=== PATIENT | female | born 1940 | race Caucasian/White ===

== ENCOUNTER 2016-04-23 14:45 | Inpatient (IN) | payer MEDICARE, BC ==
[2016-04-23 16:10] LABS: Hematocrit 28 % (35-47); Hemoglobin 9.2 g/dl (12.0-16.0); Mean Corpuscular HGB Conc 33 g/dl (31-36); Mean Corpuscular Hemoglobin 29 pg (27-31); Mean Corpuscular Volume 88 fL (80-97); Mean Platelet Volume 9 um3 (7.4-10.4); Red Blood Count 3.13 10^6/ul (4.0-5.4); Red Cell Distribution Width 15 % (10.5-15); White Blood Count 4.9 10^3/ul (3.5-10.8)
[2016-04-23 16:24] LABS: Troponin I 0.02 ng/mL (<0.04)
[2016-04-23 16:33] LABS: ALT 5 U/L (7-52); AST 10 U/L (13-39); Albumin 3.8 g/dL (3.2-5.2); Alcohol < 10 mg/dL (<10); Alkaline Phosphatase 41 U/L (34-104); Anion Gap 13 mmol/L (2-11); BUN/Creatinine Ratio 11.8 (8-20); Blood Urea Nitrogen 119 mg/dL (6-24); CO2 Carbon Dioxide 18 mmol/L (22-32); Chloride 96 mmol/L (101-111); EGFR African American 4.8 (>60); EGFR Non-African American 3.8 (>60); Globulin 3.2 g/dL (2-4); Glucose 109 mg/dL (70-100); Potassium 5.6 mmol/L (3.5-5.0); Sodium 127 mmol/L (133-145)
[2016-04-23] MEDS: NS 0.9% 1000 ML* 2,000 ML IV ONE ×2 (16:33→16:34)
[2016-04-23 16:51] LABS: TSH (Thyroid Stimulating Horm) 5.96 mcIU/mL (0.34-5.60)
[2016-04-23 19:25] LABS: Urine Bacteria Absent (Absent); Urine Bilirubin Negative (Negative); Urine Glucose Negative (Negative); Urine Nitrite Negative (Negative)
[2016-04-23] MEDS ORDERED: oxyCODONE/Acetamin 10/325(NF) TAB PO PRN (20:02)
[2016-04-23] MEDS ORDERED: Albuterol HFA INHALER* 8 gm MDI INH PRN (20:02)
[2016-04-23] MEDS ORDERED: Albuterol 2.5 MG/3 ML NEB.SOL* (0.083%) INH PRN (20:06)
[2016-04-23] MEDS ORDERED: NS 0.9% 1000 ML* 1,000 ML IV SCH (20:45)
--- NOTE | 2016-04-23 20:57 | RAD ---
HISTORY: Acute renal failure COMPARISONS: CT dated December 16, 2015 TECHNIQUE: Multiple transverse and longitudinal ultrasound images were obtained of the kidneys using grayscale and color Doppler imaging. FINDINGS: RIGHT KIDNEY: There is right renal cortical parenchymal thinning. The right kidney is somewhat echogenic. There is no hydronephrosis or nephrolithiasis. The right kidney measures 9.3 x 4.5 x 4.3 cm. LEFT KIDNEY: The left kidney is normal in shape, size, contour, and echogenicity. There is no hydronephrosis or nephrolithiasis. The left kidney measures 10.2 x 4 x 4.5 cm. BLADDER: No images are submitted of the bladder. AORTA AND IVC: No images are submitted of the vasculature. RETROPERITONEUM: Unremarkable. OTHER: None. IMPRESSION: NO HYDRONEPHROSIS OR NEPHROLITHIASIS. THE RIGHT KIDNEY IS ATROPHIC AND SOMEWHAT ECHOGENIC SUGGESTIVE OF MEDICAL RENAL DISEASE
[2016-04-23 21:04] LABS: Benzodiazepine Urine Screen None Detected (None Detect)
--- NOTE | 2016-04-23 21:19 | RAD ---
HISTORY: Cough COMPARISONS: December 16, 2015 VIEWS:1: Single frontal portable view of the chest at 9:03 PM FINDINGS: LINES AND TUBES: None. CARDIOMEDIASTINAL SILHOUETTE: The cardiomediastinal silhouette is normal for portable technique. PLEURA: The costophrenic angles are sharp. No pleural abnormalities are noted. LUNG PARENCHYMA: The lungs are clear. ABDOMEN: The upper abdomen is clear. There is no subphrenic gas. BONES AND SOFT TISSUES: No bone or soft tissue abnormalities are noted. IMPRESSION: NO ACTIVE CARDIOPULMONARY DISEASE.
--- NOTE | 2016-04-23 21:44 | ED ---
Josh Ballard Billy, scribed for Christopher Epperson MD on 04/23/16 at 1558 . Altered Mental Status - HPI Summary HPI Summary: Patient is a 76 year-old male coming to [facility] presenting with intermittent episodes of confusion and decreased levels of consciousness for 3 days. Patient was BIBA today because her family said she was not waking up at home. She arrives A&Ox3 wearing a fentanyl patch. She saw Dr. Brooks yesterday and states that he said she was overmedicated. She denies any changes in her medication. She uses oxycodone and fentanyl for joint pain. History obtained from family and patient. - History Of Current Complaint Chief Complaint: EDAltMentalStatus Stated Complaint: SEMI-RESPONSIVE Time Seen by Provider: 04/23/16 15:30 Hx Obtained From: Patient, Family/Care Transition Mgr Onset/Duration: Gradually Timing: Intermittent Severity Initially: Moderate Severity Currently: Moderate Character: Confusion, Responsiveness Aggravating Factor(s): Unknown Alleviating Factor(s): Unknown - Allergies/Home Medications Allergies/Adverse Reactions: Allergies Allergy/AdvReac Type Severity Reaction Status Date / Time Amoxicillin Allergy Anaphylatic Verified 03/17/16 13:41 Shock Iodine Allergy Hives Verified 03/17/16 13:41 Morphine Allergy GI Upset Verified 03/17/16 13:41 Gabapentin AdvReac Intermediate Swelling Verified 03/17/16 13:41 Pregabalin [From Lyrica] AdvReac Edema Verified 03/17/16 13:41 Sulfa Drugs AdvReac Nausea And Verified 03/17/16 13:41 Vomiting PMH/Surg Hx/FS Hx/Imm Hx Endocrine/Hematology History: Reports: Hx Thyroid Disease - hypothyroidism Denies: Hx Diabetes Cardiovascular History: Reports: Hx Hypercholesterolemia, Hx Hypotension, Hx Hypertension, Other Cardiovascular Problems/Disorders - cardiomyopathy Denies: Hx Pacemaker/ICD Respiratory History: Reports: Hx Asthma, Hx Pneumonia, Hx Sleep Apnea GI History: Reports: Hx Gastroesophageal Reflux Disease, Hx Obstructive Bowel History: Denies: Hx Renal Disease Musculoskeletal History: Reports: Hx Arthritis - hands,hips, shoulders, Hx Back Problems, Hx Fibromyalgia, Hx Orthopedic Injury - Fx Pelvis 1960; Rt. Tibia, Fibula,&Ankle Sensory History: Reports: Hx Contacts or Glasses - glasses Denies: Hx Hearing Aid Opthamlomology History: Reports: Hx Contacts or Glasses - glasses Neurological History: Reports: Hx Dementia, Hx Migraine, Other Neuro Impairments /Disorders - PAIN CLINIC PATIENT Psychiatric History: Reports: Hx Anxiety, Hx Depression Denies: Hx Panic Disorder - Surgical History Surgery Procedure, Year, and Place: hysterectomy,ankle replacement,lt knee replacement,gallblader,gastric surgery for gerd. Hx Anesthesia Reactions: No - Immunization History Date of Tetanus Vaccine: unknown Date of Influenza Vaccine: 2014 Infectious Disease History: No Infectious Disease History: Denies: Hx Clostridium Difficile, Hx Hepatitis, Hx Human Immunodeficiency Virus (HIV), Hx of Known/Suspected MRSA, Hx Shingles, Hx Tuberculosis, Hx Known/ Suspected VRE, Hx Known/Suspected VRSA, History Other Infectious Disease, Traveled Outside the [place] in Last 30 Days - Family History Known Family History: Positive: Cardiac Disease - Social History Alcohol Use: None Substance Use Type: Reports: None Substance Use Comment - Amount & Last Used: fentanyl patch and percocet Smoking Status (MU): Never Smoked Tobacco Have You Smoked in the Last Year: No Review of Systems Negative: Fever Neurological: Other - confusion, decreased level of consciousness All Other Systems Reviewed And Are Negative: Yes Physical Exam Triage Information Reviewed: Yes Vital Signs On Initial Exam: Initial Vitals Temp Pulse Resp BP Pulse Ox 98 F 64 18 79/41 95 04/23/16 15:00 04/23/16 15:00 04/23/16 15:00 04/23/16 15:00 04/23/16 15:00 Vital Signs Reviewed: Yes Appearance: Positive: Well-Appearing, No Pain Distress Skin: Positive: Warm, Skin Color Reflects Adequate Perfusion, Dry Head/Face: Positive: Normal Head/Face Inspection Eyes: Positive: VERONICA - 2mm ENT: Positive: Normal ENT inspection Neck: Positive: Supple, Nontender Respiratory/Lung Sounds: Positive: Clear to Auscultation, Breath Sounds Present , Other - periodically bradypnic Cardiovascular: Positive: RRR, Murmur - moderate ejection systolic murmur Musculoskeletal: Positive: Other - pattern of intermittent twitching Neurological: Positive: Other - mildly confused Psychiatric: Positive: Affect/Mood Appropriate - [place] Coma Scale Coma Scale Total: 15 Diagnostics - Vital Signs Vital Signs Temp Pulse Resp BP Pulse Ox 04/23/16 15:00 98 F 64 18 79/41 95 - Laboratory Lab Results: Lab Results 04/23/16 04/23/16 04/23/16 Range/Units 15:05 15:05 15:05 WBC 4.9 (3.5-10.8) 10^3/ul RBC 3.13 L (4.0-5.4) 10^6/ul Hgb 9.2 L (12.0-16.0) g/dl Hct 28 L (35-47) % MCV 88 (80-97) fL MCH 29 (27-31) pg MCHC 33 (31-36) g/dl RDW 15 (10.5-15) % Plt Count 168 (150-450) 10^3/ul MPV 9 (7.4-10.4) um3 Neut % (Auto) 48.2 (38-83) % Lymph % (Auto) 36.8 (25-47) % Glenn % (Auto) 10.0 H (1-9) % Eos % (Auto) 4.2 (0-6) % Baso % (Auto) 0.8 (0-2) % Absolute Neuts (auto) 2.4 (1.5-7.7) 10^3/ul Absolute Lymphs (auto) 1.8 (1.0-4.8) 10^3/ul Absolute Monos (auto) 0.5 (0-0.8) 10^3/ul Absolute Eos (auto) 0.2 (0-0.6) 10^3/ul Absolute Basos (auto) 0 (0-0.2) 10^3/ul Absolute Nucleated RBC 0 10^3/ul Nucleated RBC % 0.1 Sodium 127 L (133-145) mmol/L Potassium 5.6 H (3.5-5.0) mmol/L Chloride 96 L (101-111) mmol/L Carbon Dioxide 18 L (22-32) mmol/L Anion Gap 13 H (2-11) mmol/L BUN 119 H (6-24) mg/dL Creatinine 10.07 H (0.51-0.95) mg/dL Est GFR ( Amer) 4.8 (>60) Est GFR (Non-Af Amer) 3.8 (>60) BUN/Creatinine Ratio 11.8 (8-20) Glucose 109 H (70-100) mg/dL Lactic Acid 0.7 (0.5-2.0) mmol/L Calcium 9.0 (8.6-10.3) mg/dL Total Bilirubin 0.30 (0.2-1.0) mg/dL AST 10 L (13-39) U/L ALT 5 L (7-52) U/L Alkaline Phosphatase 41 (34-104) U/L Troponin I 0.02 (<0.04) ng/mL Total Protein 7.0 (6.4-8.9) g/dL Albumin 3.8 (3.2-5.2) g/dL Globulin 3.2 (2-4) g/dL Albumin/Globulin Ratio 1.2 (1-3) TSH 5.96 H (0.34-5.60) mcIU/mL Urine Color Urine Appearance Urine pH (5-9) Ur Specific [place] (1.010-1.030) Urine Protein (Negative) Urine Ketones (Negative) Urine Blood (Negative) Urine Nitrate (Negative) Urine Bilirubin (Negative) Urine Urobilinogen (Negative) Ur Leukocyte Esterase (Negative) Urine WBC (Auto) (Absent) Urine RBC (Auto) (Absent) Ur Squamous Epith Cells (Absent) Ur Transition Epith Cell (Absent) Urine Bacteria (Absent) Hyaline Casts (Absent) Urine Glucose (Negative) Serum Alcohol < 10 (<10) mg/dL 04/23/16 Range/Units 19:02 WBC (3.5-10.8) 10^3/ul RBC (4.0-5.4) 10^6/ul Hgb (12.0-16.0) g/dl Hct (35-47) % MCV (80-97) fL MCH (27-31) pg MCHC (31-36) g/dl RDW (10.5-15) % Plt Count (150-450) 10^3/ul MPV (7.4-10.4) um3 Neut % (Auto) (38-83) % Lymph % (Auto) (25-47) % Glenn % (Auto) (1-9) % Eos % (Auto) (0-6) % Baso % (Auto) (0-2) % Absolute Neuts (auto) (1.5-7.7) 10^3/ul Absolute Lymphs (auto) (1.0-4.8) 10^3/ul Absolute Monos (auto) (0-0.8) 10^3/ul Absolute Eos (auto) (0-0.6) 10^3/ul Absolute Basos (auto) (0-0.2) 10^3/ul Absolute Nucleated RBC 10^3/ul Nucleated RBC % Sodium (133-145) mmol/L Potassium (3.5-5.0) mmol/L Chloride (101-111) mmol/L Carbon Dioxide (22-32) mmol/L Anion Gap (2-11) mmol/L BUN (6-24) mg/dL Creatinine (0.51-0.95) mg/dL Est GFR ( Amer) (>60) Est GFR (Non-Af Amer) (>60) BUN/Creatinine Ratio (8-20) Glucose (70-100) mg/dL Lactic Acid (0.5-2.0) mmol/L Calcium (8.6-10.3) mg/dL Total Bilirubin (0.2-1.0) mg/dL AST (13-39) U/L ALT (7-52) U/L Alkaline Phosphatase (34-104) U/L Troponin I (<0.04) ng/mL Total Protein (6.4-8.9) g/dL Albumin (3.2-5.2) g/dL Globulin (2-4) g/dL Albumin/Globulin Ratio (1-3) TSH (0.34-5.60) mcIU/mL Urine Color Yellow Urine Appearance Cloudy Urine pH 5.0 (5-9) Ur Specific [place] 1.013 (1.010-1.030) Urine Protein Negative (Negative) Urine Ketones Negative (Negative) Urine Blood 3+ H (Negative) Urine Nitrate Negative (Negative) Urine Bilirubin Negative (Negative) Urine Urobilinogen Negative (Negative) Ur Leukocyte Esterase 3+ H (Negative) Urine WBC (Auto) 2+(11-20/hpf) H (Absent) Urine RBC (Auto) 1+(3-5/hpf) H (Absent) Ur Squamous Epith Cells Present H (Absent) Ur Transition Epith Cell Present H (Absent) Urine Bacteria Absent (Absent) Hyaline Casts Present H (Absent) Urine Glucose Negative (Negative) Serum Alcohol (<10) mg/dL Result Diagrams: 04/23/16 15:05 04/23/16 15:05 Lab Statement: Any lab studies that have been ordered have been reviewed, and results considered in the medical decision making process. Re-Evaluation - Re-Evaluation First Eval Re-Evaluation Time: 17:40 Comment: Bladderscan shows no residual urine. Altered Mental Statu Course/Dx - Course Course Of Treatment: Ms. morley presented with lethargy and confusion and an intermittent twitch. She was found to be in acute renal failure and admitted to the hospitalist. - Diagnoses Discharge Diagnoses: Acute renal failure Discharge - Discharge Plan Condition: Stable Disposition: ADMITTED TO [facility] documentation as recorded by the Josh wisdom Billy accurately reflects the service I personally performed and the decisions made by me, Christopher Epperson MD.
[2016-04-23] MEDS: Heparin VIAL(*) 5000 UNITS/ML VIAL (FIVE THOUSAND) SUBCUT SCH (21:58)
[2016-04-23] MEDS ORDERED: cefTRIAXone(*) 1 GM in NS 0.9% 50 ML* 50 ML IVPB ONE (22:00)
[2016-04-23 23:31] LABS: Hematocrit 27 % (35-47); Hemoglobin 8.7 g/dl (12.0-16.0); Mean Corpuscular HGB Conc 33 g/dl (31-36); Mean Corpuscular Hemoglobin 29 pg (27-31); Mean Corpuscular Volume 89 fL (80-97); Mean Platelet Volume 9 um3 (7.4-10.4); Red Blood Count 2.99 10^6/ul (4.0-5.4); Red Cell Distribution Width 15 % (10.5-15); White Blood Count 4.1 10^3/ul (3.5-10.8)
[2016-04-23 23:36] LABS: BUN/Creatinine Ratio 13.5 (8-20); Calcium 8.3 mg/dL (8.6-10.3); EGFR African American 6.2 (>60); EGFR Non-African American 4.8 (>60); Potassium 5.2 mmol/L (3.5-5.0)
[2016-04-24 00:36] LABS: PCO2 Arterial 37 mmHg (35-45)
[2016-04-24] MEDS ORDERED: NS 0.9% 1000 ML* 1,000 ML IV ONE (00:44)
[2016-04-24] MEDS ORDERED: Sodium Bicarbonate 8.4% IV* 50 ML VIAL IV ONE (00:44)
--- NOTE | 2016-04-24 01:43 | HP ---
HISTORY AND PHYSICAL: DATE OF ADMISSION: 04/23/16 PROVIDER: Jose Miguel Haq NP ATTENDING PHYSICIAN: Dr. Walter Denton* (report dictated by Jose Miguel Haq NP). PRIMARY CARE PROVIDER: Dr. Brooks/Chantal Cobb NP. CHIEF COMPLAINT: Altered mental status. HISTORY OF PRESENT ILLNESS: Ms. Mcfadden is a 76-year-old female with a past medical history of obesity; hypertension; hypothyroidism; chronic pain, on fentanyl patch; asthma; history of Takotsubo cardiomyopathy, who presents to the emergency department today by ambulance for 3 days of intermittent episodes of confusion and decreased level of consciousness. The information comes from the patient herself but mostly from her daughter, Jose, who accompanies her to the emergency department. The patient currently lives with her daughter, Jose. Jose reports that 3 days ago, the patient had an episode where she could not speak or open her eyes, but was responding to some verbal and physical stimuli. They called the ambulance and when the ambulance arrived, the patient was back to her baseline without any deficits and the patient was left at home and was not evaluated in the emergency department. Per daughter, the patient the last 2 days has been in her normal state of health and then today, the patient had another similar episode where she was found with her eyes closed, noted to be confused, would not open her eyes but when asked if she was in pain, she did respond no. The daughter reports that each of these episodes last around 30 minutes and the patient returned back to her baseline. She has also noticed that she has had some twitching in her upper and lower extremities which is new for her. Today, in the emergency department, she was found to have a creatinine of 10.07 and a BUN of 119 which is new for the patient. The last BUN and creatinine we have is from 02/11/16 which was 16 and 1.47. The patient reports that she has had decreased urination today but has been urinating normally prior to today. She denies any dysuria or hematuria. Denies flank pain. She denies any new medication and denies NSAID use. Denies any recent illnesses. Denies any recent falls. In the emergency department, the patient reports that she feels that she is at her baseline. Per daughter, she confirms this but does note that she has some twitching which has been abnormal over the last several days. The daughter reports that since the spring, the patient has had intermittent confusion where patient will be normal one minute and then confused the next, and return to be normal again. It was thought that the patient has had developing dementia. The patient reports that she does get steroid injections every month at the pain clinic in her L4-L5 back. Last steroid injection was 03/17/16. Currently, in the emergency department, the patient denies shortness of breath or chest pain. No nausea, vomiting, diarrhea, or abdominal pain. The patient reports she feels she is at her baseline. Please note, the patient is a poor historian. PAST MEDICAL HISTORY: 1. Takotsubo cardiomyopathy in August 2015. 2. Hypertension. 3. Hyperlipidemia. 4. Hypothyroidism. 5. Fibromyalgia. 6. Asthma. 7. GERD. 8. Obstructive sleep apnea. 9. Chronic pain, on fentanyl patch. 10. Hospitalization from 12/16/15 to 12/19/15 for altered mental status secondary to unclear cough, possible fentanyl overdose or withdrawal. HOME MEDICATIONS: 1. Percocet 10/325 mg 1 tab p.o. four times a day p.r.n. 2. Probiotic 1 tab p.o. daily. 3. Fentanyl patch 75 mcg/hour transderm q.48 hours. 4. Synthroid 100 mcg p.o. daily. 5. Flexeril 10 mg p.o. b.i.d. p.r.n. 6. Bumex 1 mg p.o. b.i.d. 7. Albuterol HFA inhaler 2 puffs INH q.4 hours p.r.n. 8. Xanax 0.25 mg/0.5 mg p.o. at bedtime p.r.n. 9. Metoprolol succinate XL 50 mg p.o. daily. 10. Lisinopril/hydrochlorothiazide 10/12.5 mg p.o. daily. 11. Flonase 50 mcg 2 sprays both nares daily. 12. Lexapro 20 mg p.o. daily. 13. Aldactone 25 mg p.o. daily. 14. Prilosec 40 mg p.o. daily. ALLERGIES: AMOXICILLIN, anaphylactic shock; IODINE, hives; MORPHINE, GI upset; GABAPENTIN, swelling; PREGABALIN, edema; SULFA DRUGS, nausea, vomiting. FAMILY HISTORY: Her sister has a history of diabetes and renal failure. The patient's mother and father had a history of coronary artery disease. SOCIAL HISTORY: The patient denies any history of tobacco use or alcohol use. She currently lives with her daughter, Jose. Her daughter, Jose, is her healthcare proxy. She has 3 grown children. REVIEW OF SYSTEMS: A 14-point review of systems was performed. All the pertinent positives and negatives are mentioned in the history of present illness. All the remaining systems are negative. PHYSICAL EXAMINATION GENERAL APPEARANCE: A 76-year-old female alert and oriented x3, in no acute distress, sitting in the emergency department stretcher. Appears chronically ill, obese. VITAL SIGNS: Temperature 98.0, heart rate 68, respirations 20, O2 sat 97% on room air, blood pressure 88/58. HEENT: Head is normocephalic, atraumatic. Pupils are equal and reactive to light. Oropharynx is clear. Moist mucous membranes. Good dentition. NECK: Supple. No cervical or supraclavicular lymphadenopathy. RESPIRATORY: Lungs are clear to auscultation bilaterally. Good aeration throughout. No accessory muscle use. CARDIAC: S1, S2. Grade 2/6 systolic murmur heard best at the left sternal border. No lower extremity noted. 1 to 2+ DP pulses bilaterally. ABDOMEN: Obese, soft, nontender, nondistended. Normal bowel sounds. MUSCULOSKELETAL: No clubbing or cyanosis noted. EXTREMITIES: Full range of motion in all extremities. Strength is 4/5 throughout. NEUROLOGIC: Cranial nerves II through XII were grossly intact. Sensation to lower extremities intact to light touch. No pronator drift. Tongue is midline. No facial droop. PSYCH: Alert and oriented x3, poor historian. SKIN: No rashes, lesions, or open wounds noted. Warm, pink, and dry. DIAGNOSTIC STUDIES/LAB DATA: Sodium 127, potassium 5.6, chloride 96, carbon dioxide 18, anion gap 13, BUN 119, creatinine 10.07, glucose 109, lactic acid 0.7, calcium 9.0. Total bilirubin 0.30, AST 10, ALT 5, alkaline phosphatase 41. Troponin 0.02. Total protein 7.0, albumin 3.8. TSH 5.96. WBC is 4.9, RBC 3.13, Hgb 9.2, Hct 28, MCV 88, MCH 29, MCHC 33, RDW 15, platelet count 168. Urinalysis: 3+ blood; 3+ leukocyte esterase; 2+ wbc's; 1+ rbc; squamous epithelial cells present, high; hyaline cast present, high. Toxicology: Serum alcohol less than 10. ASSESSMENT AND PLAN: Ms. Mcfadden is a 76-year-old female with a past medical history of Takotsubo cardiomyopathy with a last known ejection fraction of 35% to 40%; chronic pain, followed by the pain clinic, on a fentanyl patch; hypothyroidism; hypertension; obstructive sleep apnea; asthma, who presents to the emergency department today with reported intermittent altered mental status x3 days, found to be in acute renal failure. 1. Acute renal failure. Unclear etiology. The patient is currently back to her baseline mentally, suspect this is secondary to uremic encephalopathy. Her neuro exam was within normal limits. Unclear as to why the patient has an acute renal failure. Her creatinine on admission today is 10.07, her baseline appears to be around 1.20 to 1.47. It is possible this is prerenal as the patient is on three diuretics and initially in the emergency department did receive 2 L of normal saline upon arrival due to low blood pressure and per patient afterwards, she urinated for the first time since yesterday. No obvious medications or report of new medications. We will obtain renal ultrasound to assess for obstruction. Plan to place Chung catheter with strict I's and O's. It is possible she has a urinary tract infection. She does have an abnormal urinalysis. No signs of sepsis. Will treat for urinary tract infection, send blood and urine cultures. Will add on urine drug tox screen. No need for emergent dialysis at this time but she may need dialysis tomorrow. She does not appear to be fluid overloaded, her anion gap is mildly elevated and electrolytes are not critical. The patient actually appears dry on exam, plan to give the patient gentle normal saline overnight and recheck labs in the morning. The patient is hypotensive with blood pressures systolically in the 60 -'s- 80s. She responded to fluid in the emergency department in [facility] she was given 2L NS on arrival. In the emergency department, Dr. Epperson spoke to farmworkers, Dr. Dueñas, who will see the patient in consultation tomorrow. As well with the patient's history of cardiomyopathy, will obtain an echocardiogram tomorrow. Will send urine for FENa calculation. 2. Hyponatremia. Looking back at the patient's history, it appears that she has a history of hyponatremia. We will recheck labs in the morning. 3. Hypothyroidism. Continue Synthroid. 4. Cardiomyopathy. The patient does not appear to be in failure. Last echo was from August 2015 showing an ejection fraction of 35% to 40%. Will hold metoprolol and Bumex due to low blood pressures. 5. Hypertension. Again, we will hold home agents due to low blood pressures. 6. Chronic pain. I will continue fentanyl patch at this time. The patient does not appear to be overly sedated. Continue Percocet and fentanyl patch. The patient does not appear to be overly sedated at this time. 7. Asthma. Albuterol p.r.n. 8. DVT prophylaxis. Heparin subcu. 9. Code status. Full code. 10. Hospital status. Inpatient with acute renal failure. Admit to ICU. TIME SPENT: Approximately 75 minutes was spent on this admission. This case was discussed with attending physician, Dr. Denton, who agrees with the plan of care. JOSE MIGUEL HAQ, AIME [id number]/[facility] #: [id number] KEVIN
--- NOTE | 2016-04-24 04:44 | PN ---
Progress Note - Progress Note Note: Notified by nursing SBPS down to 60s overnight. ABG indicates metabolic acidosis c/w known renal failure. Received 100meq bicarb as IV push and 2 liters crystalloid bolus. Urine output increased dramatically. UOP 300 cc in last 2 hours after boluses. NS increased from 125cc to 250cc with goal net positive fluid balance. SBPs now in 80s Pt has remained asymptomatic, now sleeping comfortably, lungs clear.
[2016-04-24 05:08] LABS: Hematocrit 24 % (35-47); Mean Corpuscular HGB Conc 33 g/dl (31-36); Mean Corpuscular Hemoglobin 29 pg (27-31); Mean Corpuscular Volume 87 fL (80-97); Mean Platelet Volume 8 um3 (7.4-10.4); Red Blood Count 2.77 10^6/ul (4.0-5.4); Red Cell Distribution Width 15 % (10.5-15); White Blood Count 3.2 10^3/ul (3.5-10.8)
[2016-04-24 05:09] LABS: Comments Flag Yes
[2016-04-24 05:10] LABS: Add Diff/Slide Review? Slide Review Added
[2016-04-24 05:19] LABS: BUN/Creatinine Ratio 14.9 (8-20); Calcium 8.1 mg/dL (8.6-10.3); EGFR African American 7.9 (>60); EGFR Non-African American 6.1 (>60); Magnesium 1.2 mg/dL (1.9-2.7); Phosphorus 5.8 mg/dL (2.5-5.0); Potassium 4.6 mmol/L (3.5-5.0)
[2016-04-24] MEDS: Levothyroxine TAB* 100 MCG TAB PO SCH (05:50)
[2016-04-24] MEDS: Heparin VIAL(*) 5000 UNITS/ML VIAL (FIVE THOUSAND) SUBCUT SCH ×3 (05:50→23:49)
[2016-04-24] MEDS: NS 0.9% 1000 ML* 1,000 ML IV SCH ×4 (06:58→16:06)
[2016-04-24] MEDS ORDERED: fentaNYL Patch Check Q Shift 1 NOTE SCH (07:00)
[2016-04-24] MEDS: CMCS: Escitalopram (NF) 10 MG TAB PO SCH (08:45)
[2016-04-24] MEDS: Omeprazole CAP* 20 MG PO SCH (08:45)
[2016-04-24] MEDS ORDERED: Magnesium Sulfate 2 GM IV* 2 GM/50 ML BAG IVPB ONE ×2 (12:00→17:19)
--- NOTE | 2016-04-24 12:59 | ECHO ---
Patient: CINDY BEAL [facility] Rec#: [id number] : 1940 Date: 04/24/2016 Age: 76y Height: 167.6 cm / 66.0 in Weight: 85.3 kg / 188.0 lbs Sex: F BSA: 1.95 Room#: ICU 10 Admit Date#: 04/23/2016 Type: Inpatient Referring: Rebecca Frost Reading: Iain Adams MD Production Recorder: Tara Wright RN RDCS CC: Chantal Cobb, AIME Transthoracic Echocardiogram Indication: Hypotension, acute renal failure BP: 89/55 HR: 66 Rhythm: NSR Findings History: HTN, HLD, thyroid disease, asthma, Takotsubo cardiomyopathy 08/2015, chronic pain, obesity, currently with acute renal failure Technical Comments: The study quality is fair. The study is technically limited due to poor acoustic windows. Completed at 1125. Left Ventricle: The left ventricular chamber size is normal. Mild concentric left ventricular hypertrophy is observed. Global left ventricular wall motion and contractility are within normal limits. There is normal left ventricular systolic function. The estimated ejection fraction is 55-60%. There is septal flattening of the interventricular septum consistent with right ventricular volume or pressure overload. The assessment of diastolic function is non-diagnostic. The patient was unable to perform a Valsalva maneuver. Left Atrium: The left atrium is mildly dilated. Right Ventricle: The right ventricular cavity size is normal. The right ventricular global systolic function is normal. Right Atrium: The right atrium is mildly dilated. Aortic Valve: The aortic valve leaflets are mildly thickened. Systolic excursion of the aortic valve cusps is reduced. There is no evidence of aortic regurgitation. There is mild aortic stenosis. The mean gradient of the aortic valve is 14 mmHg. The peak instantaneous gradient of the aortic valve is 24 mmHg. The aortic valve area, by peak velocities, is calculated at 1.7 cm2. The aortic valve area, by VTI's, is calculated at 1.6 cm2. The highest aortic valve velocity was obtained with the standard probe from the A5C view. Mitral Valve: There is mitral annular calcification. The mitral valve leaflets are mildly thickened. There is trace to mild mitral regurgitation. There is mild mitral stenosis. The mean gradient across the mitral valve is 4.3 mmHg. The mitral valve area, by pressure half time, is calculated at 1.8 cm2. Tricuspid Valve: The tricuspid valve leaflets are normal. There is trace tricuspid regurgitation. Unable to estimate the right ventricular systolic pressure. Pulmonic Valve: The pulmonic valve structure is not well visualized. Pericardium: There is no significant pericardial effusion. A pericardial fat pad is visualized. Aorta: The ascending aorta is not well visualized. There is no dilatation of the aortic arch. The aortic root is normal in size. Pulmonary Artery: The main pulmonary artery is not well visualized. Venous: The inferior vena cava is dilated. There is less than 50% respiratory change in the inferior vena cava dimension. Summary: There are changes noted when compared to the previous study done on 09/22/2015 there is interval LV EF improvement from 35-40% then. Conclusions The left ventricular chamber size is normal. Mild concentric left ventricular hypertrophy is observed. The estimated ejection fraction is 55-60%. There is septal flattening of the interventricular septum consistent with right ventricular volume or pressure overload. The left atrium is mildly dilated. The right atrium is mildly dilated. There is mild aortic stenosis. There is trace to mild mitral regurgitation. There is mild mitral stenosis. There is trace tricuspid regurgitation. There are changes noted when compared to the previous study done on 09/22/2015 there is interval LV EF improvement from 35-40% then. Measurements Name Value Normal Range RVDdMajor (2D) 3.7 cm (2.2 - 4.4) RAd ISD 4CH 4.8 cm (3.4 - 4.9) RA (A4C)W 4.9 cm (2.9 - 4.6) IVSd (2D) 1.2 cm (0.6 - 1) LVPWd (2D) 1.2 cm (0.6 - 1) LVIDd (2D) 3.7 cm (3.6 - 5.4) LVIDs (2D) 2.9 cm - LV FS (2D) 21 % (25 - 45) Aortic Annulus 2 cm (1.4 - 2.6) Ao root diameter (2D) 3.2 cm (2.1 - 3.5) Aortic arch 2.5 cm (1.8 - 3.4) LA dimension (AP) 2D 3.4 cm (2.3 - 3.8) LAd ISD 4CH 5.5 cm (2.9 - 5.3) LA ISD 4CH W 4.4 cm (2.5 - 4.5) Name Value Normal Range LA ESV SP 4CH (A/L) 71 ml - LA ESV SP 2CH (A/L) 77 ml - LA ESV BP (A/L) 75 ml - LA ESV BP (A/L) index 38 ml/m2 - LA ESV SP 4CH (MOD) 67 ml - LA ESV SP 2CH (MOD) 71 ml - Name Value Normal Range MV E-wave Vmax 1.5 m/sec - MV deceleration time 419 msec - MV A-wave Vmax 1.4 m/sec - MV E:A ratio 1 ratio - LV septal e' Vmax 0.08 m/sec - LV lateral e' Vmax 0.1 m/sec - LV E:e' septal ratio 18.8 ratio - LV E:e' lateral ratio 15 ratio - Name Value Normal Range AV Vmax 2.5 m/sec - AV VTI 65.3 cm - AV peak gradient 24 mmHg - AV mean gradient 14 mmHg - LVOT diameter 1.9 cm - LVOT Vmax 1.5 m/sec - LVOT VTI 37.5 cm - FLY (continuity Vmax) 1.7 cm2 - FLY (continuity VTI) 1.6 cm2 - NATHANIEL Vmax 1.1 m/sec - Name Value Normal Range MV Vmax 1.7 m/sec - MV VTI 62.7 cm - MV peak gradient 11.6 mmHg - MV mean gradient 4.3 mmHg - MV PHT 126 msec - MVA (PHT) 1.8 cm2 - MVA (continuity VTI) 1.7 cm2 - Name Value Normal Range IVC diameter 3 cm - Name Value Normal Range PV Vmax 1.3 m/sec -
--- NOTE | 2016-04-24 15:17 | PN ---
Subjective Date of Service: 04/24/16 Interval History: Mrs Mcfadden is seen lying in bed in ICU 10. She is pleasant and denies complaints. Her daughter is present and confirms that she has not been taking PO well recently. Additionally, despite her having baseline chronic BLE edema she currently has none. Objective Active Medications: Albuterol (Ventolin Hfa Inhaler*) 2 puff INH Q4H PRN PRN Reason: SOB/WHEEZING Last Admin: 04/23/16 23:12 Dose: 2 puff Albuterol (Ventolin 2.5 Mg/3 Ml Neb.Sasha*) 2.5 mg INH Q4H PRN PRN Reason: SOB/WHEEZING Escitalopram Oxalate (Lexapro (Nf)) 20 mg PO DAILY [facility] Last Admin: 04/24/16 08:45 Dose: 20 mg Fentanyl (Duragesic Patch 75 Mcg/Hr*) 75 mcg TRANSDERM Q48HR [facility] Heparin Sodium (Porcine) (Heparin Vial(*)) 5,000 units SUBCUT Q8HR [facility] Last Admin: 04/24/16 14:11 Dose: 5,000 units Sodium Chloride (Ns 0.9% 1000 Ml*) 1,000 mls @ 150 mls/hr IV PER RATE [facility] Last Admin: 04/24/16 11:04 Dose: 150 mls/hr Sodium Chloride (Ns 0.9% 1000 Ml*) 1,000 mls @ 250 mls/hr IV PER RATE [facility] Stop: 04/25/16 08:44 Last Admin: 04/24/16 06:58 Dose: 250 mls/hr Levothyroxine Sodium (Synthroid Tab*) 100 mcg PO DAILY@0600 [facility] Last Admin: 04/24/16 05:50 Dose: 100 mcg Omeprazole (Prilosec Cap*) 40 mg PO DAILY@0730 [facility] Last Admin: 04/24/16 08:45 Dose: 40 mg Oxycodone HCl (Roxycodone Tab*) 5 mg PO QID PRN PRN Reason: PAIN Oxycodone/Acetaminophen (Percocet 5/325 Tab*) 1 tab PO QID PRN PRN Reason: PAIN Pharmacy Profile Note (Fentanyl Patch Check Q Shift) 1 note N/A 0700,1900 [facility] Last Admin: 04/24/16 06:04 Dose: Not Given Vital Signs Temp 37.0 C 04/24/16 13:00 Pulse 68 12/30/16 14:03 Resp 18 04/24/16 14:04 BP 78/64 04/24/16 14:03 Pulse Ox 98 04/24/16 14:03 Intake & Output 04/23/16 04/24/16 04/24/16 23:59 11:59 23:59 Intake Total 1999 3305 2603 Output Total 500 1350 2278 Balance 1500 1955 325 Weight 217 lb 2.485 oz 221 lb 1.978 oz Intake: IV Fluids 1999 2840 2002 LR 1000 NS 1840 2002 IVPB 55 ABX - CEFTRIAXONE 55 Oral 410 600 Output: Chung 350 1350 2278 Residual 150 Chung 16 Fr Temperature 150 Probe Oxygen Devices in Use Now: Nasal Cannula Eyes: No Scleral Icterus Ears/Nose/Mouth/Throat: - - mucosa dry Neck: Trachea Midline Respiratory: Symmetrical Chest Expansion and Respiratory Effort, Clear to Auscultation Cardiovascular: NL Sounds; No Murmurs; No JVD, RRR Abdominal: NL Sounds; No Tenderness; No Distention Lymphatic: No Cervical Adenopathy Extremities: No Edema Skin: No Rash or Ulcers Neurological: Alert and Oriented x 3 Result Diagrams: 04/24/16 04:50 04/24/16 04:50 Additional Lab and Data: Laboratory Results - last 24 hr 04/23/16 04/23/16 04/23/16 15:05 15:05 15:05 WBC 4.9 RBC 3.13 L Hgb 9.2 L Hct 28 L MCV 88 MCH 29 MCHC 33 RDW 15 Plt Count 168 MPV 9 Neut % (Auto) 48.2 Lymph % (Auto) 36.8 [place] % (Auto) 10.0 H Eos % (Auto) 4.2 Baso % (Auto) 0.8 Absolute Neuts (auto) 2.4 Absolute Lymphs (auto) 1.8 Absolute Monos (auto) 0.5 Absolute Eos (auto) 0.2 Absolute Basos (auto) 0 Absolute Nucleated RBC 0 Nucleated RBC % 0.1 Patient Temperature ABG pH ABG pCO2 ABG pO2 ABG HCO3 ABG O2 Saturation ABG Base Excess Respiration Rate O2 Delivery Device Ventilator Type Vent Mode FiO2 Inspiratory Time PEEP Pressure Support Pressure Control EPAP IPAP BiPAP Sodium 127 L Potassium 5.6 H Chloride 96 L Carbon Dioxide 18 L Anion Gap 13 H BUN 119 H Creatinine 10.07 H Est GFR ( Amer) 4.8 Est GFR (Non-Af Amer) 3.8 BUN/Creatinine Ratio 11.8 Glucose 109 H Lactic Acid 0.7 Calcium 9.0 Phosphorus Magnesium Total Bilirubin 0.30 AST 10 L ALT 5 L Alkaline Phosphatase 41 Troponin I 0.02 Total Protein 7.0 Albumin 3.8 Globulin 3.2 Albumin/Globulin Ratio 1.2 TSH 5.96 H Cortisol Urine Color Urine Appearance Urine pH Ur Specific [place] Urine Protein Urine Ketones Urine Blood Urine Nitrate Urine Bilirubin Urine Urobilinogen Ur Leukocyte Esterase Urine WBC (Auto) Urine RBC (Auto) Ur Squamous Epith Cells Ur Transition Epith Cell Urine Bacteria Hyaline Casts Ur Random Creatinine Ur Random Sodium Urine Glucose Urine Opiates Screen Ur Barbiturates Screen Ur Phencyclidine Scrn Ur Amphetamines Screen U Benzodiazepines Scrn Urine Cocaine Screen U Cannabinoids Screen Serum Alcohol < 10 Group A Strep Rapid 04/23/16 04/23/16 04/23/16 19:02 20:38 20:38 WBC RBC Hgb Hct MCV MCH MCHC RDW Plt Count MPV Neut % (Auto) Lymph % (Auto) [place] % (Auto) Eos % (Auto) Baso % (Auto) Absolute Neuts (auto) Absolute Lymphs (auto) Absolute Monos (auto) Absolute Eos (auto) Absolute Basos (auto) Absolute Nucleated RBC Nucleated RBC % Patient Temperature ABG pH ABG pCO2 ABG pO2 ABG HCO3 ABG O2 Saturation ABG Base Excess Respiration Rate O2 Delivery Device Ventilator Type Vent Mode FiO2 Inspiratory Time PEEP Pressure Support Pressure Control EPAP IPAP BiPAP Sodium Potassium Chloride Carbon Dioxide Anion Gap BUN Creatinine Est GFR ( Amer) Est GFR (Non-Af Amer) BUN/Creatinine Ratio Glucose Lactic Acid Calcium Phosphorus Magnesium Total Bilirubin AST ALT Alkaline Phosphatase Troponin I Total Protein Albumin Globulin Albumin/Globulin Ratio TSH Cortisol Urine Color Yellow Urine Appearance Cloudy Urine pH 5.0 Ur Specific [place] 1.013 Urine Protein Negative Urine Ketones Negative Urine Blood 3+ H Urine Nitrate Negative Urine Bilirubin Negative Urine Urobilinogen Negative Ur Leukocyte Esterase 3+ H Urine WBC (Auto) 2+(11-20/hpf) H Urine RBC (Auto) 1+(3-5/hpf) H Ur Squamous Epith Cells Present H Ur Transition Epith Cell Present H Urine Bacteria Absent Hyaline Casts Present H Ur Random Creatinine 217.29 Ur Random Sodium 35 Urine Glucose Negative Urine Opiates Screen Presumptive positive H Ur Barbiturates Screen None detected Ur Phencyclidine Scrn None detected Ur Amphetamines Screen None detected U Benzodiazepines Scrn None detected Urine Cocaine Screen None detected U Cannabinoids Screen None detected Serum Alcohol Group A Strep Rapid 04/23/16 04/23/16 04/24/16 23:12 23:12 00:24 WBC 4.1 RBC 2.99 L Hgb 8.7 L Hct 27 L MCV 89 MCH 29 MCHC 33 RDW 15 Plt Count 153 MPV 9 Neut % (Auto) 46.8 Lymph % (Auto) 37.9 [place] % (Auto) 9.9 H Eos % (Auto) 4.6 Baso % (Auto) 0.8 Absolute Neuts (auto) 1.9 Absolute Lymphs (auto) 1.5 Absolute Monos (auto) 0.4 Absolute Eos (auto) 0.2 Absolute Basos (auto) 0 Absolute Nucleated RBC 0 Nucleated RBC % 0 Patient Temperature Not Reportable ABG pH 7.25 L ABG pCO2 37 ABG pO2 81 ABG HCO3 17.0 L ABG O2 Saturation 98.9 H ABG Base Excess -10.2 L Respiration Rate Not Reportable O2 Delivery Device Ra Ventilator Type Not Reportable Vent Mode Not Reportable FiO2 Not Reportable Inspiratory Time Not Reportable PEEP Not Reportable Pressure Support Not Reportable Pressure Control Not Reportable EPAP Not Reportable IPAP Not Reportable BiPAP Not Reportable Sodium 130 L Potassium 5.2 H Chloride 102 Carbon Dioxide 14 L* Anion Gap 14 H BUN 109 H Creatinine 8.10 H Est GFR ( Amer) 6.2 Est GFR (Non-Af Amer) 4.8 BUN/Creatinine Ratio 13.5 Glucose 104 H Lactic Acid Calcium 8.3 L Phosphorus Magnesium Total Bilirubin AST ALT Alkaline Phosphatase Troponin I Total Protein Albumin Globulin Albumin/Globulin Ratio TSH Cortisol Urine Color Urine Appearance Urine pH Ur Specific [place] Urine Protein Urine Ketones Urine Blood Urine Nitrate Urine Bilirubin Urine Urobilinogen Ur Leukocyte Esterase Urine WBC (Auto) Urine RBC (Auto) Ur Squamous Epith Cells Ur Transition Epith Cell Urine Bacteria Hyaline Casts Ur Random Creatinine Ur Random Sodium Urine Glucose Urine Opiates Screen Ur Barbiturates Screen Ur Phencyclidine Scrn Ur Amphetamines Screen U Benzodiazepines Scrn Urine Cocaine Screen U Cannabinoids Screen Serum Alcohol Group A Strep Rapid 04/24/16 04/24/16 04/24/16 04:50 04:50 08:47 WBC 3.2 L RBC 2.77 L Hgb 8.0 L Hct 24 L MCV 87 MCH 29 MCHC 33 RDW 15 Plt Count 142 L MPV 8 Neut % (Auto) 41.9 Lymph % (Auto) 41.8 [place] % (Auto) 10.9 H Eos % (Auto) 4.6 Baso % (Auto) 0.8 Absolute Neuts (auto) 1.3 L Absolute Lymphs (auto) 1.3 Absolute Monos (auto) 0.3 Absolute Eos (auto) 0.1 Absolute Basos (auto) 0 Absolute Nucleated RBC 0 Nucleated RBC % 0 Patient Temperature ABG pH ABG pCO2 ABG pO2 ABG HCO3 ABG O2 Saturation ABG Base Excess Respiration Rate O2 Delivery Device Ventilator Type Vent Mode FiO2 Inspiratory Time PEEP Pressure Support Pressure Control EPAP IPAP BiPAP Sodium 133 Potassium 4.6 Chloride 104 Carbon Dioxide 20 L Anion Gap 9 BUN 99 H Creatinine 6.63 H Est GFR ( Amer) 7.9 Est GFR (Non-Af Amer) 6.1 BUN/Creatinine Ratio 14.9 Glucose 108 H Lactic Acid Calcium 8.1 L Phosphorus 5.8 H Magnesium 1.2 L Total Bilirubin AST ALT Alkaline Phosphatase Troponin I Total Protein Albumin Globulin Albumin/Globulin Ratio TSH Cortisol 2.07 Urine Color Urine Appearance Urine pH Ur Specific [place] Urine Protein Urine Ketones Urine Blood Urine Nitrate Urine Bilirubin Urine Urobilinogen Ur Leukocyte Esterase Urine WBC (Auto) Urine RBC (Auto) Ur Squamous Epith Cells Ur Transition Epith Cell Urine Bacteria Hyaline Casts Ur Random Creatinine Ur Random Sodium Urine Glucose Urine Opiates Screen Ur Barbiturates Screen Ur Phencyclidine Scrn Ur Amphetamines Screen U Benzodiazepines Scrn Urine Cocaine Screen U Cannabinoids Screen Serum Alcohol Group A Strep Rapid Negative Microbiology and Other Data: Microbiology 04/24/16 08:35 Group A Streptococcus Rapid Screen - Final Throat Specimen received for Rapid Strep A Molecular testing 04/23/16 21:35 Nasal Screen MRSA (PCR)(DENISSE) - Final Nasal Mrsa Negative Assess/Plan/Problems-Billing Assessment: 76F presenting with severe acute renal failure, presumably pre-renal - Patient Problems (1) Acute renal failure Current Visit: Yes Status: Acute Comment: : appreciate nephrology assistance , if renal function returns to baseline no follow up needed : gentle IVFs 2nd known EF 35-40%, monitor : ICU for persistent hypotension : supportive care (2) Dehydration Current Visit: Yes Status: Acute Code(s): E86.0 - DEHYDRATION SNOMED Code( s): 12197819 Comment: : see above (3) Cardiomyopathy Current Visit: Yes Status: Acute Code(s): I42.9 - CARDIOMYOPATHY, UNSPECIFIED SNOMED Code(s): 80595970 Comment: : EF 35-40%, gentle IVFs & close monitoring (4) HTN (hypertension) Current Visit: Yes Status: Acute Code(s): I10 - ESSENTIAL (PRIMARY) HYPERTENSION SNOMED Code(s): 43103871 Comment: : anti-hypertensives on hold in current situation, monitor closely (5) Chronic pain Current Visit: No Status: Acute Code(s): G89.29 - OTHER CHRONIC PAIN SNOMED Code(s): 73462077 Comment: : continue fentanyl patch 75mcg Q48H (6) Hypothyroid Current Visit: No Status: Acute Code(s): E03.9 - HYPOTHYROIDISM, UNSPECIFIED SNOMED Code(s): 84383998 Comment: : continue levothyroxine Status and Disposition: Inpatient ICU monitoring for persistent hypotension & limited ability to rapidly replace volume due to known EF 35-40%.
[2016-04-24] MEDS: oxyCODONE TAB* 5 MG TAB PO PRN (18:38)
[2016-04-24] MEDS: oxyCODONE/Acetamin 5/325 MG* TAB PO PRN ×2 (18:38→23:59)
[2016-04-25] MEDS: Heparin VIAL(*) 5000 UNITS/ML VIAL (FIVE THOUSAND) SUBCUT SCH ×3 (05:33→21:48)
[2016-04-25] MEDS: Levothyroxine TAB* 100 MCG TAB PO SCH (05:34)
[2016-04-25] MEDS: NS 0.9% 1000 ML* 1,000 ML IV SCH ×2 (05:43→13:58)
[2016-04-25 06:42] LABS: Hematocrit 25 % (35-47); Hemoglobin 8.4 g/dl (12.0-16.0); Mean Corpuscular HGB Conc 34 g/dl (31-36); Mean Corpuscular Hemoglobin 30 pg (27-31); Mean Corpuscular Volume 89 fL (80-97); Mean Platelet Volume 9 um3 (7.4-10.4); Red Blood Count 2.84 10^6/ul (4.0-5.4); Red Cell Distribution Width 15 % (10.5-15)
[2016-04-25 06:53] LABS: BUN/Creatinine Ratio 22.5 (8-20); Calcium 8.9 mg/dL (8.6-10.3); Comments Flag Yes; EGFR African American 24.3 (>60); EGFR Non-African American 18.9 (>60); Magnesium 1.9 mg/dL (1.9-2.7); Potassium 4.3 mmol/L (3.5-5.0)
[2016-04-25] MEDS: Omeprazole CAP* 20 MG PO SCH (08:20)
[2016-04-25] MEDS: CMCS: Escitalopram (NF) 10 MG TAB PO SCH (08:21)
[2016-04-25] MEDS ORDERED: NS 0.9% 1000 ML* 500 ML IV ONE (08:30)
[2016-04-25] MEDS ORDERED: fentaNYL PATCH 75 MCG/HR* 75 MCG TRANSDERM SCH ×2 (09:00)
--- NOTE | 2016-04-25 09:29 | PN ---
Subjective Date of Service: 04/25/16 Interval History: Mrs Mcfadden reports feeling better, but continues with dry mouth which is understandable in her situation. She denies SOB, cough, congestion, palpitations , N/V, F/C, or pain. Objective Active Medications: Albuterol (Ventolin Hfa Inhaler*) 2 puff INH Q4H PRN PRN Reason: SOB/WHEEZING Last Admin: 04/23/16 23:12 Dose: 2 puff Albuterol (Ventolin 2.5 Mg/3 Ml Neb.Sasha*) 2.5 mg INH Q4H PRN PRN Reason: SOB/WHEEZING Escitalopram Oxalate (Lexapro (Nf)) 20 mg PO DAILY [facility] Last Admin: 04/25/16 08:21 Dose: 20 mg Heparin Sodium (Porcine) (Heparin Vial(*)) 5,000 units SUBCUT Q8HR [facility] Last Admin: 04/25/16 05:33 Dose: 5,000 units Sodium Chloride (Ns 0.9% 1000 Ml*) 1,000 mls @ 150 mls/hr IV PER RATE [facility] Last Admin: 04/25/16 05:43 Dose: 150 mls/hr Sodium Chloride (Ns 0.9% 1000 Ml*) 1,000 mls @ 250 mls/hr IV PER RATE [facility] Stop: 04/25/16 08:44 Last Admin: 04/24/16 16:00 Dose: 250 mls/hr Levothyroxine Sodium (Synthroid Tab*) 100 mcg PO DAILY@0600 [facility] Last Admin: 04/25/16 05:34 Dose: 100 mcg Omeprazole (Prilosec Cap*) 40 mg PO DAILY@0730 [facility] Last Admin: 04/25/16 08:20 Dose: 40 mg Oxycodone HCl (Roxycodone Tab*) 5 mg PO QID PRN PRN Reason: PAIN Last Admin: 04/24/16 18:38 Dose: 5 mg Oxycodone/Acetaminophen (Percocet 5/325 Tab*) 1 tab PO QID PRN PRN Reason: PAIN Last Admin: 04/24/16 23:59 Dose: 1 tab Vital Signs Temp 36.7 C 04/25/16 07:00 Pulse 73 04/25/16 08:17 Resp 16 04/25/16 08:17 BP 97/45 04/25/16 07:00 Pulse Ox 95 04/25/16 08:17 Intake & Output 04/24/16 04/24/16 04/25/16 11:59 23:59 11:59 Intake Total 3305 2843 1343 Output Total 1350 3978 1525 Balance 1954 -182 Weight 221 lb 1.978 oz 222 lb 0.088 oz Intake: IV Fluids 2840 2002 1343 LR 1000 NS 1840 2002 1343 IVPB 55 ABX - CEFTRIAXONE 55 Oral 410 840 Output: Chung 1350 3978 1525 Oxygen Devices in Use Now: Nasal Cannula Eyes: No Scleral Icterus Ears/Nose/Mouth/Throat: - - mucosa dry Neck: NL Appearance and Movements; NL JVP, Trachea Midline Respiratory: Symmetrical Chest Expansion and Respiratory Effort, Clear to Auscultation Cardiovascular: NL Sounds; No Murmurs; No JVD, RRR Abdominal: NL Sounds; No Tenderness; No Distention Lymphatic: No Cervical Adenopathy Extremities: No Edema Skin: No Rash or Ulcers Neurological: Alert and Oriented x 3 Result Diagrams: 04/25/16 06:00 04/25/16 06:00 Additional Lab and Data: Laboratory Results - last 24 hr 04/24/16 04/24/16 04/25/16 08:47 16:14 06:00 WBC RBC Hgb Hct MCV MCH MCHC RDW Plt Count MPV Sodium 139 Potassium 4.3 Chloride 111 Carbon Dioxide 23 Anion Gap 5 BUN 56 H Creatinine 2.49 H Est GFR ( Amer) 24.3 Est GFR (Non-Af Amer) 18.9 BUN/Creatinine Ratio 22.5 H Glucose 84 Calcium 8.9 Magnesium 1.6 L 1.9 Group A Strep Rapid Negative 04/25/16 06:00 WBC 3.0 L RBC 2.84 L Hgb 8.4 L Hct 25 L MCV 89 MCH 30 MCHC 34 RDW 15 Plt Count 166 MPV 9 Sodium Potassium Chloride Carbon Dioxide Anion Gap BUN Creatinine Est GFR ( Amer) Est GFR (Non-Af Amer) BUN/Creatinine Ratio Glucose Calcium Magnesium Group A Strep Rapid Microbiology and Other Data: Microbiology 04/24/16 08:35 Group A Streptococcus Rapid Screen - Final Throat Specimen received for Rapid Strep A Molecular testing 04/23/16 21:35 Nasal Screen MRSA (PCR)(DENISSE) - Final Nasal Mrsa Negative Assess/Plan/Problems-Billing Assessment: 76F presenting with severe acute renal failure, presumably pre-renal - Patient Problems (1) Acute renal failure Current Visit: Yes Status: Acute Comment: : appreciate nephrology assistance , if renal function returns to baseline no follow up needed : impressive renal recovery thusfar : continue gentle IVFs 2nd known EF 35-40%, monitor : ICU for persistent hypotension : supportive care (2) Dehydration Current Visit: Yes Status: Acute Code(s): E86.0 - DEHYDRATION SNOMED Code( s): 61173150 Comment: : see above (3) Cardiomyopathy Current Visit: Yes Status: Acute Code(s): I42.9 - CARDIOMYOPATHY, UNSPECIFIED SNOMED Code(s): 08580053 Comment: : EF 35-40%, gentle IVFs & close monitoring (4) HTN (hypertension) Current Visit: Yes Status: Acute Code(s): I10 - ESSENTIAL (PRIMARY) HYPERTENSION SNOMED Code(s): 90530522 Comment: : anti-hypertensives on hold in current situation, monitor closely (5) Chronic pain Current Visit: No Status: Acute Code(s): G89.29 - OTHER CHRONIC PAIN SNOMED Code(s): 18538109 Comment: : CORRECTION: patient has been OFF fentanyl since admission (6) Hypothyroid Current Visit: No Status: Acute Code(s): E03.9 - HYPOTHYROIDISM, UNSPECIFIED SNOMED Code(s): 08239584 Comment: : continue levothyroxine Status and Disposition: Inpatient ICU monitoring for persistent hypotension & limited ability to rapidly replace volume due to known EF 35-40%.
[2016-04-25] MEDS: Ondansetron INJ* 2 MG/ML VIAL IV PRN (10:58)
[2016-04-25] MEDS: oxyCODONE TAB* 5 MG TAB PO PRN (21:45)
[2016-04-25] MEDS: oxyCODONE/Acetamin 5/325 MG* TAB PO PRN (21:46)
[2016-04-25] MEDS ORDERED: HYDROmorphone INJ* 1 MG/ML CARPUJECT SYRINGE IV SLOW PU ONE (23:42)
[2016-04-26] MEDS: Ondansetron INJ* 2 MG/ML VIAL IV PRN (00:02)
[2016-04-26] MEDS: NS 0.9% 1000 ML* 1,000 ML IV SCH ×2 (01:30→11:55)
[2016-04-26] MEDS: oxyCODONE/Acetamin 5/325 MG* TAB PO PRN ×4 (03:39→21:19)
[2016-04-26] MEDS: oxyCODONE TAB* 5 MG TAB PO PRN ×3 (03:39→17:27)
[2016-04-26] MEDS: Levothyroxine TAB* 100 MCG TAB PO SCH (06:42)
[2016-04-26] MEDS: Omeprazole CAP* 20 MG PO SCH (06:42)
[2016-04-26 06:43] LABS: Hematocrit 26 % (35-47); Hemoglobin 8.5 g/dl (12.0-16.0); Mean Corpuscular HGB Conc 33 g/dl (31-36); Mean Corpuscular Hemoglobin 29 pg (27-31); Mean Corpuscular Volume 89 fL (80-97); Mean Platelet Volume 8 um3 (7.4-10.4); Red Blood Count 2.91 10^6/ul (4.0-5.4); Red Cell Distribution Width 15 % (10.5-15); White Blood Count 4.5 10^3/ul (3.5-10.8)
[2016-04-26] MEDS: Heparin VIAL(*) 5000 UNITS/ML VIAL (FIVE THOUSAND) SUBCUT SCH ×3 (06:44→21:18)
[2016-04-26 06:56] LABS: BUN/Creatinine Ratio 20.5 (8-20); Calcium 9.1 mg/dL (8.6-10.3); EGFR African American 43.3 (>60); EGFR Non-African American 33.7 (>60); Potassium 4.2 mmol/L (3.5-5.0)
[2016-04-26] MEDS: CMCS: Escitalopram (NF) 10 MG TAB PO SCH (11:25)
[2016-04-26] MEDS ORDERED: Levothyroxine TAB* 125 MCG TAB PO SCH (14:23)
--- NOTE | 2016-04-26 14:37 | PN ---
Subjective Date of Service: 04/26/16 Interval History: No cough, SOB, or chest pain. No new c/o. Objective Active Medications: Albuterol (Ventolin Hfa Inhaler*) 2 puff INH Q4H PRN PRN Reason: SOB/WHEEZING Last Admin: 04/23/16 23:12 Dose: 2 puff Albuterol (Ventolin 2.5 Mg/3 Ml Neb.Sasha*) 2.5 mg INH Q4H PRN PRN Reason: SOB/WHEEZING Escitalopram Oxalate (Lexapro (Nf)) 20 mg PO DAILY [facility] Last Admin: 04/26/16 11:25 Dose: 20 mg Heparin Sodium (Porcine) (Heparin Vial(*)) 5,000 units SUBCUT Q8HR [facility] Last Admin: 04/26/16 06:44 Dose: 5,000 units Levothyroxine Sodium (Synthroid Tab*) 125 mcg PO DAILY@0600 [facility] Omeprazole (Prilosec Cap*) 40 mg PO DAILY@0730 [facility] Last Admin: 04/26/16 06:42 Dose: 40 mg Ondansetron HCl (Zofran Inj*) 4 mg IV Q6H PRN PRN Reason: NAUSEA Last Admin: 04/26/16 00:02 Dose: 4 mg Oxycodone HCl (Roxycodone Tab*) 5 mg PO QID PRN PRN Reason: PAIN Last Admin: 04/26/16 11:22 Dose: 5 mg Oxycodone/Acetaminophen (Percocet 5/325 Tab*) 1 tab PO QID PRN PRN Reason: PAIN Last Admin: 04/26/16 11:53 Dose: 1 tab Vital Signs 04/25/16 04/25/16 04/25/16 15:00 15:12 15:26 Temperature 99.0 F 98.2 F 98.2 F Pulse Rate 70 77 77 Respiratory 13 18 Rate Blood Pressure 93/45 111/56 111/56 (mmHg) O2 Sat by Pulse 92 94 94 Oximetry 04/25/16 04/25/16 04/25/16 19:53 20:00 20:17 Temperature 98.5 F Pulse Rate 81 74 Respiratory 17 20 14 Rate Blood Pressure 123/57 (mmHg) O2 Sat by Pulse 93 91 Oximetry 04/25/16 04/25/16 04/25/16 21:45 21:46 23:45 Temperature Pulse Rate Respiratory 22 22 20 Rate Blood Pressure (mmHg) O2 Sat by Pulse Oximetry 04/25/16 04/25/16 04/26/16 23:46 23:50 00:02 Temperature 98.3 F Pulse Rate 84 Respiratory 20 16 20 Rate Blood Pressure 115/59 (mmHg) O2 Sat by Pulse 93 Oximetry 04/26/16 04/26/16 04/26/16 01:02 03:39 03:53 Temperature 98.3 F Pulse Rate 88 Respiratory 16 20 16 Rate Blood Pressure 129/69 (mmHg) O2 Sat by Pulse 95 Oximetry 04/26/16 04/26/16 04/26/16 05:39 07:55 08:00 Temperature 98.4 F Pulse Rate 80 Respiratory 16 18 16 Rate Blood Pressure 120/61 (mmHg) O2 Sat by Pulse 94 Oximetry 04/26/16 04/26/16 04/26/16 10:13 11:01 11:22 Temperature 98.9 F Pulse Rate 90 91 Respiratory 18 20 16 Rate Blood Pressure 126/72 (mmHg) O2 Sat by Pulse 95 94 Oximetry 04/26/16 11:53 Temperature Pulse Rate Respiratory 16 Rate Blood Pressure (mmHg) O2 Sat by Pulse Oximetry Oxygen Devices in Use Now: None Appearance: Alert, partly up in bed. In good spirits. Looks comfortable. Eyes: No Scleral Icterus Ears/Nose/Mouth/Throat: Clear Oropharnyx, Mucous Membranes Moist Neck: NL Appearance and Movements; NL JVP, No Thyroid Enlargement, Masses Respiratory: Symmetrical Chest Expansion and Respiratory Effort, Clear to Auscultation, Clear to Percussion Cardiovascular: RRR, No Edema, - - 3/6 systolic murmur RSB Extremities: No Edema, No Clubbing, Cyanosis, - Skin: No Rash or Ulcers, No Nodules or Sclerosis, - Neurological: Alert and Oriented x 3, NL Sensation Lines/Tubes/Other Access: Clean, Dry and Intact Endotracheal Tube Result Diagrams: 04/26/16 05:56 04/26/16 05:56 Additional Lab and Data: Laboratory Results - last 24 hr 04/24/16 04/24/16 04/25/16 08:47 16:14 06:00 WBC RBC Hgb Hct MCV MCH MCHC RDW Plt Count MPV Sodium 139 Potassium 4.3 Chloride 111 Carbon Dioxide 23 Anion Gap 5 BUN 56 H Creatinine 2.49 H Est GFR ( Amer) 24.3 Est GFR (Non-Af Amer) 18.9 BUN/Creatinine Ratio 22.5 H Glucose 84 Calcium 8.9 Magnesium 1.6 L 1.9 Group A Strep Rapid Negative 04/25/16 06:00 WBC 3.0 L RBC 2.84 L Hgb 8.4 L Hct 25 L MCV 89 MCH 30 MCHC 34 RDW 15 Plt Count 166 MPV 9 Sodium Potassium Chloride Carbon Dioxide Anion Gap BUN Creatinine Est GFR ( Amer) Est GFR (Non-Af Amer) BUN/Creatinine Ratio Glucose Calcium Magnesium Group A Strep Rapid Microbiology and Other Data: Microbiology 04/24/16 08:35 Group A Streptococcus Rapid Screen - Final Throat Specimen received for Rapid Strep A Molecular testing 04/23/16 21:35 Nasal Screen MRSA (PCR)(DENISSE) - Final Nasal Mrsa Negative Assess/Plan/Problems-Billing Assessment: 76F presenting with severe acute renal failure, presumably pre-renal - Patient Problems (1) Acute renal failure Current Visit: Yes Status: Acute Comment: Much improved, close to her baseline. Stop IV fluids. Hold on diuretic for now. (2) Cardiomyopathy Current Visit: Yes Status: Acute Code(s): I42.9 - CARDIOMYOPATHY, UNSPECIFIED SNOMED Code(s): 61736584 Comment: Resolved. (3) Hypothyroid Current Visit: No Status: Acute Code(s): E03.9 - HYPOTHYROIDISM, UNSPECIFIED SNOMED Code(s): 82120282 Comment: Increase levothyroxine to 125 mcg daily. (4) HTN (hypertension) Current Visit: Yes Status: Acute Code(s): I10 - ESSENTIAL (PRIMARY) HYPERTENSION SNOMED Code(s): 26689147 Comment: Lisnopril, metoprolol, diuretics on hold. Status and Disposition: Inpatient ICU monitoring for persistent hypotension & limited ability to rapidly replace volume due to known EF 35-40%.
[2016-04-27] MEDS: oxyCODONE TAB* 5 MG TAB PO PRN ×2 (01:08→06:21)
[2016-04-27] MEDS: oxyCODONE/Acetamin 5/325 MG* TAB PO PRN (01:26)
[2016-04-27] MEDS ORDERED: oxyCODONE/Acetamin 5/325 MG* TAB PO PRN (04:30)
[2016-04-27] MEDS: Heparin VIAL(*) 5000 UNITS/ML VIAL (FIVE THOUSAND) SUBCUT SCH (05:01)
[2016-04-27 07:28] VITALS: BP 129/55
[2016-04-27] MEDS ORDERED: oxyCODONE TAB* 5 MG TAB ONE (08:30)
[2016-04-27] MEDS ORDERED: oxyCODONE/Acetamin 5/325 MG* TAB ONE (08:30)
[2016-04-27] MEDS: oxyCODONE TAB* 5 MG TAB PO SCH ×2 (08:33→12:22)
[2016-04-27] MEDS: oxyCODONE/Acetamin 5/325 MG* TAB PO SCH ×2 (08:36→12:21)
[2016-04-27] MEDS: Omeprazole CAP* 20 MG PO SCH (08:38)
[2016-04-27] MEDS: CMCS: Escitalopram (NF) 10 MG TAB PO SCH (08:38)
[2016-04-27] MEDS ORDERED: oxyCODONE TAB* 5 MG TAB PO PRN (12:52)
[2016-04-27] MEDS ORDERED: oxyCODONE TAB* 5 MG TAB PO ONE (12:53)
[2016-04-27] MEDS ORDERED: oxyCODONE SR TAB(*) 20 MG TAB.SR PO ONE (12:54)
[2016-04-27] MEDS ORDERED: fentaNYL PATCH 75 MCG/HR* 75 MCG TRANSDERM SCH (14:00)
[2016-04-27] MEDS ORDERED: oxyCODONE SR TAB(*) 20 MG TAB.SR PO SCH (21:00)
--- NOTE | 2016-04-28 00:23 | DS ---
DISCHARGE SUMMARY: DATE OF ADMISSION: 04/23/16 DATE OF DISCHARGE: 04/27/16 HISTORY OF PRESENT ILLNESS: This 76-year-old woman presented with altered mental status. She had been confused for 3 days with decreased level of consciousness. In the emergency room, BUN was 119 and creatinine was 10.07. These are markedly different from previous values in her lab. There was a history of her refusing to either drink liquids adequately for some time before this. The patient was given intravenous fluids. She improved rapidly. She had an echocardiogram as well that showed an ejection fraction of 55% to 60%. This is an improvement from before and note in the past she had Takotsubo cardiomyopathy. Her last creatinine measurement was 1.51 on 04/26/16. She had hyponatremia on admission but this resolved by the time of discharge. I think she has an issue with pain control. She goes to the pain clinic every month and gets her fentanyl and oxycodone prescriptions reissued every month. At times she would complain of terrible pain. When I visited her, she seemed very comfortable and denied pain. It was really rather unpredictable. I am really not changing her home pain regimen at all. She did not have a fentanyl patch applied in the beginning as she had altered mental status. We are applying one at the time of discharge to give her a little head start on that. Her lisinopril/hydrochlorothiazide is being stopped. Her other medications will be unchanged. DISCHARGE DIAGNOSES: 1. Acute renal failure due to dehydration. 2. Cardiomyopathy. 3. Hypothyroidism. 4. Hypertension. DISCHARGE MEDICATIONS: 1. Escitalopram 20 mg daily. 2. Fentanyl patch 75 mcg every 72 hours. 3. Fluticasone nasal spray 2 sprays both nares every day. 4. Albuterol inhaler 2 puffs every 4 hours p.r.n. 5. Spironolactone 25 mg daily. 6. Probiotic daily. 7. Omeprazole 40 mg daily. 8. Metoprolol succinate 50 mg daily. 9. Cyclobenzaprine 10 mg b.i.d. p.r.n. 10. Bumetanide has been discontinued. 11. Alprazolam 0.25 mg to 0.5 mg h.s. p.r.n. 12. Levothyroxine 100 mcg daily. 13. Oxycodone and acetaminophen 10/225 mg one 4 times a day p.r.n. The following medications have been discontinued. Lisinopril/ hydrochlorothiazide and bumetanide. The patient will have a BMP in 3 or 4 days. CC: Chantal Cobb NP, at [facility] * [id number]/[facility] #: [id number] [facility]
== END 2016-04-27 15:15 | disposition home or self-care (01) | DRG 683 ==
LOC: ED 14:45 → ICU 19:12 → MEDTELE 04-25 15:12
PROVIDERS: ADMIT Internal Medicine; ATTEND Internal Medicine
DX: N17.9 Acute kidney failure, unspecified (principal); I51.81 Takotsubo syndrome; I95.9 Hypotension, unspecified; E87.2 Acidosis; E87.1 Hypo-osmolality and hyponatremia; F03.90 Unspecified dementia, unspecified severity, without behavioral disturbance, psychotic disturbance, mood disturbance, and anxiety; E03.9 Hypothyroidism, unspecified; E78.00 Pure hypercholesterolemia, unspecified; I10 Essential (primary) hypertension; J45.909 Unspecified asthma, uncomplicated; K21.9 Gastro-esophageal reflux disease without esophagitis; M13.812 Other specified arthritis, left shoulder; M13.811 Other specified arthritis, right shoulder; M13.852 Other specified arthritis, left hip; M13.851 Other specified arthritis, right hip; M13.842 Other specified arthritis, left hand; M13.841 Other specified arthritis, right hand; M79.7 Fibromyalgia; G43.909 Migraine, unspecified, not intractable, without status migrainosus; F41.9 Anxiety disorder, unspecified; F32.9 Major depressive disorder, single episode, unspecified; E66.9 Obesity, unspecified; G89.29 Other chronic pain; E78.5 Hyperlipidemia, unspecified; G47.33 Obstructive sleep apnea (adult) (pediatric); E86.0 Dehydration; R60.0 Localized edema; Z96.669 Presence of unspecified artificial ankle joint; Z96.652 Presence of left artificial knee joint; Z79.891 Long term (current) use of opiate analgesic; Z88.5 Allergy status to narcotic agent; Z88.0 Allergy status to penicillin; Z88.2 Allergy status to sulfonamides; Z88.8 Allergy status to other drugs, medicaments and biological substances; Z87.01 Personal history of pneumonia (recurrent); Z90.710 Acquired absence of both cervix and uterus; Z82.49 Family history of ischemic heart disease and other diseases of the circulatory system; Z68.35 Body mass index [BMI] 35.0-35.9, adult; Z83.3 Family history of diabetes mellitus; Z84.2 Family history of other diseases of the genitourinary system
CPT/HCPCS: 36415; 36600; 71010; 76775; 80048; 80053; 80301; 80320; 81003; 81015; 82533; 82570; 82803; 83605; 83735; 84100; 84300; 84443; 84484; 85025; 85027; 86060; 87040; 87077; 87086; 87186; 87641; 87651; 93005; 93306; 94640; 94760; 99284; A9270-GY; G0479; G0480; J0696; J1170; J1644; J2405; J3475

== ENCOUNTER 2016-04-27 22:36 | Emergency (ER) | payer MEDICARE, BC ==
[2016-04-27 23:38] LABS: Hematocrit 28 % (35-47); Hemoglobin 9.1 g/dl (12.0-16.0); Mean Corpuscular HGB Conc 33 g/dl (31-36); Mean Corpuscular Hemoglobin 29 pg (27-31); Mean Corpuscular Volume 89 fL (80-97); Mean Platelet Volume 8 um3 (7.4-10.4); Red Blood Count 3.13 10^6/ul (4.0-5.4); Red Cell Distribution Width 15 % (10.5-15); White Blood Count 8.9 10^3/ul (3.5-10.8)
[2016-04-27 23:52] LABS: Albumin 3.5 g/dL (3.2-5.2); BUN/Creatinine Ratio 12.4 (8-20); Calcium 9.5 mg/dL (8.6-10.3); EGFR African American 48.5 (>60); EGFR Non-African American 37.7 (>60); Globulin 3.4 g/dL (2-4); Potassium 4.1 mmol/L (3.5-5.0); Total Bilirubin 0.6 mg/dL (0.2-1.0); Total Protein 6.9 g/dL (6.4-8.9)
[2016-04-28] MEDS ORDERED: Furosemide IV* 10 MG/ML 10 ML VIAL (100 MG) IV ONE (00:03)
[2016-04-28 03:10] VITALS: BP 136/70
--- NOTE | 2016-04-28 03:15 | ED ---
Pedro Ballard Erika, scribed for Eddie Shahid MD on 04/27/16 at 2330 . Shortness of Breath - HPI Summary HPI Summary: Patient is a 76-year-old female presenting to the ED with c/o constant SOB starting [employer]. Per daughter, pt was in the hospital for the past 3 days due to renal failure, and was discharged tonight. Pt was driven home, and got ready for bed when she developed sudden SOB and exacerbation of her generalized pain. Pt has been taking fentanyl for a few days due to back, hip, knee pain and arthritis. Pt is not on dialysis. - History of Current Complaint Chief Complaint: EDShortnessOfBreath Time Seen by Provider: 04/27/16 23:11 Hx Obtained From: Patient, Family/Environmental Professional - Daughter Onset/Duration: Sudden Onset, Lasting Hours, Still Present Timing: Constant Current Severity: Moderate Dyspnea At: Rest - Allergy/Home Medications Allergies/Adverse Reactions: Allergies Allergy/AdvReac Type Severity Reaction Status Date / Time Amoxicillin Allergy Anaphylatic Verified 03/17/16 13:41 Shock Iodine Allergy Hives Verified 03/17/16 13:41 Gabapentin AdvReac Intermediate Swelling Verified 03/17/16 13:41 Morphine AdvReac GI Upset Verified 04/27/16 08:35 Pregabalin [From Lyrica] AdvReac Edema Verified 03/17/16 13:41 Sulfa Drugs AdvReac Nausea And Verified 03/17/16 13:41 Vomiting PMH/Surg Hx/FS Hx/Imm Hx Endocrine/Hematology History: Reports: Hx Thyroid Disease - hypothyroidism Denies: Hx Diabetes Cardiovascular History: Reports: Hx Hypercholesterolemia, Hx Hypotension, Hx Hypertension, Other Cardiovascular Problems/Disorders - Takotsubo cardiomyopathy Denies: Hx Pacemaker/ICD Respiratory History: Reports: Hx Asthma, Hx Pneumonia, Hx Sleep Apnea GI History: Reports: Hx Gastroesophageal Reflux Disease, Hx Obstructive Bowel - August 2015 History: Denies: Hx Renal Disease Musculoskeletal History: Reports: Hx Arthritis - hands,hips, shoulders, Hx Back Problems, Hx Fibromyalgia, Hx Orthopedic Injury - Fx Pelvis 1960; Rt. Tibia, Fibula,&Ankle Sensory History: Reports: Hx Contacts or Glasses Denies: Hx Hearing Aid Opthamlomology History: Reports: Hx Contacts or Glasses Neurological History: Reports: Hx Dementia, Hx Migraine, Other Neuro Impairments /Disorders - Encephalopathy on recent EEGs Psychiatric History: Reports: Hx Anxiety, Hx Depression Denies: Hx Panic Disorder - Surgical History Surgery Procedure, Year, and Place: Radical hysterectomy, 1989. Repair of right leg and ankle fx. Deric fundoplication surgery. Tonsillectomy. Cholecystectomy. Total right ankle replacement, 2003. Total left knee replacement, 2006 Hx Anesthesia Reactions: No - Immunization History Date of Tetanus Vaccine: unknown Date of Influenza Vaccine: 2014 Infectious Disease History: No Infectious Disease History: Denies: Hx Clostridium Difficile, Hx Hepatitis, Hx Human Immunodeficiency Virus (HIV), Hx of Known/Suspected MRSA, Hx Shingles, Hx Tuberculosis, Hx Known/ Suspected VRE, Hx Known/Suspected VRSA, History Other Infectious Disease, Traveled Outside the [place] in Last 30 Days - Family History Known Family History: Positive: Cardiac Disease - Social History Alcohol Use: None Substance Use Type: Reports: None Substance Use Comment - Amount & Last Used: fentanyl patch and percocet Smoking Status (MU): Never Smoked Tobacco Have You Smoked in the Last Year: No Review of Systems Positive: Shortness Of Breath Positive: Myalgia - Generalized All Other Systems Reviewed And Are Negative: Yes Physical Exam Triage Information Reviewed: Yes Vital Signs On Initial Exam: Initial Vitals BP 141/78 04/27/16 22:45 Vital Signs Reviewed: Yes Appearance: Positive: Well-Nourished, Pain Distress - mild chronic pain Skin: Positive: Warm Eyes: Positive: VERONICA ENT: Positive: Hearing grossly normal Neck: Positive: Supple Respiratory/Lung Sounds: Positive: Rales - few basilar Cardiovascular: Positive: Normal Abdomen Description: Positive: Nontender, Soft Bowel Sounds: Positive: Present Musculoskeletal: Positive: Strength/ROM Intact. Negative: Edema Left, Edema Right Neurological: Positive: Sensory/Motor Intact Diagnostics - Vital Signs Vital Signs Temp Pulse Resp BP Pulse Ox 04/27/16 22:48 98.5 F 109 13 141/78 98 04/27/16 22:47 107 98 04/27/16 22:45 141/78 - Laboratory Lab Results: Lab Results 04/27/16 04/27/16 04/27/16 Range/Units 23:24 23:24 23:24 WBC 8.9 (3.5-10.8) 10^3/ul RBC 3.13 L (4.0-5.4) 10^6/ul Hgb 9.1 L (12.0-16.0) g/dl Hct 28 L (35-47) % MCV 89 (80-97) fL MCH 29 (27-31) pg MCHC 33 (31-36) g/dl RDW 15 (10.5-15) % Plt Count 232 (150-450) 10^3/ul MPV 8 (7.4-10.4) um3 Neut % (Auto) 69.4 (38-83) % Lymph % (Auto) 21.4 L (25-47) % [place] % (Auto) 7.2 (1-9) % Eos % (Auto) 0.9 (0-6) % Baso % (Auto) 1.1 (0-2) % Absolute Neuts (auto) 6.2 (1.5-7.7) 10^3/ul Absolute Lymphs (auto) 1.9 (1.0-4.8) 10^3/ul Absolute Monos (auto) 0.6 (0-0.8) 10^3/ul Absolute Eos (auto) 0.1 (0-0.6) 10^3/ul Absolute Basos (auto) 0.1 (0-0.2) 10^3/ul Absolute Nucleated RBC 0.01 10^3/ul Nucleated RBC % 0.1 Sodium 135 (133-145) mmol/L Potassium 4.1 (3.5-5.0) mmol/L Chloride 106 (101-111) mmol/L Carbon Dioxide 21 L (22-32) mmol/L Anion Gap 8 (2-11) mmol/L BUN 17 (6-24) mg/dL Creatinine 1.37 H (0.51-0.95) mg/dL Est GFR ( Amer) 48.5 (>60) Est GFR (Non-Af Amer) 37.7 (>60) BUN/Creatinine Ratio 12.4 (8-20) Glucose 127 H (70-100) mg/dL Calcium 9.5 (8.6-10.3) mg/dL Total Bilirubin 0.60 (0.2-1.0) mg/dL AST 9 L (13-39) U/L ALT 4 L (7-52) U/L Alkaline Phosphatase 39 (34-104) U/L B-Natriuretic Peptide 947 H ( - 100) pg/mL Total Protein 6.9 (6.4-8.9) g/dL Albumin 3.5 (3.2-5.2) g/dL Globulin 3.4 (2-4) g/dL Albumin/Globulin Ratio 1.0 (1-3) Result Diagrams: 04/27/16 23:24 04/27/16 23:24 Lab Statement: Any lab studies that have been ordered have been reviewed, and results considered in the medical decision making process. - Radiology CXR Radiology Interpretation Completed By: ED Physician - CHF - EKG 22:46 Cardiac Rate: Tachycardia - at 108 bpm EKG Rhythm: Sinus Tachycardia Re-Evaluation - Re-Evaluation First Eval Re-Evaluation Time: 03:00 Change: Improved Comment: Feels improved, less SOB Second Eval Re-Evaluation Time: 03:09 Change: Improved Comment: O2 Sat is good, pt feels improved. Pt diuresed Course/Dx - Course Assessment/Plan: A 76 y/o F presents to the ED with a CC of SOB. CXR shows CHF. Pt is given Lasix in the ED, and feels improved. Pt O2 sat is 95-96 on room air prior to discharge. She will be discharged with follow up from her PCP. - Diagnoses Provider Diagnoses: CHF (congestive heart failure) Discharge - Discharge Plan Condition: Improved Disposition: HOME Patient Education Materials: Heart Failure (ED) Referrals: Chantal Cobb NP [Primary Care Provider] - The documentation as recorded by the Pedro wisdom Erika accurately reflects the service I personally performed and the decisions made by me, Eddie Shahid MD.
--- NOTE | 2016-04-28 07:36 | RAD ---
INDICATION: Shortness of breath. COMPARISON: Comparison is made with a prior chest x-ray study from April 23, 2016. TECHNIQUE: A portable view of the chest was obtained. FINDINGS: The heart is within normal limits in size. There are diffuse bilateral interstitial infiltrates. No pleural effusion is seen. IMPRESSION: INTERSTITIAL INFILTRATES MOST CONSISTENT WITH CONGESTIVE HEART FAILURE OR PNEUMONIA.
== END 2016-04-28 03:54 | disposition home or self-care (01) ==
LOC: ED 22:36
DX: I50.9 Heart failure, unspecified (principal); R06.02 Shortness of breath
CPT/HCPCS: 36415; 71010; 80053; 83880; 85025; 93005; 96374; 99283; J1940

== ENCOUNTER 2016-05-12 14:18 | Inpatient (IN) | payer MEDICARE, BC ==
--- NOTE | 2016-05-12 15:45 | RAD ---
Indication: Confusion. Single frontal view of the chest performed at 1510 hours was reviewed. Comparison is made with previous exam dated 04/27/2016. No mediastinal shift is noted. Heart is of normal size and configuration. Lung lewis appear clear. Previously identified interstitial edema is improved. IMPRESSION: IMPROVED CHF WHEN COMPARED TO PREVIOUS EXAM OF APRIL 27, 2016.
[2016-05-12 15:46] LABS: Hematocrit 29 % (35-47); Hemoglobin 9.6 g/dl (12.0-16.0); Mean Corpuscular HGB Conc 33 g/dl (31-36); Mean Corpuscular Hemoglobin 30 pg (27-31); Mean Corpuscular Volume 90 fL (80-97); Mean Platelet Volume 10 um3 (7.4-10.4); Red Blood Count 3.25 10^6/ul (4.0-5.4); Red Cell Distribution Width 15 % (10.5-15); White Blood Count 6.5 10^3/ul (3.5-10.8)
[2016-05-12] MEDS ORDERED: Naloxone* 0.4 MG/ML 1 ML VIAL IV PUSH ONE ×2 (15:49→18:56)
[2016-05-12 15:59] LABS: Acetaminophen < 15 mcg/mL; Alcohol < 10 mg/dL (<10)
[2016-05-12 16:00] LABS: ALT 5 U/L (7-52); AST 12 U/L (13-39); Alkaline Phosphatase 44 U/L (34-104); Anion Gap 5 mmol/L (2-11); BUN/Creatinine Ratio 18.2 (8-20); Blood Urea Nitrogen 39 mg/dL (6-24); CO2 Carbon Dioxide 28 mmol/L (22-32); Calcium 9.7 mg/dL (8.6-10.3); Chloride 90 mmol/L (101-111); Creatine Kinase 67 U/L (10-223); EGFR Non-African American 22.5 (>60); Globulin 3.1 g/dL (2-4); Glucose 114 mg/dL (70-100); Magnesium 1.7 mg/dL (1.9-2.7); Potassium 5.7 mmol/L (3.5-5.0); Sodium 123 mmol/L (133-145); Total Protein 7.1 g/dL (6.4-8.9)
[2016-05-12 16:02] LABS: Troponin I 0.01 ng/mL (<0.04)
[2016-05-12] MEDS ORDERED: diPHENhydraMINE IV* 50 MG/ML 1 ml VIAL (BENADRYL) ONE (16:08)
[2016-05-12] MEDS ORDERED: LORazepam INJ* 2 MG/ML 1 ML VIAL IV PUSH ONE ×2 (16:08→17:13)
[2016-05-12 16:09] LABS: TSH (Thyroid Stimulating Horm) 9.05 mcIU/mL (0.34-5.60)
[2016-05-12] MEDS ORDERED: diPHENhydraMINE IV* 50 MG/ML 1 ml VIAL (BENADRYL) IV ONE (16:33)
[2016-05-12] MEDS ORDERED: Albuterol 2.5 MG/3 ML NEB.SOL* (0.083%) INH ONE (16:38)
[2016-05-12] MEDS ORDERED: Insulin REGULAR(*) 1 UNITS UNIT IV PUSH ONE (16:38)
[2016-05-12] MEDS ORDERED: Dextrose 50% Syringe 50 ML* 25 GM/50 ML SYRINGE IV PUSH ONE (16:39)
[2016-05-12] MEDS ORDERED: Calcium Gluconate INJ* 1 GM in NS 0.9% 100 ML* 100 ML IVPB ONE (16:40)
[2016-05-12] MEDS ORDERED: Dextrose 50% Syringe 50 ML* 25 GM/50 ML SYRINGE ONE (16:42)
[2016-05-12] MEDS ORDERED: fentaNYL* 50 MCG/ML 2 ML VIAL (100 MCG VIAL) IV SLOW PU ONE ×2 (16:49→17:14)
[2016-05-12] MEDS ORDERED: fentaNYL* 50 MCG/ML 2 ML VIAL (100 MCG VIAL) ONE (16:51)
[2016-05-12] MEDS ORDERED: LORazepam INJ* 2 MG/ML 1 ML VIAL ONE (17:15)
[2016-05-12] MEDS ORDERED: NS 0.9% 1000 ML* 1,000 ML IV ONE (18:27)
[2016-05-12] MEDS ORDERED: Naloxone* 0.4 MG/ML 1 ML VIAL ONE (18:42)
[2016-05-12] MEDS ORDERED: Albuterol/Ipratropium NEB.SOL* Albuterol 2.5 MG/Ipratropium 0.5 MG 3 ML INH PRN (19:00)
[2016-05-12] MEDS ORDERED: Ondansetron INJ* 2 MG/ML VIAL IV PRN (19:01)
[2016-05-12] MEDS ORDERED: Albuterol/Ipratropium NEB.SOL* Albuterol 2.5 MG/Ipratropium 0.5 MG 3 ML ONE (19:01)
[2016-05-12] MEDS ORDERED: ALPRAZolam TAB* 0.25 MG PO PRN (19:04)
[2016-05-12] MEDS ORDERED: Albuterol 2.5 MG/3 ML NEB.SOL* (0.083%) INH PRN (19:05)
[2016-05-12] MEDS ORDERED: NS 0.9% 1000 ML* 1,000 ML IV SCH (19:15)
[2016-05-12] MEDS ORDERED: Magnesium Sulfate 2 GM IV* 2 GM/50 ML BAG IVPB ONE (19:23)
--- NOTE | 2016-05-12 19:37 | ED ---
Josh Ballard Billy, scribed for Miles Naik MD on 05/12/16 at 1448 . Altered Mental Status - HPI Summary HPI Summary: Patient is a 76 year-old female coming to [facility] presenting with intermittent AMS confusion since today at 1100. The patient's daughter states that these intermittent episodes will fluctuate in severity, and in fact there was an incident where the patient was entirely unresponsive. Nothing makes it better or worse. They have no other complaints at this time. - History Of Current Complaint Chief Complaint: EDAltMentalStatus Stated Complaint: UNRESPONSIVE Time Seen by Provider: 05/12/16 14:40 Hx Obtained From: Patient, Family/Guest Service Host Onset/Duration: Still Present, Gradually Timing: Intermittent Severity Initially: Moderate Severity Currently: Moderate Character: Confusion Aggravating Factor(s): Nothing Alleviating Factor(s): Nothing Associated Signs And Symptoms: Positive: Negative - Allergies/Home Medications Allergies/Adverse Reactions: Allergies Allergy/AdvReac Type Severity Reaction Status Date / Time Amoxicillin Allergy Anaphylatic Verified 03/17/16 13:41 Shock Iodine Allergy Hives Verified 03/17/16 13:41 Gabapentin AdvReac Intermediate Swelling Verified 03/17/16 13:41 Morphine AdvReac GI Upset Verified 04/27/16 08:35 Pregabalin [From Lyrica] AdvReac Edema Verified 03/17/16 13:41 Sulfa Drugs AdvReac Nausea And Verified 03/17/16 13:41 Vomiting Home Medications: Home Medications Bumetanide TAB* [Bumex TAB*] 1 mg PO BID 05/12/16 [History Confirmed 05/12/16] Levothyroxine TAB* [Synthroid TAB*] 125 mcg PO DAILY 05/12/16 [History Confirmed 05/12/16] Lisinopril/HCTZ 10/12.5(NF) [Zestoretic 10/12.5(NF)] 1 tab PO DAILY 05/12/16 [ History Confirmed 05/12/16] fentaNYL PATCH 50 MCG/HR* [Duragesic PATCH 50 Mcg/Hr*] 50 mcg TRANSDERM Q72H [History Confirmed 05/12/16] PMH/Surg Hx/FS Hx/Imm Hx Endocrine/Hematology History: Reports: Hx Thyroid Disease - hypothyroidism Denies: Hx Diabetes Cardiovascular History: Reports: Hx Hypercholesterolemia, Hx Hypotension, Hx Hypertension, Other Cardiovascular Problems/Disorders - Takotsubo cardiomyopathy Denies: Hx Pacemaker/ICD Respiratory History: Reports: Hx Asthma, Hx Pneumonia, Hx Sleep Apnea GI History: Reports: Hx Gastroesophageal Reflux Disease, Hx Obstructive Bowel - August 2015 History: Denies: Hx Renal Disease Musculoskeletal History: Reports: Hx Arthritis - hands,hips, shoulders, Hx Back Problems, Hx Fibromyalgia, Hx Orthopedic Injury - Fx Pelvis 1960; Rt. Tibia, Fibula,&Ankle Sensory History: Reports: Hx Contacts or Glasses Denies: Hx Hearing Aid Opthamlomology History: Reports: Hx Contacts or Glasses Neurological History: Reports: Hx Dementia, Hx Migraine, Other Neuro Impairments /Disorders - Encephalopathy on recent EEGs Psychiatric History: Reports: Hx Anxiety, Hx Depression Denies: Hx Panic Disorder - Surgical History Surgery Procedure, Year, and Place: Radical hysterectomy, 1989. Repair of right leg and ankle fx. Deric fundoplication surgery. Tonsillectomy. Cholecystectomy. Total right ankle replacement, 2003. Total left knee replacement, 2006 Hx Anesthesia Reactions: No - Immunization History Date of Tetanus Vaccine: unknown Date of Influenza Vaccine: 2014 Infectious Disease History: No Infectious Disease History: Denies: Hx Clostridium Difficile, Hx Hepatitis, Hx Human Immunodeficiency Virus (HIV), Hx of Known/Suspected MRSA, Hx Shingles, Hx Tuberculosis, Hx Known/ Suspected VRE, Hx Known/Suspected VRSA, History Other Infectious Disease, Traveled Outside the in Last 30 Days - Family History Known Family History: Positive: Cardiac Disease - Social History Alcohol Use: None Substance Use Type: Reports: None Substance Use Comment - Amount & Last Used: fentanyl patch and percocet Smoking Status (MU): Never Smoked Tobacco Have You Smoked in the Last Year: No Review of Systems Negative: Fever Neurological: Other - confusion All Other Systems Reviewed And Are Negative: Yes Physical Exam - Summary Physical Exam Summary: VITAL SIGNS: Reviewed. GENERAL: Patient is an obese female who is lying comfortable in the stretcher. Patient is not in any acute respiratory distress. HEAD AND FACE: No signs of trauma. No ecchymosis, hematomas or skull depressions. No sinus tenderness. EYES: PERRLA, EOMI x 2, No injected conjunctiva, no nystagmus. No photophobia. EARS: Hearing grossly intact. Ear canals and tympanic membranes are within normal limits. MOUTH: Oropharynx within normal limits. NECK: Supple, trachea is midline, no adenopathy, no JVD, no carotid bruit, no c- spine tenderness, neck with full ROM. No meningeal signs, no Kernig's or brudzinskis signs. CHEST: Symmetric, no tenderness at palpation LUNGS: Clear to auscultation bilaterally. No wheezing or crackles. CVS: Regular rate and rhythm, S1 and S2 present, no murmurs or gallops appreciated. ABDOMEN: Soft, non-tender. No signs of distention. No rebound no guarding, and no masses palpated. Bowel sounds are normal. EXTREMITIES: FROM in all major joints, no edema, no cyanosis or clubbing. NEURO: Alert and oriented x 2. No acute neurological deficits. Speech is normal and follows commands. NIH score is 0 SKIN: Dry and warm Triage Information Reviewed: Yes Vital Signs On Initial Exam: Initial Vitals Temp Pulse Resp BP Pulse Ox 99.1 F 59 9 106/46 100 05/12/16 14:20 05/12/16 14:20 05/12/16 14:20 05/12/16 14:20 05/12/16 14:20 Vital Signs Reviewed: Yes Diagnostics - Vital Signs Vital Signs Temp Pulse Resp BP Pulse Ox 05/12/16 14:20 99.1 F 59 9 106/46 100 - Laboratory Result Diagrams: 05/12/16 15:25 05/12/16 15:25 Lab Statement: Any lab studies that have been ordered have been reviewed, and results considered in the medical decision making process. - Radiology CXR Radiology Interpretation Completed By: Radiologist - IMPROVED CHF WHEN COMPARED TO PREVIOUS EXAM OF APRIL 27, 2016. - EKG 1724 EKG Interpretation: NSR 78 bpm, no ST elevation, ST depression in V4-V6. National Institutes Of Health - NIH Scale Level of Consciousness: Alert/Keenly Responsive Ask Patient the Month and His/Her Age: Both Correct Ask Pt to Open/Close Eyes and Perioperative Educator/Release Non-Paretic Hand: Both Correctly Best Gaze (Only Horizontal Eye Movement): Normal Visual Field Testing: No Visual Loss Facial Paresis-Pt to Smile & Close Eyes or Grimace Symmetry: Normal/Symmetrical Motor Function - Right Arm: No Drift-Holds 10 Seconds Motor Function - Left Arm: No Drift-Holds 10 Seconds Motor Function - Right Leg: No Drift-Holds 10 Seconds Motor Function - Left Leg: No Drift-Holds 10 Seconds Limb Ataxia-Must be out of Proportion to Weakness Present: Absent Sensory (Use Pinprick to Test Arms/Legs/Trunk/Face): Normal Best Language (Describe Picture, Name Items): No Aphasia Dysarthria (Read Several Words): Normal Extinction and Inattention: No Abnormality Total Score: 0 Re-Evaluation - Re-Evaluation First Eval Re-Evaluation Time: 16:11 Comment: Patient was given Narcan and became agitated. She was then given Benadryl and Ativan. Second Eval Re-Evaluation Time: 18:15 Change: Worse Comment: BP dropped to 76/50. She was given more fluids. Altered Mental Statu Course/Dx - Course Assessment/Plan: Patient is a 76 year-old female coming to [facility] presenting with intermittent AMS confusion since today at 1100. The patient's daughter states that these intermittent episodes will fluctuate in severity, and in fact there was an incident where the patient was entirely unresponsive. Nothing makes it better or worse. They have no other complaints at this time. Bloodwork is WNL except for chronic anemia. Sodium is 123, potassium is 5.7, BUN/ creatinine is 39/2.14, and TSH is 9.05. CXR shows improved CHF. EKG shows NSR with ST depressions in V4-V6. I believe the patients symptoms of confusion are secondary to hyponatremia, possibly secondary to intake of hydrochlorothiazide and bumex. Initially when the patient came to the ED, we noticed that she had a fentanyl patch newly patched of 75 mcg, and since the patient was slightly sleepy and when she felt sleep she desaturated to 70%. Therefore she was given 0.4mg Narcan. After the Narcan, the patient became combative, agitated, therefore she was given Benadryl and Ativan. We noticed that the potassium was also elevated so she was given albuterol, insulin, dextrose, and calcium gluconate. She was also given 1x dose of Fentanyl. At this point, the patient is stable. I discussed my physical exam findings with Dr. Moffett who admitted the patient for further workup and management. Before patient was transfered to the floor she became hypotensive and posible secondary to Fentanyl and Ativan given. I gave a bolous of IF fluids. I discused the case with Dr. Ohara from the ICU and he recommends fluid and if she becomes overloaded then diuresis. Head CT still pending and results will be followed by Hospitalist. - Diagnoses Differential Diagnosis/HQI/PQRI: CVA, Intracranial Bleed, Medication Reaction, Metabolic Disorder, Seizure, TIA Discharge Diagnoses: Mental status change, Hyponatremia, Chronic anemia, Chronic renal failure, Hypothyroidism - Provider Notifications Discussed Care Of Patient With: Dr. Moffett (hospitalist) @ 1643: accepts admission. Dr. Ohara (ICU) @ 1823: recommends that we continue giving IV fluids. Discharge - Discharge Plan Condition: Improved Disposition: ADMITTED TO [facility] The documentation as recorded by the Josh wisdom Billy accurately reflects the service I personally performed and the decisions made by me, Miles Naik MD.
[2016-05-12] MEDS: Mometasone/Formoter 200/5 MDI INH SCH (20:08)
[2016-05-12 20:38] LABS: T4 10.12 g/dL (6.09-12.23)
--- NOTE | 2016-05-12 20:39 | RAD ---
INDICATION: Shortness of breath and wheezing COMPARISON: Most recent comparison chest x-rays dated May 12, 2016 acquired at 1518 hours TECHNIQUE: Single AP portable view of the chest was obtained at 1952 hours. FINDINGS: Image quality is compromised due to the relative inferiority of a portable chest x-ray. The heart and mediastinum exhibit normal size and contour. There is mild calcified atherosclerosis at the arch of the aorta. The lungs are grossly clear. There is no evidence of a large pleural effusion. Visualized bones are normal for the patient's age. IMPRESSION: No radiographic evidence for acute cardiopulmonary abnormality on this portable chest x-ray.
[2016-05-12 20:43] LABS: Free T4 1.03 ng/dL (0.61-1.12)
[2016-05-12 20:47] LABS: Total T3 0.84 ng/mL (0.87-1.78)
[2016-05-12 21:39] LABS: Calcium 9.2 mg/dL (8.6-10.3); EGFR African American 28.5 (>60); EGFR Non-African American 22.2 (>60); Potassium 5.8 mmol/L (3.5-5.0)
[2016-05-12] MEDS: Naloxone* 0.4 MG/ML 1 ML VIAL IV PUSH PRN (21:59)
[2016-05-12 22:07] LABS: Urine Bilirubin Negative (Negative); Urine Glucose Negative (Negative); Urine Nitrite Negative (Negative)
[2016-05-12 22:23] LABS: Benzodiazepine Urine Screen None Detected (None Detect)
--- NOTE | 2016-05-12 22:26 | RAD ---
INDICATION: Altered mental status COMPARISON: CT brain December 16, 2015 TECHNIQUE: Contiguous axial sections of the brain were obtained from the skull base to the vertex without contrast. Evaluation is limited due to patient motion artifact through much of the image acquisition time. FINDINGS: The ventricles, cisterns and sulci are within normal limits. The mccoy-white matter differentiation is adequately maintained and there is no sulcal effacement. No significant focal abnormality or mass effect is present. There is no evidence for intracranial hemorrhage. No significant focal osseous abnormality is present. The visualized portion of the paranasal sinuses and mastoid air cells appear clear. IMPRESSION: No acute intracranial abnormality identified on this limited CT of the brain due to patient motion artifact.
[2016-05-12] MEDS: Albuterol/Ipratropium NEB.SOL* Albuterol 2.5 MG/Ipratropium 0.5 MG 3 ML INH SCH (22:33)
[2016-05-12] MEDS: Heparin VIAL(*) 5000 UNITS/ML VIAL (FIVE THOUSAND) SUBCUT SCH (23:55)
--- NOTE | 2016-05-13 00:53 | HP ---
HISTORY AND PHYSICAL: DATE OF ADMISSION: 05/12/16 PRIMARY CARE PROVIDER: Dr. Brooks ATTENDING PHYSICIAN WHILE IN THE HOSPITAL: Dr. Carrera * (report dictated by Arnoldo Mills, AIME). CHIEF COMPLAINT: Altered mental status. HISTORY OF PRESENTING ILLNESS: Mrs. Mcfadden is a 76-year-old female patient. She has a history of Takotsubo's cardiomyopathy, last EF was 55%, history of hypertension, hyperlipidemia, hypothyroidism. She has a history of fibromyalgia. She is on chronic fentanyl and chronic Percocet at 10/325. She also has a history of asthma, GERD, MAGDA, chronic pain, and a history of an ME. She comes in today according to the daughter, that she was noted this morning to be a little bit more drowsy. She was falling asleep mid sentence, not making sense, confused. She also of note, did take 2 doses of Bumex over the weekend as she had increasing swelling and edema. She was a little bit more short of breath. There was concern for CHF. The increased Bumex did help her considerably. She was here on the 29 of April and was also given IV Lasix at that point. She of note, was here in the end of March until the first part of April for acute renal failure with a creatinine of 10, thought to be related to over-diuresis. The daughter states that there has not been any reported fever. There has not been any nausea or vomiting. There has not been any abdominal discomfort or any complaints of shortness of breath. The patient at this point only responds to pain and is really unable to give me any past medical history or is unable to give me any symptoms. The daughter was concerned because she was not making sense, so she brought her into the hospital to be evaluated. The only change in medication is she was given Bumex and she still on the hydrochlorothiazide and spironolactone and she continues to take to her Percocet and fentanyl. PAST MEDICAL HISTORY: Significant for: 1. Cardiomyopathy. 2. Hypertension. 3. Hyperlipidemia. 4. Hypothyroidism. 5. Fibromyalgia. 6. Asthma. 7. GERD. 8. MAGDA. 9. Chronic pain. 10. ME. PAST SURGICAL HISTORY: 1. She has had a hysterectomy. 2. Left total knee replacement x2. 3. Right ankle replacement. 4. Laparoscopic cholecystectomy. HOME MEDICATIONS: Include: 1. Oxycodone 10/325 one tablet every 6 hours as needed. 2. Fentanyl patch 75 mcg every 72 hours. 3. Spironolactone 25 mg p.o. daily. 4. Probiotic one tablet daily. 5. Prilosec 40 mg daily. 6. Toprol-XL 50 mg p.o. daily. 7. Lisinopril/hydrochlorothiazide 1 tablet p.o. daily. 8. Synthroid 125 mcg p.o. daily. 9. Flonase 2 sprays both nares daily. 10. Lexapro 20 mg p.o. daily. 11. Bumex 1 tablet p.o. daily. 12. Ventolin 2 puffs inhaled every 4 hours as needed. 13. Xanax 0.25 to 0.5 mg at bedtime as needed. ALLERGIES: She is allergic to AMOXICILLIN, IODINE, GABAPENTIN, MORPHINE, LYRICA and SULFA. FAMILY HISTORY: Both her parents had heart disease. SOCIAL HISTORY: Surrogate decision maker is her daughter, Leslie. She is a nonsmoker, she does not drink alcohol. REVIEW OF SYSTEMS: Unable to be obtained because of the patient's altered mental status. PHYSICAL EXAMINATION GENERAL: At this time, Mrs. Mcfadden is a 76-year-old female patient. She is slightly restless currently. She will awaken now after the Narcan to her name and make eye contact. She knows that she is in the hospital. She does not appear to be in any acute distress. VITAL SIGNS: Initially her blood pressure was 106/46. She did go up to 124/106 after Narcan. She was extremely agitated and was extremely restless. She was given back fentanyl and Ativan. Blood pressure dropped down to as low as 44/ 24. Her last blood pressure was 90/48 after giving her a tiny dose of Narcan of 0.08 versus 0.4. HEENT: Head atraumatic and normocephalic. Eyes: Pupils are equal and reactive to light. Throat: Oral mucosa appears to be dry. No oropharyngeal erythema. NECK: Supple. LUNGS: She did have expiratory wheeze in the upper lobes; in the lower lobes, she was clear. There were no crackles. Equal diaphragmatic expansion. HEART: S1, S2. Regular rate and rhythm. She did have a grade 2 to 3 systolic murmur. ABDOMEN: Soft, it was flat, nontender. Bowel sounds were present. EXTREMITIES: Pulses 2+ throughout. She is able to move all 4 extremities with 5/5 strength. NEUROLOGIC: The patient again is now awake. She will make eye contact after saying her name. She does repeat her name is Skylar. She knows that she is in the hospital, confused to time. Tongue is midline. Zone Super[employer] Firearms were equal. She had no gross focal deficits. SKIN: Grossly intact. DIAGNOSTIC STUDIES/LAB DATA: Labs today reveal a WBC of 6.5, RBC of 3.25, hemoglobin 9.6, hematocrit 29, and platelet count 204. Sodium was 123, potassium 5.7, chloride 90, bicarb 28, BUN 39, creatinine 2.14, her baseline creatinine appears to be about 1.2 to 1.0, it was as high as 10 at the end of March. She was back down to her baseline at 1.3 and now she is back up to 2.14. She has a glucose of 114, lactate of 0.7, calcium 9.7, mag 1.7 , total bili 0.4, AST 12, ALT 5, alk phos 44, ammonia 38, troponin 0.01, BNP 177 , TSH 9.05. Toxicology was negative. She did have a chest x-ray obtained today. Under my review, she does have some mild pulmonary vascular congestion but compared to her previous chest x-ray from the 29 of April, it is significantly improved. Radiology read this as improved CHF compared to previous exam. She had an EKG obtained today which showed normal sinus rhythm rate of 78, no ST elevations or T-wave inversions. Old medical records were reviewed. She had an echo less than a month ago, which showed an EF of 55% to 60%. Old medical records were again reviewed. ASSESSMENT AND PLAN: Mrs. Mcfadden is a 76-year-old female patient coming to the ER today with complaint of altered mental status and on evaluation was found to be in acute and chronic renal failure. Hospitalist service was asked to evaluate for admission. She will be admitted under inpatient status for: 1. Altered mental status. I suspect this is multifactorial. She does respond nicely to Narcan. Initially when she got 0.4, she was combative. She was restless, was trying to get out of bed. The ER down here gave her back another 75 of fentanyl and 2 of Ativan, and when I evaluated her, she was somnolent, barely responsive to pain. So I gave her another 0.08 of Narcan and now she is restless, but she will make eye contact. She will state her name and knows she is in the hospital and make her needs known and she is awakened to just verbal cues. I think the AMS is related to narcotics secondary to the fact that she went into acute renal failure secondary to diuretics. Because she got Bumex over the weekend, and in addition to this, has been taking her spironolactone and her hydrochlorothiazide. At this point, my plan would be to slowly reintroduce narcotics as I think she needs to be on some type of chronic narcotic. I am holding her fentanyl patch. I am just going to put her on 0.25 mg of oxycodone every 8 hours and we will check neuro checks every 4 hours, place her in the ICU for closed observation, and we will continue to follow. 2. Hypotension. It is now resolved. I think it was probably related to the narcotics given here in the ER. Her blood pressure again is slowly coming up and she did get a 500 cc bolus. We will hold with any more fluids and we will repeat her BMP later. 3. Hyponatremia. Again, I suspect this is probably related to diuretics. I did send off a urine osmol, serum osmol and urine sodium. She did not receive any more diuretics here in the ED and she got 500 cc of normal saline. We will see how she improves her sodium after that 500 cc bolus. 4. Hyperkalemia. She got calcium gluconate. She had no EKG changes. It was 5.7. We are repeating the BMP at 1900 and we will continue to follow. 5. [id number] renal failure. Again I suspect this is probably related to diuretic use. She got 500 cc of fluid. I did send off urine creatinine and sodium for a FENa. We will continue to follow these and I am holding her MANDO inhibitor. 6. Cardiomyopathy. She does not appear to be fluid overloaded at this point. We will diurese as needed. 7. Hypertension. I am going to continue her meds as prescribed. She is on a beta- antony, but I switched her to immediate release in the setting of acute renal failure. 8. Hyperlipidemia. Continue meds as prescribed. 9. Hypothyroidism. TSH is 9.0, we will check a free T3 and T4 and then a T3 and T4. 10. Asthma. She does have some wheeze in the upper lobes. I am going to put her on Dulera and nebs around the clock. 11. Obstructive sleep apnea. I have ordered CPAP for her, but the daughter states she refuses to wear it. 12. Gastroesophageal reflux disease. Continue PPI therapy. 13. Chronic pain. Again, I have reintroduced a small amount of Percocet. We may need to consider cutting back on her fentanyl patch. 14. DVT prophylaxis. She will be placed on heparin subcu. 15. Code status. Full code. 16. Fluid, electrolytes, and nutrition. She can have a heart healthy diet. TIME SPENT: Time spent on the admission was approximately 70 minutes, greater than half the time was spent [id number] with the patient, obtaining my history of physical; the other half time was spent going over the plan of care with the patient and implementing the plan of care. I did discuss the plan of care with my attending, Dr. Laurent; she is in agreement. ARNOLDO MILLS NP CC: Dr. Brooks * [id number]/[facility] [place] #: [id number] KEVIN
[2016-05-13] MEDS: Naloxone* 0.4 MG/ML 1 ML VIAL IV PUSH PRN ×2 (00:54→04:39)
[2016-05-13] MEDS: Albuterol/Ipratropium NEB.SOL* Albuterol 2.5 MG/Ipratropium 0.5 MG 3 ML INH SCH ×5 (03:00→20:16)
[2016-05-13] MEDS ORDERED: NS 0.9% 1000 ML* 1,000 ML IV SCH (04:15)
[2016-05-13] MEDS: Acetaminophen TAB* 325 MG PO PRN ×2 (05:27→22:17)
[2016-05-13] MEDS: Heparin VIAL(*) 5000 UNITS/ML VIAL (FIVE THOUSAND) SUBCUT SCH ×3 (05:28→21:44)
[2016-05-13] MEDS ORDERED: Levothyroxine TAB* 125 MCG TAB PO SCH (06:00)
[2016-05-13 06:30] LABS: Hematocrit 26 % (35-47); Hemoglobin 8.5 g/dl (12.0-16.0); Mean Corpuscular HGB Conc 33 g/dl (31-36); Mean Corpuscular Hemoglobin 29 pg (27-31); Mean Corpuscular Volume 88 fL (80-97); Mean Platelet Volume 9 um3 (7.4-10.4); Red Blood Count 2.91 10^6/ul (4.0-5.4); Red Cell Distribution Width 15 % (10.5-15); White Blood Count 5.3 10^3/ul (3.5-10.8)
[2016-05-13 06:41] LABS: BUN/Creatinine Ratio 20.8 (8-20); Calcium 9.4 mg/dL (8.6-10.3); EGFR African American 38.3 (>60); EGFR Non-African American 29.8 (>60); Potassium 5.2 mmol/L (3.5-5.0)
[2016-05-13] MEDS: Mometasone/Formoter 200/5 MDI INH SCH ×2 (07:53→20:16)
[2016-05-13] MEDS: Omeprazole CAP* 20 MG PO SCH (08:18)
[2016-05-13] MEDS: CMCS: Escitalopram (NF) 10 MG TAB PO SCH (08:18)
[2016-05-13] MEDS ORDERED: NS 0.9% 500 ML* 500 ML IV SCH (16:00)
[2016-05-13] MEDS ORDERED: NS 0.9% 1000 ML* 1,000 ML IV ONE (17:06)
--- NOTE | 2016-05-13 18:12 | PN ---
Subjective Date of Service: 05/13/16 Interval History: HOSPITALIST PROGRESS NOTE Patient seen and examined at bedside. She was more awake this AM, but not yet back to her baseline. As per daughter, patient had developed LE edema and had gained 6lbs, so over the weekend she received Bumex x 2 doses and yesterday was noted to be drowsy and confused. Family History: Unchanged from Admission Social History: Unchanged from Admission Past Medical History: Unchanged from Admission Objective Active Medications: Acetaminophen (Tylenol Tab*) 650 mg PO Q4H PRN PRN Reason: FEVER/PAIN Last Admin: 05/13/16 05:27 Dose: 650 mg Albuterol (Ventolin 2.5 Mg/3 Ml Neb.Sasha*) 2.5 mg INH Q2H PRN PRN Reason: SOB/WHEEZING Albuterol/Ipratropium (Duoneb Neb.Sasha*) 1 neb INH Q4H PRN PRN Reason: SOB/WHEEZING Last Admin: 05/12/16 19:02 Dose: 1 neb Albuterol/Ipratropium (Duoneb Neb.Sasha*) 1 neb INH [id number] AWAKE [facility] Last Admin: 05/13/16 14:38 Dose: 1 neb Alprazolam (Xanax Tab*) 0.5 mg PO BEDTIME PRN PRN Reason: ANXIETY Escitalopram Oxalate (Lexapro (Nf)) 20 mg PO DAILY [facility] Last Admin: 05/13/16 08:18 Dose: 20 mg Heparin Sodium (Porcine) (Heparin Vial(*)) 5,000 units SUBCUT Q8HR [facility] Last Admin: 05/13/16 14:03 Dose: 5,000 units Sodium Chloride (Ns 0.9% 500 Ml Bag*) 500 mls @ 1,000 mls/hr IV .BOLUS [facility] Sodium Chloride (Ns 0.9% 1000 Ml*) 1,000 mls @ 150 mls/hr IV PER RATE [facility] Levothyroxine Sodium (Synthroid Tab*) 125 mcg PO DAILY@0600 [facility] Last Admin: 05/13/16 05:37 Dose: 125 mcg Metoprolol Tartrate (Lopressor Tab*) 25 mg PO BID WITH MEALS [facility] Mometasone Furoate/Formoterol Fumar (Dulera 200/5 Mdi*) 2 puff INH BID [facility] Last Admin: 05/13/16 07:53 Dose: 2 puff Naloxone HCl (Narcan*) 0.04 mg IV PUSH Q1H PRN PRN Reason: SEDATION Last Admin: 05/13/16 04:39 Dose: 0.04 mg Omeprazole (Prilosec Cap*) 40 mg PO DAILY@0730 [facility] Last Admin: 05/13/16 08:18 Dose: 40 mg Ondansetron HCl (Zofran Inj*) 4 mg IV Q6H PRN PRN Reason: NAUSEA Oxycodone HCl (Roxycodone Tab*) 2.5 mg PO Q8H PRN PRN Reason: PAIN Vital Signs 05/13/16 05/13/16 05/13/16 15:00 15:05 15:17 Temperature 97.9 F Pulse Rate 62 63 Respiratory 11 10 Rate Blood Pressure 82/37 81/37 (mmHg) O2 Sat by Pulse 97 97 Oximetry Oxygen Devices in Use Now: Nasal Cannula Appearance: Elderly lady lying in bed in NAD. Eyes: No Scleral Icterus Ears/Nose/Mouth/Throat: Mucous Membranes Moist Neck: Trachea Midline Respiratory: Symmetrical Chest Expansion and Respiratory Effort, Clear to Auscultation Cardiovascular: RRR - Normal S1 and S2 Abdominal: NL Sounds; No Tenderness; No Distention Extremities: - - Mild edema Neurological: - - AAOx2 (self and place), IZQUIERDO Lines/Tubes/Other Access: Clean, Dry and Intact Peripheral IV Nutrition: Taking PO's Result Diagrams: 05/13/16 06:15 05/13/16 06:15 Assess/Plan/Problems-Billing Assessment: Mrs. Mcfadden is a 76yo F with PMH of Takotsubo cardiomyopathy, HTN, HLD, hypothyroidism, fibromyalgia with chronic opiate use, asthma, GERD, MAGDA, recent admission with MART. - Patient Problems (1) Encephalopathy Comment: - Multifactorial. - Likely a combination of opiate use, MART, hyponatremia. - No signs of infection at this time. - Improving, but not yet back to baseline. (2) MART (acute kidney injury) Comment: - Likely pre-renal in the setting of diuresis. - Improving with fluids. (3) Hypotension Comment: - Suspect part of it is secondary to dehydration associated with diuresis. - No signs of infection at this time. - Will continue gentle IVF. - AM cortisol was 2 on her prior admission. Will check random cortisol during episode of hypotension and start low dose hydrocortisone for possible adrenal insufficiency. (4) Hyponatremia Comment: - Likely secondary to diuresis, but could also be associated with adrenal insufficiency. - Trending up. (5) Hyperkalemia Comment: - Trending down. - Continue to monitor. (6) Hypothyroid Comment: - TSH is 9 - will increase Levothyroxine to 150mcg and should repeat TFT in 4 weeks. (7) DVT prophylaxis Comment: - SQ heparin. (8) Full code status
[2016-05-13 18:39] LABS: BUN/Creatinine Ratio 19.7 (8-20); Calcium 8.8 mg/dL (8.6-10.3); EGFR African American 50.6 (>60); EGFR Non-African American 39.3 (>60)
[2016-05-13] MEDS: NS 0.9% 1000 ML* 1,000 ML IV SCH (19:32)
[2016-05-13] MEDS: Hydrocortisone INJ* 100 MG VIAL IV SCH (20:08)
[2016-05-13] MEDS ORDERED: Metoprolol Tartrate TAB* 25 MG PO SCH (21:00)
[2016-05-14] MEDS: NS 0.9% 1000 ML* 1,000 ML IV SCH (02:15)
[2016-05-14] MEDS: Hydrocortisone INJ* 100 MG VIAL IV SCH (02:50)
[2016-05-14] MEDS: Albuterol/Ipratropium NEB.SOL* Albuterol 2.5 MG/Ipratropium 0.5 MG 3 ML INH SCH ×6 (04:49→23:54)
[2016-05-14] MEDS ORDERED: Cosyntropin* 0.001 MG in Sodium Chloride * 0.5 ML IV ONE (06:00)
[2016-05-14 06:03] LABS: Calcium 9.1 mg/dL (8.6-10.3); EGFR African American 61.2 (>60); EGFR Non-African American 47.6 (>60); Potassium 5.6 mmol/L (3.5-5.0)
[2016-05-14] MEDS: Levothyroxine TAB* 150 MCG TAB PO SCH (06:26)
[2016-05-14] MEDS: Heparin VIAL(*) 5000 UNITS/ML VIAL (FIVE THOUSAND) SUBCUT SCH ×3 (06:26→22:09)
[2016-05-14 06:49] LABS: Hematocrit 26 % (35-47); Hemoglobin 8.5 g/dl (12.0-16.0); Mean Corpuscular HGB Conc 33 g/dl (31-36); Mean Corpuscular Hemoglobin 29 pg (27-31); Mean Corpuscular Volume 89 fL (80-97); Mean Platelet Volume 9 um3 (7.4-10.4); Red Cell Distribution Width 15 % (10.5-15); White Blood Count 3.5 10^3/ul (3.5-10.8)
[2016-05-14] MEDS ORDERED: Insulin REGULAR(*) 1 UNITS UNIT IV PUSH ONE (07:24)
[2016-05-14] MEDS: CMCS: Escitalopram (NF) 10 MG TAB PO SCH (07:26)
[2016-05-14] MEDS: Omeprazole CAP* 20 MG PO SCH (07:27)
[2016-05-14] MEDS ORDERED: Dextrose 50% Syringe 50 ML* 25 GM/50 ML SYRINGE IV PUSH ONE (07:28)
[2016-05-14] MEDS ORDERED: Sodium Polystyrene ORAL.SOL* 15 GM/60 ML BTL PO ONE (07:28)
[2016-05-14] MEDS: Mometasone/Formoter 200/5 MDI INH SCH ×2 (07:45→19:35)
[2016-05-14 12:25] LABS: BUN/Creatinine Ratio 15.2 (8-20); Calcium 9.1 mg/dL (8.6-10.3); EGFR African American 61.2 (>60); EGFR Non-African American 47.6 (>60); Potassium 4.3 mmol/L (3.5-5.0)
--- NOTE | 2016-05-14 14:53 | PN ---
Subjective Date of Service: 05/14/16 Interval History: HOSPITALIST PROGRESS NOTE Patient seen and examined at bedside. She feels better this AM. Denies pain, dyspnea or other complaints. Family History: Unchanged from Admission Social History: Unchanged from Admission Past Medical History: Unchanged from Admission Objective Active Medications: Acetaminophen (Tylenol Tab*) 650 mg PO Q4H PRN PRN Reason: FEVER/PAIN Last Admin: 05/13/16 22:17 Dose: 650 mg Albuterol (Ventolin 2.5 Mg/3 Ml Neb.Sasha*) 2.5 mg INH Q2H PRN PRN Reason: SOB/WHEEZING Albuterol/Ipratropium (Duoneb Neb.Sasha*) 1 neb INH Q4H PRN PRN Reason: SOB/WHEEZING Last Admin: 05/12/16 19:02 Dose: 1 neb Albuterol/Ipratropium (Duoneb Neb.Sasha*) 1 neb INH [id number] AWAKE [facility] Last Admin: 05/14/16 11:11 Dose: 1 neb Alprazolam (Xanax Tab*) 0.5 mg PO BEDTIME PRN PRN Reason: ANXIETY Escitalopram Oxalate (Lexapro (Nf)) 20 mg PO DAILY [facility] Last Admin: 05/14/16 07:26 Dose: 20 mg Heparin Sodium (Porcine) (Heparin Vial(*)) 5,000 units SUBCUT Q8HR [facility] Last Admin: 05/14/16 14:09 Dose: 5,000 units Levothyroxine Sodium (Synthroid Tab*) 150 mcg PO DAILY@0600 [facility] Last Admin: 05/14/16 06:26 Dose: 150 mcg Mometasone Furoate/Formoterol Fumar (Dulera 200/5 Mdi*) 2 puff INH BID [facility] Last Admin: 05/14/16 07:45 Dose: 2 puff Naloxone HCl (Narcan*) 0.04 mg IV PUSH Q1H PRN PRN Reason: SEDATION Last Admin: 05/13/16 04:39 Dose: 0.04 mg Omeprazole (Prilosec Cap*) 40 mg PO DAILY@0730 [facility] Last Admin: 05/14/16 07:27 Dose: 40 mg Ondansetron HCl (Zofran Inj*) 4 mg IV Q6H PRN PRN Reason: NAUSEA Oxycodone HCl (Roxycodone Tab*) 2.5 mg PO Q8H PRN PRN Reason: PAIN Vital Signs 05/14/16 05/14/16 05/14/16 11:11 11:52 12:00 Temperature 98.3 F Pulse Rate 92 94 Respiratory 18 19 Rate Blood Pressure 143/61 (mmHg) O2 Sat by Pulse 98 93 Oximetry 05/14/16 05/14/16 13:00 14:00 Temperature Pulse Rate 99 107 Respiratory 17 17 Rate Blood Pressure 119/48 125/47 (mmHg) O2 Sat by Pulse 98 98 Oximetry Oxygen Devices in Use Now: Nasal Cannula Appearance: Pleasant elderly lady lying in bed in NAD. Eyes: No Scleral Icterus, PERRLA Ears/Nose/Mouth/Throat: Mucous Membranes Moist Neck: Trachea Midline Respiratory: Symmetrical Chest Expansion and Respiratory Effort, Clear to Auscultation Cardiovascular: RRR - Normal S1 and S2, +SM Abdominal: NL Sounds; No Tenderness; No Distention Extremities: - - Mild bilateral LE edema Neurological: Alert and Oriented x 3 - but read date on the board, NL Muscle Strength and Tone Lines/Tubes/Other Access: Clean, Dry and Intact Peripheral IV Nutrition: Taking PO's Result Diagrams: 05/14/16 06:30 05/14/16 12:00 Assess/Plan/Problems-Billing Assessment: Mrs. Mcfadden is a 76yo F with PMH of Takotsubo cardiomyopathy, HTN, HLD, hypothyroidism, fibromyalgia with chronic opiate use, asthma, GERD, MAGDA, recent admission with [facility]. - Patient Problems (1) Encephalopathy Comment: - Multifactorial. - Likely a combination of opiate use, MART, hyponatremia. - No signs of infection at this time. - Improving, closer to baseline. (2) MART (acute kidney injury) Comment: - Likely pre-renal in the setting of diuresis. - Improving with fluids. (3) Hypotension Comment: - Suspect part of it is secondary to dehydration associated with diuresis. - No signs of infection at this time. - Random cortisol was low during episode of hypotension but Cosyntropin stimulation test showed good adrenal response. D/c hydrocortisone. - Transfer to medical floor. (4) Hyponatremia Comment: - Likely secondary to diuresis. - Trending up. (5) Hyperkalemia Comment: - Trending down. - Continue to monitor. (6) Hypothyroid Comment: - TSH is 9 - will increase Levothyroxine to 150mcg and should repeat TFT in 4 weeks. (7) DVT prophylaxis Comment: - SQ heparin. (8) Full code status Status and Disposition: Inpatient.
[2016-05-14] MEDS: oxyCODONE TAB* 5 MG TAB PO PRN (15:24)
[2016-05-14] MEDS: Acetaminophen TAB* 325 MG PO PRN (20:26)
[2016-05-15] MEDS: oxyCODONE TAB* 5 MG TAB PO PRN (01:45)
[2016-05-15] MEDS: Albuterol/Ipratropium NEB.SOL* Albuterol 2.5 MG/Ipratropium 0.5 MG 3 ML INH SCH ×3 (05:17→11:15)
[2016-05-15 06:09] LABS: BUN/Creatinine Ratio 12.9 (8-20); Calcium 9.4 mg/dL (8.6-10.3); EGFR African American 75.8 (>60); EGFR Non-African American 58.9 (>60); Potassium 4.1 mmol/L (3.5-5.0)
[2016-05-15] MEDS: Levothyroxine TAB* 150 MCG TAB PO SCH (07:09)
[2016-05-15] MEDS: Heparin VIAL(*) 5000 UNITS/ML VIAL (FIVE THOUSAND) SUBCUT SCH ×2 (07:09→13:41)
[2016-05-15] MEDS: Mometasone/Formoter 200/5 MDI INH SCH (08:10)
[2016-05-15] MEDS: CMCS: Escitalopram (NF) 10 MG TAB PO SCH (09:27)
[2016-05-15] MEDS: Omeprazole CAP* 20 MG PO SCH (09:27)
--- NOTE | 2016-05-15 15:41 | DCNOTE ---
Subjective Date of Service: 05/15/16 Interval History: No pain all day today. She has been in bed almost all day today. No new c/o. Family History: Unchanged from Admission Social History: Unchanged from Admission Past Medical History: Unchanged from Admission Objective Active Medications: Acetaminophen (Tylenol Tab*) 650 mg PO Q4H PRN PRN Reason: FEVER/PAIN Last Admin: 05/14/16 20:26 Dose: 650 mg Albuterol (Ventolin 2.5 Mg/3 Ml Neb.Sasha*) 2.5 mg INH Q2H PRN PRN Reason: SOB/WHEEZING Albuterol/Ipratropium (Duoneb Neb.Sasha*) 1 neb INH Q4H PRN PRN Reason: SOB/WHEEZING Last Admin: 05/12/16 19:02 Dose: 1 neb Alprazolam (Xanax Tab*) 0.5 mg PO BEDTIME PRN PRN Reason: ANXIETY Last Admin: 05/14/16 22:04 Dose: 0.5 mg Escitalopram Oxalate (Lexapro (Nf)) 20 mg PO DAILY [facility] Last Admin: 05/15/16 09:27 Dose: 20 mg Heparin Sodium (Porcine) (Heparin Vial(*)) 5,000 units SUBCUT Q8HR [facility] Last Admin: 05/15/16 13:41 Dose: 5,000 units Levothyroxine Sodium (Synthroid Tab*) 150 mcg PO DAILY@0600 [facility] Last Admin: 05/15/16 07:09 Dose: 150 mcg Mometasone Furoate/Formoterol Fumar (Dulera 200/5 Mdi*) 2 puff INH BID [facility] Last Admin: 05/15/16 08:10 Dose: 2 puff Naloxone HCl (Narcan*) 0.04 mg IV PUSH Q1H PRN PRN Reason: SEDATION Last Admin: 05/13/16 04:39 Dose: 0.04 mg Omeprazole (Prilosec Cap*) 40 mg PO DAILY@0730 [facility] Last Admin: 05/15/16 09:27 Dose: 40 mg Ondansetron HCl (Zofran Inj*) 4 mg IV Q6H PRN PRN Reason: NAUSEA Oxycodone HCl (Roxycodone Tab*) 2.5 mg PO Q8H PRN PRN Reason: PAIN Last Admin: 05/15/16 01:45 Dose: 2.5 mg Vital Signs 01/19/17 01/19/17 01/19/17 15:46 16:00 16:49 Temperature 100.2 F 98.5 F Pulse Rate 114 109 Respiratory 22 18 Rate Blood Pressure 126/47 (mmHg) O2 Sat by Pulse 98 96 Oximetry 05/14/16 05/14/16 05/14/16 17:08 19:27 19:32 Temperature 98.5 F Pulse Rate 109 109 Respiratory 18 Rate Blood Pressure 126/47 (mmHg) O2 Sat by Pulse 95 94 94 Oximetry 05/14/16 05/14/16 05/14/16 19:42 20:00 22:04 Temperature 98.1 F Pulse Rate 108 Respiratory 17 18 18 Rate Blood Pressure 156/45 (mmHg) O2 Sat by Pulse 94 Oximetry 05/15/16 05/15/16 05/15/16 00:04 01:45 01:48 Temperature 97.8 F Pulse Rate 85 Respiratory 18 18 18 Rate Blood Pressure 141/51 (mmHg) O2 Sat by Pulse 95 Oximetry 05/15/16 05/15/16 05/15/16 03:45 07:47 08:00 Temperature Pulse Rate 77 Respiratory 16 16 16 Rate Blood Pressure (mmHg) O2 Sat by Pulse 98 Oximetry 05/15/16 05/15/16 08:02 11:17 Temperature 97.6 F Pulse Rate 74 90 Respiratory 16 15 Rate Blood Pressure 132/63 (mmHg) O2 Sat by Pulse 98 99 Oximetry Oxygen Devices in Use Now: None Appearance: Alert, supine in bed. In good spirits. Looks comfortable. Eyes: No Scleral Icterus Extremities: No Edema, No Clubbing, Cyanosis, - Skin: No Rash or Ulcers, No Nodules or Sclerosis, - Neurological: Alert and Oriented x 3, NL Sensation, NL Gait - Walks well with walker. Result Diagrams: 05/14/16 06:30 05/15/16 05:31 Microbiology and Other Data: Microbiology 05/12/16 21:40 Urine Culture - Final Urine No Growth (<1,000 CFU/mL) Assess/Plan/Problems-Billing Assessment: Mrs. Mcfadden is a 76yo F with PMH of Takotsubo cardiomyopathy, HTN, HLD, hypothyroidism, fibromyalgia with chronic opiate use, asthma, GERD, MAGDA, recent admission with MART. - Patient Problems (1) Hyponatremia Current Visit: Yes Status: Acute Code(s): E87.1 - HYPO-OSMOLALITY AND HYPONATREMIA SNOMED Code(s): 14930286 Comment: - Likely secondary to thiazide. - Resolved with omission of thiazide. Now listed as Allergy/AdvReac. (2) Chronic pain Current Visit: No Status: Acute Code(s): G89.29 - OTHER CHRONIC PAIN SNOMED Code(s): 52901418 Comment: Patient instructed to use pill cutter to cut her /325 in half and take one half q 4 hr PRN. (3) Hypothyroid Current Visit: Yes Status: Acute Code(s): E03.9 - HYPOTHYROIDISM, UNSPECIFIED SNOMED Code(s): 46547667 Comment: - TSH is 9. Patient had her ldvothyroxine dose increased to 125 about 2 weeks ago. Pt instructed to stay on 125 mcg and have TSH re-checked in 2-3 weeks. (4) MART (acute kidney injury) Current Visit: Yes Status: Acute Code(s): N17.9 - ACUTE KIDNEY FAILURE, UNSPECIFIED SNOMED Code(s): 47875496 Comment: - Likely pre-renal due to dehydration. Resolved. Creatinine 0.93 05/15/16. Status and Disposition: Discharge now. Fup Dr. Brooks.
--- NOTE | 2016-05-15 15:56 | PN ---
Progress Note - Progress Note Note: tTime spent on discharge 50 minutes. I spoke at length with and daughter about her hospital course, dx including adverse reaction to thiazide, pain management, hypothyroidism management, BP management.
[2016-05-15 16:27] VITALS: BP 167/85
--- NOTE | 2016-05-16 01:24 | DS ---
CC: Dr. Brooks DISCHARGE SUMMARY: DATE OF ADMISSION: 05/12/16 DATE OF DISCHARGE: 05/15/16 HOSPITAL COURSE: This is a 76-year-old woman who presented with altered mental status, the history is detailed in the admission note. She responded to Narcan in the emergency room. She is a little combative. She then got some fentanyl and some lorazepam and then became somnolent. She was given another dose of Narcan. Her hyponatremia was treated by not giving her lisinopril/hydrochlorothiazid e combination. She got neither component of the medication. She received some normal saline. She responded quite well to this, her fentanyl patch was discontinued as well. Her sodium on the day di [facility] was 133. Her renal function was impaired on admission with a creatinine of 2.14, it came do wn to 0.93 on the day of discharge. She was completely alert, she was pain free. She had not recei kenji any pain medications all day when I saw her at 3 p.m. I did not prescribe any new narcotics, sh e will not use the fentanyl patch at home. I told the family to get a pill cutter to cut her oxycod one 10/325 tablets in half and to use one half tablet every 6 hours p.r.n. pain. There was still some confusion about her levothyroxine dose in that on admission, it was not recorde d that her 125 mcg dose was the new dose that she had only been taking for 2 weeks. Her TSH in the hospital was over 9 and her dose is increased to 150 mcg daily. I think it might be prudent to keep on the 125 and wait another 2 or 3 weeks to see if her TSH comes down to normal before considering another dose adjustment. FINAL DIAGNOSES: 1. Altered mental status due to a combination of hyponatremia and opioid use. 2. Chronic pain syndrome. 3. Hypothyroidism. 4. Acute kidney injury. DISCHARGE MEDICATIONS: 1. Acetaminophen 650 mg every 4 hours p.r.n. 2. Levothyroxine 125 mcg daily. 3. Escitalopram 20 mg daily. 4. Fluticasone nasal spray 2 sprays each nares daily. 5. Albuterol inhaler 2 puffs every 4 hours p.r.n. 6. Probiotic 1 tablet daily 7. Omeprazole 40 mg daily. 8. Alprazolam 0.25 to 0.5 mg at bedtime daily. 9. Oxycodone/acetaminophen 10/325 one half tablet every 4 hours p.r.n. The following medications have been discontinued: 1. Spironolactone. 2. Metoprolol succinate. 3. Lisinopril/hydrochlorothiazide. 4. Bumetanide. 5. Fentanyl patch. She will see Dr. Brooks in 1 week with particular attention to blood pressure regulation as several of her blood pressure medications have been stopped during this admission. [id number]/[facility] #: [id number]
--- NOTE | 2016-05-19 15:36 | DCNOTE ---
Pain Discharge Note - Discharge Instructions You have had a consult for:: back pain Temp Pulse Resp BP Pulse Ox 98.5 F 101 17 167/85 97 05/15/16 15:43 05/15/16 15:43 05/15/16 15:43 05/15/16 15:43 05/15/16 15:43 Temp Pulse Resp BP Pulse Ox 98.5 F 101 17 167/85 97 05/15/16 15:43 05/15/16 15:43 05/15/16 15:43 05/15/16 15:43 05/15/16 15:43 Allergies Allergy/AdvReac Type Severity Reaction Status Date / Time Amoxicillin Allergy Anaphylatic Verified 05/19/16 14:59 Shock Hydrochlorothiazide Allergy See Comment Verified 05/19/16 14:59 Iodine Allergy Hives Verified 05/19/16 14:59 Gabapentin AdvReac Intermediate Swelling Verified 05/19/16 14:59 Morphine AdvReac GI Upset Verified 05/19/16 14:59 Pregabalin [From Lyrica] AdvReac Edema Verified 05/19/16 14:59 Sulfa Drugs AdvReac Nausea And Verified 05/19/16 14:59 Vomiting Escitalopram (NF) [Lexapro (NF)] 20 mg PO DAILY 05/19/13 Fluticasone NASAL SPRAY 50MCG* [Flonase NASAL SPRAY 50MCG*] 2 spray BOTH NARES DAILY 05/14/15 Albuterol HFA INHALER* [Ventolin HFA Inhaler*] 2 puff INH Q4H PRN 09/21/15 ALPRAZolam TAB* [Xanax TAB*] 0.25 - 0.5 mg PO BEDTIME PRN MDD 0.5 mg 12/16/15 Omeprazole CAP* [Prilosec CAP* 20 MG] 40 mg PO DAILY 12/16/15 Probiotic Product [Probiotic] 1 tab PO DAILY 12/16/15 Acetaminophen TAB* [Tylenol TAB*] 650 mg PO Q4H PRN #0 tab 05/15/16 Levothyroxine TAB* [Synthroid 125 MCG TAB*] 125 mcg PO 0800 #30 tab 05/15/16 oxyCODONE/Acetamin 10/325(NF) [Percocet 10/325 (NF)] 0.5 tab PO Q4H PRN #0 new stop fentanyl increase hydrocodone/apap 10/325 max 6 day Medication Instructions: Resume Your Normal Medications Potential Side Effects: Drowsiness, Dizziness, Constipation, Nausea Special Instructions- Medications: Avoid constipation by increasing fluids and fiber., You may use [id number] stool softener/laxative. Medication Agreement: Medication Agreement Reviewed and reinforced - Discharge Teaching/Discharge Instructions Given To: Patient Teaching Methods: Discussion Verbalizes/Demonstrates Understanding of Discharge Instructi: Yes Mode of Discharge: Ambulated Patient Departed Via: Driving Self - Further Information/Follow Up Further Information/Follow Up: ALL MEDICATION REFILLS REQUIRE 7 DAYS ADVANCE NOTICE. If you have any further questions or problems, please call the Pain [facility] at [phone]. In case of an emergency or after clinic hours, please go to your nearest Emergency Department. Follow Up Appointment Appointment Date: FOR INJECTION Appointment Time: Patient Signature: Date: 05/19/2016_
== END 2016-05-15 16:30 | disposition home health service (06) | DRG 896 ==
LOC: ED 14:18 → ICU 18:56 → MED 05-14 16:47
PROVIDERS: ADMIT Internal Medicine; ATTEND Internal Medicine
PROC: 5A09357 Assistance with Respiratory Ventilation, Less than 24 Consecutive Hours, Continuous Positive Airway Pressure (ICD-10-PCS; principal; 2016-05-12)
DX: F11.90 Opioid use, unspecified, uncomplicated (principal); G93.40 Encephalopathy, unspecified; N17.9 Acute kidney failure, unspecified; I95.9 Hypotension, unspecified; E27.40 Unspecified adrenocortical insufficiency; E87.1 Hypo-osmolality and hyponatremia; E87.5 Hyperkalemia; F03.90 Unspecified dementia, unspecified severity, without behavioral disturbance, psychotic disturbance, mood disturbance, and anxiety; Z68.41 Body mass index [BMI] 40.0-44.9, adult; I51.81 Takotsubo syndrome; E03.9 Hypothyroidism, unspecified; G89.4 Chronic pain syndrome; E78.5 Hyperlipidemia, unspecified; M79.7 Fibromyalgia; J45.909 Unspecified asthma, uncomplicated; K21.9 Gastro-esophageal reflux disease without esophagitis; G47.33 Obstructive sleep apnea (adult) (pediatric); I25.2 Old myocardial infarction; Z96.652 Presence of left artificial knee joint; Z96.661 Presence of right artificial ankle joint; Z88.5 Allergy status to narcotic agent; Z88.2 Allergy status to sulfonamides; Z88.8 Allergy status to other drugs, medicaments and biological substances; Z88.1 Allergy status to other antibiotic agents; N18.9 Chronic kidney disease, unspecified; I12.9 Hypertensive chronic kidney disease with stage 1 through stage 4 chronic kidney disease, or unspecified chronic kidney disease; M13.89 Other specified arthritis, multiple sites; G43.909 Migraine, unspecified, not intractable, without status migrainosus; F41.9 Anxiety disorder, unspecified; F32.9 Major depressive disorder, single episode, unspecified; Z82.49 Family history of ischemic heart disease and other diseases of the circulatory system; E66.9 Obesity, unspecified
CPT/HCPCS: 36415; 70450; 71010; 80048; 80053; 80307; 80320; 80329; 81003; 82140; 82533; 82550; 82570; 83605; 83735; 83880; 83930; 83935; 84300; 84436; 84439; 84443; 84479; 84481; 84484; 85025; 85610; 87040; 87086; 93005; 94640; 94660; 94760; A9270-GY; G0480; J0610; J0834; J1200; J1644; J1720; J2060; J2310; J3010; J3475

== ENCOUNTER 2016-06-06 11:52 | Inpatient (IN) | payer MEDICARE, BC ==
[2016-06-06] MEDS ORDERED: Aspirin Low Dose CHEW TAB* 81 MG PO ONE (12:11)
[2016-06-06 12:54] LABS: Hematocrit 31 % (35-47); Mean Corpuscular HGB Conc 33 g/dl (31-36); Mean Corpuscular Hemoglobin 29 pg (27-31); Mean Corpuscular Volume 88 fL (80-97); Mean Platelet Volume 9 um3 (7.4-10.4); Red Blood Count 3.51 10^6/ul (4.0-5.4); Red Cell Distribution Width 15 % (10.5-15); White Blood Count 6.7 10^3/ul (3.5-10.8)
[2016-06-06 13:13] LABS: Albumin 4.1 g/dL (3.2-5.2); Calcium 9.7 mg/dL (8.6-10.3); EGFR African American 88.9 (>60); EGFR Non-African American 69.1 (>60); Globulin 2.9 g/dL (2-4); Magnesium 1.7 mg/dL (1.9-2.7); Potassium 3.7 mmol/L (3.5-5.0); Total Bilirubin 0.4 mg/dL (0.2-1.0)
--- NOTE | 2016-06-06 13:15 | RAD ---
INDICATION: Chest pain COMPARISON: Chest x-ray dated May 12, 2016 TECHNIQUE: Single AP portable view of the chest was obtained. FINDINGS: Image quality is compromised due to the relative inferiority of a portable chest x-ray. There is mild cardiomegaly and coarse calcification overlying the arch of the aorta. The pulmonary vascular is mildly large and indistinct, similar in appearance to the previous chest x-ray. The lungs are grossly clear. There is no evidence of a large pleural effusion. Visualized bones are normal for the patient's age. IMPRESSION: Chest x-ray findings are most compatible with cardiogenic pulmonary edema similar in appearance to the May 12, 2016 chest x-ray.
[2016-06-06 13:18] LABS: Troponin I 0.07 ng/mL (<0.04)
[2016-06-06 13:47] LABS: T4 7.51 g/dL (6.09-12.23)
[2016-06-06 13:48] LABS: TSH (Thyroid Stimulating Horm) 2.73 mcIU/mL (0.34-5.60)
[2016-06-06 14:25] LABS: Urine Bacteria 1+ (Absent); Urine Bilirubin Negative (Negative); Urine Glucose Negative (Negative); Urine Nitrite Negative (Negative)
--- NOTE | 2016-06-06 14:49 | RAD ---
INDICATION: Aphasia COMPARISON: Most recent comparison CT of the brain dated May 12, 2016 TECHNIQUE: Contiguous axial sections of the brain were obtained from the skull base to the vertex without contrast. FINDINGS: The ventricles, cisterns and sulci are within normal limits. There is mild periventricular and subcortical white matter hypoattenuation similar in appearance to the previous CT the brain. Otherwise the mccoy-white matter differentiation is adequately maintained and there is no sulcal effacement. No significant focal abnormality or mass effect is present. There is no evidence for intracranial hemorrhage. No significant focal osseous abnormality is present. The visualized portion of the paranasal sinuses and mastoid air cells appear clear. IMPRESSION: Chronic findings include evidence of microvascular disease and mild involutional changes with no significant change from the most recent CT of the brain.
--- NOTE | 2016-06-06 15:12 | ED ---
Ever Ballard Karl, scribed for Miles Naik MD on 06/06/16 at 1222 . HPI Chest Pain - HPI Summary HPI Summary: 76 y/o F REKHA presents with c/o SOB and upper abd pain since this morning. Pt stated that she is having "trouble breathing" and mild upper abd pain that has since gotten better. Pt daughter, at bedside, stated that she last night the pt stated she was itchy on her legs, but other than that she was "fine." This morning at approx 10:30, pt's daughter reported the pt was exhibiting mild confusion, stating "she couldn't speak and didn't know where she was." - History of Current Complaint Time Seen by Provider: 06/06/16 12:11 Hx Obtained From: Patient Onset/Duration: Started Hours Ago, Atraumatic, Resolved Time of Onset: 10:30 Timing: Constant, Lasting Hours Initial Severity: Mild Pain Intensity: 0 - upper abd pain Pain Scale Used: 0-10 Numeric Aggravating Factor(s): Nothing Alleviating Factor(s): Other: - EMS 325mg ASA Associated Signs and Symptoms: Positive: Shortness of Breath, Abdominal Pain, Other: - confusion - Additional Pertinent History Primary Care Physician: [id number] - Allergy/Home Medications Allergies/Adverse Reactions: Allergies Allergy/AdvReac Type Severity Reaction Status Date / Time Amoxicillin Allergy Anaphylatic Verified 05/19/16 14:59 Shock Hydrochlorothiazide Allergy See Comment Verified 05/19/16 14:59 Iodine Allergy Hives Verified 05/19/16 14:59 Gabapentin AdvReac Intermediate Swelling Verified 05/19/16 14:59 Morphine AdvReac GI Upset Verified 05/19/16 14:59 Pregabalin [From Lyrica] AdvReac Edema Verified 05/19/16 14:59 Sulfa Drugs AdvReac Nausea And Verified 05/19/16 14:59 Vomiting PMH/Surg Hx/FS Hx/Imm Hx Previously Healthy: No Endocrine/Hematology History: Reports: Hx Thyroid Disease - hypothyroidism Denies: Hx Diabetes Cardiovascular History: Reports: Hx Hypercholesterolemia, Hx Hypotension, Hx Hypertension, Other Cardiovascular Problems/Disorders - Takotsubo cardiomyopathy , MS Denies: Hx Pacemaker/ICD Respiratory History: Reports: Hx Asthma, Hx Pneumonia, Hx Sleep Apnea Denies: Hx Chronic Obstructive Pulmonary Disease (COPD) GI History: Reports: Hx Gastroesophageal Reflux Disease, Hx Obstructive Bowel - 2015 History: Denies: Hx Dialysis, Hx Renal Disease Musculoskeletal History: Reports: Hx Arthritis - hands,hips, shoulders, Hx Back Problems, Hx Fibromyalgia, Hx Orthopedic Injury - Fx Pelvis 1960; Rt. Tibia, Fibula,&Ankle Sensory History: Reports: Hx Contacts or Glasses Denies: Hx Hearing Aid Opthamlomology History: Reports: Hx Contacts or Glasses Neurological History: Reports: Hx Dementia, Hx Migraine, Other Neuro Impairments /Disorders - Encephalopathy on recent EEGs Denies: Hx Seizures Psychiatric History: Reports: Hx Anxiety, Hx Depression Denies: Hx Panic Disorder - Surgical History Surgery Procedure, Year, and Place: Radical hysterectomy, 1989. Repair of right leg and ankle fx. Deric fundoplication surgery. Tonsillectomy. Cholecystectomy. Total right ankle replacement, 2003. Total left knee replacement, 2006 Hx Anesthesia Reactions: No - Immunization History Date of Tetanus Vaccine: unknown Date of Influenza Vaccine: 2014 Infectious Disease History: Denies: Hx Clostridium Difficile, Hx Hepatitis, Hx Human Immunodeficiency Virus (HIV), Hx of Known/Suspected MRSA, Hx Shingles, Hx Tuberculosis, Hx Known/ Suspected VRE, Hx Known/Suspected VRSA, History Other Infectious Disease - Family History Known Family History: Positive: Cardiac Disease - Social History Alcohol Use: None Substance Use Type: Reports: None Substance Use Comment - Amount & Last Used: fentanyl patch and percocet Smoking Status (MU): Never Smoked Tobacco Have You Smoked in the Last Year: No Review of Systems Constitutional: Negative Eyes: Negative ENT: Negative Cardiovascular: Negative Positive: Shortness Of Breath Positive: Abdominal Pain Genitourinary: Negative Musculoskeletal: Negative Skin: Negative Neurological: Other - confusion Psychological: Normal All Other Systems Reviewed And Are Negative: Yes Physical Exam - Summary Physical Exam Summary: VITAL SIGNS: Reviewed. GENERAL: Patient is a well developed and nourished female who is lying comfortable in the stretcher. Patient is not in any acute respiratory distress. HEAD AND FACE: No signs of trauma. No ecchymosis, hematomas or skull depressions. EYES: PERRLA, EOMI x 2, No injected conjunctiva, no nystagmus. EARS: Hearing grossly intact. Ear canals and tympanic membranes are within normal limits. MOUTH: Oropharynx within normal limits. NECK: Supple, trachea is midline, no adenopathy, no JVD, no carotid bruit. CHEST: Symmetric, no tenderness at palpation LUNGS: Clear to auscultation bilaterally. No wheezing or crackles. CVS: Regular rate and rhythm, S1 and S2 present, no murmurs or gallops appreciated. ABDOMEN: Soft, non-tender. No signs of distention. No rebound no guarding, and no masses palpated. Bowel sounds are normal. EXTREMITIES: FROM in all major joints, no edema, no cyanosis or clubbing. NEURO: Alert oriented x 1. No acute neurological deficits. Speech is normal and follows commands. NIH score is 0 SKIN: Dry and warm Triage Information Reviewed: Yes Vital Signs On Initial Exam: Initial Vitals BP 70/51 06/06/16 12:18 Vital Signs Reviewed: Yes Diagnostics - Vital Signs Vital Signs Temp Pulse Resp BP Pulse Ox 06/06/16 12:30 74 16 122/75 96 06/06/16 12:21 98.5 F 76 12 70/51 98 06/06/16 12:20 81 13 97 06/06/16 12:18 70/51 - Laboratory Result Diagrams: 06/06/16 12:45 06/06/16 12:45 Lab Statement: Any lab studies that have been ordered have been reviewed, and results considered in the medical decision making process. - Radiology CXR Xray Interpretation: Positive (See Comments) Radiology Interpretation Completed By: Radiologist - IMPRESSION: Chest x-ray findings are most compatible with cardiogenic pulmonary edema similar in appearance to the May 12, 2016 chest x-ray. - CT CT Brain CT Interpretation: Positive (See Comments) CT Interpretation Completed By: Radiologist - IMPRESSION: Chronic findings include evidence of microvascular disease and mild involutional changes with no significant change from the most recent CT of the brain. - EKG 14:44 EKG Interpretation: NSR 69 bpm, Chest Pain Course/Dx - Course Assessment/Plan: 76 y/o F BIBRancho presents with c/o SOB and upper abd pain since this morning. Pt stated that she is having "trouble breathing" and mild upper abd pain that has since gotten better. Pt daughter, at bedside, stated that she last night the pt stated she was itchy on her legs, but other than that she was "fine." This morning at approx 10:30, pt's daughter reported the pt was exhibiting mild confusion, stating "she couldn't speak and didn't know where she was." Pt blood work shows slight anemia with hemoglobin of 10, hematocrit of 31, glucose 107, Mg 1.7, trop 0.07, bmp 373. CXR revealed pulmonary edema similar to CXR on 05/12. EMS gave ASA on the way to the ED. EKG showed NSR at 69 bpm, no ST elevations. CT Brain showed Chronic findings include evidence of microvascular disease and mild. involutional changes with no significant change from the most recent CT of the brain. Patient already with increase troponin r/o ACS. Also patient may have had a TIA vs takin too many pain medications. UA is contaminated. Discussed physical exam findings with Dr. García who accepted the pt for admission for further workup and management. Pt is hemodynamically stable. She is alert but not oriented. - Chest Pain Differential Diagnosis/HQI/PQRI: Acute MS, ACS, Angina, Chest Wall, GI Disease, Lower Respiratory Infection, Other: - CVA, TIA, - Diagnoses Provider Diagnoses: Chest pain r.o ACS, TIA vs medication overdose - Provider Notifications Discussed Care Of Patient With: Dr. García (Hospitalist) at 14:19 who agreed to admit the pt. Discharge - Discharge Plan Condition: Stable Disposition: ADMITTED TO [facility] documentation as recorded by the Ever wisdom Karl accurately reflects the service I personally performed and the decisions made by me, Miles Naik MD.
[2016-06-06] MEDS ORDERED: Furosemide IV* 10 MG/ML 10 ML VIAL (100 MG) IV ONE (15:27)
[2016-06-06] MEDS: Enoxaparin(*) 40 MG/0.4 ML SYR SUBCUT SCH (17:41)
[2016-06-06] MEDS: oxyCODONE TAB* 5 MG TAB PO PRN ×2 (17:41→21:55)
[2016-06-06] MEDS: Cephalexin CAP* 500 MG PO SCH ×2 (18:05→20:27)
--- NOTE | 2016-06-06 18:22 | PN ---
Hospitalist Progress Note HOSPITALIST ADDENDUM Case reviewed and d/w Dereck SINGH. Mrs. Mcfadden is a 76yo F known to me from prior admissions, who was brought in to ED by her family due to confusion. While in the ED, patient also c/o chest pain and shortness of breath. Labs, EKG, CT brain and CxR reviewed. Agree with current management.
--- NOTE | 2016-06-06 20:14 | HP ---
ADMISSION HISTORY AND PHYSICAL: DATE OF ADMISSION: 06/06/16 PRIMARY CARE PROVIDER: Dr. Brooks. ADMITTING PROVIDER: FRANCISCO Ruggiero. SUPERVISING PHYSICIAN: Estela García MD.* (DICTATED BY FRANCISCO RUGGIERO) CHIEF COMPLAINT: Confusion, chest pain, and shortness of breath. HISTORY OF PRESENT ILLNESS: This is a 76-year-old female with a history of chronic pain syndrome, hypothyroidism, Takotsubo cardiomyopathy with most recent echocardiogram being within normal limits, hypertension, hyperlipidemia, mild intermittent asthma, obstructive sleep apnea, and known coronary artery disease with history of prior PA and a rather recent history of severe acute kidney injury that resolved completely. The patient presented to the emergency department earlier today after her family became concerned due to some increased confusion and she began to complain of some chest pain and shortness of breath. Her symptoms started suddenly this morning. According to her daughter, she was walking and was asked a question and seemed to just have a glazed look on her face and did not respond appropriately to the question. She then went to sit down and then began complaining of chest pain and shortness of breath. She denies any recent illnesses. She denies cough, abdominal pain, or palpitations. At the time of evaluation, she states that her chest pain and shortness of breath have resolved. The patient was last discharged about 20 days ago on 05/15/16. At that point, she was admitted for altered mental status, which seemed to be due to her narcotic regimen. It was recommended at that time that her fentanyl patch be discontinued and the dose of her Percocet decreased. Her TSH was also noted to be elevated at that time and her dose of levothyroxine had just been increased the week prior to her hospital admission. The patient states that she has been compliant with the recommendation to discontinue the fentanyl patch. She is under the care of pain management and she uses between 4 and 6 Percocet tablets daily, which contain 10 mg of oxycodone each. Prior to her last admission the end of April, she was in the hospital the end of March and beginning of April with severe acute renal failure. Her creatinine was 10 at the time of admission and has resolved completely. She was taken off her MANDO inhibitor and diuretics at that time. The patient's daughter who helps to manage most of her medications states that her dietary intake of salt has increased recently. She began having some potato chips with lunch. Her primary care provider noted that her blood pressure started to increase and recommended restarting a new antihypertensive, Cozaar, which the patient started taking about 3 days ago. There have been no other changes to her home medications according to her daughter. The patient denies any urinary complaints including abdominal pain, nausea, or vomiting. PAST MEDICAL HISTORY: 1. Chronic pain syndrome. 2. Hypothyroidism. 3. History of severe acute kidney injury seems resolved. 4. History of Takotsubo cardiomyopathy, last echocardiogram from 05/24/15 was within normal limits. 5. Hypertension. 6. Hyperlipidemia. 7. Mild intermittent asthma. 8. Obstructive sleep apnea. 9. Coronary artery disease with history of acute PA. PAST SURGICAL HISTORY: 1. Hysterectomy. 2. Total knee replacement x2. 3. Cholecystectomy. HOME MEDICATIONS: 1. Xanax 0.25 mg p.o. at bedtime as needed. 2. Lexapro 20 mg p.o. at bedtime. 3. Levothyroxine 125 mcg p.o. daily. 4. Losartan 50 mg p.o. daily. 5. Omeprazole 40 mg p.o. daily. 6. Percocet 10/325 one tablet p.o. q.4 hours as needed for pain. SOCIAL HISTORY: The patient lives at home with her and daughter. No history of smoking. No regular alcohol consumption. REVIEW OF SYSTEMS: As noted above in the HPI. PHYSICAL EXAMINATION GENERAL: This is a pleasant elderly female in no acute distress accompanied by her and daughter. INITIAL VITAL SIGNS: Temperature 98.5 degrees Fahrenheit, pulse 67 beats per minute, respiratory rate 12 per minute, oxygen saturation 98% on room air, blood pressure 70/51 mmHg. Repeat blood pressure though 10 minutes later came up to 122/75 mmHg and has been normal since that time. HEENT: Head is normocephalic, atraumatic. Mucous membranes are pink and moist. NECK: No obvious JVD. Neck is supple and free of lymphadenopathy. RESPIRATORY: There are faint crackles in dependent lung lewis. No rhonchi or wheezing noted. CARDIOVASCULAR: Heart has a regular rate and rhythm without murmurs, rubs, or gallops. ABDOMEN: Soft and nontender to palpation. EXTREMITIES: Trace lower extremity edema. SKIN: Limited exam shows no concerning rashes or lesions. PSYCH: The patient is alert and appropriately oriented and per her family, this is her baseline. LABORATORY EVALUATION: CBC shows white blood cell count of 6700, hemoglobin of 10 with a normal MCV. Platelet count of 253,000. Comprehensive metabolic panel shows a normal sodium of 138 mmol/L, potassium 3.7 mmol/L, BUN of 13 with a creatinine of 0.81. Magnesium 1.7. Transaminases and total bilirubin within normal limits. Troponin mildly elevated at 0.07. BNP mildly elevated at 373. TSH is normal at 2.73 with a normal total T4. Urinalysis significant for 3+ leukocyte esterase, 3+ white blood cells, then 1+ bacteria, and otherwise negative. IMAGING: Chest x-ray showed some pulmonary venous congestion, no acute infiltrate. EKG shows a normal sinus rhythm. CT of the brain shows chronic findings consistent with chronic microvascular disease and mild atrophy, but no acute changes. ASSESSMENT AND PLAN: This is a 76-year-old female with history of chronic pain , hypothyroidism, hypertension, hyperlipidemia, mild intermittent asthma, obstructive sleep apnea, coronary artery disease, and history of Takotsubo cardiomyopathy who presented with confusion, chest pain, and shortness of breath. The patient is being admitted to observation status. 1. Chest pain and shortness of breath - initial troponin is mildly elevated. The patient does have appearance of some mild pulmonary venous congestion on chest x- ray. We will diurese her with a one-time dose of Lasix to see if this improves her symptoms, but she is largely asymptomatic at this time. No evidence of pneumonia or other respiratory infection. We plan to maintain continuous cardiac monitoring and cycle troponins. Again, her chest pain has resolved at this time. Given the constellation of findings on her chest x-ray and mildly elevated troponin and history of ischemic heart disease, we will plan to repeat an echocardiogram tomorrow as well. 2. Confusion - the patient is back to her baseline. CT imaging is within normal limits. No focal neurologic deficits noted. The patient does have evidence of a possible urinary tract infection on her urinalysis. This may be at least a contributing factor to her acute symptoms. Otherwise, no specific intervention as she does seem to be back to her baseline. 3. Suspect urinary tract infection - we will empirically start oral Keflex in the setting of confusion and other vague symptoms. This may be the potential contributor. We will await culture results. 4. Chronic pain syndrome - we will continue her home dose of Percocet as previously prescribed. 5. Hypertension - continue Cozaar. She appears to be normotensive. No evidence of acute kidney injury. 6. Hyperlipidemia. 7. Obstructive sleep apnea. 8. History of severe acute renal insufficiency - the patient's renal function has returned to normal and Cozaar was initiated a few days ago. No evidence of hyperkalemia or acute kidney injury. 9. Code status: The patient is full code. 10. DVT prophylaxis: We will initiate Lovenox 40 mg subcu daily. 11. Healthcare proxy is the patient's daughter, Jose Velazquez. 12. Disposition: The patient is being admitted to observation status for confusion, chest pain, and shortness of breath. Symptoms have mostly resolved at this time and anticipate likely discharge tomorrow. FRANCISCO RUGGIERO CC: Dr. Brooks* [id number]/CPS #: [id number] [facility] CENTERNanci
[2016-06-06] MEDS: Acetaminophen TAB* 325 MG PO PRN (20:28)
[2016-06-06] MEDS ORDERED: traMADol TAB* 50 MG PO PRN (22:56)
[2016-06-07] MEDS: ALPRAZolam TAB* 0.25 MG PO PRN (00:45)
[2016-06-07] MEDS: oxyCODONE TAB* 5 MG TAB PO PRN ×4 (03:08→19:48)
[2016-06-07] MEDS: Levothyroxine TAB* 125 MCG TAB PO SCH (05:15)
[2016-06-07 07:05] LABS: BUN/Creatinine Ratio 21.1 (8-20); Calcium 9.8 mg/dL (8.6-10.3); EGFR African American 95.7 (>60); EGFR Non-African American 74.4 (>60); Potassium 3.4 mmol/L (3.5-5.0)
[2016-06-07 07:11] LABS: Troponin I 0.07 ng/mL (<0.04)
[2016-06-07] MEDS: CMC Escitalopram (NF) 10 MG TAB PO SCH (08:04)
[2016-06-07] MEDS: Omeprazole CAP* 20 MG PO SCH (08:04)
[2016-06-07] MEDS: oxyCODONE/Acetamin 5/325 MG* TAB PO PRN ×3 (08:04→19:49)
[2016-06-07] MEDS: Cephalexin CAP* 500 MG PO SCH ×3 (08:04→16:02)
[2016-06-07] MEDS: Losartan TAB* 25 MG PO SCH (08:04)
[2016-06-07] MEDS: Enoxaparin(*) 40 MG/0.4 ML SYR SUBCUT SCH (16:02)
--- NOTE | 2016-06-07 16:05 | PN ---
Subjective Date of Service: 06/07/16 Interval History: Patient seen this morning and again the afternoon, SO present. Had chest pain this morning that seemed pleuritic. EKG unchanged. SO states patient was confused and "staring off". No bladder or bowel incontinence. SO concerned about patient at home and that she has had so many hospitalizations recently. Also reports she has had some orthostatic hypotension in PCP office so they were told to eat a handful of potato chips each day. Family History: Unchanged from Admission Social History: Unchanged from Admission Past Medical History: Unchanged from Admission Objective Active Medications: Acetaminophen (Tylenol Tab*) 650 mg PO Q4H PRN Alprazolam (Xanax Tab*) 0.25 mg PO BEDTIME PRN Cephalexin HCl (Keflex Cap*) 500 mg PO QID [facility] Enoxaparin Sodium (Lovenox(*)) 40 mg SUBCUT Q24H [facility] Escitalopram Oxalate (Lexapro (Nf)) 20 mg PO DAILY [facility] Levothyroxine Sodium (Synthroid Tab*) 125 mcg PO 0600 [facility] Losartan Potassium (Cozaar Tab*) 50 mg PO DAILY [facility] Omeprazole (Prilosec Cap*) 40 mg PO 0730 [facility] Oxycodone HCl (Roxycodone Tab*) 5 mg PO Q4H PRN Oxycodone/Acetaminophen (Percocet 5/325 Tab*) 1 tab PO Q4H PRN Vital Signs 06/07/16 06/07/16 14:24 14:35 Respiratory 18 18 Rate Oxygen Devices in Use Now: None Appearance: Elderly, F, laying in bed in NAD Eyes: No Scleral Icterus Ears/Nose/Mouth/Throat: Mucous Membranes Moist Neck: NL Appearance and Movements; NL JVP Respiratory: Symmetrical Chest Expansion and Respiratory Effort, Clear to Auscultation Cardiovascular: NL Sounds; No Murmurs; No JVD, RRR Abdominal: NL Sounds; No Tenderness; No Distention Lymphatic: No Cervical Adenopathy Extremities: No Edema Skin: No Rash or Ulcers Neurological: - - Alert, oriented, no focal deficits Result Diagrams: 06/06/16 12:45 06/07/16 06:05 Assess/Plan/Problems-Billing Assessment: Chest pain, SOB possibly due to mild CHF exacerbation, confusion, positive UA in a 76 yo F with hx of HTN, HLD, Takotsubo's, hypothyroidism, CAD s/p ID and dementia - Patient Problems (1) SOB (shortness of breath) Current Visit: Yes Comment: Due to mild acute on chronic dCHF exacerbation. BNP was elevated, resolved with IV Lasix x1. No further symptoms. (2) Chest pain Current Visit: Yes Comment: Chest pain this morning was pleuritic. No EKG changes. Troponin peaked at 0.09. Awaiting echocardiogram. (3) Confusion Current Visit: No Comment: SO reports staring episode. Cannot rule out seizure. CT head negative. Will check EEG. Also will continue to treat +UA (4) Pyuria Current Visit: Yes Comment: Continue Keflex. Follow culture. (5) HTN (hypertension) Current Visit: No Comment: Continue Losartan. (6) Chronic pain Current Visit: No Comment: Continue home regimen. (7) DVT prophylaxis Current Visit: No Comment: Lovenox Status and Disposition: Likely discharge 06/08
[2016-06-07] MEDS: Cephalexin CAP* 250 MG PO SCH ×2 (16:47→21:27)
[2016-06-08] MEDS: Acetaminophen TAB* 325 MG PO PRN (03:42)
[2016-06-08] MEDS: Levothyroxine TAB* 125 MCG TAB PO SCH (06:58)
[2016-06-08] MEDS: Losartan TAB* 25 MG PO SCH (08:31)
[2016-06-08] MEDS: Cephalexin CAP* 250 MG PO SCH ×2 (08:31→13:53)
[2016-06-08] MEDS: Omeprazole CAP* 20 MG PO SCH (08:31)
[2016-06-08] MEDS: CMC Escitalopram (NF) 10 MG TAB PO SCH (08:31)
[2016-06-08] MEDS: oxyCODONE TAB* 5 MG TAB PO PRN ×3 (08:44→21:31)
[2016-06-08] MEDS: oxyCODONE/Acetamin 5/325 MG* TAB PO PRN ×3 (08:45→21:31)
--- NOTE | 2016-06-08 15:18 | PN ---
Subjective Date of Service: 06/08/16 Interval History: C/O epigastric pain. She states she ate a good breakfast and lunch. Family History: Unchanged from Admission Social History: Unchanged from Admission Past Medical History: Unchanged from Admission Objective Active Medications: Acetaminophen (Tylenol Tab*) 650 mg PO Q4H PRN PRN Reason: FEVER/PAIN Last Admin: 06/08/16 03:42 Dose: 650 mg Alprazolam (Xanax Tab*) 0.25 mg PO BEDTIME PRN PRN Reason: ANXIETY Last Admin: 06/07/16 00:45 Dose: 0.25 mg Enoxaparin Sodium (Lovenox(*)) 40 mg SUBCUT Q24H [facility] Last Admin: 06/07/16 16:02 Dose: 40 mg Escitalopram Oxalate (Lexapro (Nf)) 20 mg PO DAILY [facility] Last Admin: 06/08/16 08:31 Dose: 20 mg Levothyroxine Sodium (Synthroid Tab*) 125 mcg PO 0600 [facility] Last Admin: 06/08/16 06:58 Dose: 125 mcg Losartan Potassium (Cozaar Tab*) 50 mg PO DAILY [facility] Last Admin: 06/08/16 08:31 Dose: 50 mg Omeprazole (Prilosec Cap*) 40 mg PO 0730 [facility] Last Admin: 06/08/16 08:31 Dose: 40 mg Oxycodone HCl (Roxycodone Tab*) 5 mg PO Q4H PRN PRN Reason: PAIN Last Admin: 06/08/16 14:43 Dose: 5 mg Oxycodone/Acetaminophen (Percocet 5/325 Tab*) 1 tab PO Q4H PRN PRN Reason: PAIN Last Admin: 06/08/16 14:42 Dose: 1 tab Vital Signs 06/07/16 06/07/16 06/07/16 16:01 19:36 19:48 Temperature 98.5 F 98.2 F Pulse Rate 72 80 Respiratory 16 16 16 Rate Blood Pressure 148/75 160/70 (mmHg) O2 Sat by Pulse 96 95 Oximetry 06/07/16 06/07/16 06/07/16 19:49 20:00 21:48 Temperature Pulse Rate Respiratory 16 16 18 Rate Blood Pressure (mmHg) O2 Sat by Pulse Oximetry 06/07/16 06/07/16 06/08/16 21:49 23:49 03:32 Temperature 97.9 F 98.4 F Pulse Rate 78 81 Respiratory 18 20 20 Rate Blood Pressure 167/78 177/92 (mmHg) O2 Sat by Pulse 96 97 Oximetry 06/08/16 06/08/16 06/08/16 07:25 08:00 08:44 Temperature 98.5 F Pulse Rate 70 Respiratory 16 16 14 Rate Blood Pressure 166/50 (mmHg) O2 Sat by Pulse 94 Oximetry 06/08/16 06/08/16 06/08/16 08:45 10:45 14:42 Temperature Pulse Rate Respiratory 14 16 16 Rate Blood Pressure (mmHg) O2 Sat by Pulse Oximetry 06/08/16 14:43 Temperature Pulse Rate Respiratory 16 Rate Blood Pressure (mmHg) O2 Sat by Pulse Oximetry Oxygen Devices in Use Now: None Appearance: Alert, supine in bed. In fair spiits. Looks comfortable. Eyes: No Scleral Icterus Neck: NL Appearance and Movements; NL JVP, No Thyroid Enlargement, Masses Respiratory: Symmetrical Chest Expansion and Respiratory Effort, Clear to Auscultation, Clear to Percussion Cardiovascular: NL Sounds; No Murmurs; No JVD, RRR, No Edema, - Extremities: No Edema, No Clubbing, Cyanosis, - Skin: No Rash or Ulcers, No Nodules or Sclerosis, - Neurological: Alert and Oriented x 3, NL Sensation Result Diagrams: 06/06/16 12:45 06/07/16 06:05 Assess/Plan/Problems-Billing Assessment: Chest pain, SOB possibly due to mild CHF exacerbation, confusion, positive UA in a 76 yo F with hx of HTN, HLD, Takotsubo's, hypothyroidism, CAD s/p [place] and dementia - Patient Problems (1) Chest pain Current Visit: Yes Status: Acute Code(s): R07.9 - CHEST PAIN, UNSPECIFIED SNOMED Code(s): 56441307 Comment: Chest pain this morning seems to be replaced by epigastric pain . Troponin peaked at 0.09. Awaiting echocardiogram. (2) Hypothyroid Current Visit: No Status: Acute Code(s): E03.9 - HYPOTHYROIDISM, UNSPECIFIED SNOMED Code(s): 83660836 Comment: Continue levothyroxine to 125 mcg daily. (3) Chronic pain Current Visit: No Status: Acute Code(s): G89.29 - OTHER CHRONIC PAIN SNOMED Code(s): 73336881 Comment: Continue home regimen. Status and Disposition: Likely discharge 06/08
[2016-06-08] MEDS: Enoxaparin(*) 40 MG/0.4 ML SYR SUBCUT SCH (17:28)
[2016-06-08] MEDS ORDERED: Ondansetron INJ* 2 MG/ML VIAL IV PRN (20:51)
--- NOTE | 2016-06-08 21:55 | ECHO ---
Patient: CINDY BEAL [facility] Rec#: [id number] : 1940 Date: 06/08/2016 Age: 76y Height: 162 cm / 63.8 in Weight: 92 kg / 202.8 lbs Sex: F BSA: 1.96 Room#: [facility] Admit Date#: 06/07/2016 Type: Inpatient Referring: CAROLE SMILEY MD Reading: Thomas Bennett MD Packaging Operator: Sunny Small RDCS CC: Chantal Cobb, CUSTOMER SERVICE DISPATCHER Transthoracic Echocardiogram Indication: CHEST PAIN BP: 177/92 HR: 82 Rhythm: NSR Findings History: HTN,HLD,thyroid disease asthma,Takotsubo cardiomyopathy Technical Comments: The study quality is fair. Completed 1615 Left Ventricle: Global left ventricular wall motion and contractility are within normal limits. There is normal left ventricular systolic function. The estimated ejection fraction is 55-60%. The assessment of diastolic function is non-diagnostic. Left Atrium: The left atrium is mildly dilated. Right Ventricle: The right ventricular cavity size is normal. The right ventricular global systolic function is normal. Right Atrium: The right atrial cavity size is normal. Aortic Valve: The aortic valve leaflets are mildly thickened. Systolic excursion of the aortic valve cusps is reduced. There is mild aortic stenosis. The mean gradient of the aortic valve is 9 mmHg. The peak instantaneous gradient of the aortic valve is 13 mmHg. The aortic valve area, by VTI's, is calculated at 1.1 cm2. The highest aortic valve velocity was obtained with the standard probe from the A5C view. Mitral Valve: There is mitral annular calcification. The mitral valve leaflets are mildly thickened. There is a trace of mitral regurgitation. The mean gradient across the mitral valve is 3 mmHg. The peak gradient across the mitral valve is 6 mmHg. Tricuspid Valve: There is no evidence of tricuspid valve regurgitation. Pulmonic Valve: The pulmonic valve appears normal. There is no evidence of pulmonic regurgitation. There is no pulmonic stenosis. Pericardium: There is no pericardial effusion. Aorta: There is no dilatation of the ascending aorta. The aortic arch is not well visualized. There is no dilation of the aortic root. Pulmonary Artery: The main pulmonary artery is not well visualized. Venous: The inferior vena cava appears normal in size. There is a greater than 50% respiratory change in the inferior vena cava dimension. Conclusions Global left ventricular wall motion and contractility are within normal limits. The estimated ejection fraction is 55-60%. The assessment of diastolic function is non-diagnostic. The right ventricular global systolic function is normal. The aortic valve leaflets are mildly thickened. There is mild aortic stenosis. There is a trace of mitral regurgitation. There is no pericardial effusion. Measurements Name Value Normal Range RVIDd (AP) 2D 2.3 cm (0.9 - 2.6) RVDdMajor (2D) 2.2 cm (2.2 - 4.4) RAd ISD 4CH 4.7 cm (3.4 - 4.9) RA (A4C)W 3.1 cm (2.9 - 4.6) IVSd (2D) 1.1 cm (0.6 - 1) LVPWd (2D) 0.9 cm (0.6 - 1) LVIDd (2D) 5.1 cm (3.6 - 5.4) LVIDs (2D) 3.5 cm - LV FS (2D) 31 % (25 - 45) Aortic Annulus 1.6 cm (1.4 - 2.6) Ao root diameter (2D) 3.2 cm (2.1 - 3.5) Ascending Ao 3.2 cm (2.1 - 3.4) LA dimension (AP) 2D 3.4 cm (2.3 - 3.8) LAd ISD 4CH 5 cm (2.9 - 5.3) LA ISD 4CH W 3.8 cm (2.5 - 4.5) Name Value Normal Range LA ESV SP 4CH (A/L) 67 ml - LA ESV SP 2CH (A/L) 72 ml - LA ESV BP (A/L) 73 ml - LA ESV BP (A/L) index 36.9 ml/m2 - LA ESV SP 4CH (MOD) 60 ml - LA ESV SP 2CH (MOD) 68 ml - Name Value Normal Range MV E-wave Vmax 1.09 m/sec - MV deceleration time 149 msec - MV A-wave Vmax 1.06 m/sec - MV E:A ratio 1.02 ratio - LV septal e' Vmax 0.07 m/sec - LV lateral e' Vmax 0.07 m/sec - LV E:e' septal ratio 15.57 ratio - LV E:e' lateral ratio 15.57 ratio - Name Value Normal Range AV peak gradient 13 mmHg - AV mean gradient 9 mmHg - LVOT diameter 1.8 cm - LVOT Vmax 0.9 m/sec - LVOT mean gradient 1.54 mmHg - FLY (continuity VTI) 1.1 cm2 - Name Value Normal Range MV Vmax 1.19 m/sec - MV VTI 34.76 cm - MV peak gradient 6 mmHg - MV mean gradient 3 mmHg - MV PHT 31.1 msec - MVA (PHT) 7.07 cm2 - MVA (continuity VTI) 1.16 cm2 - Name Value Normal Range IVC diameter 1.88 cm - Name Value Normal Range PV Vmax 1.3 m/sec -
[2016-06-09] MEDS: ALPRAZolam TAB* 0.25 MG PO PRN (00:42)
[2016-06-09] MEDS: Acetaminophen TAB* 325 MG PO PRN (00:45)
--- NOTE | 2016-06-09 02:22 | EEG ---
ELECTROENCEPHALOGRAPHY: DATE OF RECORDIN06/08/16 - ROOM #448 LOCATION: The patient is an inpatient. REQUESTING PROVIDER: Pritesh Hood MD. HISTORY: This is a 76-year-old woman who is admitted with an episode of being confused and "staring off." EEG is requested to evaluate for epileptiform abnormalities. MEDICATIONS: 1. Percocet. 2. Roxicodone. 3. Prilosec. 4. Cozaar. 5. Synthroid. 6. Lexapro. 7. Keflex. 8. Xanax. 9. Tylenol. DESCRIPTION: The waking background shows appropriate organization with defined anterior to posterior voltage and frequency gradients. There was a defined posterior dominant rhythm of 8 Hz maximally in the right hemisphere, which was not as well sustained in the left hemisphere and often approximately 1 Hz slower. In addition, there was intermittent, polymorphic mixed frequency slowing, which was generalized but frequently affected the left hemisphere and in particular the left temporal region to a greater degree. Photic stimulation and hyperventilation were not performed. Attenuation of the occipital rhythm accompanied drowsiness. There were no well - developed sleep spindles or vertex waves to indicate the transition to stage 2 sleep. Throughout the recording, there were no epileptiform discharges. IMPRESSION: This is an abnormal waking and drowsy EEG. There is a slow posterior dominant rhythm and intermittent polymorphic diffuse slowing within the background. In addition, superimposed on this, there is intermittent slowing present preferentially in the left hemisphere and especially affecting the left temporal region. Overall, these findings are suggestive of a mild-to- moderate, nonspecific, diffuse encephalopathy with superimposed cerebral dysfunction in the left hemisphere and in particular in the temporal region. There are no epileptiform abnormalities. [id number]/[facility] #: [id number] [facility]
[2016-06-09] MEDS: Levothyroxine TAB* 125 MCG TAB PO SCH (05:54)
[2016-06-09] MEDS: oxyCODONE/Acetamin 5/325 MG* TAB PO PRN (06:28)
[2016-06-09] MEDS: oxyCODONE TAB* 5 MG TAB PO PRN (06:29)
--- NOTE | 2016-06-09 07:42 | DCNOTE ---
Subjective Date of Service: 06/09/16 Interval History: Patient told nurse she was in terrible pain this AM and was in tears. She was given her usual analgesic dose about 1/2 hr before I saw her. She told me that she had back pain about her usual amount. No chest pain. No new c/o. Family History: Unchanged from Admission Social History: Unchanged from Admission Past Medical History: Unchanged from Admission Objective Active Medications: Acetaminophen (Tylenol Tab*) 650 mg PO Q4H PRN PRN Reason: FEVER/PAIN Last Admin: 06/09/16 00:45 Dose: 650 mg Alprazolam (Xanax Tab*) 0.25 mg PO BEDTIME PRN PRN Reason: ANXIETY Last Admin: 06/09/16 00:42 Dose: 0.25 mg Enoxaparin Sodium (Lovenox(*)) 40 mg SUBCUT Q24H [facility] Last Admin: 06/08/16 17:28 Dose: 40 mg Escitalopram Oxalate (Lexapro (Nf)) 20 mg PO DAILY [facility] Last Admin: 06/08/16 08:31 Dose: 20 mg Levothyroxine Sodium (Synthroid Tab*) 125 mcg PO 0600 [facility] Last Admin: 06/09/16 05:54 Dose: 125 mcg Losartan Potassium (Cozaar Tab*) 50 mg PO DAILY [facility] Last Admin: 06/08/16 08:31 Dose: 50 mg Omeprazole (Prilosec Cap*) 40 mg PO 0730 [facility] Last Admin: 06/08/16 08:31 Dose: 40 mg Ondansetron HCl (Zofran Inj*) 4 mg IV Q6H PRN PRN Reason: NAUSEA Last Admin: 06/08/16 21:38 Dose: 4 mg Oxycodone HCl (Roxycodone Tab*) 5 mg PO Q4H PRN PRN Reason: PAIN Last Admin: 06/09/16 06:29 Dose: 5 mg Oxycodone/Acetaminophen (Percocet 5/325 Tab*) 1 tab PO Q4H PRN PRN Reason: PAIN Last Admin: 06/09/16 06:28 Dose: 1 tab Vital Signs 06/08/16 06/08/16 06/08/16 08:00 08:44 08:45 Temperature Pulse Rate Respiratory 16 14 14 Rate Blood Pressure (mmHg) O2 Sat by Pulse Oximetry 0206/08/16 06/08/16 10:45 11:05 14:40 Temperature 98.1 F Pulse Rate 77 92 Respiratory 16 16 Rate Blood Pressure 149/69 187/86 (mmHg) O2 Sat by Pulse 96 97 Oximetry 06/08/16 06/08/16 06/08/16 14:42 14:43 16:42 Temperature Pulse Rate Respiratory 16 16 14 Rate Blood Pressure (mmHg) O2 Sat by Pulse Oximetry 06/08/16 06/08/16 06/08/16 19:29 20:00 21:31 Temperature 98.1 F Pulse Rate 80 Respiratory 16 16 26 Rate Blood Pressure 129/49 (mmHg) O2 Sat by Pulse 95 Oximetry 06/08/16 06/08/16 06/08/16 23:21 23:28 23:29 Temperature 98.1 F Pulse Rate 83 Respiratory 16 16 16 Rate Blood Pressure 136/63 (mmHg) O2 Sat by Pulse 92 Oximetry 06/09/16 06/09/16 06/09/16 00:42 02:27 05:09 Temperature 97.6 F Pulse Rate 79 Respiratory 20 16 16 Rate Blood Pressure 142/66 (mmHg) O2 Sat by Pulse 93 Oximetry 06/09/16 06/09/16 06/09/16 06:28 06:29 07:28 Temperature Pulse Rate Respiratory 16 16 16 Rate Blood Pressure (mmHg) O2 Sat by Pulse Oximetry Oxygen Devices in Use Now: None Appearance: Alert, supine in bed. In good spirits. Looks comfortable. Eyes: No Scleral Icterus Neck: NL Appearance and Movements; NL JVP, No Thyroid Enlargement, Masses Respiratory: Symmetrical Chest Expansion and Respiratory Effort, Clear to Auscultation, Clear to Percussion Cardiovascular: NL Sounds; No Murmurs; No JVD, RRR, No Edema, - Extremities: No Edema, No Clubbing, Cyanosis, - Skin: No Rash or Ulcers, No Nodules or Sclerosis, - Neurological: Alert and Oriented x 3, NL Sensation Result Diagrams: 06/06/16 12:45 06/07/16 06:05 Assess/Plan/Problems-Billing Assessment: Chest pain, SOB possibly due to mild CHF exacerbation, confusion, positive UA in a 76 yo F with hx of HTN, HLD, Takotsubo's, hypothyroidism, CAD s/p NM and dementia - Patient Problems (1) Chest pain Current Visit: Yes Status: Acute Code(s): R07.9 - CHEST PAIN, UNSPECIFIED SNOMED Code(s): 48988702 Comment: Chest pain and epigastric pain gone, has only her usual back pain 2/ . I think much of her problem is her memory loss and anxiety. Troponin peaked at 0.09. Echocardiogram unremarkable, mild . (2) Hypothyroid Current Visit: No Status: Acute Code(s): E03.9 - HYPOTHYROIDISM, UNSPECIFIED SNOMED Code(s): 01898357 Comment: Continue levothyroxine to 125 mcg daily. (3) Chronic pain Current Visit: No Status: Acute Code(s): G89.29 - OTHER CHRONIC PAIN SNOMED Code(s): 78225706 Comment: Continue home regimen. Status and Disposition: Likely discharge now. Fup Dr. Cobb.
--- NOTE | 2016-06-09 07:59 | PN ---
Progress Note - Progress Note Note: Time spent on discharge 40 minutes.
[2016-06-09 08:37] VITALS: BP 138/66
[2016-06-09] MEDS: Losartan TAB* 25 MG PO SCH (08:42)
--- NOTE | 2016-06-09 08:42 | DS ---
DISCHARGE SUMMARY: DATE OF ADMISSION: 06/07/16 DATE OF DISCHARGE: 06/09/16 HISTORY OF PRESENT ILLNESS: This 76-year-old woman presented with confusion, chest pain, shortness of breath. History is detailed in the admission note. The patient, when I saw her, was complaining of epigastric pain. On the day of discharge, she was complaining of back pain. She has chronic back pain. I think part of her problem is her memory loss and anxiety. She cannot recall all of her symptoms or whether she has complained about them. She gets nervous at times and may be somaticizing. We really could not find a good organic basis for her complaints. I do note her troponin was borderline elevated, but quite flat. She had five troponin measurements, all of which were in the range of 0.07 to 0.09. In the past when she had Takotsubo syndrome, her troponin ran up to 1.42. No real intervention was done. She was maintained on all the medications she was on at home. On the morning of discharge, early in the morning, she told the nurse she was in terrible pain and was in tears. She was given her usual analgesic dose; and, when I saw her half an hour later, was quite at her baseline and didn't really recall these events. She stated her back pain was normal for her, and did not have any new complaints. FINAL DIAGNOSES: 1. Chronic back pain. 2. Memory loss. 3. Minimal troponin elevation of uncertain significance with essentially negative echocardiogram. 4. Hyperthyroidism. 5. Chronic back pain. 6. Hypertension. DISCHARGE MEDICATIONS: 1. Escitalopram 20 mg daily. 2. Omeprazole 40 mg daily. 3. Alprazolam 0.25 mg h.s. p.r.n. 4. Levothyroxine 125 mcg daily. 5. Oxycodone/acetaminophen 10/325 one every 4 hours p.r.n. 6. Losartan 50 mg daily. CC: Chantal Cobb NP* [id number]/[facility] #: [id number] MTDD
[2016-06-09] MEDS: CMC Escitalopram (NF) 10 MG TAB PO SCH (08:43)
[2016-06-09] MEDS: Omeprazole CAP* 20 MG PO SCH (08:43)
== END 2016-06-09 09:48 | disposition home or self-care (01) | DRG 293 ==
LOC: ED 11:52 → MEDTELE 14:17 → OBSVTOIN 06-07 14:20
PROVIDERS: ADMIT Internal Medicine; ATTEND Internal Medicine
DX: I11.0 Hypertensive heart disease with heart failure (principal); E05.90 Thyrotoxicosis, unspecified without thyrotoxic crisis or storm; I50.33 Acute on chronic diastolic (congestive) heart failure; M54.9 Dorsalgia, unspecified; R41.3 Other amnesia; R74.8 Abnormal levels of other serum enzymes; G47.33 Obstructive sleep apnea (adult) (pediatric); I25.10 Atherosclerotic heart disease of native coronary artery without angina pectoris; J45.998 Other asthma; G89.4 Chronic pain syndrome; I25.2 Old myocardial infarction; Z96.653 Presence of artificial knee joint, bilateral; Z79.1 Long term (current) use of non-steroidal anti-inflammatories (NSAID); Z79.899 Other long term (current) drug therapy
CPT/HCPCS: 36415; 70450; 71010; 80048; 80053; 81003; 81015; 82550; 82553; 83605; 83735; 83880; 84436; 84443; 84484; 85025; 87086; 93005; 93306; 95816; 96374; A9270-GY; G0378; J1650; J1940; J2405

== ENCOUNTER 2016-09-22 12:10 | Inpatient (IN) | payer MEDICARE, BC ==
[2016-09-22] MEDS ORDERED: NS 0.9% 1000 ML* 1,000 ML IV ONE ×2 (12:19→13:08)
[2016-09-22] MEDS ORDERED: Midazolam* 1 MG/ML 5 ML VIAL (5 MG) ONE (12:22)
[2016-09-22] MEDS: Midazolam* 1 MG/ML 5 ML VIAL (5 MG) SLOW PUSH ONE ×2 (12:23→12:35)
[2016-09-22 12:33] LABS: Hematocrit 40 % (35-47); Hemoglobin 12.3 g/dl (12.0-16.0); Mean Corpuscular HGB Conc 31 g/dl (31-36); Mean Corpuscular Hemoglobin 26 pg (27-31); Mean Corpuscular Volume 82 fL (80-97); Mean Platelet Volume 8 um3 (7.4-10.4); Red Blood Count 4.83 10^6/ul (4.0-5.4); Red Cell Distribution Width 17 % (10.5-15); White Blood Count 13.7 10^3/ul (3.5-10.8)
[2016-09-22 12:48] LABS: Albumin 4.7 g/dL (3.2-5.2); BUN/Creatinine Ratio 20.5 (8-20); EGFR African American 80.8 (>60); EGFR Non-African American 62.8 (>60); Globulin 3.8 g/dL (2-4); Potassium 3.1 mmol/L (3.5-5.0); Total Bilirubin 0.7 mg/dL (0.2-1.0); Total Protein 8.5 g/dL (6.4-8.9)
--- NOTE | 2016-09-22 12:48 | RAD ---
Indication: Respiratory failure. Single frontal view of the chest performed at 1245 hours was reviewed. Comparison is made with previous exam dated June 06, 2016. Endotracheal tube is just above the juanjose. Nasogastric tube is in place. Lung lewis are clear. No alveolar consolidation is noted. IMPRESSION: ET TUBE IS JUST ABOVE THE JUANJOSE. NASOGASTRIC TUBE IS IN PLACE. LUNGS ARE CLEAR.
--- NOTE | 2016-09-22 12:49 | RAD ---
INDICATION: Unresponsiveness COMPARISON: Most recent CT of the brain is dated June 06, 2016 TECHNIQUE: Contiguous axial sections of the brain were obtained from the skull base to the vertex without contrast. FINDINGS: The endotracheal tube and gastric tube are partially visualized. The ventricles, cisterns and sulci are within normal limits. The mccoy-white matter differentiation is adequately maintained and there is no sulcal effacement. No significant focal abnormality or mass effect is present. There is no evidence for intracranial hemorrhage. No significant focal osseous abnormality is present. The visualized portion of the paranasal sinuses and mastoid air cells appear clear. IMPRESSION: No acute intracranial abnormality.
[2016-09-22] MEDS ORDERED: Labetalol IV* 5 MG/ML 20 ML VIAL IV PUSH ONE (12:57)
[2016-09-22 12:59] LABS: Troponin I 0.05 ng/mL (<0.04)
[2016-09-22] MEDS ORDERED: Propofol* 100 ML ONE ×2 (13:10→20:16)
[2016-09-22] MEDS ORDERED: Magnesium Sulfate 2 GM IV* 2 GM/50 ML BAG IVPB ONE (13:19)
[2016-09-22 13:20] LABS: Urine Bacteria Absent (Absent); Urine Bilirubin Negative (Negative); Urine Glucose 3+(>=500 mg/dL) (Negative); Urine Nitrite Negative (Negative)
[2016-09-22 13:24] LABS: Benzodiazepine Urine Screen Presumptive Positive (None Detect)
[2016-09-22 13:36] LABS: Magnesium 1.7 mg/dL (1.9-2.7); Phosphorus 3.1 mg/dL (2.5-5.0)
[2016-09-22] MEDS ORDERED: Chlorhexidine MOUTHWASH 0.12%* 15 ML UDC TOPICAL SCH (14:00)
--- NOTE | 2016-09-22 14:09 | HP ---
H&P (Free Text) History and Physical: CRITICAL CARE MEDICINE DATE: 09/22/16 TIME: 1300 PRIMARY CARE PROVIDER: [facility] in [place]. REFERRING PROVIDER: Gumaro REASON/CHIEF COMPLAINT: PETTIT and then unresponsive in ED HISTORY OF PRESENT ILLNESS: 76 F with h/o CAD, MAGDA, chronic pain, htn, h/o takotsubo with recovery, dementia recently starting aricept about 7 days ago presenting now with PETTIT this am. Family states PETTIT started about 5am and wasn't getting better. They express concerns that they were instructed by her doctor to watch for Pettit with initiation of aricept rx given 08/27. She started rx about 7 days ago and per family was doing ok. Today they summonded EMS as it was unretlenting. Per ED, EMS reported seizures en route x 2. In ED she was unresponsive to verbal and tactile requiring emergent intubation receiving with 10mg versed, 10 etomidate and 125mg succ. CT head read as neg and ICU to evca for admission. ON my eval, she is moving spont all ext but non-purposeful. She has roving eye motions, crossing midline, non focusing, but reactive to light. Ett in place. Overbreathing. +cough. Hr 120s. BP still elevated to SBP 180s, diastolics into 100s and SBP as high as 200s on presentation. REVIEW OF SYSTEMS: As per HPI, otherwise limited sec to acuity PAST MEDICAL HISTORY: As per HPI; reviewed per records. MEDICATIONS: Reviewed with family list. ALLERGIES: Reviewed. Multiple. SOCIAL HISTORY: Reviewed. Daughter is proxy FAMILY HISTORY: Noncontributory at present. PHYSICAL EXAM: Vital Signs: Reviewed. Neurologic: as above. HEENT: anciteric, eq and reactive, roving Cardiovascular: tachy S1, S2, 2/6 troy Respiratory: coarse bl but no rales nor wheeze Abdomen: obese, soft, nt Extremities: chronic changes of venous stasis Access: 2 piv LABS: Reviewed. IMAGING: Reviewed. CT compared to prior with my eye with concern for mild global cerebral edema MEDICATIONS: Reviewed. ASSESSMENT: 76 F Concern for status epilepticus on admission and coma on admission Probable PRES ?acute mild cereral edema Malignant htn Has a h/o microhemorrhages on prior MRI. Can have a concern for SAH at this point of the DDx as well. Acute hypoxic resp failure h/o chronic pain Dementia PLAN: Neurologic: starting to move about and concern this may escalate given her degree of encephalopthy; she did not revieved AED other then versed for now and going to use propofol gtt at present and see if we can obtain eeg. consider agents from there but doubt seizures at this point. She had abnormal EEG in past however and may need neuro eval. After EEG sorted would obtain MRI. This should help determine PRES potential vs even nonCT SAH perhaps. Doubt we need LP but keep as potential. Cardiovascular: Perfusing but intravascular deplete at moment. 2NS total and then re-eval needs. H/o takotsubo and can spill trop. ECG with likely rate related ailments too. Will slowly bb today to control HR and BP. If dynamics are not recovering can re-eval with echo but timing may be of importance if needed. F/u for no large troponins. Respiratory: Vent for airway protection. protection and precautions. Gastrointestinal: ogt. hold on feeds currently. sup Renal/Metabolic: elecctrolyte imbalance may be more post seizure related and again hopefully equilibrate with fluids. Infectious Disease: non infections burden at present Hematology: stable. hsq Endocrine: f/u glu. no steroid needs. Musculoskeletal: bedrest currently. f/u chronic pain needs. Psych/Social: family, proxy updated Supportive and preventative care as ordered. SUP: H2 VTE prophylaxis: heparin Chung catheter given critical illness, monitoring needs for accurate assessment of MART and KDIGO criteria for critically ill patients and to avoid potential harms of urinary retention, skin breakdown/ulcers. Disposition: ICU Code Status: Full Critical Care Time: 45min FMariano Pace DO
[2016-09-22] MEDS ORDERED: Labetalol IV* 5 MG/ML 20 ML VIAL IV PUSH PRN (14:16)
[2016-09-22] MEDS: KCL 10 MEQ/50 ML IVPREMIX* 10 MEQ/50 ML BAG IV SCH ×2 (14:35→16:06)
[2016-09-22] MEDS ORDERED: LORazepam INJ* 2 MG/ML 1 ML VIAL IV PUSH PRN (14:37)
--- NOTE | 2016-09-22 14:46 | PN ---
Progress Note - Progress Note Note: CRITICAL CARE MEDICINE DATE: 09/22/16 TIME: 1430 Pt more alert now on vent. able to protrude tongue. Bp improving. on EEG without seizures; MRI pending. Family updated and expressed understanding. Code Status: Full Critical Care Time: 8min Siddharth Pace DO
[2016-09-22] MEDS: fentaNYL* 50 MCG/ML 2 ML VIAL (100 MCG VIAL) IV SLOW PU PRN ×2 (15:12→19:32)
[2016-09-22] MEDS: Metoprolol Tartrate IV* 1 MG/ML 5 ML VIAL IV SCH ×2 (15:51→21:33)
[2016-09-22] MEDS ORDERED: Famotidine SUSP* 40 MG/5 ML ORAL.SUSP G TUBE ONE (16:00)
[2016-09-22 17:00] LABS: Troponin I 0.08 ng/mL (<0.04)
[2016-09-22 17:01] LABS: BUN/Creatinine Ratio 22.4 (8-20); Calcium 9.2 mg/dL (8.6-10.3); EGFR African American 95.7 (>60); EGFR Non-African American 74.4 (>60)
[2016-09-22 17:05] LABS: Potassium 3.7 mmol/L (3.5-5.0)
[2016-09-22] MEDS: Propofol* 100 ML IV SCH ×3 (17:09→23:51)
[2016-09-22] MEDS: NS 0.9% w/ 20 Meq KCL 1000 ML* 1,000 ML IV SCH (18:25)
--- NOTE | 2016-09-22 18:35 | ED ---
Josh Ballard Billy, scribed for Miles Naik MD on 09/22/16 at 1235 . Altered Mental Status - HPI Summary HPI Summary: Patient is a 76 year-old female BIBA to [facility] for evaluation of decreased level of responsiveness since this morning. Family and EMS are able to provide history in the ED since the patient is unable to do so. Per EMS, patient was unresponsive but breathing independently at time of arrival. They observed her to have seizure-like activity. Patient was given 2x Narcan with no improvement as well as 5mg Versed. Per family, patient complained of headache and refused to take meds this morning at 0500. She repeated to her family, "I'm so sick." Soon thereafter, the patient was no longer responding to the family or maintaining eye contact, so they called 911. Patient started on Aricept recently for her dementia. Patient does not use bloodthinners. She is on chronic Percocet. - History Of Current Complaint Chief Complaint: EDAltMentalStatus Stated Complaint: AMS Time Seen by Provider: 09/22/16 12:11 Hx Obtained From: Family/Banquet Server, EMS Hx From Patient Unobtainable Due To: Altered Mental Status Onset/Duration: Still Present Timing: Constant Severity Initially: Severe Severity Currently: Severe Character: Responsiveness Aggravating Factor(s): Medication Change Alleviating Factor(s): Nothing - Allergies/Home Medications Allergies/Adverse Reactions: Allergies Allergy/AdvReac Type Severity Reaction Status Date / Time Amoxicillin Allergy Anaphylatic Verified 08/31/16 13:06 Shock Iodine Allergy Hives Verified 08/31/16 13:06 Gabapentin AdvReac Intermediate Swelling Verified 08/31/16 13:06 Hydrochlorothiazide AdvReac See Comment Verified 08/31/16 13:06 Morphine AdvReac GI Upset Verified 08/31/16 13:06 Pregabalin [From Lyrica] AdvReac Edema Verified 08/31/16 13:06 Sulfa Drugs AdvReac Nausea And Verified 08/31/16 13:06 Vomiting Home Medications: Home Medications Bumetanide TAB* [Bumex 1 MG TAB*] 1 mg PO DAILY 09/22/16 [History Confirmed ] Losartan TAB* [Cozaar TAB*] 50 mg PO BID 09/22/16 [History Confirmed 05/30/17] PMH/Surg Hx/FS Hx/Imm Hx Endocrine/Hematology History: Reports: Hx Thyroid Disease - hypothyroidism Denies: Hx Diabetes Cardiovascular History: Reports: Hx Congestive Heart Failure, Hx Hypercholesterolemia, Hx Hypotension, Hx Hypertension, Other Cardiovascular Problems/Disorders - Takotsubo cardiomyopathy, [place] Denies: Hx Pacemaker/ICD Respiratory History: Reports: Hx Asthma, Hx Pneumonia, Hx Sleep Apnea Denies: Hx Chronic Obstructive Pulmonary Disease (COPD) GI History: Reports: Hx Gastroesophageal Reflux Disease, Hx Obstructive Bowel - 2015 History: Denies: Hx Dialysis, Hx Renal Disease Musculoskeletal History: Reports: Hx Arthritis - hands,hips, shoulders, Hx Back Problems, Hx Fibromyalgia, Hx Orthopedic Injury - Fx Pelvis 1960; Rt. Tibia, Fibula,&Ankle Sensory History: Reports: Hx Contacts or Glasses Denies: Hx Hearing Aid Opthamlomology History: Reports: Hx Contacts or Glasses Neurological History: Reports: Hx Dementia, Hx Migraine, Other Neuro Impairments /Disorders - Encephalopathy on recent EEG's; started on Aricept for memory loss Denies: Hx Seizures Psychiatric History: Reports: Hx Anxiety, Hx Depression Denies: Hx Panic Disorder - Surgical History Surgery Procedure, Year, and Place: Radical hysterectomy, 1989. Repair of right leg and ankle fx. Deric fundoplication surgery. Tonsillectomy. Cholecystectomy. Total right ankle replacement, 2003. Total left knee replacement, 2006 Hx Anesthesia Reactions: No - Immunization History Date of Tetanus Vaccine: unknown Date of Influenza Vaccine: 2014 Infectious Disease History: Denies: Hx Clostridium Difficile, Hx Hepatitis, Hx Human Immunodeficiency Virus (HIV), Hx of Known/Suspected MRSA, Hx Shingles, Hx Tuberculosis, Hx Known/ Suspected VRE, Hx Known/Suspected VRSA, History Other Infectious Disease, Traveled Outside the [place] in Last 30 Days - Family History Known Family History: Positive: Cardiac Disease - Social History Alcohol Use: None Substance Use Type: Reports: None Substance Use Comment - Amount & Last Used: fentanyl patch and percocet Smoking Status (MU): Never Smoked Tobacco Have You Smoked in the Last Year: No Review of Systems Neurological: Other - AMS All Other Systems Reviewed And Are Negative: No - Comments Additional Review of Systems Comments: Full ROS not obtained secondary to AMS Physical Exam - Summary Physical Exam Summary: VITAL SIGNS: Reviewed. GENERAL: Patient is a an unresponsive, obese female who is lying in the stretcher. HEAD AND FACE: No signs of trauma. No ecchymosis, hematomas or skull depressions. No sinus tenderness. EYES: Pupils are dilated with decreased reaction to light. EARS: Hearing grossly intact. Ear canals and tympanic membranes are within normal limits. MOUTH: Dry oral mucosa. NECK: Supple, trachea is midline, no adenopathy, no JVD, no carotid bruit, no c- spine tenderness, neck with full ROM. CHEST: Sinus tachycardia. LUNGS: There are crackles in both lungs. CVS: Regular rate and rhythm, S1 and S2 present, no murmurs or gallops appreciated. ABDOMEN: Soft, non-tender. No signs of distention. No rebound no guarding, and no masses palpated. Bowel sounds are normal. EXTREMITIES: No edema. NEURO: The patient is unresponsive. At time of arrival, GCS = 3. SKIN: Dry and warm Triage Information Reviewed: Yes Vital Signs On Initial Exam: Initial Vitals Temp Pulse Resp BP Pulse Ox 99.6 F 126 30 180/76 94 09/22/16 12:16 09/22/16 12:16 09/22/16 12:16 09/22/16 12:16 09/22/16 12:16 Vital Signs Reviewed: Yes - [place] Coma Scale Best Eye Response: 1 - None Best Motor Response: 1 - None Best Verbal Response: 1 - Intubated Diagnostics - Vital Signs Vital Signs Temp Pulse Resp BP Pulse Ox 09/22/16 12:18 124 0 237/145 100 09/22/16 12:16 99.6 F 126 30 180/76 94 - Laboratory Lab Results: Lab Results 09/22/16 09/22/16 09/22/16 Range/Units 12:10 12:10 12:10 WBC 13.7 H (3.5-10.8) 10^3/ul RBC 4.83 (4.0-5.4) 10^6/ul Hgb 12.3 (12.0-16.0) g/dl Hct 40 (35-47) % MCV 82 (80-97) fL MCH 26 L (27-31) pg MCHC 31 (31-36) g/dl RDW 17 H (10.5-15) % Plt Count 267 (150-450) 10^3/ul MPV 8 (7.4-10.4) um3 Neut % (Auto) 64.9 (38-83) % Lymph % (Auto) 26.8 (25-47) % [place] % (Auto) 6.4 (1-9) % Eos % (Auto) 0.5 (0-6) % Baso % (Auto) 1.4 (0-2) % Absolute Neuts (auto) 8.9 H (1.5-7.7) 10^3/ul Absolute Lymphs (auto) 3.7 (1.0-4.8) 10^3/ul Absolute Monos (auto) 0.9 H (0-0.8) 10^3/ul Absolute Eos (auto) 0.1 (0-0.6) 10^3/ul Absolute Basos (auto) 0.2 (0-0.2) 10^3/ul Absolute Nucleated RBC 0 10^3/ul Nucleated RBC % 0 INR (Anticoag Therapy) 0.90 (0.89-1.11) APTT 28.2 (26.0-36.3) seconds Sodium 130 L (133-145) mmol/L Potassium 3.1 L (3.5-5.0) mmol/L Chloride 94 L (101-111) mmol/L Carbon Dioxide 17 L (22-32) mmol/L Anion Gap 19 H (2-11) mmol/L BUN 18 (6-24) mg/dL Creatinine 0.88 (0.51-0.95) mg/dL Est GFR ( Amer) 80.8 (>60) Est GFR (Non-Af Amer) 62.8 (>60) BUN/Creatinine Ratio 20.5 H (8-20) Glucose 193 H (70-100) mg/dL Lactic Acid (0.5-2.0) mmol/L Calcium 10.0 (8.6-10.3) mg/dL Phosphorus 3.1 (2.5-5.0) mg/dL Magnesium 1.7 L (1.9-2.7) mg/dL Total Bilirubin 0.70 (0.2-1.0) mg/dL AST 13 (13-39) U/L ALT 9 (7-52) U/L Alkaline Phosphatase 65 (34-104) U/L Troponin I 0.05 H* (<0.04) ng/mL Total Protein 8.5 (6.4-8.9) g/dL Albumin 4.7 (3.2-5.2) g/dL Globulin 3.8 (2-4) g/dL Albumin/Globulin Ratio 1.2 (1-3) Urine Color Urine Appearance Urine pH (5-9) Ur Specific [place] (1.010-1.030) Urine Protein (Negative) Urine Ketones (Negative) Urine Blood (Negative) Urine Nitrate (Negative) Urine Bilirubin (Negative) Urine Urobilinogen (Negative) Ur Leukocyte Esterase (Negative) Urine WBC (Auto) (Absent) Urine RBC (Auto) (Absent) Urine Bacteria (Absent) Urine Glucose (Negative) Urine Opiates Screen (None Detect) Ur Barbiturates Screen (None Detect) Ur Phencyclidine Scrn (None Detect) Ur Amphetamines Screen (None Detect) U Benzodiazepines Scrn (None Detect) Urine Cocaine Screen (None Detect) U Cannabinoids Screen (None Detect) 09/22/16 09/22/16 09/22/16 Range/Units 12:10 12:50 12:50 WBC (3.5-10.8) 10^3/ul RBC (4.0-5.4) 10^6/ul Hgb (12.0-16.0) g/dl Hct (35-47) % MCV (80-97) fL MCH (27-31) pg MCHC (31-36) g/dl RDW (10.5-15) % Plt Count (150-450) 10^3/ul MPV (7.4-10.4) um3 Neut % (Auto) (38-83) % Lymph % (Auto) (25-47) % [place] % (Auto) (1-9) % Eos % (Auto) (0-6) % Baso % (Auto) (0-2) % Absolute Neuts (auto) (1.5-7.7) 10^3/ul Absolute Lymphs (auto) (1.0-4.8) 10^3/ul Absolute Monos (auto) (0-0.8) 10^3/ul Absolute Eos (auto) (0-0.6) 10^3/ul Absolute Basos (auto) (0-0.2) 10^3/ul Absolute Nucleated RBC 10^3/ul Nucleated RBC % INR (Anticoag Therapy) (0.89-1.11) APTT (26.0-36.3) seconds Sodium (133-145) mmol/L Potassium (3.5-5.0) mmol/L Chloride (101-111) mmol/L Carbon Dioxide (22-32) mmol/L Anion Gap (2-11) mmol/L BUN (6-24) mg/dL Creatinine (0.51-0.95) mg/dL Est GFR ( Amer) (>60) Est GFR (Non-Af Amer) (>60) BUN/Creatinine Ratio (8-20) Glucose (70-100) mg/dL Lactic Acid 8.9 H* (0.5-2.0) mmol/L Calcium (8.6-10.3) mg/dL Phosphorus (2.5-5.0) mg/dL Magnesium (1.9-2.7) mg/dL Total Bilirubin (0.2-1.0) mg/dL AST (13-39) U/L ALT (7-52) U/L Alkaline Phosphatase (34-104) U/L Troponin I (<0.04) ng/mL Total Protein (6.4-8.9) g/dL Albumin (3.2-5.2) g/dL Globulin (2-4) g/dL Albumin/Globulin Ratio (1-3) Urine Color Straw Urine Appearance Clear Urine pH 7.0 (5-9) Ur Specific [place] 1.010 (1.010-1.030) Urine Protein 3+(>=500 mg/dl) H (Negative) Urine Ketones Negative (Negative) Urine Blood Negative (Negative) Urine Nitrate Negative (Negative) Urine Bilirubin Negative (Negative) Urine Urobilinogen Negative (Negative) Ur Leukocyte Esterase Negative (Negative) Urine WBC (Auto) Absent (Absent) Urine RBC (Auto) Absent (Absent) Urine Bacteria Absent (Absent) Urine Glucose 3+(>=500 mg/dl) H (Negative) Urine Opiates Screen None detected (None Detect) Ur Barbiturates Screen None detected (None Detect) Ur Phencyclidine Scrn None detected (None Detect) Ur Amphetamines Screen None detected (None Detect) U Benzodiazepines Scrn Presumptive positive H (None Detect) Urine Cocaine Screen None detected (None Detect) U Cannabinoids Screen None detected (None Detect) Result Diagrams: 09/22/16 12:10 09/22/16 16:30 Lab Statement: Any lab studies that have been ordered have been reviewed, and results considered in the medical decision making process. - Radiology CXR Radiology Interpretation Completed By: Radiologist - ET tube is just above the juanjose. Nasogastric tube is in place. Lungs are clear - CT Brain CT Interpretation: No Acute Changes CT Interpretation Completed By: Radiologist - EKG 1215 EKG Interpretation: sinus tachycardia 127 bpm, ST depressions in V3-V6 Altered Mental Statu Course/Dx - Course Course Of Treatment: Procedure - Endotracheal Intubation. Permit was implied secondary to emergent situation. An LMA and bougie were placed within arm's reach. A Glidescope blade was inserted into the oropharynx at which time the vocal cords were visualized. A 7.5 Japanese endotracheal tube was inserted and visualized going through the vocal cords. The stylette was removed. Colorimetric change was visualized on the CO2 meter. Breath sounds were heard in both lung lewis equally. The endotracheal tube was placed at 23 cm, measured at the teeth. Portable chest x-ray ordered for confirmation of tube level. Post intubation sedation ordered. Intubation was made at the first attempt. No complications were encountered. Assessment/Plan: Patient is a 76 year-old female BIBA to [facility] for evaluation of decreased level of responsiveness since this morning. Family and EMS are able to provide history in the ED since the patient is unable to do so. Per EMS , patient was unresponsive but breathing independently at time of arrival. They observed her to have seizure-like activity. Patient was given 2x Narcan with no improvement as well as 5mg Versed. Per family, patient complained of headache and refused to take meds this morning at 0500. She repeated to her family, "I'm so sick." Soon thereafter, the patient was no longer responding to the family or maintaining eye contact, so they called 911. Patient started on Aricept recently for her dementia. Patient does not use bloodthinners. She is on chronic Percocet. The patient arrived to the ED unresponsive. GCS = 3 on arrival. Therefore I decided to immediately establish IV access and intubate the patient for airway control. Bloodwork was done and CT brain was ordered since the patients family reported that the patient had a headache this morning. Test results shows WBC of 13.7, sodium of 130, potassium of 3.1, glucose of 193, lactic acid of 8.9, magnesium of 1.7, and troponin of 0.05. UA is negative. Urine toxicology presumptive for benzodiazepines. CT brain shows no acute abnormalities. CXR shows ET tube is just above the juanjose. Nasogastric tube is in place. Lungs are clear. The patient was given labetalol for the hypertension. At this point, I discussed the case with Dr. Pace who came and assessed the patient. He agreed with the treatment up until this point. We believe that the patient may be developing hypertensive encephalopathy vs. PRES. The patient was admitted to the ICU. - Diagnoses Differential Diagnosis/HQI/PQRI: CVA, Hypoxia, Intracranial Bleed, Overdose, Sepsis, Seizure, TIA Discharge Diagnoses: Hypertensive encephalopathy, Unresponsiveness, PRES (posterior reversible encephalopathy syndrome) - Provider Notifications Discussed Care Of Patient With: Dr. Pace (well surveying engineer) at 1250: evaluated patient in the ED, accepts admission. - Critical Care Time Critical Care Time: 30-74 min Discharge - Discharge Plan Condition: Fair Disposition: ADMITTED TO Health system documentation as recorded by the Josh wisdom Billy accurately reflects the service I personally performed and the decisions made by me, Miles Naik MD.
[2016-09-22] MEDS: Acetaminophen ADULT LIQ* 650 MG/20.3 ML UDC PO PRN (18:37)
--- NOTE | 2016-09-22 21:25 | RAD ---
INDICATION: Severe headaches. Intubated. Unresponsive. COMPARISON: CT brain September 22, 2016 TECHNIQUE: sagittal T1 FLAIR, axial diffusion, axial T1 FLAIR, axial T2, axial T2 FLAIR, and SWI images were acquired. FINDINGS: Craniocervical junction: The craniocervical junction appears normal. Ventricles/sulci: The ventricles and cisterns are normal in size and configuration for age. Brain parenchyma: There are no focal parenchymal abnormalities. There is no evidence of intracranial mass or mass effect. The diffusion weighted images show no evidence of acute ischemia. Intracranial hemorrhage: There is no acute intracranial hemorrhage. There are tiny foci of hemosiderin deposition as also described previously likely the sequela of microhemorrhage. The appearance is unchanged. Extra-axial spaces: There are no extra-axial fluid collections or masses. Orbits: There are no MR abnormalities of the orbital structures. Paranasal sinuses/mastoid: The paranasal sinuses are clear. The mastoid air cells are well aerated.. Vascular: No abnormalities are seen. Other: None IMPRESSION: NO ACUTE INTRACRANIAL FINDINGS. NO RESTRICTED DIFFUSION TO SUGGEST ACUTE INFARCT. NO ACUTE INTRACRANIAL HEMORRHAGE (SEE ABOVE).
[2016-09-22] MEDS: Heparin VIAL(*) 5000 UNITS/ML VIAL (FIVE THOUSAND) SUBCUT SCH (21:33)
[2016-09-22] MEDS: Chlorhexidine MOUTHWASH 0.12%* 15 ML UDC TOPICAL SCH ×2 (21:33→23:50)
[2016-09-23] MEDS: Acetaminophen ADULT LIQ* 650 MG/20.3 ML UDC PO PRN (01:19)
[2016-09-23] MEDS: Propofol* 100 ML IV SCH ×3 (01:56→07:45)
[2016-09-23] MEDS: Metoprolol Tartrate IV* 1 MG/ML 5 ML VIAL IV SCH ×2 (02:53→08:43)
[2016-09-23] MEDS: Chlorhexidine MOUTHWASH 0.12%* 15 ML UDC TOPICAL SCH ×2 (04:04→08:43)
[2016-09-23 05:28] LABS: Hematocrit 33 % (35-47); Hemoglobin 10.8 g/dl (12.0-16.0); Mean Corpuscular HGB Conc 33 g/dl (31-36); Mean Corpuscular Hemoglobin 26 pg (27-31); Mean Corpuscular Volume 79 fL (80-97); Mean Platelet Volume 9 um3 (7.4-10.4); Red Blood Count 4.23 10^6/ul (4.0-5.4); Red Cell Distribution Width 16 % (10.5-15)
[2016-09-23] MEDS: Heparin VIAL(*) 5000 UNITS/ML VIAL (FIVE THOUSAND) SUBCUT SCH ×3 (05:45→22:05)
[2016-09-23 05:51] LABS: BUN/Creatinine Ratio 23.3 (8-20); Calcium 8.9 mg/dL (8.6-10.3); EGFR African American 100.2 (>60); EGFR Non-African American 77.9 (>60); Phosphorus 3.1 mg/dL (2.5-5.0); Potassium 3.6 mmol/L (3.5-5.0)
[2016-09-23 05:55] LABS: Troponin I 0.07 ng/mL (<0.04)
[2016-09-23] MEDS: NS 0.9% w/ 20 Meq KCL 1000 ML* 1,000 ML IV SCH (05:56)
--- NOTE | 2016-09-23 11:56 | PN ---
Progress Note - Progress Note Note: CRITICAL CARE MEDICINE DATE: 09/23/16 TIME: 1100 SUBJECTIVE: Patient seen and examined. PHYSICAL EXAM: Vital Signs: Reviewed. Neurologic: awakens, eyes open, slow to respond but able to follow simple commands. HEENT: anciteric, eq and reactive Cardiovascular: S1, S2, 2/6 troy Respiratory: clear bl, no wheeze. cpap Abdomen: obese, soft, nt Extremities: chronic changes of venous stasis Access: 2 piv LABS: Reviewed. IMAGING: Reviewed. MEDICATIONS: Reviewed. ASSESSMENT: 76 F Concern for status epilepticus on admission and coma on admission Question drug interaction (new medication aricept) ?PRES althjough MRI non-reveling Malignant htn on admission Acute hypoxic resp failure Chronic pain Dementia PLAN: Neurologic: better but still slow coming off propofol. imaging ok. see how she does off vent and consider neuro eval once off for f/u of seizures. Cardiovascular: Perfusing and vol stable. mild demand troponins with LA but no mi. Respiratory: liberate from vent today. Gastrointestinal: access for po. sup Renal/Metabolic: elecctrolytes better. Infectious Disease: non infections burden at present Hematology: stable. hsq Endocrine: f/u glu. Musculoskeletal: oob later and f/u chronic pain needs. Psych/Social: family, proxy updated Supportive and preventative care as ordered. SUP: H2 VTE prophylaxis: heparin Chung catheter given critical illness, monitoring needs for accurate assessment of MART and KDIGO criteria for critically ill patients and to avoid potential harms of urinary retention, skin breakdown/ulcers. Disposition: ICU Code Status: Full Critical Care Time: 35min Siddharth Pace DO
[2016-09-23] MEDS: hydrALAZINE IV* 20 MG/ML VIAL IV SLOW PU PRN (13:32)
[2016-09-23] MEDS ORDERED: Furosemide IV* 10 MG/ML 2 ML VIAL (20 MG) IV SLOW PU ONE (13:58)
[2016-09-23] MEDS ORDERED: fentaNYL* 50 MCG/ML 2 ML VIAL (100 MCG VIAL) IV SLOW PU PRN (13:59)
[2016-09-23] MEDS ORDERED: LORazepam INJ* 2 MG/ML 1 ML VIAL IV PUSH PRN (13:59)
[2016-09-23] MEDS ORDERED: Enalaprilat IV* 1.25 MG/ML 1 ML VIAL (1.25 MG) IV PRN (16:40)
[2016-09-23] MEDS: Enalaprilat IV* 1.25 MG/ML 1 ML VIAL (1.25 MG) IV SCH ×2 (17:02→22:05)
[2016-09-23] MEDS ORDERED: Losartan TAB* 25 MG PO SCH (21:00)
--- NOTE | 2016-09-24 00:41 | EEG ---
ELECTROENCEPHALOGRAPHY: DATE OF STUDY: DATE OF DICTATION: 09/23/16 - ROOM #ICU-04 PATIENT OF: Dr. Pace. HISTORY: This is a 76-year-old woman who has dementia and has had 2 seizures and was intubated and is on propofol. MEDICATIONS: Include propofol, , potassium and there was a 5 mg Versed given 1.5 hours before this test. REPORT: With the patient intubated, background cerebral activity reaches 5 to 6 Hz rhythm, but there is at times prominent delta activity. No focal abnormalities or major asymmetries of background are noted. No epileptiform potentials are present. CLINICAL IMPRESSION: This EEG done under propofol sedation shows generalized slowing of background consistent with an encephalopathy and possibly secondary to medications the patient is receiving. No clear epileptiform potentials were noted during this tracing. [id number]/[facility] #: [id number] MTDD
[2016-09-24] MEDS: hydrALAZINE IV* 20 MG/ML VIAL IV SLOW PU PRN ×2 (01:26→08:23)
[2016-09-24] MEDS: Levothyroxine TAB* 125 MCG TAB PO SCH (05:08)
[2016-09-24] MEDS: Enalaprilat IV* 1.25 MG/ML 1 ML VIAL (1.25 MG) IV SCH ×4 (06:02→23:39)
[2016-09-24] MEDS: Heparin VIAL(*) 5000 UNITS/ML VIAL (FIVE THOUSAND) SUBCUT SCH ×3 (06:02→21:48)
[2016-09-24 06:18] LABS: Albumin 3.8 g/dL (3.2-5.2); EGFR African American 125.7 (>60); EGFR Non-African American 97.7 (>60); Globulin 3.6 g/dL (2-4); Magnesium 1.9 mg/dL (1.9-2.7); Phosphorus 2.3 mg/dL (2.5-5.0); Total Protein 7.4 g/dL (6.4-8.9)
[2016-09-24] MEDS ORDERED: Potassium Chlor TAB* 20 MEQ TAB.ER PO SCH (11:00)
--- NOTE | 2016-09-24 11:31 | PN ---
Progress Note - Progress Note Note: CRITICAL CARE MEDICINE DATE: 09/24/16 TIME: 1000 SUBJECTIVE: Patient seen and examined. PHYSICAL EXAM: Vital Signs: Reviewed. Neurologic: awakens, eyes open and response to threat and communicates with simple answers and protects self, but at other times fails to follow commands. Spontaneous reactions present. Good strength. HEENT: anciteric, eq and reactive Cardiovascular: S1, S2, 2/6 troy Respiratory: mild upper rhonchi; no wheeze. Abdomen: obese, soft, nt Extremities: chronic changes of venous stasis Access: piv LABS: Reviewed. IMAGING: Reviewed. MEDICATIONS: Reviewed. ASSESSMENT: 76 F Concern for status epilepticus on admission and coma on admission - resolved Question drug interaction (new medication aricept) vs ?PRES althjough MRI non-reveling Malignant htn on admission Acute hypoxic resp failure Chronic pain Dementia PLAN: Neurologic: better but still off at times. ? dementia role vs even psychiatric, less likely direct neuro, however with her presentation and concerns will ask Neuro opinion and potential psych needs. Not on AEDs Cardiovascular: Perfusing and vol status ok, but not desiring po intake and can utilize ivf today with K repletion. Respiratory: NC. Flutter as able. Gastrointestinal: swallow eval. sup Renal/Metabolic: electrolyte replacement. Infectious Disease: no infections burden at present Hematology: stable. hsq Endocrine: check T4. Musculoskeletal: oob and f/u chronic pain needs. Psych/Social: family at bedside updated Supportive and preventative care as ordered. SUP: H2 VTE prophylaxis: heparin Chung catheter out Disposition: floor Code Status: Full Critical Care Time: 25min FMariano Pace DO
[2016-09-24] MEDS: NS 0.9% w/ 40 Meq KCL 1000 ML* 1,000 ML IV SCH (11:42)
[2016-09-24] MEDS: KCL 10 MEQ/50 ML IVPREMIX* 10 MEQ/50 ML BAG IV SCH ×2 (12:10→14:44)
[2016-09-24] MEDS ORDERED: cloNIDine 0.1 MG PATCH* 0.1 MG/24 HR 7 DAY PATCH TRANSDERM SCH (15:00)
[2016-09-24] MEDS: Acetaminophen ADULT LIQ* 650 MG/20.3 ML UDC PO PRN (19:51)
[2016-09-24] MEDS: oxyCODONE/Acetamin 5/325 MG* TAB PO PRN (20:06)
[2016-09-24] MEDS: oxyCODONE TAB* 5 MG TAB PO PRN (20:07)
--- NOTE | 2016-09-24 23:24 | CONS ---
NEUROLOGY CONSULTATION: DATE OF CONSULTATION: 09/24/16 REFERRING PHYSICIAN: Dr. Pace. LOCATION: She is in ICU, bed 4. CHIEF COMPLAINT: Seizure. HISTORY OF PRESENT ILLNESS: Skylar Mcfadden is a 76-year-old right-handed woman who was admitted yesterday with unresponsiveness followed by a seizure. Records are reviewed as well as minimum amount from the patient who just recovered from having been intubated and extubated. Her son, Orlando, is present as well. She apparently have been complaining of a headache for upwards of about a week. It was getting pretty bad and apparently the family then called the last waxer because of the worsening headache. En route to the emergency room, she had 2 observed seizures in the ambulance. She was intubated in the emergency room and given Versed and put on propofol. She was very hypertensive when she came into the ER. This one systolic recorded upwards of 240. She was able to be successfully extubated today. She initially is lethargic, but then wakes up and answers a few questions and says that her partner, Grady, gives her medications every day and speaking with Orlando, there is no clear system to how she gets her medicines and he is dubious that she gets from reliably. Any case, her blood pressures come down with treatment and she was able to extubated and has not had any further seizures. She saw Dr. Martha Barrett in the hospital last fall with episodes of diminished responsiveness. An EEG showed some slowing. There are no epileptiform discharges. She had neuroimaging, which was fairly unremarkable. With this hospitalization, she had a CT scan of the brain read as negative, but I reviewed it. I believe that there is posterior edema, particularly in the right parieto-occipital area. MRI of the brain is likewise reviewed and revealed some multiple new white matter areas and cerebral edema particularly posteriorly in the right temporoparietal area. There is also some microhemorrhages, which were present previously. The edema and white matter changes are new. PAST MEDICAL HISTORY: Notable for hypertension, recent diagnosis of dementia, episode of Takotsubo cardiomyopathy after small bowel obstruction, hyperlipidemia, hypothyroidism, fibromyalgia, chronic back pain, and gastroesophageal reflux. MEDICATIONS: At home consists of: 1. Aricept 5 mg p.o. every day. 2. Alprazolam 0.5 mg p.o. at bedtime. 3. Citalopram 20 mg p.o. every day. 4. Levothyroxine 125 mcg p.o. every day. 5. Prilosec 40 mg p.o. every day. 6. Percocet 10/325 mg 1 p.o. q.4 hours p.r.n. 7. Bumex 1 mg p.o. every day. 8. Cozaar 50 mg p.o. b.i.d. ALLERGIES: She is listed as being allergic to AMOXICILLIN, GABAPENTIN, and HYDROCHLOROTHIAZIDE. REVIEW OF SYSTEMS: From the son and the patient. Currently, she denies any headaches or visual problems. She denies double vision. No recent fevers or infections. No recent change in weight. She lives at home with her partner. She is a nonsmoker and nondrinker. PHYSICAL EXAMINATION: She is overweight, elderly woman, lying in her ICU bed. Most recent blood pressure is running in the 170s/60 to as high as 84. She was running in excess of 180 and even over 200 at one point systolic when she came in. She had a T-max of 100.4 earlier this morning. Her heart rates running in the 90s. Heart is an irregular rhythm and I cannot heard any murmurs. Neck is supple. Oral mucosa is moist. I do not see any evidence of tongue trauma. No head trauma. Carotid pulses are poorly felt. I do not auscultate any bruits. Neurologically, pupils react equally from about 3 down to about 2 mm. Funduscopic exam reveals a couple of flame hemorrhages in the left eye and some dot hemorrhages. There is no papilledema. Eye movements are choppy, but full. There is some impersistence of gaze to the right. There is extension to double simultaneous stimulation to vision in the right side. Visual lewis are otherwise full. Facial musculature is symmetric. Speech is mildly dysarthric. Motor exam reveals diffuse mild weakness without asymmetry. There is no pronator drifts. There is no asterixis or myoclonus. She is oriented to person and she knows she is in the hospital. Language is generally fluent. Plantars are flexor bilaterally. DIAGNOSTIC STUDIES/LAB DATA: Images are reviewed personally and described above. Other laboratory data notable for a white blood cell count of 13.7, which came down to 11.0 as of yesterday morning; hemoglobin 10.8; and platelet count of 213,000. Chemistry is notable for a sodium of 132 this morning, lactic acid was 3.0 when she came in, and BUN and creatinine are stable compared to prior values. Troponin was 0.07 yesterday when checked. Calcium and magnesium are within normal limits. IMPRESSION: Probable hypertensive encephalopathy with posterior reversible encephalopathy syndrome. Her MRI is quite different from her last MRI in January. Her blood pressure is currently under much improved control. I do not recommend any anticonvulsants at this point. I should note she had an EEG yesterday, which revealed diffuse slowing when she was still on propofol. She will need good discharge plan to make sure that she is getting her medications at a very reliable basis. Again, I do not think anticonvulsants are needed at this point, but we will continue to follow. CC: Dr. Barrett* [id number]/CPS #: [id number] MTDD
[2016-09-25] MEDS: NS 0.9% w/ 40 Meq KCL 1000 ML* 1,000 ML IV SCH (01:16)
[2016-09-25] MEDS: Enalaprilat IV* 1.25 MG/ML 1 ML VIAL (1.25 MG) IV SCH (05:10)
[2016-09-25] MEDS: Heparin VIAL(*) 5000 UNITS/ML VIAL (FIVE THOUSAND) SUBCUT SCH ×3 (06:17→22:17)
[2016-09-25] MEDS: oxyCODONE TAB* 5 MG TAB PO PRN ×2 (06:39→16:28)
[2016-09-25] MEDS: oxyCODONE/Acetamin 5/325 MG* TAB PO PRN ×2 (06:39→16:30)
[2016-09-25] MEDS: Levothyroxine TAB* 125 MCG TAB PO SCH (06:39)
[2016-09-25 07:26] LABS: Comments Flag Yes; Hematocrit 39 % (35-47); Hemoglobin 12.3 g/dl (12.0-16.0); Mean Corpuscular HGB Conc 32 g/dl (31-36); Mean Corpuscular Hemoglobin 26 pg (27-31); Mean Corpuscular Volume 81 fL (80-97); Red Blood Count 4.81 10^6/ul (4.0-5.4); Red Cell Distribution Width 17 % (10.5-15)
[2016-09-25 07:27] LABS: Add Diff/Slide Review? Manual Diff Added
[2016-09-25 07:33] LABS: Blood Urea Nitrogen 22 mg/dL (6-24); CO2 Carbon Dioxide 18 mmol/L (22-32); Calcium 9.5 mg/dL (8.6-10.3); Chloride 107 mmol/L (101-111); EGFR African American 103.5 (>60); EGFR Non-African American 80.5 (>60); Glucose 121 mg/dL (70-100); Sodium 135 mmol/L (133-145)
[2016-09-25 09:01] LABS: Neutrophil % 68 % (38-83)
[2016-09-25 09:02] LABS: Microcytosis 1+
[2016-09-25 09:18] LABS: White Blood Count 13.5 10^3/ul (3.5-10.8)
--- NOTE | 2016-09-25 09:19 | PN ---
Subjective Date of Service: 09/25/16 Interval History: Feels much better. She has no c/o, does not seem to recall her recent problems. Objective Active Medications: Acetaminophen (Tylenol Adult Liq*) 650 mg PO Q6H PRN PRN Reason: FEVER Last Admin: 09/24/16 19:51 Dose: 650 mg Heparin Sodium (Porcine) (Heparin Vial(*)) 5,000 units SUBCUT Q8HR ISABEL Last Admin: 09/25/16 06:17 Dose: 5,000 units Hydralazine HCl (Apresoline Iv*) 10 mg IV SLOW PU Q6H PRN PRN Reason: BLOOD PRESSURE Last Admin: 09/24/16 08:23 Dose: 10 mg Levothyroxine Sodium (Synthroid Tab*) 125 mcg PO 0600 ISABEL Last Admin: 09/25/16 06:39 Dose: 125 mcg Lorazepam (Ativan Inj*) 0.5 mg IV PUSH Q6H PRN PRN Reason: ANXIETY Oxycodone HCl (Roxycodone Tab*) 5 mg PO Q4H PRN PRN Reason: PAIN Last Admin: 09/25/16 06:39 Dose: 5 mg Oxycodone/Acetaminophen (Percocet 5/325 Tab*) 1 tab PO Q4H PRN PRN Reason: PAIN Last Admin: 09/25/16 06:39 Dose: 1 tab Vital Signs 09/24/16 09/24/16 09/24/16 09:30 10:00 10:30 Temperature 99.6 F 99.7 F Pulse Rate 87 99 96 Respiratory 31 29 26 Rate Blood Pressure 171/75 163/82 155/70 (mmHg) O2 Sat by Pulse 96 96 96 Oximetry 09/24/16 09/24/16 09/24/16 11:00 11:30 12:00 Temperature Pulse Rate 86 101 Respiratory 30 24 Rate Blood Pressure 156/68 165/81 176/77 (mmHg) O2 Sat by Pulse 96 97 Oximetry 09/24/16 09/24/16 09/24/16 12:30 13:00 14:00 Temperature Pulse Rate 90 97 101 Respiratory 26 25 26 Rate Blood Pressure 175/60 171/84 (mmHg) O2 Sat by Pulse 97 97 98 Oximetry 09/24/16 09/24/16 09/24/16 14:30 15:00 15:52 Temperature Pulse Rate 84 102 Respiratory 29 26 24 Rate Blood Pressure 157/88 156/66 (mmHg) O2 Sat by Pulse 97 96 Oximetry 09/24/16 09/24/16 09/24/16 15:55 19:26 20:06 Temperature 99.2 F 100.3 F Pulse Rate 102 102 Respiratory 24 16 18 Rate Blood Pressure 156/66 167/84 (mmHg) O2 Sat by Pulse 96 97 Oximetry 09/24/16 09/24/16 09/24/16 20:07 22:06 22:07 Temperature Pulse Rate Respiratory 18 17 17 Rate Blood Pressure (mmHg) O2 Sat by Pulse Oximetry 09/24/16 09/24/16 09/24/16 22:46 22:52 23:46 Temperature 98.6 F 99.7 F Pulse Rate 81 Respiratory 17 16 Rate Blood Pressure 152/66 (mmHg) O2 Sat by Pulse 99 Oximetry 09/25/16 09/25/16 09/25/16 02:17 03:40 06:39 Temperature 98.8 F Pulse Rate 67 Respiratory 16 18 Rate Blood Pressure 138/57 (mmHg) O2 Sat by Pulse 97 100 Oximetry 09/25/16 07:25 Temperature 98.1 F Pulse Rate 72 Respiratory 16 Rate Blood Pressure 142/60 (mmHg) O2 Sat by Pulse 100 Oximetry Oxygen Devices in Use Now: None Appearance: Alert, supine in bed. In good spirits. Looks comfortable. Ears/Nose/Mouth/Throat: Clear Oropharnyx, Mucous Membranes Moist Neck: NL Appearance and Movements; NL JVP, No Thyroid Enlargement, Masses Respiratory: Symmetrical Chest Expansion and Respiratory Effort, Clear to Auscultation, Clear to Percussion Cardiovascular: NL Sounds; No Murmurs; No JVD, RRR, No Edema, - Extremities: No Edema, No Clubbing, Cyanosis, - Skin: No Rash or Ulcers, No Nodules or Sclerosis, - Neurological: Alert and Oriented x 3 - She remmbered my name. No tremor. Good verbal skills. No tremor. Moves all limbs. , NL Sensation Result Diagrams: 09/25/16 06:24 09/25/16 06:24 Additional Lab and Data: Lab Results 09/22/16 09/22/16 09/22/16 Range/Units 12:10 12:10 12:10 WBC 13.7 H (3.5-10.8) 10^3/ul RBC 4.83 (4.0-5.4) 10^6/ul Hgb 12.3 (12.0-16.0) g/dl Hct 40 (35-47) % MCV 82 (80-97) fL MCH 26 L (27-31) pg MCHC 31 (31-36) g/dl RDW 17 H (10.5-15) % Plt Count 267 (150-450) 10^3/ul MPV 8 (7.4-10.4) um3 Neut % (Auto) 64.9 (38-83) % Lymph % (Auto) 26.8 (25-47) % [place] % (Auto) 6.4 (1-9) % Eos % (Auto) 0.5 (0-6) % Baso % (Auto) 1.4 (0-2) % Absolute Neuts (auto) 8.9 H (1.5-7.7) 10^3/ul Absolute Lymphs (auto) 3.7 (1.0-4.8) 10^3/ul Absolute Monos (auto) 0.9 H (0-0.8) 10^3/ul Absolute Eos (auto) 0.1 (0-0.6) 10^3/ul Absolute Basos (auto) 0.2 (0-0.2) 10^3/ul Absolute Nucleated RBC 0 10^3/ul Nucleated RBC % 0 INR (Anticoag Therapy) 0.90 (0.89-1.11) APTT 28.2 (26.0-36.3) seconds Sodium 130 L (133-145) mmol/L Potassium 3.1 L (3.5-5.0) mmol/L Chloride 94 L (101-111) mmol/L Carbon Dioxide 17 L (22-32) mmol/L Anion Gap 19 H (2-11) mmol/L BUN 18 (6-24) mg/dL Creatinine 0.88 (0.51-0.95) mg/dL Est GFR ( Amer) 80.8 (>60) Est GFR (Non-Af Amer) 62.8 (>60) BUN/Creatinine Ratio 20.5 H (8-20) Glucose 193 H (70-100) mg/dL Lactic Acid (0.5-2.0) mmol/L Calcium 10.0 (8.6-10.3) mg/dL Phosphorus 3.1 (2.5-5.0) mg/dL Magnesium 1.7 L (1.9-2.7) mg/dL Total Bilirubin 0.70 (0.2-1.0) mg/dL AST 13 (13-39) U/L ALT 9 (7-52) U/L Alkaline Phosphatase 65 (34-104) U/L Troponin I 0.05 H* (<0.04) ng/mL Total Protein 8.5 (6.4-8.9) g/dL Albumin 4.7 (3.2-5.2) g/dL Globulin 3.8 (2-4) g/dL Albumin/Globulin Ratio 1.2 (1-3) Urine Color Urine Appearance Urine pH (5-9) Ur Specific [place] (1.010-1.030) Urine Protein (Negative) Urine Ketones (Negative) Urine Blood (Negative) Urine Nitrate (Negative) Urine Bilirubin (Negative) Urine Urobilinogen (Negative) Ur Leukocyte Esterase (Negative) Urine WBC (Auto) (Absent) Urine RBC (Auto) (Absent) Urine Bacteria (Absent) Urine Glucose (Negative) Urine Opiates Screen (None Detect) Ur Barbiturates Screen (None Detect) Ur Phencyclidine Scrn (None Detect) Ur Amphetamines Screen (None Detect) U Benzodiazepines Scrn (None Detect) Urine Cocaine Screen (None Detect) U Cannabinoids Screen (None Detect) 09/22/16 09/22/16 09/22/16 Range/Units 12:10 12:50 12:50 WBC (3.5-10.8) 10^3/ul RBC (4.0-5.4) 10^6/ul Hgb (12.0-16.0) g/dl Hct (35-47) % MCV (80-97) fL MCH (27-31) pg MCHC (31-36) g/dl RDW (10.5-15) % Plt Count (150-450) 10^3/ul MPV (7.4-10.4) um3 Neut % (Auto) (38-83) % Lymph % (Auto) (25-47) % [place] % (Auto) (1-9) % Eos % (Auto) (0-6) % Baso % (Auto) (0-2) % Absolute Neuts (auto) (1.5-7.7) 10^3/ul Absolute Lymphs (auto) (1.0-4.8) 10^3/ul Absolute Monos (auto) (0-0.8) 10^3/ul Absolute Eos (auto) (0-0.6) 10^3/ul Absolute Basos (auto) (0-0.2) 10^3/ul Absolute Nucleated RBC 10^3/ul Nucleated RBC % INR (Anticoag Therapy) (0.89-1.11) APTT (26.0-36.3) seconds Sodium (133-145) mmol/L Potassium (3.5-5.0) mmol/L Chloride (101-111) mmol/L Carbon Dioxide (22-32) mmol/L Anion Gap (2-11) mmol/L BUN (6-24) mg/dL Creatinine (0.51-0.95) mg/dL Est GFR ( Amer) (>60) Est GFR (Non-Af Amer) (>60) BUN/Creatinine Ratio (8-20) Glucose (70-100) mg/dL Lactic Acid 8.9 H* (0.5-2.0) mmol/L Calcium (8.6-10.3) mg/dL Phosphorus (2.5-5.0) mg/dL Magnesium (1.9-2.7) mg/dL Total Bilirubin (0.2-1.0) mg/dL AST (13-39) U/L ALT (7-52) U/L Alkaline Phosphatase (34-104) U/L Troponin I (<0.04) ng/mL Total Protein (6.4-8.9) g/dL Albumin (3.2-5.2) g/dL Globulin (2-4) g/dL Albumin/Globulin Ratio (1-3) Urine Color Straw Urine Appearance Clear Urine pH 7.0 (5-9) Ur Specific [place] 1.010 (1.010-1.030) Urine Protein 3+(>=500 mg/dl) H (Negative) Urine Ketones Negative (Negative) Urine Blood Negative (Negative) Urine Nitrate Negative (Negative) Urine Bilirubin Negative (Negative) Urine Urobilinogen Negative (Negative) Ur Leukocyte Esterase Negative (Negative) Urine WBC (Auto) Absent (Absent) Urine RBC (Auto) Absent (Absent) Urine Bacteria Absent (Absent) Urine Glucose 3+(>=500 mg/dl) H (Negative) Urine Opiates Screen None detected (None Detect) Ur Barbiturates Screen None detected (None Detect) Ur Phencyclidine Scrn None detected (None Detect) Ur Amphetamines Screen None detected (None Detect) U Benzodiazepines Scrn Presumptive positive H (None Detect) Urine Cocaine Screen None detected (None Detect) U Cannabinoids Screen None detected (None Detect) Microbiology and Other Data: Microbiology 09/22/16 13:40 Nasal Screen MRSA (PCR)(DENISSE) - Final Nasal Mrsa Negative Assess/Plan/Problems-Billing Assessment: - Patient Problems (1) PRES (posterior reversible encephalopathy syndrome) Current Visit: Yes Status: Acute Code(s): I67.83 - POSTERIOR REVERSIBLE ENCEPHALOPATHY SYNDROME SNOMED Code(s): 370573289 Comment: Much improved. Stop clonidine, re-start losartan at higher dose than at home. (2) Hypothyroid Current Visit: No Status: Acute Code(s): E03.9 - HYPOTHYROIDISM, UNSPECIFIED SNOMED Code(s): 10002150 Comment: TSH wnl 05/2016. Continue home dose levothyroxine. (3) Dementia Current Visit: Yes Status: Acute Code(s): F03.90 - UNSPECIFIED DEMENTIA WITHOUT BEHAVIORAL DISTURBANCE SNOMED Code(s): 06006343 Comment: List donepezil as adverse reaction.
[2016-09-25] MEDS ORDERED: Ondansetron INJ* 2 MG/ML VIAL IV PRN (15:44)
[2016-09-25] MEDS: Acetaminophen ADULT LIQ* 650 MG/20.3 ML UDC PO PRN (20:02)
[2016-09-25] MEDS: Losartan TAB* 25 MG PO SCH (20:02)
[2016-09-26] MEDS: oxyCODONE/Acetamin 5/325 MG* TAB PO PRN ×3 (00:05→10:09)
[2016-09-26] MEDS: oxyCODONE TAB* 5 MG TAB PO PRN ×2 (00:06→05:56)
[2016-09-26] MEDS: Heparin VIAL(*) 5000 UNITS/ML VIAL (FIVE THOUSAND) SUBCUT SCH (05:49)
[2016-09-26] MEDS: Levothyroxine TAB* 125 MCG TAB PO SCH (05:49)
[2016-09-26 07:44] VITALS: BP 134/62
[2016-09-26] MEDS: Losartan TAB* 25 MG PO SCH (08:31)
[2016-09-26] MEDS ORDERED: Hemorrhoidal OINT PR PRN (09:58)
[2016-09-26] MEDS ORDERED: Lactobacillus Acidophilu (GG)* 1 CAP CAP PO SCH (10:00)
[2016-09-26] MEDS ORDERED: Omeprazole CAP* 20 MG PO SCH (10:00)
[2016-09-26] MEDS ORDERED: CMC Escitalopram (NF) 10 MG TAB PO SCH (10:00)
--- NOTE | 2016-09-27 05:22 | DS ---
ADDENDUM NOW INCLUDED ON THIS REPORT DISCHARGE SUMMARY: DATE OF ADMISSION: 09/22/16 DATE OF DISCHARGE: 09/26/16 PRIMARY CARE PROVIDER: Chantal Cobb NP DISCHARGE DIAGNOSES: 1. Status epilepticus, most likely due to posterior reversible encephalopathy syndrome. 2. Malignant hypertension. 3. Status epilepticus, status post intubation and extubation. It is suspected that the patient had seizures due to PRES. 4. Mild elevation of troponin, most likely due to demand ischemia in the face of malignant hypertension. SECONDARY DIAGNOSIS: 1. History of mild dementia, on Aricept that was started just a week prior to the patient's presentation. 2. Hypertension. 3. History of Takotsubo cardiomyopathy after small bowel obstruction. 4. Hyperlipidemia. 5. Hypothyroidism. 6. Fibromyalgia. 7. Chronic back pain. 8. Gastroesophageal reflux disease. MEDICATIONS AT DISCHARGE: Include Norvasc 5 mg daily which is a new medication. The remaining medications include: 1. Xanax 0.5 mg at bedtime. 2. Bumex 1 mg daily p.r.n. leg swelling. 3. Lexapro 20 mg daily. 4. Synthroid 125 mcg daily. 5. Cozaar 50 mg b.i.d. 6. Nystatin cream applied to right chest area twice a day for a week. 7. Omeprazole 40 mg daily. 8. Norvasc 5 mg daily. 9. Oxycodone/acetaminophen 10/325 mg on a p.r.n. basis every 4 hours for pain. LABORATORY DATA AND STUDIES: Performed during the hospital stay include: On 09/25/16, white blood cell count of 13.5, hemoglobin of 12.3, hematocrit of 39, and platelets of 240. Sodium of 135, potassium of 3.9, chloride 107, carbon dioxide 18, BUN 22, creatinine 0.71. The patient's troponin, maximum was 0.08. Brain MRI obtained on 09/22/16. Impression: "No acute intracranial findings. No restricted diffusion to suggest acute infarct. No acute intracranial hemorrhage." EEG obtained on 09/23/16. Impression: "This EEG done on the propofol sedation shows generalized slowing of background consistent with an encephalopathy and possibly secondary to medications the patient is receiving. No clear epileptiform potentials were noted during the tracing." Chest x-ray obtained on admission. Impression: "ET tube is just above the juanjose. NG tube is in place. Lungs are clear." Brain CT obtained on 09/22/16. Impression: "No acute intracranial abnormality. " CONSULTATIONS DURING THE HOSPITAL STAY: 1. Dr. Pace, the sterilisation technician. 2. Dr. Almanza, Neurology. HOSPITALIZATION COURSE: Skylar Mcfadden is a 76-year-old female with history of recently diagnosed dementia who was started on Aricept by Dr. Barrett. After a couple of days of having headaches while on Aricept, she stopped it for approximately 7 days and then restarted it again. She continued to have headaches while on Aricept and she was taking it for approximately 8 days when she presented to the hospital with repeated seizure activity and hypertension. Although the CT and MRI reports were noted as unremarkable by the radiologist, when Dr. Almanza saw the images, he thought that especially on the MRI there were multiple white matter areas of cerebral edema, particularly posteriorly in the right temporoparietal area with some microhemorrhages which were present previously. He thought it was most likely due to posterior reversible encephalopathy or PRES syndrome. The patient was intubated and treated under the care of the sterilisation technician in the ICU. She was extubated within 24 hours. Her mental status changes quickly resolved and she was back to normal by the time of discharge. Blood pressure also normalized. Although initially she was prescribed Cozaar 50 mg b.i.d. and then it was increased to 75 mg b.i.d., it appears that it was above the recommended daily dose of losartan. At this point, the patient is going to be discharged home on 5 mg dose of Norvasc added on to her usual Cozaar at 50 mg b.i.d. The patient is also recommended to check her blood pressures frequently. She is also recommended to follow up with her primary care provider in approximately 2 to 5 days. The patient is also recommended to follow up with Dr. Barrett within the next couple of weeks. Prior to the patient's discharge, she showed me a lesion on the medial aspect of the right breast. The lesion is not pruritic, it appears eczema-like or possibly eufemia-like infection. It is a small area of erythema of approximately 1 x 2 cm with dry peeling skin. She is going to be prescribed nystatin cream for a week, and she is recommended to follow up with the print project manager if the lesion continues to persist. PHYSICAL EXAMINATION AT THE TIME OF DISCHARGE: Blood pressure 141/61, heart rate of 77 and regular, respiratory rate 16, oxygen saturation 95% on room air, temperature 98.1. General: The patient is a very pleasant 76-year-old female who is in no acute distress. The patient is alert and oriented x3 with poor short-term memory. HEENT: Head is atraumatic, normocephalic. Eyes: Pupils equal and reactive to light and accommodation. Oropharynx clear. Mucosa moist. Neck: Supple. No JVD. No bruits bilaterally. Cardiovascular: Regular rate and rhythm. No murmurs. Respiratory: Clear to auscultation bilaterally. Abdomen: Soft, nontender. Bowel sounds present in all 4 quadrants. Extremities: There is no edema. Pulses +2 bilaterally. No clubbing or cyanosis. On evaluation of the skin, as mentioned above, small nonblanchable area of erythema on the medial aspect of right breast with surrounding dry skin. Neuro Evaluation: Speech clear. Cranial nerves II through XII grossly intact. Motor strength is 5/5 bilaterally. The patient ambulates with a wide and steady gait , and she is recommended to use a walker at discharge. Please note this is a short summary of the patient's hospital stay. Please refer to further medical records for details. TIME SPENT: Approximately 45 minutes was spent on the patient's discharge. ADDENDUM: Please note that the patient also was started on clonidine patch at 0.1 mg every 7 days to be applied to skin and that was started in the intensive care unit and will be continued at discharge and it is a new medication at discharge. CC: Dr. Barrett; Dr. Almanza; Dr. Hui; Chantal Cobb NP* [id number]/CPS #: [id number]/CPS #: [id number] KEVIN
--- NOTE | 2016-09-27 05:30 | DS ---
DISCHARGE SUMMARY:* ADDENDUM: Please note that the patient also was started on clonidine patch at 0.1 mg every 7 days to be applied to skin and that was started in the intensive care unit and will be continued at discharge and it is a new medication at discharge. [id number]/CPS #: [id number] MTDD
[2016-09-27] MEDS ORDERED: amLODIPine TAB* 5 MG PO SCH (09:00)
== END 2016-09-26 14:45 | disposition home or self-care (01) | DRG 70 ==
LOC: ED 12:10 → ICU 13:01 → MED 09-24 15:53
PROVIDERS: ADMIT Internal Medicine Critical Care Medicine; ATTEND Internal Medicine
PROC: 0BH17EZ Insertion of Endotracheal Airway into Trachea, Via Natural or Artificial Opening (ICD-10-PCS; principal; 2016-09-22)
PROC: 5A1935Z Respiratory Ventilation, Less than 24 Consecutive Hours (ICD-10-PCS; 2016-09-22)
DX: I67.83 Posterior reversible encephalopathy syndrome (principal); J96.01 Acute respiratory failure with hypoxia; F03.90 Unspecified dementia, unspecified severity, without behavioral disturbance, psychotic disturbance, mood disturbance, and anxiety; G40.901 Epilepsy, unspecified, not intractable, with status epilepticus; R74.8 Abnormal levels of other serum enzymes; I10 Essential (primary) hypertension; E78.5 Hyperlipidemia, unspecified; E03.9 Hypothyroidism, unspecified; M79.7 Fibromyalgia; K21.9 Gastro-esophageal reflux disease without esophagitis; M54.9 Dorsalgia, unspecified; L98.9 Disorder of the skin and subcutaneous tissue, unspecified; Z79.1 Long term (current) use of non-steroidal anti-inflammatories (NSAID); Z79.891 Long term (current) use of opiate analgesic; Z79.899 Other long term (current) drug therapy
CPT/HCPCS: 36415; 70450; 70551; 71010; 80048; 80053; 80307; 81003; 81015; 82140; 83605; 83735; 84100; 84484; 85025; 85610; 85730; 87641; 93005; 94002; 94003; 94760; 95819; A9270-GY; J0360; J1644; J1940; J2060; J2250; J2405; J2704; J3010; J3480

== ENCOUNTER 2016-10-12 15:27 | Emergency (ER) | payer MEDICARE, BC ==
--- NOTE | 2016-10-12 19:15 | RAD ---
INDICATION: Right foot pain COMPARISON: Right ankle February 26, 2015 TECHNIQUE: AP, lateral, and oblique views were obtained. FINDINGS: There is osteopenia. There are hammertoe deformities. 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 There is a right ankle prosthesis with a small cortical plating and screw fixation about the lateral distal fibula. IMPRESSION: POSTOPERATIVE AND DEGENERATIVE CHANGES. NO ACUTE FINDINGS.
[2016-10-12 19:47] LABS: Hematocrit 35 % (35-47); Hemoglobin 10.9 g/dl (12.0-16.0); Mean Corpuscular HGB Conc 32 g/dl (31-36); Mean Corpuscular Hemoglobin 26 pg (27-31); Mean Corpuscular Volume 82 fL (80-97); Mean Platelet Volume 8 um3 (7.4-10.4); Red Blood Count 4.23 10^6/ul (4.0-5.4); Red Cell Distribution Width 18 % (10.5-15); White Blood Count 5.9 10^3/ul (3.5-10.8)
[2016-10-12] MEDS ORDERED: oxyCODONE/Acetamin 5/325 MG* TAB PO ONE (19:48)
[2016-10-12 20:12] LABS: Albumin 3.7 g/dL (3.2-5.2); BUN/Creatinine Ratio 13.6 (8-20); C Reactive Protein 2.01 mg/L (< 5.00); Calcium 9.7 mg/dL (8.6-10.3); EGFR African American 88.9 (>60); EGFR Non-African American 69.1 (>60); Globulin 3.1 g/dL (2-4); Potassium 3.9 mmol/L (3.5-5.0); Total Bilirubin 0.5 mg/dL (0.2-1.0); Total Protein 6.8 g/dL (6.4-8.9)
[2016-10-12 20:53] VITALS: BP 121/52
--- NOTE | 2016-10-12 22:07 | ED ---
Jo Ballard Salem, scribed for Christopher Epperson MD on 10/12/16 at 1842 . Lower Extremity - HPI Summary HPI Summary: Patient is a 76 y/o F who presents to the ED with right foot edema since yesterday morning. She reports pain with ambulation due to edema, but denies any recent trauma or injury. 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 Pt was also recently hospitalized for seizures and has had a home nurse that has been doing ankle exercises with her. Pt takes Oxycodone for fiber myalgia. - History of Current Complaint Chief Complaint: EDExtremityLower Stated Complaint: NAUSEA-SENT FROM [facility] Time Seen by Provider: 10/12/16 16:30 Hx Obtained From: Patient, Family/Collision Worker Mechanism Of Injury: Unknown Onset of Pain: Prior to Arrival Onset/Duration: Days Severity Initially: Moderate Severity Currently: Moderate Pain Intensity: 6 Pain Scale Used: 0-10 Numeric Timing: Constant Location: Is Discrete @ - Right ankle. Associated Signs And Symptoms: Positive: Swelling Aggravating Factor(s): Nothing Alleviating Factor(s): Nothing Able to Bear Weight: No - Allergies/Home Medications Allergies/Adverse Reactions: Allergies Allergy/AdvReac Type Severity Reaction Status Date / Time Amoxicillin Allergy Anaphylatic Verified 08/31/16 13:06 Shock Iodine Allergy Hives Verified 08/31/16 13:06 Donepezil AdvReac Severe Altered Verified 09/25/16 09:23 Mental Status Gabapentin AdvReac Intermediate Swelling Verified 08/31/16 13:06 Hydrochlorothiazide AdvReac See Comment Verified 08/31/16 13:06 Morphine AdvReac GI Upset Verified 08/31/16 13:06 Pregabalin [From Lyrica] AdvReac Edema Verified 08/31/16 13:06 Sulfa Drugs AdvReac Nausea And Verified 08/31/16 13:06 Vomiting Home Medications: Home Medications Albuterol Sulfate [Proair Respiclick] 1 puff INH Q6HR PRN 10/12/16 [History Confirmed 10/12/16] cloNIDine 0.1 MG PATCH* [Lmuuuryl-Qkg-7 0.1 mg Patch*] 1 patch TRANSDERM WEEKLY 10/12/16 [History Confirmed 10/12/16] PMH/Surg Hx/FS Hx/Imm Hx Endocrine/Hematology History: Reports: Hx Thyroid Disease - hypothyroidism Denies: Hx Diabetes Cardiovascular History: Reports: Hx Cardiomegaly, Hx Congestive Heart Failure, Hx Hypercholesterolemia, Hx Hypotension, Hx Hypertension, Other Cardiovascular Problems/Disorders - Takotsubo cardiomyopathy, [place] Denies: Hx Pacemaker/ICD Respiratory History: Reports: Hx Asthma, Hx Pneumonia, Hx Sleep Apnea Denies: Hx Chronic Obstructive Pulmonary Disease (COPD) GI History: Reports: Hx Gastroesophageal Reflux Disease, Hx Obstructive Bowel - 2015 History: Denies: Hx Dialysis, Hx Renal Disease Musculoskeletal History: Reports: Hx Arthritis - hands,hips, shoulders, Hx Back Problems, Hx Fibromyalgia, Hx Orthopedic Injury - Fx Pelvis 1960; Rt. Tibia, Fibula,&Ankle Sensory History: Reports: Hx Contacts or Glasses Denies: Hx Hearing Aid Opthamlomology History: Reports: Hx Contacts or Glasses Neurological History: Reports: Hx Dementia, Hx Migraine, Other Neuro Impairments /Disorders - Encephalopathy on recent EEG's; started on Aricept for memory loss Denies: Hx Seizures Psychiatric History: Reports: Hx Anxiety, Hx Depression Denies: Hx Panic Disorder - Surgical History Surgery Procedure, Year, and Place: Radical hysterectomy, 1989. Repair of right leg and ankle fx. Deric fundoplication surgery. Tonsillectomy. Cholecystectomy. Total right ankle replacement, 2003. Total left knee replacement, 2006 Hx Anesthesia Reactions: No - Immunization History Date of Tetanus Vaccine: unknown Date of Influenza Vaccine: 2014 Infectious Disease History: No Infectious Disease History: Denies: Hx Clostridium Difficile, Hx Hepatitis, Hx Human Immunodeficiency Virus (HIV), Hx of Known/Suspected MRSA, Hx Shingles, Hx Tuberculosis, Hx Known/ Suspected VRE, Hx Known/Suspected VRSA, History Other Infectious Disease, Traveled Outside the [place] in Last 30 Days - Family History Known Family History: Positive: Cardiac Disease - Social History Alcohol Use: None Substance Use Type: Reports: None Substance Use Comment - Amount & Last Used: fentanyl patch and percocet Smoking Status (MU): Never Smoked Tobacco Have You Smoked in the Last Year: No Review of Systems Negative: Fever Positive: Other - Right foot edema. All Other Systems Reviewed And Are Negative: Yes Physical Exam Triage Information Reviewed: Yes Vital Signs On Initial Exam: Initial Vitals Temp Pulse Resp BP Pulse Ox 97.8 F 67 18 136/75 96 06/19/17 15:55 10/12/16 15:55 10/12/16 15:55 10/12/16 15:55 10/12/16 15:55 Vital Signs Reviewed: Yes Appearance: Positive: Well-Appearing, No Pain Distress, Obese Skin: Positive: Warm, Skin Color Reflects Adequate Perfusion, Dry Head/Face: Positive: Normal Head/Face Inspection Eyes: Positive: Normal Neck: Positive: Supple, Nontender Respiratory/Lung Sounds: Positive: Clear to Auscultation, Breath Sounds Present Cardiovascular: Positive: RRR Abdomen Description: Positive: Nontender, Soft Bowel Sounds: Positive: Present Musculoskeletal: Positive: Other - Tenderness of dorsum, right proximal foot. Right ankle mildly erythematous compared to left. Mild edema of right foot. Neurological: Positive: Normal Psychiatric: Positive: Normal, Affect/Mood Appropriate - [place] Coma Scale Coma Scale Total: 15 Diagnostics - Vital Signs Vital Signs Temp Pulse Resp BP Pulse Ox 10/12/16 18:22 61 89 10/12/16 18:15 97.6 F 60 18 125/60 92 10/12/16 15:55 97.8 F 67 18 136/75 96 - Laboratory Lab Results: Lab Results 10/12/16 10/12/16 Range/Units 19:38 19:38 WBC 5.9 (3.5-10.8) 10^3/ul RBC 4.23 (4.0-5.4) 10^6/ul Hgb 10.9 L (12.0-16.0) g/dl Hct 35 (35-47) % MCV 82 (80-97) fL MCH 26 L (27-31) pg MCHC 32 (31-36) g/dl RDW 18 H (10.5-15) % Plt Count 218 (150-450) 10^3/ul MPV 8 (7.4-10.4) um3 Neut % (Auto) 44.0 (38-83) % Lymph % (Auto) 44.2 (25-47) % [place] % (Auto) 8.0 (1-9) % Eos % (Auto) 2.6 (0-6) % Baso % (Auto) 1.2 (0-2) % Absolute Neuts (auto) 2.6 (1.5-7.7) 10^3/ul Absolute Lymphs (auto) 2.6 (1.0-4.8) 10^3/ul Absolute Monos (auto) 0.5 (0-0.8) 10^3/ul Absolute Eos (auto) 0.2 (0-0.6) 10^3/ul Absolute Basos (auto) 0.1 (0-0.2) 10^3/ul Absolute Nucleated RBC 0 10^3/ul Nucleated RBC % 0 Sodium 138 (133-145) mmol/L Potassium 3.9 (3.5-5.0) mmol/L Chloride 104 (101-111) mmol/L Carbon Dioxide 28 (22-32) mmol/L Anion Gap 6 (2-11) mmol/L BUN 11 (6-24) mg/dL Creatinine 0.81 (0.51-0.95) mg/dL Est GFR ( Amer) 88.9 (>60) Est GFR (Non-Af Amer) 69.1 (>60) BUN/Creatinine Ratio 13.6 (8-20) Glucose 103 H (70-100) mg/dL Calcium 9.7 (8.6-10.3) mg/dL Total Bilirubin 0.50 (0.2-1.0) mg/dL AST 11 L (13-39) U/L ALT 7 (7-52) U/L Alkaline Phosphatase 50 (34-104) U/L C-Reactive Protein 2.01 (< 5.00) mg/L Total Protein 6.8 (6.4-8.9) g/dL Albumin 3.7 (3.2-5.2) g/dL Globulin 3.1 (2-4) g/dL Albumin/Globulin Ratio 1.2 (1-3) Result Diagrams: 10/12/16 19:38 10/12/16 19:38 Lab Statement: Any lab studies that have been ordered have been reviewed, and results considered in the medical decision making process. Re-Evaluation - Re-Evaluation First Eval Re-Evaluation Time: 20:43 Comment: Discussed plan. Pt is agreeable. Lower Extremity Course/Dx - Course Course Of Treatment: Ms. Mcfadden has been getting some physical therapy for deconditioning including exercises involving standing on her toes. She has had prosthetic surgery in her right ankle years ago and comes in C/O pain in her right foot/ankle.. Her W/U was negative for any signs of infection although this is the most significant concern. I think this is just an overuse inflammation but I recommended close F/U. - Diagnoses Provider Diagnoses: Ankle inflammation Discharge - Discharge Plan Condition: Stable Disposition: HOME Patient Education Materials: Swollen Ankle Joint (ED) Referrals: Chantal Cobb NP [Primary Care Provider] - Additional Instructions: Please follow up with your primary care provider. The documentation as recorded by the Jo wisdom Salem accurately reflects the service I personally performed and the decisions made by me, Christopher Epperson MD.
== END 2016-10-12 21:00 | disposition home or self-care (01) ==
LOC: ED 15:27
DX: M19.071 Primary osteoarthritis, right ankle and foot (principal); E03.9 Hypothyroidism, unspecified; I51.7 Cardiomegaly; I50.9 Heart failure, unspecified; E78.00 Pure hypercholesterolemia, unspecified; I25.2 Old myocardial infarction; I10 Essential (primary) hypertension; J45.909 Unspecified asthma, uncomplicated; K21.9 Gastro-esophageal reflux disease without esophagitis; F41.9 Anxiety disorder, unspecified; F32.9 Major depressive disorder, single episode, unspecified; Z96.661 Presence of right artificial ankle joint; Z96.652 Presence of left artificial knee joint; Z88.1 Allergy status to other antibiotic agents; Z88.5 Allergy status to narcotic agent; Z88.2 Allergy status to sulfonamides
CPT/HCPCS: 36415; 80053; 85025; 86140; 99282; A9270-GY

== ENCOUNTER 2016-11-08 14:06 | Observation (INO) | payer MEDICARE, BC ==
[2016-11-08] MEDS ORDERED: HYDROmorphone* 1 MG/ML 1 ML SYR IV ONE (15:11)
[2016-11-08] MEDS ORDERED: Ondansetron INJ* 2 MG/ML VIAL IV ONE (15:11)
--- NOTE | 2016-11-08 16:04 | RAD ---
Indication: Syncope. Comparison is made with previous exam dated September 12, 2016. CT of the brain was performed without IV contrast. Ventricular structures are midline. No midline shift is noted. The extra-axial spaces are unremarkable. Periventricular lucency consistent with chronic ischemic White matter change is noted. No intracranial mass or hemorrhage is noted. Mastoid air cells and paranasal sinuses are otherwise unremarkable. Overall no changes noted since previous exam of September 22, 2016. IMPRESSION: No intracranial mass or hemorrhage is noted.
[2016-11-08 16:47] LABS: Urine Bilirubin Negative (Negative); Urine Glucose Negative (Negative); Urine Nitrite Negative (Negative)
[2016-11-08] MEDS ORDERED: oxyCODONE/Acetamin 10/325(NF) TAB PO PRN (18:37)
[2016-11-08] MEDS ORDERED: Fluticasone NASAL SPRAY 50MCG* 16 gm SPRAY BTL NASAL PRN (18:37)
[2016-11-08] MEDS ORDERED: ALPRAZolam TAB* 0.25 MG PO PRN (18:37)
[2016-11-08] MEDS ORDERED: cloNIDine 0.1 MG PATCH* 0.1 MG/24 HR 7 DAY PATCH TRANSDERM SCH (19:11)
[2016-11-08 21:01] LABS: Hematocrit 35 % (35-47); Hemoglobin 11.2 g/dl (12.0-16.0); Mean Corpuscular HGB Conc 32 g/dl (31-36); Mean Corpuscular Hemoglobin 27 pg (27-31); Mean Corpuscular Volume 84 fL (80-97); Mean Platelet Volume 8 um3 (7.4-10.4); Red Blood Count 4.12 10^6/ul (4.0-5.4); Red Cell Distribution Width 18 % (10.5-15)
[2016-11-08 21:16] LABS: Albumin 3.9 g/dL (3.2-5.2); BUN/Creatinine Ratio 16.9 (8-20); Calcium 9.6 mg/dL (8.6-10.3); EGFR African American 79.7 (>60); Globulin 3.2 g/dL (2-4); Magnesium 1.7 mg/dL (1.9-2.7); Potassium 3.9 mmol/L (3.5-5.0); Total Bilirubin 0.4 mg/dL (0.2-1.0); Total Protein 7.1 g/dL (6.4-8.9)
[2016-11-08 21:18] LABS: Troponin I 0.02 ng/mL (<0.04)
[2016-11-08] MEDS: oxyCODONE TAB* 5 MG TAB PO PRN (21:33)
[2016-11-08] MEDS: Losartan TAB* 25 MG PO SCH (21:33)
[2016-11-08 21:43] LABS: TSH (Thyroid Stimulating Horm) 3.24 mcIU/mL (0.34-5.60)
--- NOTE | 2016-11-08 22:34 | ED ---
Christopher Ballard Alok, scribed for Christopher Epperson MD on 11/08/16 at 1451 . Syncope/Near Syncope - HPI Summary HPI Summary: 76F presents to the ED following a syncope-like episode earlier today. Pt was reportedly talking to her daughter when she suddenly slumped over and began unresponsive. The patient's daughter could not wake her up and called for an ambulance and states that the patient remained unresponsive until EMS's arrival while showing difficulty communicating after EMS arrived. The patient has not memory in between talking to her daughter and being in the ambulance. Pt c/o an occipital PETTIT and states she has felt nauseous since noon today. PMHx includes h/ o sz one month ago. Pt takes oxycodone for chronic pain. - History Of Current Complaint Chief Complaint: EDSyncope Time Seen by Provider: 11/08/16 14:37 Hx Obtained From: Patient Onset/Duration: Sudden Onset, Lasting Minutes, Still Present Timing: Constant Context: Witnessed Activity At Onset: At Rest Associated Head Trauma: No Aggravating Factor(s): Nothing Alleviating Factor(s): Nothing Associated Signs And Symptoms: Headache, Other - nausea - Allergies/Home Medications Allergies/Adverse Reactions: Allergies Allergy/AdvReac Type Severity Reaction Status Date / Time Amoxicillin Allergy Anaphylatic Verified 11/08/16 14:20 Shock Iodine Allergy Hives Verified 11/08/16 14:20 Donepezil AdvReac Severe Altered Verified 11/08/16 14:20 Mental Status Gabapentin AdvReac Intermediate Swelling Verified 11/08/16 14:20 Hydrochlorothiazide AdvReac See Comment Verified 11/08/16 14:20 Morphine AdvReac GI Upset Verified 11/08/16 14:20 Pregabalin [From Lyrica] AdvReac Edema Verified 11/08/16 14:20 Sulfa Drugs AdvReac Nausea And Verified 11/08/16 14:20 Vomiting Home Medications: Home Medications ALPRAZolam TAB* [Xanax TAB*] 0.25 mg PO TID PRN 11/08/16 [History Confirmed ] Fluticasone NASAL * [Flonase *] 2 spray NASAL DAILY PRN 11/08/16 [History Confirmed 11/08/16] PMH/Surg Hx/FS Hx/Imm Hx Endocrine/Hematology History: Reports: Hx Thyroid Disease - hypothyroidism Denies: Hx Diabetes Cardiovascular History: Reports: Hx Cardiomegaly, Hx Congestive Heart Failure, Hx Hypercholesterolemia, Hx Hypotension, Hx Hypertension, Other Cardiovascular Problems/Disorders - Takotsubo cardiomyopathy, [place] Denies: Hx Pacemaker/ICD Respiratory History: Reports: Hx Asthma, Hx Pneumonia, Hx Sleep Apnea Denies: Hx Chronic Obstructive Pulmonary Disease (COPD) GI History: Reports: Hx Gastroesophageal Reflux Disease, Hx Obstructive Bowel - 2015 History: Denies: Hx Dialysis, Hx Renal Disease Musculoskeletal History: Reports: Hx Arthritis - hands,hips, shoulders, Hx Back Problems, Hx Fibromyalgia, Hx Orthopedic Injury - Fx Pelvis 1960; Rt. Tibia, Fibula,&Ankle Sensory History: Reports: Hx Contacts or Glasses Denies: Hx Hearing Aid Opthamlomology History: Reports: Hx Contacts or Glasses Neurological History: Reports: Hx Dementia, Hx Migraine, Other Neuro Impairments /Disorders - Encephalopathy on recent EEG's; started on Aricept for memory loss Denies: Hx Seizures Psychiatric History: Reports: Hx Anxiety, Hx Depression Denies: Hx Panic Disorder - Surgical History Surgery Procedure, Year, and Place: Radical hysterectomy, 1989. Repair of right leg and ankle fx. Deric fundoplication surgery. Tonsillectomy. Cholecystectomy. Total right ankle replacement, 2003. Total left knee replacement, 2006 Hx Anesthesia Reactions: No - Immunization History Date of Tetanus Vaccine: unknown Date of Influenza Vaccine: 2014 Infectious Disease History: No Infectious Disease History: Denies: Hx Clostridium Difficile, Hx Hepatitis, Hx Human Immunodeficiency Virus (HIV), Hx of Known/Suspected MRSA, Hx Shingles, Hx Tuberculosis, Hx Known/ Suspected VRE, Hx Known/Suspected VRSA, History Other Infectious Disease, Traveled Outside the [place] in Last 30 Days - Family History Known Family History: Positive: Cardiac Disease - Social History Occupation: Retired Lives: With Family Alcohol Use: None Substance Use Type: Reports: None Substance Use Comment - Amount & Last Used: fentanyl patch and percocet Smoking Status (MU): Never Smoked Tobacco Have You Smoked in the Last Year: No Review of Systems Negative: Fever Positive: Nausea Positive: Headache, Syncope All Other Systems Reviewed And Are Negative: Yes Physical Exam Triage Information Reviewed: Yes Vital Signs On Initial Exam: Initial Vitals Temp Pulse Resp BP Pulse Ox 97.9 F 78 18 141/68 95 11/08/16 14:15 11/08/16 14:15 11/08/16 14:15 11/08/16 14:15 11/08/16 14:15 Vital Signs Reviewed: Yes Appearance: Positive: Well-Appearing, No Pain Distress Skin: Positive: Warm, Skin Color Reflects Adequate Perfusion, Dry Head/Face: Positive: Normal Head/Face Inspection Eyes: Positive: Normal ENT: Positive: Normal ENT inspection Neck: Positive: Supple, Nontender Respiratory/Lung Sounds: Positive: Clear to Auscultation, Breath Sounds Present Cardiovascular: Positive: RRR Abdomen Description: Positive: Nontender, Soft Bowel Sounds: Positive: Present Musculoskeletal: Positive: Normal Neurological: Positive: Normal Psychiatric: Positive: Normal, Affect/Mood Appropriate - [place] Coma Scale Coma Scale Total: 15 Diagnostics - Vital Signs Vital Signs Temp Pulse Resp BP Pulse Ox 11/08/16 14:19 77 13 95 11/08/16 14:18 97.9 F 78 16 141/68 95 11/08/16 14:16 141/68 11/08/16 14:15 97.9 F 78 18 141/68 95 - Laboratory Lab Results: Lab Results 11/08/16 Range/Units 16:25 Urine Color Straw Urine Appearance Clear Urine pH 7.0 (5-9) Ur Specific [place] 1.006 L (1.010-1.030) Urine Protein Negative (Negative) Urine Ketones Negative (Negative) Urine Blood Negative (Negative) Urine Nitrate Negative (Negative) Urine Bilirubin Negative (Negative) Urine Urobilinogen Negative (Negative) Ur Leukocyte Esterase Negative (Negative) Urine Glucose Negative (Negative) Result Diagrams: 11/08/16 20:52 11/08/16 20:52 Lab Statement: Any lab studies that have been ordered have been reviewed, and results considered in the medical decision making process. - CT Brain CT CT Interpretation: Positive (See Comments) - IMPRESSION: No intracranial mass or hemorrhage is noted. CT Interpretation Completed By: Radiologist - EKG 1432 Cardiac Rate: NL - 76 bpm EKG Rhythm: Sinus Rhythm Course/Dx Course Of Treatment: Ms. Mcfadden had a worrisome story of sudden syncope. Her W /U here was negative as was her monitoring and she will be admitted overnight for more monitoring. - Diagnoses Provider Diagnoses: Syncope - Physician Notifications Discussed Care of Patient With: Pritesh Hood - Will admit pt to [facility] [place] Time Discussed With Above Provider: 18:00 Discharge - Discharge Plan Condition: Stable Disposition: ADMITTED TO [facility] The documentation as recorded by the Christopher wisdom Alok accurately reflects the service I personally performed and the decisions made by , Christopher Epperson MD.
--- NOTE | 2016-11-08 22:39 | CONSULT ---
Consult Consult: Procedure Note: I attempted to place a right IJ line using U/S guidance. I was able to access the vein and draw blood easily but could not pass the seldinger wire. I tried several times and then conceded defeat. The vein and artery were both visualized easily and the vein was entered.
--- NOTE | 2016-11-09 00:54 | HP ---
CC: Chantal Cobb NP * HISTORY AND PHYSICAL: DATE OF ADMISSION: 11/08/16 PRIMARY CARE PHYSICIAN: Dr. Chantal Cobb. CHIEF COMPLAINT: Syncope. HISTORY OF PRESENT ILLNESS: Ms. 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 History is mostly obtained from the patient's daughter who is present at the time as the patient did not recall much of the events surrounding her syncopal episodes. As per the daughter and the patient, she was in her usual state of health, had actually been feeling very well over the past few days. Apparently, they were sitting in the living room, having a conversation, the daughter was speaking to the patient, and at some point, she was not responding. She looked over, and the patient had her head slumped over, had her eyes shut, and was not responding to questioning. The patient started talking louder, yelling at the patient, shaking her and slapping her face a bit ; however, she would not wake up. She thought that this was similar to a previous time when the patient had kidney failure, so she called 911. Apparently, when EMS came, the patient was still not responding. This was probably about 15 to 20 minutes later. As per the daughter, EMS opened her eyelids and said her eyes were "rolling". She slowly came to, and as per the daughter, the patient did not seem confused. She knew where she was, recognized her daughter, and was wondering why EMS was at their house. The patient cannot recall anything specific prior to herself passing out. She states she remembers having a conversation with her daughter, but does not recall anything clearly until waking up in hospital. She states she may have some vague memories of EMS being at her house, but nothing specific. Cannot recall any preceding chest pain, palpitations, shortness of breath, headache. As above, the patient has been in her usual state of health lately. No recent fevers, chills, chest pain, shortness of breath, nausea, vomiting, dysuria, hematuria, bright red blood per rectum, significant diarrhea or constipation. The patient has had some episodes of altered mental status and unresponsiveness in the past; however, this seems different than previous ones. Most recently, a little over a month ago, she was hospitalized with seizures and was thought to have PRES syndrome as she was significantly hypertensive on admission and this was chalked up to a hypertensive encephalopathy. She had been seen previously by Dr. Barrett in late 2016 for confusion, but this was going on for about a week and was thought to potentially be due to maybe some opiate withdrawal or overdose. The patient was also admitted for altered mental status in late March, early April of this year with acute renal failure, this presented as altered mental status. In the ED, the patient is awake and alert. No current complaints presently. Apparently, nursing has been having a lot of difficulty getting IV access and blood draws from the patient. PAST MEDICAL HISTORY: 1. MAGDA. 2. Chronic pain. 3. Hypertension. 4. Takotsubo cardiomyopathy. 5. Alzheimer's dementia. 6. PRES. 7. Possible seizures. 8. SBO. 9. GERD. 10. Fibromyalgia. 11. Renal failure. PAST SURGICAL HISTORY: 1. Hysterectomy. 2. Total knee arthroscopy x2. 3. Cholecystectomy. 4. Deric fundoplication. SOCIAL HISTORY: No tobacco abuse, no alcohol use, no illicit drug use. FAMILY HISTORY: The patient's mother and father both had heart disease. HOME MEDICATIONS: 1. Clonidine 0.1 mg patch 1 patch transdermal daily. 2. Amlodipine 5 mg by mouth daily. 3. Omeprazole 40 mg by mouth daily. 4. Flonase 2 sprays nasal daily as needed for congestion. 5. Albuterol 1 puff inhaled every 6 hours as needed for shortness of breath or wheezing. 6. Alprazolam 0.25 mg by mouth 3 times daily as needed for anxiety. 7. Lexapro 20 mg by mouth daily. 8. Bumex 1 mg by mouth daily as needed for lower extremity edema. 9. Losartan 50 mg by mouth 2 times daily. 10. Synthroid 125 mcg by mouth daily. 11. Percocet 10/325 one tablet by mouth every 4 hours as needed for pain. PHYSICAL EXAMINATION GENERAL: Patient is a pleasant elderly female, lying in bed, in no apparent distress. VITAL SIGNS: On admission, temperature 97.9, heart rate of 78, respiratory rate of 18, O2 saturation 95% on room air, blood pressure 141/68. HEENT: Head normocephalic, atraumatic. Eyes: Pupils equal, round, and reactive to light and accommodation. Anicteric sclerae. ENT: Moist mucous membranes. NECK: No cervical adenopathy. LUNGS: Clear to auscultation bilaterally. No wheezes, rales, or rhonchi. CARDIOVASCULAR: Regular rate and rhythm. S1 and S2 present. No murmurs, gallops, or rubs. ABDOMEN: Soft, obese, nontender, nondistended. Bowel sounds are positive. EXTREMITIES: No cyanosis, clubbing, or edema. NEUROLOGIC: Patient is alert, oriented. Cranial nerves II through XII are intact. Strength is 5/5 throughout bilateral upper and lower extremities. Sensation is intact and symmetric bilaterally. DIAGNOSTIC STUDIES/LAB DATA: CT of the brain shows no acute disease. EKG on personal review shows normal sinus rhythm, no ischemic changes. Urinalysis shows no signs of infection. The remainder of patient's blood work is pending at this time. ASSESSMENT AND PLAN: Syncope in a 76-year-old female with a past medical history of hypertension, takotsubo cardiomyopathy with recovery, PRES with possible seizures, gastroesophageal reflux disease, fibromyalgia, renal failure , obstructive sleep apnea, not currently on CPAP. 1. Syncope, etiology is unclear at this time. It does not seem that this was provoked by anything as the patient had just been sitting on the couch talking with her daughter. She was not standing or moving about, was not straining. EKG is unremarkable. We will monitor the patient on telemetry. The patient's recent echo from May of this year showed a normal EF and mild aortic stenosis. I do not appreciate a murmur on exam, I do not think that another echo is needed at this time. Awaiting patient's first troponin, we will trend these overnight. TSH is also pending at this time. We will check orthostatics. The patient has had some odd presentations over the past year or so; however, this seems more of a simple syncopal presentation than her previous episodes of altered mental status, confusion, or seizures. 2. Hypertension. Continue on clonidine, amlodipine, and losartan. 3. Hypothyroidism. Continue home Synthroid. TSH as above. 4. Gastroesophageal reflux disease. Continue home PPI. 5. Chronic pain. Continue home Percocet. 6. History of takotsubo cardiomyopathy as noted above. Echo from May 2016 shows recovery from her previous cardiomyopathy. 7. DVT prophylaxis. SCDs. 8. Code status. The patient is a full code. TIME SPENT: Total time spent on this admission 60 minutes, with over half the time spent [id number] with the patient in counseling and coordinating care. [id number]/CPS #: [id number] KEVIN
[2016-11-09] MEDS: oxyCODONE TAB* 5 MG TAB PO PRN ×3 (02:37→12:18)
[2016-11-09] MEDS ORDERED: Levothyroxine TAB* 125 MCG TAB PO SCH (06:00)
[2016-11-09] MEDS: Losartan TAB* 25 MG PO SCH (08:16)
[2016-11-09] MEDS ORDERED: Omeprazole CAP* 20 MG PO SCH (09:00)
[2016-11-09] MEDS ORDERED: amLODIPine TAB* 5 MG PO SCH (09:00)
[2016-11-09] MEDS ORDERED: CMC:Escitalopram (NF) 10 MG TAB PO SCH (09:00)
[2016-11-09] MEDS ORDERED: cloNIDine 0.1 MG PATCH* 0.1 MG/24 HR 7 DAY PATCH TRANSDERM SCH (09:00)
[2016-11-09 11:28] VITALS: BP 139/82
[2016-11-09] MEDS ORDERED: Magnesium Oxide TAB* 400 MG PO ONE (11:41)
[2016-11-09] MEDS ORDERED: Potassium Chlor TAB* 20 MEQ TAB.ER PO ONE (11:42)
--- NOTE | 2016-11-09 12:02 | DCNOTE ---
Patient seen this morning. No events overnight. No chest pain, palpitations, SOB. No recurrent syncopal episodes. On exam, RRR, s1 and s2 present, no m/g/r, abd soft, NTND, BS+, no LE edema Patient had 4-5 beat NSVT overnight, no other events on tele, trops negative, orthostatics negative. Will supplement K and Mg. Discharge home today. F/U with PCP and Dr. Arauz, can consider outpatient cardiac monitoring if there is enough concern or recurrence.
--- NOTE | 2016-11-10 01:58 | DS ---
CC: Dr. Chantal Cobb; Dr. Brooks; Dr. Arauz* DISCHARGE SUMMARY: DATE OF ADMISSION: 11/08/16 DATE OF DISCHARGE: 11/09/16 PRIMARY CARE PHYSICIAN: Dr. Chantal Cobb. PRINCIPAL DISCHARGE DIAGNOSIS: Syncope. SECONDARY DIAGNOSES: 1. History of hypertension. 2. Takotsubo cardiomyopathy. 3. Alzheimer's dementia. 4. Posterior reversible encephalopathy syndrome. 5. Possible seizure. 6. Gastroesophageal reflux disease. 7. Fibromyalgia. 8. Small bowel obstruction. 9. History of renal failure. 10. Obstructive sleep apnea, not currently on CPAP. DISCHARGE MEDICATION REGIMEN: 1. Clonidine 0.1 mg patch 1 patch transdermal weekly. 2. Amlodipine 5 mg by mouth daily. 3. Omeprazole 40 mg by mouth daily. 4. Flonase 2 sprays nasal daily as needed for congestion. 5. Albuterol sulfate 1 puff inhaled every 6 hours as needed for shortness of breath or wheezing. 6. Xanax 0.25 mg by mouth 3 times daily as needed for anxiety. 7. Lexapro 20 mg by mouth daily. 8. Bumex 1 mg by mouth daily as needed for lower extremity edema. 9. Losartan 50 mg by mouth 2 times daily. 10. Synthroid 125 mcg by mouth daily. 11. Percocet 10/325 one tablet by mouth every 4 hours as needed for pain. STUDIES DURING THE HOSPITALIZATION: CT of the brain without contrast, impression: No intracranial mass or hemorrhage is noted. HISTORY OF PRESENT ILLNESS AND HOSPITAL SUMMARY: Please see my full history and physical for full details. Briefly, Ms. Mcfadden is a 76-year-old female with a past medical history as above, who presented to the hospital after having a syncopal episode while sitting on the couch conversing with her daughter. The patient has had a number of hospitalizations over the past year or two with episodes of altered mental status or unresponsiveness; however, these all seemed different than her previous presentations with sudden like more of a straightforward syncope. In the emergency department, the patient was found to have a normal EKG, there was initially some difficulty getting IV access, but troponins were monitored and remained negative. She was monitored on telemetry, had one 4 to 5-beat rhythm NSVT, and her potassium and magnesium were repleted while in the hospital. She had no orthostatic hypotension when this was measured. The etiology of the patient's syncope is unclear. It is a bit concerning in the context of her previous presentations as I noted above. Previous presentations such as her PRES were preceded by headache and significant hypertension and other presentations seem more like progressive confusion rather than pure syncope. I encouraged the patient to follow up with her outpatient PCP and copier repair technician. If there is enough concern, could consider the patient for outpatient cardiac monitoring. No changes were made to her medications at this time and the patient was asymptomatic throughout her entire hospitalization. TIME SPENT: Total time spent on this discharge, 35 minutes. This is a summary of the hospitalization, please see the full medical record for further details. [id number]/[facility] #: [id number] MTDD
== END 2016-11-09 13:07 | disposition home or self-care (01) ==
LOC: ED 14:06 → MEDTELE 18:36
PROVIDERS: ADMIT Hospitalist; ATTEND Hospitalist
DX: R55 Syncope and collapse (principal); I10 Essential (primary) hypertension; I51.81 Takotsubo syndrome; G30.9 Alzheimer's disease, unspecified; F02.80 Dementia in other diseases classified elsewhere, unspecified severity, without behavioral disturbance, psychotic disturbance, mood disturbance, and anxiety; G93.40 Encephalopathy, unspecified; K21.9 Gastro-esophageal reflux disease without esophagitis; G89.29 Other chronic pain; E03.9 Hypothyroidism, unspecified; Z79.899 Other long term (current) drug therapy; Z88.0 Allergy status to penicillin; Z88.8 Allergy status to other drugs, medicaments and biological substances; Z88.2 Allergy status to sulfonamides
CPT/HCPCS: 36415; 70450; 80053; 81003; 83605; 83735; 84443; 84484; 85025; 85610; 93005; 96374; 99284; A9270-GY; G0378; J1170; J2405

== ENCOUNTER 2016-11-20 10:18 | Observation (INO) | payer MEDICARE, BC ==
[2016-11-20] MEDS ORDERED: Ondansetron INJ* 2 MG/ML VIAL IV ONE (10:34)
[2016-11-20] MEDS ORDERED: Acetaminophen TAB* 325 MG PO ONE (10:34)
--- NOTE | 2016-11-20 11:03 | RAD ---
Indication: Chest pain. Single frontal view of the chest performed at 1033 hours was reviewed. Comparison is made with previous exam dated September 22, 2016. Cardiomegaly is noted. Interstitial edema consistent with vascular congestion is noted. No alveolar consolidation is identified. IMPRESSION: CARDIOMEGALY WITH VASCULAR CONGESTION.
[2016-11-20 11:07] LABS: Hematocrit 34 % (35-47); Hemoglobin 10.8 g/dl (12.0-16.0); Mean Corpuscular HGB Conc 32 g/dl (31-36); Mean Corpuscular Hemoglobin 27 pg (27-31); Mean Corpuscular Volume 85 fL (80-97); Mean Platelet Volume 9 um3 (7.4-10.4); Red Cell Distribution Width 18 % (10.5-15); White Blood Count 5.8 10^3/ul (3.5-10.8)
[2016-11-20 11:21] LABS: Troponin I 0.01 ng/mL (<0.04)
[2016-11-20 11:25] LABS: ALT 8 U/L (7-52); Albumin 3.8 g/dL (3.2-5.2); Alkaline Phosphatase 46 U/L (34-104); Blood Urea Nitrogen 16 mg/dL (6-24); CO2 Carbon Dioxide 31 mmol/L (22-32); Calcium 9.5 mg/dL (8.6-10.3); Chloride 104 mmol/L (101-111); EGFR African American 85.2 (>60); EGFR Non-African American 66.3 (>60); Globulin 3.2 g/dL (2-4); Glucose 114 mg/dL (70-100); Sodium 138 mmol/L (133-145)
[2016-11-20 11:27] LABS: Anion Gap 3 mmol/L (2-11)
[2016-11-20] MEDS ORDERED: (Albuterol Sulfate [Proair Respiclick] 1 PUFF) INH PRN (12:57)
[2016-11-20] MEDS ORDERED: ALPRAZolam TAB* 0.25 MG PO PRN (12:57)
[2016-11-20] MEDS ORDERED: oxyCODONE/Acetamin 5/325 MG* TAB PO PRN (12:59)
[2016-11-20] MEDS ORDERED: cloNIDine 0.1 MG PATCH* 0.1 MG/24 HR 7 DAY PATCH TRANSDERM SCH (14:00)
--- NOTE | 2016-11-20 14:19 | ED ---
Yasmine Ballard Edward, scribed for Malick Lugo MD on 11/20/16 at 1027 . HPI Chest Pain - HPI Summary HPI Summary: 76 y/o female BIBA c/o CP characterized as tightness and needle pricks starting at around 10:00 this morning. The pain was constant initially but has improved with NTG and ASA given by EMS. No SOB, ABD pain or cough. Associated sx: chronic neck pain, occasional wheezing. No PMHx DM. [place] in 2016. FHx cardiac disease. - History of Current Complaint Chief Complaint: EDChestPainROMI Time Seen by Provider: 11/20/16 10:24 Hx Obtained From: Patient Onset/Duration: Started Hours Ago - 10:00 this morning Timing: Constant Character: Tightness, Other: - Needle pricks Alleviating Factor(s): NTG 123, Other: - ASA Associated Signs and Symptoms: Positive: Chest Pain, Other: - Neck pain (chronic ). Negative: Shortness of Breath - Additional Pertinent History Primary Care Physician: [id number] - Allergy/Home Medications Allergies/Adverse Reactions: Allergies Allergy/AdvReac Type Severity Reaction Status Date / Time Amoxicillin Allergy Anaphylatic Verified 11/08/16 14:20 Shock Iodine Allergy Hives Verified 11/08/16 14:20 Donepezil AdvReac Severe Altered Verified 11/08/16 14:20 Mental Status Gabapentin AdvReac Intermediate Swelling Verified 11/08/16 14:20 Hydrochlorothiazide AdvReac See Comment Verified 11/08/16 14:20 Morphine AdvReac GI Upset Verified 11/08/16 14:20 Pregabalin [From Lyrica] AdvReac Edema Verified 11/08/16 14:20 Sulfa Drugs AdvReac Nausea And Verified 11/08/16 14:20 Vomiting PMH/Surg Hx/FS Hx/Imm Hx Previously Healthy: No Endocrine/Hematology History: Reports: Hx Thyroid Disease - hypothyroidism Denies: Hx Diabetes Cardiovascular History: Reports: Hx Cardiomegaly, Hx Congestive Heart Failure, Hx Hypercholesterolemia, Hx Hypotension, Hx Hypertension, Other Cardiovascular Problems/Disorders - Takotsubo cardiomyopathy, [place] Denies: Hx Pacemaker/ICD Respiratory History: Reports: Hx Asthma, Hx Pneumonia, Hx Sleep Apnea Denies: Hx Chronic Obstructive Pulmonary Disease (COPD) GI History: Reports: Hx Gastroesophageal Reflux Disease, Hx Obstructive Bowel - 2016 History: Denies: Hx Dialysis, Hx Renal Disease Musculoskeletal History: Reports: Hx Arthritis - hands,hips, shoulders, Hx Back Problems, Hx Fibromyalgia, Hx Orthopedic Injury - Fx Pelvis 1960; Rt. Tibia, Fibula,&Ankle Sensory History: Reports: Hx Contacts or Glasses - reading Denies: Hx Hearing Aid Opthamlomology History: Reports: Hx Contacts or Glasses - reading Neurological History: Reports: Hx Dementia, Hx Migraine, Other Neuro Impairments /Disorders - Encephalopathy on recent EEG's; started on Aricept for memory loss Denies: Hx Seizures Psychiatric History: Reports: Hx Anxiety, Hx Depression Denies: Hx Panic Disorder - Surgical History Surgery Procedure, Year, and Place: Radical hysterectomy, 1989. Repair of right leg and ankle fx. Edric fundoplication surgery. Tonsillectomy. Cholecystectomy. Total right ankle replacement, 2003. Total left knee replacement, 2006 Hx Anesthesia Reactions: No - Immunization History Date of Tetanus Vaccine: unknown Date of Influenza Vaccine: 2014 Infectious Disease History: Denies: Hx Clostridium Difficile, Hx Hepatitis, Hx Human Immunodeficiency Virus (HIV), Hx of Known/Suspected MRSA, Hx Shingles, Hx Tuberculosis, Hx Known/ Suspected VRE, Hx Known/Suspected VRSA, History Other Infectious Disease - Family History Known Family History: Positive: Cardiac Disease - Social History Occupation: Retired Lives: With Family Alcohol Use: None Substance Use Type: Reports: None Substance Use Comment - Amount & Last Used: fentanyl patch and percocet Smoking Status (MU): Never Smoked Tobacco Have You Smoked in the Last Year: No Review of Systems Constitutional: Negative Eyes: Negative ENT: Negative Positive: Chest Pain Positive: Other - Occasional wheezing. Negative: Shortness Of Breath, Cough Gastrointestinal: Negative Genitourinary: Negative Positive: Arthralgia - Chronic neck pain Skin: Negative Neurological: Negative Psychological: Normal All Other Systems Reviewed And Are Negative: Yes Physical Exam - Summary Physical Exam Summary: The patient is well-nourished in no acute distress and in no acute pain. The skin is warm and dry and skin color reflects adequate perfusion. HEENT: The head is normocephalic and atraumatic. The pupils are equal and reactive. The conjunctivae are clear and without drainage. Nares are patent and without drainage. Mouth reveals moist mucous membranes and the throat is without erythema and exudate. The external ears are intact. The ear canals are patent and without drainage. The tympanic membranes are intact. Neck is supple with full range of motion and non-tender. There are no carotid bruits. There is no neck vein distension. Respiratory: Chest is non-tender. Lungs are clear to auscultation and breath sounds are symmetrical and equal. Cardiovascular: Hear is regular rate and rhythm. There is no murmur or rub auscultated. There is no peripheral edema and pulses are symmetrical and equal. Abdomen: The abdomen is soft and non-tender. There are normal bowel sounds heard in all four quadrants and there is no organomegaly palpated. Musculoskeletal: There is no back pain noted. Extremities are non-tender with full range of motion. There is good capillary refill. There is no peripheral edema or calf tenderness elicited. Skin: No skin turgor. Neurological: Patient is alert and oriented to person, place and time. The patient has symmetrical motor strength in all four extremities. Cranial nerves are grossly intact. Deep tendon reflexes are symmetrical and equal in all four extremities. Psychiatric: The patient has an appropriate affect and does not exhibit any anxiety or depression. Triage Information Reviewed: Yes Vital Signs On Initial Exam: Initial Vitals Temp Pulse Resp BP Pulse Ox 98.2 F 74 12 129/69 91 11/20/16 10:22 11/20/16 10:22 11/20/16 10:22 11/20/16 10:22 11/20/16 10:22 Vital Signs Reviewed: Yes Diagnostics - Vital Signs Vital Signs Temp Pulse Resp BP Pulse Ox 11/20/16 12:30 65 123/69 97 11/20/16 12:00 64 114/59 96 11/20/16 11:30 66 123/62 96 11/20/16 11:14 94 11/20/16 11:00 67 124/66 94 11/20/16 10:30 74 91 11/20/16 10:29 129/69 11/20/16 10:22 98.2 F 74 12 129/69 91 - Laboratory Lab Results: Lab Results 11/20/16 11/20/16 11/20/16 Range/Units 10:54 10:54 10:54 WBC 5.8 (3.5-10.8) 10^3/ul RBC 4.00 (4.0-5.4) 10^6/ul Hgb 10.8 L (12.0-16.0) g/dl Hct 34 L (35-47) % MCV 85 (80-97) fL MCH 27 (27-31) pg MCHC 32 (31-36) g/dl RDW 18 H (10.5-15) % Plt Count 240 (150-450) 10^3/ul MPV 9 (7.4-10.4) um3 Neut % (Auto) 43.2 (38-83) % Lymph % (Auto) 43.4 (25-47) % Haralson % (Auto) 8.8 (1-9) % Eos % (Auto) 3.3 (0-6) % Baso % (Auto) 1.3 (0-2) % Absolute Neuts (auto) 2.5 (1.5-7.7) 10^3/ul Absolute Lymphs (auto) 2.5 (1.0-4.8) 10^3/ul Absolute Monos (auto) 0.5 (0-0.8) 10^3/ul Absolute Eos (auto) 0.2 (0-0.6) 10^3/ul Absolute Basos (auto) 0.1 (0-0.2) 10^3/ul Absolute Nucleated RBC 0.01 10^3/ul Nucleated RBC % 0.1 INR (Anticoag Therapy) 0.84 L (0.89-1.11) Sodium 138 (133-145) mmol/L Potassium TNP Chloride 104 (101-111) mmol/L Carbon Dioxide 31 (22-32) mmol/L Anion Gap 3 (2-11) mmol/L BUN 16 (6-24) mg/dL Creatinine 0.84 (0.51-0.95) mg/dL Est GFR ( Amer) 85.2 (>60) Est GFR (Non-Af Amer) 66.3 (>60) BUN/Creatinine Ratio 19.0 (8-20) Glucose 114 H (70-100) mg/dL Lactic Acid (0.5-2.0) mmol/L Calcium 9.5 (8.6-10.3) mg/dL Magnesium 2.0 (1.9-2.7) mg/dL Total Bilirubin 0.40 (0.2-1.0) mg/dL AST TNP ALT 8 (7-52) U/L Alkaline Phosphatase 46 (34-104) U/L Troponin I 0.01 (<0.04) ng/mL B-Natriuretic Peptide ( - 100) pg/mL Total Protein 7.0 (6.4-8.9) g/dL Albumin 3.8 (3.2-5.2) g/dL Globulin 3.2 (2-4) g/dL Albumin/Globulin Ratio 1.2 (1-3) 11/20/16 11/20/16 11/20/16 Range/Units 10:54 10:54 11:47 WBC (3.5-10.8) 10^3/ul RBC (4.0-5.4) 10^6/ul Hgb (12.0-16.0) g/dl Hct (35-47) % MCV (80-97) fL MCH (27-31) pg MCHC (31-36) g/dl RDW (10.5-15) % Plt Count (150-450) 10^3/ul MPV (7.4-10.4) um3 Neut % (Auto) (38-83) % Lymph % (Auto) (25-47) % Haralson % (Auto) (1-9) % Eos % (Auto) (0-6) % Baso % (Auto) (0-2) % Absolute Neuts (auto) (1.5-7.7) 10^3/ul Absolute Lymphs (auto) (1.0-4.8) 10^3/ul Absolute Monos (auto) (0-0.8) 10^3/ul Absolute Eos (auto) (0-0.6) 10^3/ul Absolute Basos (auto) (0-0.2) 10^3/ul Absolute Nucleated RBC 10^3/ul Nucleated RBC % INR (Anticoag Therapy) (0.89-1.11) Sodium (133-145) mmol/L Potassium 3.9 Chloride (101-111) mmol/L Carbon Dioxide (22-32) mmol/L Anion Gap (2-11) mmol/L BUN (6-24) mg/dL Creatinine (0.51-0.95) mg/dL Est GFR ( Amer) (>60) Est GFR (Non-Af Amer) (>60) BUN/Creatinine Ratio (8-20) Glucose (70-100) mg/dL Lactic Acid 1.4 (0.5-2.0) mmol/L Calcium (8.6-10.3) mg/dL Magnesium (1.9-2.7) mg/dL Total Bilirubin (0.2-1.0) mg/dL AST 11 L ALT (7-52) U/L Alkaline Phosphatase (34-104) U/L Troponin I (<0.04) ng/mL B-Natriuretic Peptide 115 H ( - 100) pg/mL Total Protein (6.4-8.9) g/dL Albumin (3.2-5.2) g/dL Globulin (2-4) g/dL Albumin/Globulin Ratio (1-3) Result Diagrams: 11/20/16 10:54 11/20/16 11:47 Lab Statement: Any lab studies that have been ordered have been reviewed, and results considered in the medical decision making process. - Radiology CXR Xray Interpretation: Positive (See Comments) - CARDIOMEGALY WITH VASCULAR CONGESTION. Radiology Interpretation Completed By: Radiologist - EKG 1 EKG Interpretation: 10:35 - Sinus rhythm @ 69 bpm with poor R wave progression. Chest Pain Course/Dx - Course Assessment/Plan: 76 y/o female BIBA c/o CP characterized as tightness and needle pricks starting at around 10:00 this morning. The pain was constant initially but has improved with NTG and ASA given by EMS. No SOB, ABD pain or cough. Associated sx: chronic neck pain, occasional wheezing. No PMHx DM. [place] in 2016. FHx cardiac disease. EKG shows 10:35 - Sinus rhythm @ 69 bpm with poor R wave progression. CXR SHOWS CARDIOMEGALY WITH VASCULAR CONGESTION. Spoke with Dr. Hager who came to see the pt in the ED course and believes the pt should be admitted. Pt will be admitted to [facility] [place]. - Chest Pain Differential Diagnosis/HQI/PQRI: Acute [place], ACS, CHF - Diagnoses Provider Diagnoses: Chest pain - Provider Notifications Discussed Care Of Patient With: Kera Hager Time Discussed With Above Provider: 12:05 Instructed by Provider To: MD Will See In ED Discharge - Discharge Plan Condition: Stable Disposition: ADMITTED TO [facility] documentation as recorded by the Yasmine wisdom Edward accurately reflects the service I personally performed and the decisions made by me, Malick Lugo MD.
[2016-11-20] MEDS: oxyCODONE/Acetamin 5/325 MG* TAB PO PRN ×2 (14:46→21:18)
[2016-11-20] MEDS: Heparin VIAL(*) 5000 UNITS/ML VIAL (FIVE THOUSAND) SUBCUT SCH ×2 (14:47→21:14)
[2016-11-20] MEDS: Omeprazole CAP* 20 MG PO SCH (15:10)
[2016-11-20] MEDS: Losartan TAB* 25 MG PO SCH (21:12)
--- NOTE | 2016-11-20 21:55 | HP ---
CC: Chantal Cobb NP* HISTORY AND PHYSICAL: DATE OF ADMISSION: 11/20/16 PRIMARY CARE PROVIDER: Dr. Chantal Cobb. HAND DEICER ELEMENT WINDER: Dr. Denver Arauz. ATTENDING PHYSICIAN: Dr. Kera Hager * (dictated by Valerie Capps NP). CHIEF COMPLAINT: Per the patient "I passed out," per daughter the patient was very short of breath and anxious complaining of chest heaviness. HISTORY OF PRESENT ILLNESS: Ms. Mcfadden is a 76-year-old female with past medical history significant for hypertension, takotsubo cardiomyopathy, NSTEMI, Alzheimer's disease, posterior reversible encephalopathy syndrome, fibromyalgia , GERD, history of renal failure, obstructive sleep apnea, asthma, and hyperlipidemia, who reportedly had shortness of breath and then became very anxious for approximately 2 hours earlier today and the patient's shortness of breath proceeded to turn into chest heaviness that was sternally located and with pain in both arms. They decided to call EMS. Per EMS report, the patient was complaining of chest pain with bilateral arm pain. She was administered nitro and aspirin and her discomfort resolved. The patient was brought to the emergency room for further evaluation of her symptoms. In the emergency room, the patient was medicated with Zofran and Tylenol. She had an EKG showing sinus rhythm, no signs of acute ischemia. She also had a chest x- ray showing cardiomegaly with vascular congestion. She had labs. The troponin is 0.01. The patient denied any recent fever, chills, nausea, vomiting , cough, diaphoresis. The patient reported shortness of breath that she described as a tightness. Initially, the patient denied having any chest pain today and thought that she presented to the emergency room for passing out. It is to note that the patient was just recently hospitalized from 11/08/16 through 11/09/16 for syncopal episode. At that time of admission, it was unclear as to the cause of the patient's syncopal episode. Hospitalists were asked to evaluate the patient for admission. PAST MEDICAL HISTORY: 1. Hypertension. 2. Takotsubo cardiomyopathy, resolved. 3. Non-ST elevated myocardial infarction in August of 2015. 4. Posterior reversible encephalopathy syndrome. 5. GERD. 6. Fibromyalgia. 7. History of small-bowel obstruction. 8. History of renal failure. 9. Obstructive sleep apnea. 10. Asthma. 11. Hyperlipidemia. 12. Hypothyroidism. PAST SURGICAL HISTORY: 1. Status post hysterectomy in 1989. 2. Status post left total knee arthroplasty in 2006. 3. Status post right total ankle arthroplasty in 2003. 4. Status post cholecystectomy. 5. Status post Deric fundoplication. 6. Status post right knee arthroscopy in 2001. 7. Status post left knee arthroscopy and partial meniscectomy in 2005. 8. Status post ORIF of the right ankle. HOME MEDICATIONS: Include: 1. Losartan 50 mg oral twice daily. 2. Levothyroxine 125 mcg oral daily. 3. Lexapro 20 mg oral daily. 4. Bumex 1 mg oral daily as needed for edema. 5. Clonidine 0.1 mg patch apply weekly. 6. Norvasc 5 mg oral daily. 7. Omeprazole 40 mg oral daily. 8. Flonase 2 sprays nasally daily as needed for allergy symptoms. 9. Xanax 0.25 mg 3 times daily as needed for anxiety. 10. Percocet 10/325 one tablet oral every 4 hours as needed for pain. ALLERGIES: AMOXICILLIN, IODINE, DONEPEZIL, GABAPENTIN, HYDROCHLOROTHIAZIDE, MORPHINE, LYRICA, SULFA. FAMILY HISTORY: The patient's mother, father, 2 sisters, and 3 brothers have history of coronary artery disease. The patient has 2 sisters with a history of diabetes mellitus. The patient's son had a history of tumor as a child. SOCIAL HISTORY: The patient denies tobacco, alcohol, or recreational drug use. She lives with her significant other and daughter. The patient's daughter, Leslie Velazquez, will be her surrogate decision maker in the event she is unable to make decisions for herself. REVIEW OF SYSTEMS: I performed a 14-point review of systems. All the pertinent positives and negatives are mentioned in the history of present illness. The remaining review of systems are negative. PHYSICAL EXAMINATION GENERAL APPEARANCE: The patient is alert, pleasant, appears to be in no acute distress. VITAL SIGNS: Temperature 98.2, heart rate 64, respiratory rate 12, O2 sat 96% on 2 L via nasal cannula, blood pressure 114/59. HEENT: Normocephalic, atraumatic. Pupils are equal, round, and reactive to light. Extraocular movements are intact. RESPIRATORY: There is no accessory muscle use and the lungs are clear to auscultation bilateral. CARDIOVASCULAR: Regular rate and rhythm. S1 and S2 are present. There are no murmurs, rubs, or gallops heard. The patient has no lower extremity edema. Chest pain is reproducible on palpation to the sternum and bilateral upper chest near the shoulders. ABDOMEN: Soft, nontender, large, and nondistended. There are bowel sounds present x4. EXTREMITIES: DP and PT pulses are 2+ and symmetric. MUSCULOSKELETAL: There is no clubbing or cyanosis noted. The patient exhibits good strength in all extremities. NEUROLOGIC: The patient is alert and oriented to person, place, and time, but forgetful. Cranial nerves II through XII are grossly intact. PSYCHOLOGICAL: The patient is calm and cooperative. SKIN: There are no rashes or abnormalities seen. DIAGNOSTIC STUDIES/LAB DATA: Sodium 138, potassium 3.9, chloride 104, CO2 of 31, BUN 16, creatinine 0.84, and glucose 114. Troponin 0.01. White blood cell count 5.8, hemoglobin 10.8, hematocrit 34, and platelet count 240. EKG: Shows sinus rhythm with rate of 69. There are no acute signs of ischemia noted. This EKG is similar to previous EKG from 11/08/16. Chest x-ray from today. Radiologist's impression: Cardiomegaly with vascular congestion. IMPRESSION: Ms. Mcfadden is a 76-year-old female with past medical history significant for hypertension, hyperlipidemia, obstructive sleep apnea, non-ST elevated myocardial infection, history of takotsubo cardiomyopathy, and Alzheimer's disease, who presents to the emergency room per her family with complaints of shortness of breath and chest tightness. She will be admitted as an observation for chest pain rule out. ASSESSMENT AND PLAN: 1. Chest pain. At this time, the patient is currently not complaining of any chest pain. She reports that her shortness of breath has improved. Her initial troponin is 0.01. She has no signs of ischemia on her chest x-ray. We will trend the patient's troponin for 2 more times. We will also work on getting records from the patient's unit control worker's office, Dr. Arauz. The patient's YODIT score is 2. She is unable to have exercise, stress echo today due to her inability to walk on treadmill. The patient's chest discomfort is reproducible with palpation at the sternum and bilateral shoulders. I suspect her chest pain could be musculoskeletal in nature as the patient reports she has recently been cleaning around the house and may have strained her arms. 2. Hypertension. The patient is currently normotensive. She will be continued on her clonidine patch, amlodipine, and losartan. 3. Hypothyroidism. The patient's last TSH on 11/08/16 was 3.24. She will be continued on her current levothyroxine dose. 4. Gastroesophageal reflux disease. The patient will be continued on her home omeprazole. 5. Chronic pain/fibromyalgia. The patient will be continued on the Percocet. 6. History of takotsubo cardiomyopathy. The patient's last echocardiogram was from May 2016, at which time her last ejection fraction was 55% to 60%. We will get records from Dr. Arauz's office. We will get daily weights and strict I's and O's. 7. History of anxiety and depression. The patient to be continued on her home Lexapro and Xanax as needed. 8. Fluids, electrolytes, and nutrition. The patient will be on a heart- healthy diet. 9. Code status: Full code. 10. DVT prophylaxis. The patient is a high risk and will be on subcu heparin. 11. Disposition: Observation. TIME SPENT: The time for this admission was 60 minutes and greater than half of that was spent with the patient and family discussing medications, past medical history, and the events leading up to her arrival today and performing physical examination. The case has been reviewed with the attending, Dr. Hager , who agrees with the plan of care. VALERIE CAPPS, AIME [id number]/[facility] #: [id number] KEVIN
[2016-11-21] MEDS: oxyCODONE/Acetamin 5/325 MG* TAB PO PRN ×2 (04:20→11:18)
[2016-11-21 05:14] LABS: HDL Cholesterol 38.2 mg/dL
[2016-11-21] MEDS: Heparin VIAL(*) 5000 UNITS/ML VIAL (FIVE THOUSAND) SUBCUT SCH (05:57)
[2016-11-21] MEDS ORDERED: Levothyroxine TAB* 125 MCG TAB PO SCH (06:00)
[2016-11-21 07:32] VITALS: BP 134/60
[2016-11-21] MEDS: Omeprazole CAP* 20 MG PO SCH (07:46)
[2016-11-21] MEDS: Losartan TAB* 25 MG PO SCH (07:46)
[2016-11-21] MEDS ORDERED: CMC Escitalopram (NF) 10 MG TAB PO SCH (09:00)
[2016-11-21] MEDS ORDERED: amLODIPine TAB* 5 MG PO SCH (09:00)
--- NOTE | 2016-11-21 10:14 | PN ---
Subjective Date of Service: 11/21/16 Interval History: Patient seen and examined at bedside. Family member also at bedside. She does not recall having any chest pain or shortness of breath overnight. States "I've been feeling well." The patient does not recall any activities that may have contributed to chest pain. Patient was recently seen by financial wellness coach - copies of faxed records are getting cut off so sent records incomplete. Discussed EKG and troponins with patient and family; they feel okay with patient being discharged with outpatient follow-up. No other acute complaint or concern expressed by family or patient. Family History: Unchanged from Admission Social History: Unchanged from Admission Past Medical History: Unchanged from Admission Objective Active Medications: Alprazolam (Xanax Tab*) 0.25 mg PO TID PRN PRN Reason: ANXIETY Amlodipine Besylate (Norvasc Tab*) 5 mg PO DAILY [facility] Last Admin: 11/21/16 07:46 Dose: 5 mg Clonidine HCl (Jrwjrhod-Tto-9 0.1 Mg Patch*) 0.1 mg TRANSDERM WEEKLY [facility] Escitalopram Oxalate (Lexapro (Nf)) 20 mg PO DAILY [facility] Last Admin: 11/21/16 07:46 Dose: 20 mg Heparin Sodium (Porcine) (Heparin Vial(*)) 5,000 units SUBCUT Q8HR [facility] Last Admin: 11/21/16 05:57 Dose: 5,000 units Levothyroxine Sodium (Synthroid Tab*) 125 mcg PO 0600 [facility] Last Admin: 11/21/16 05:57 Dose: 125 mcg Losartan Potassium (Cozaar Tab*) 50 mg PO BID [facility] Last Admin: 11/21/16 07:46 Dose: 50 mg (Albuterol Sulfate [ Proair Respiclick] 1 Puff) 1 puff INH Q6HR PRN PRN Reason: SHORTNESS OF BREATH Omeprazole (Prilosec Cap*) 40 mg PO DAILY@0730 [facility] Last Admin: 11/21/16 07:46 Dose: 40 mg Oxycodone/Acetaminophen (Percocet 5/325 Tab*) 1 tab PO Q4H PRN PRN Reason: PAIN - MILD TO MODERATE Last Admin: 11/21/16 07:47 Dose: 1 tab Oxycodone/Acetaminophen (Percocet 5/325 Tab*) 2 tab PO Q4H PRN PRN Reason: PAIN - MODERATE TO SEVERE Last Admin: 11/21/16 04:20 Dose: 2 tab Vital Signs 11/20/16 11/20/16 11/20/16 13:00 13:30 14:00 Temperature Pulse Rate 75 80 71 Respiratory Rate Blood Pressure 134/74 125/61 110/62 (mmHg) O2 Sat by Pulse 97 92 90 Oximetry 11/20/16 11/20/16 11/20/16 14:17 14:24 14:46 Temperature 97.7 F Pulse Rate 74 Respiratory 15 18 18 Rate Blood Pressure 120/63 (mmHg) O2 Sat by Pulse 92 Oximetry 11/20/16 11/20/16 11/20/16 15:00 15:24 16:00 Temperature 97.7 F Pulse Rate 57 Respiratory 7 18 12 Rate Blood Pressure 117/45 (mmHg) O2 Sat by Pulse 91 Oximetry 11/20/16 11/20/16 11/20/16 16:46 17:00 18:00 Temperature Pulse Rate Respiratory 18 11 14 Rate Blood Pressure (mmHg) O2 Sat by Pulse Oximetry 11/20/16 11/20/16 11/20/16 19:00 19:52 20:00 Temperature 97.9 F Pulse Rate 66 Respiratory 4 18 13 Rate Blood Pressure 111/56 (mmHg) O2 Sat by Pulse 93 Oximetry 11/20/16 11/20/16 11/20/16 21:00 21:18 22:00 Temperature Pulse Rate Respiratory 15 13 13 Rate Blood Pressure (mmHg) O2 Sat by Pulse Oximetry 11/20/16 11/20/16 11/20/16 23:00 23:18 23:36 Temperature 98.6 F Pulse Rate 67 Respiratory 6 19 16 Rate Blood Pressure 126/58 (mmHg) O2 Sat by Pulse 90 Oximetry 11/21/16 11/21/16 11/21/16 00:00 00:06 01:00 Temperature Pulse Rate Respiratory 13 14 14 Rate Blood Pressure (mmHg) O2 Sat by Pulse Oximetry 11/21/16 11/21/16 11/21/16 02:00 03:00 04:00 Temperature Pulse Rate Respiratory 15 11 4 Rate Blood Pressure (mmHg) O2 Sat by Pulse Oximetry 11/21/16 11/21/16 11/21/16 04:05 04:20 05:00 Temperature 98.5 F Pulse Rate 66 Respiratory 16 16 15 Rate Blood Pressure 110/64 (mmHg) O2 Sat by Pulse 92 Oximetry 11/21/16 11/21/16 11/21/16 06:00 06:20 07:00 Temperature Pulse Rate Respiratory 12 16 15 Rate Blood Pressure (mmHg) O2 Sat by Pulse Oximetry 11/21/16 11/21/16 07:30 07:47 Temperature 97.6 F Pulse Rate 62 Respiratory 18 18 Rate Blood Pressure 134/60 (mmHg) O2 Sat by Pulse 91 Oximetry Oxygen Devices in Use Now: None Appearance: Older female, lying in bed, well appearing and pleasant, NAD Eyes: No Scleral Icterus Ears/Nose/Mouth/Throat: Clear Oropharnyx Respiratory: Symmetrical Chest Expansion and Respiratory Effort, Clear to Auscultation Cardiovascular: NL Sounds; No Murmurs; No JVD, RRR, No Edema Abdominal: NL Sounds; No Tenderness; No Distention Extremities: No Clubbing, Cyanosis Neurological: Alert and Oriented x 3 - patient is forgetful and cannot recall some of yesterday's events, NL Muscle Strength and Tone Lines/Tubes/Other Access: Clean, Dry and Intact Peripheral IV Nutrition: Taking PO's Result Diagrams: 11/20/16 10:54 11/20/16 11:47 Additional Lab and Data: Lab Results 11/20/16 11/20/16 11/20/16 Range/Units 10:54 10:54 10:54 WBC 5.8 (3.5-10.8) 10^3/ul RBC 4.00 (4.0-5.4) 10^6/ul Hgb 10.8 L (12.0-16.0) g/dl Hct 34 L (35-47) % MCV 85 (80-97) fL MCH 27 (27-31) pg MCHC 32 (31-36) g/dl RDW 18 H (10.5-15) % Plt Count 240 (150-450) 10^3/ul MPV 9 (7.4-10.4) um3 Neut % (Auto) 43.2 (38-83) % Lymph % (Auto) 43.4 (25-47) % Mes[place] % (Auto) 8.8 (1-9) % Eos % (Auto) 3.3 (0-6) % Baso % (Auto) 1.3 (0-2) % Absolute Neuts (auto) 2.5 (1.5-7.7) 10^3/ul Absolute Lymphs (auto) 2.5 (1.0-4.8) 10^3/ul Absolute Monos (auto) 0.5 (0-0.8) 10^3/ul Absolute Eos (auto) 0.2 (0-0.6) 10^3/ul Absolute Basos (auto) 0.1 (0-0.2) 10^3/ul Absolute Nucleated RBC 0.01 10^3/ul Nucleated RBC % 0.1 INR (Anticoag Therapy) 0.84 L (0.89-1.11) Sodium 138 (133-145) mmol/L Potassium TNP Chloride 104 (101-111) mmol/L Carbon Dioxide 31 (22-32) mmol/L Anion Gap 3 (2-11) mmol/L BUN 16 (6-24) mg/dL Creatinine 0.84 (0.51-0.95) mg/dL Est GFR ( Amer) 85.2 (>60) Est GFR (Non-Af Amer) 66.3 (>60) BUN/Creatinine Ratio 19.0 (8-20) Glucose 114 H (70-100) mg/dL Lactic Acid (0.5-2.0) mmol/L Calcium 9.5 (8.6-10.3) mg/dL Magnesium 2.0 (1.9-2.7) mg/dL Total Bilirubin 0.40 (0.2-1.0) mg/dL AST TNP ALT 8 (7-52) U/L Alkaline Phosphatase 46 (34-104) U/L Troponin I 0.01 (<0.04) ng/mL B-Natriuretic Peptide ( - 100) pg/mL Total Protein 7.0 (6.4-8.9) g/dL Albumin 3.8 (3.2-5.2) g/dL Globulin 3.2 (2-4) g/dL Albumin/Globulin Ratio 1.2 (1-3) 11/20/16 11/20/16 11/20/16 Range/Units 10:54 10:54 11:47 WBC (3.5-10.8) 10^3/ul RBC (4.0-5.4) 10^6/ul Hgb (12.0-16.0) g/dl Hct (35-47) % MCV (80-97) fL MCH (27-31) pg MCHC (31-36) g/dl RDW (10.5-15) % Plt Count (150-450) 10^3/ul MPV (7.4-10.4) um3 Neut % (Auto) (38-83) % Lymph % (Auto) (25-47) % Mes[place] % (Auto) (1-9) % Eos % (Auto) (0-6) % Baso % (Auto) (0-2) % Absolute Neuts (auto) (1.5-7.7) 10^3/ul Absolute Lymphs (auto) (1.0-4.8) 10^3/ul Absolute Monos (auto) (0-0.8) 10^3/ul Absolute Eos (auto) (0-0.6) 10^3/ul Absolute Basos (auto) (0-0.2) 10^3/ul Absolute Nucleated RBC 10^3/ul Nucleated RBC % INR (Anticoag Therapy) (0.89-1.11) Sodium (133-145) mmol/L Potassium 3.9 Chloride (101-111) mmol/L Carbon Dioxide (22-32) mmol/L Anion Gap (2-11) mmol/L BUN (6-24) mg/dL Creatinine (0.51-0.95) mg/dL Est GFR ( Amer) (>60) Est GFR (Non-Af Amer) (>60) BUN/Creatinine Ratio (8-20) Glucose (70-100) mg/dL Lactic Acid 1.4 (0.5-2.0) mmol/L Calcium (8.6-10.3) mg/dL Magnesium (1.9-2.7) mg/dL Total Bilirubin (0.2-1.0) mg/dL AST 11 L ALT (7-52) U/L Alkaline Phosphatase (34-104) U/L Troponin I (<0.04) ng/mL B-Natriuretic Peptide 115 H ( - 100) pg/mL Total Protein (6.4-8.9) g/dL Albumin (3.2-5.2) g/dL Globulin (2-4) g/dL Albumin/Globulin Ratio (1-3) Assess/Plan/Problems-Billing Assessment: - Patient Problems (1) Chest pain Code(s): R07.9 - CHEST PAIN, UNSPECIFIED Comment: Denies any further CP, SOB or other symptoms overnight and today. Troponins 0.01, 0.03, 0.02, EKG shows no ischemic changes, ST depressions. EKG similar in appearance to EKG from earlier this month, noted T wave flattening in lead III Recommend outpatient stress test, discussed with family Patient also with elevated cholesterol - recommended discussing initiation of new low dose statin with PCP Recent echocardiogram on 11/16/16 shows normal LV function with no regional wall motion abnormalities, LVEF 55-60%, normal RV function, mild (2) HTN (hypertension) Code(s): I10 - ESSENTIAL (PRIMARY) HYPERTENSION Comment: Normotensive Continue losartan, amlodipine. (3) Hypothyroid Code(s): E03.9 - HYPOTHYROIDISM, UNSPECIFIED Comment: Continue levothyroxine. (4) Chronic pain Code(s): G89.29 - OTHER CHRONIC PAIN Comment: Continue home Percocet. (5) Dementia Code(s): F03.90 - UNSPECIFIED DEMENTIA WITHOUT BEHAVIORAL DISTURBANCE Comment : Continue supportive care. (6) GERD (gastroesophageal reflux disease) Code(s): K21.9 - GASTRO-ESOPHAGEAL REFLUX DISEASE WITHOUT ESOPHAGITIS Comment : Continue omeprazole. (7) Anxiety with depression Comment: Continue home escitalopram and prn alprazolam. (8) Takotsubo cardiomyopathy Code(s): I51.81 - TAKOTSUBO SYNDROME Comment: Hx of Takotsubo cardiomyopathy Most recent echocardiogram from 11/16/16: normal LV function with no regional wall motion abnormalities, LVEF 55-60%, normal RV function, mild (9) DVT prophylaxis Comment: SQ heparin Status and Disposition: OBV admit. D/c to home with outpatient follow-up.
--- NOTE | 2016-11-22 09:05 | DS ---
AMENDED REPORT NOW INCLUDES COSIGNER DESIGNATION - ESIGNED BEFORE ADJUSTMENT MEDICINE DISCHARGE SUMMARY: DATE OF ADMISSION: 11/20/16 DATE OF DISCHARGE: 11/21/16 PRIMARY CARE PHYSICIAN: Chantal Cobb NP. PRIMARY CROP AND SOIL TECHNICIAN: Dr. Denver Arauz. PROVIDER: Hanane Baumann NP. ATTENDING PHYSICIAN: Dr. Yaritza Laurent * (as dictated by Hanane Baumann NP). PRIMARY DISCHARGE DIAGNOSIS: Chest pain. SECONDARY DISCHARGE DIAGNOSES: 1. Hypertension. 2. History of takotsubo cardiomyopathy, now resolved. 3. History of [id number] elevation myocardial infarction in August 2015. 4. Posterior reversible encephalopathy syndrome. 5. Gastroesophageal reflux disease. 6. Fibromyalgia. 7. History of small bowel obstruction. 8. History of renal failure. 9. Obstructive sleep apnea, not on CPAP. 10. Asthma. 11. Hyperlipidemia. 12. Hypothyroidism. HOME MEDICATIONS: 1. Losartan 50 mg b.i.d. 2. Levothyroxine 125 mcg daily. 3. Lexapro 20 mg daily. 4. Bumex 1 mg daily as needed for edema. 5. Clonidine 0.1 mg patch weekly. 6. Norvasc 5 mg daily. 7. Omeprazole 40 mg daily. 8. Flonase 2 sprays nasally daily p.r.n. 9. Xanax 0.25 mg 3 times a day as needed. 10. Percocet 10/325 mg one tab q. 4 hours as needed for pain. HOSPITAL COURSE OF STAY: For full details, please refer to the H and P provided by nurse practitioner Poonam Harvey. In summary, Ms. Mcfadden is a 76-year- old female who presented to the ER on 11/20/16 with concern for chest pain. The patient does have a history of Alzheimer's dementia and did not recall her chest pain and shortness of breath. However, per EMS and per her family, the patient reported a period of shortness of breath and anxiety that lasted for approximately 2 hours, which proceeded to turn into chest heaviness located in the sternum with pain in both arms. The patient was treated with nitro and aspirin with relief of symptoms. Her initial troponin was 0.01. She was admitted under observation for further monitoring and evaluation. Troponins were 0.01, 0.03 and 0.02 respectively with no significant EKG changes. The patient had no ST depressions or T-wave changes to indicate acute ischemia. The patient has continued to deny chest pain since admission and has had no further symptoms of note. On admission, the pain that the patient complained of in the midsternum was reproducible, although it is not currently this morning. I did obtain a copy of the echocardiogram report from [place], the two copies that were sent were both altered to the point that they could not be completely read; however, I was able to determine from the records that were visible that the patient had normal LVEF between 55% to 60% on 11/16/16 with no wall motion abnormalities. Here in the hospital, the patient's blood pressure and heart rate have been well controlled. Of note, her liver profile did reveal triglycerides of 186, cholesterol of 218, LDL 143, and HDL 38. The patient has a reported statin intolerance, but we did discuss with her family that it may be beneficial to start her on a low dose statin and perhaps alter the dosing to every other day so that she can tolerate it and receive the benefit for medical management of her hyperlipidemia. The patient was recommended to follow up with her PCP and to schedule an outpatient stress test. She appears stable at this time, having denied chest pain, shortness of breath, and having ruled out for acute coronary syndrome with normal EKG and no significant rise in troponin. However, further ischemic evaluation may be warranted. CONCERNS AT DISCHARGE: Ms. Mcfadden will be discharged to home under the care of her family on 11/21/16. She has been advised to return to the ER for worsening chest pain, return of persistent dyspnea, back pain, nausea, vomiting or other symptoms of concern. OUTPATIENT FOLLOWUP: The patient is to follow up with her PCP and needs an outpatient stress test. We did call [facility] who stated that they will call the patient on Wednesday to arrange for followup for next week. DIET: Heart healthy diet. ACTIVITY: As tolerated. CONDITION: Stable. DISPOSITION: To home. TIME SPENT: Time spent on this discharge was approximately 35 minutes. Again, this is only a brief summary of the patient's hospital course of stay. For full details, please refer to the full medical record. If you have any further questions or need further assistance, please feel free to contact me at . HANANE BAUMANN, BUSINESS WRITER [phone]/[facility] #: [id number] [facility]
== END 2016-11-21 12:05 | disposition home or self-care (01) ==
LOC: ED 10:18 → MEDTELE 12:52
PROVIDERS: ADMIT Hospitalist; ATTEND Hospitalist
DX: R07.9 Chest pain, unspecified (principal); I10 Essential (primary) hypertension; I51.81 Takotsubo syndrome; I25.2 Old myocardial infarction; K21.9 Gastro-esophageal reflux disease without esophagitis; M79.7 Fibromyalgia; G47.33 Obstructive sleep apnea (adult) (pediatric); E78.5 Hyperlipidemia, unspecified; E03.9 Hypothyroidism, unspecified; Z79.899 Other long term (current) drug therapy; Z88.0 Allergy status to penicillin; Z88.2 Allergy status to sulfonamides; Z88.8 Allergy status to other drugs, medicaments and biological substances; G30.9 Alzheimer's disease, unspecified; F02.80 Dementia in other diseases classified elsewhere, unspecified severity, without behavioral disturbance, psychotic disturbance, mood disturbance, and anxiety; R06.02 Shortness of breath
CPT/HCPCS: 36415; 71010; 80053; 80061; 83605; 83735; 83880; 84484; 85025; 85610; 93005; 96372; 96374; 99284; A9270-GY; G0378; J1644; J2405

== ENCOUNTER 2016-12-17 14:59 | Emergency (ER) | payer MEDICARE, BC ==
[2016-12-17 16:15] LABS: Hematocrit 34 % (35-47); Hemoglobin 11.1 g/dl (12.0-16.0); Mean Corpuscular HGB Conc 33 g/dl (31-36); Mean Corpuscular Hemoglobin 27 pg (27-31); Mean Corpuscular Volume 82 fL (80-97); Mean Platelet Volume 9 um3 (7.4-10.4); Red Blood Count 4.08 10^6/ul (4.0-5.4); Red Cell Distribution Width 17 % (10.5-15)
[2016-12-17 16:25] LABS: Albumin 4.1 g/dL (3.2-5.2); Calcium 9.9 mg/dL (8.6-10.3); EGFR African American 69.7 (>60); EGFR Non-African American 54.2 (>60); Globulin 3.1 g/dL (2-4); Magnesium 1.7 mg/dL (1.9-2.7); Potassium 3.9 mmol/L (3.5-5.0); Total Bilirubin 0.3 mg/dL (0.2-1.0); Total Protein 7.2 g/dL (6.4-8.9); Troponin I 0.02 ng/mL (<0.04)
--- NOTE | 2016-12-17 16:36 | RAD ---
HISTORY: Syncope COMPARISONS: November 20, 2016 VIEWS:1: Single frontal portable view of the chest at 4:14 PM FINDINGS: LINES AND TUBES: None. CARDIOMEDIASTINAL SILHOUETTE: The cardiomediastinal silhouette is normal for portable technique. PLEURA: The costophrenic angles are sharp. No pleural abnormalities are noted. LUNG PARENCHYMA: The lungs are clear. ABDOMEN: The upper abdomen is clear. There is no subphrenic gas. BONES AND SOFT TISSUES: No bone or soft tissue abnormalities are noted. IMPRESSION: NO ACTIVE CARDIOPULMONARY DISEASE.
[2016-12-17 16:54] LABS: TSH (Thyroid Stimulating Horm) 2.23 mcIU/mL (0.34-5.60)
[2016-12-17] MEDS ORDERED: NS 0.9% 1000 ML* 1,000 ML IV ONE (17:09)
[2016-12-17 18:36] LABS: Urine Bilirubin Negative (Negative); Urine Glucose Negative (Negative); Urine Nitrite Negative (Negative)
[2016-12-17 18:58] VITALS: BP 122/67
--- NOTE | 2016-12-18 07:43 | ED ---
Jr Ballard Angela, scribed for Christopher Epperson MD on 12/17/16 at 1519 . Syncope/Near Syncope - HPI Summary HPI Summary: This pt is a 76 y/o female BIBA presenting to [facility] c/o syncopal episode and light-headedness since today. Pt reports she was at the pain clinic to have another injection and had a syncopal episode while sitting. Per daughter, pt felt light-headed prior to her syncopal episode. She notes her daughter tried to wake her up and as she didn't wake up the EMS was called. Pt states she woke up in the ambulance on the way to the ED with some confusion. She endorses headache in the back of the head and neck pain. Pt describes her headache as a migraine but reports she didn't have a headache prior to her syncope. Her headache is aggravated with movement. Pt denies any other complaints, fall, head strike, chest pain, SOB. She notes a PMHx of seizure, though none today. - History Of Current Complaint Chief Complaint: EDSyncope Time Seen by Provider: 12/17/16 15:06 Hx Obtained From: Patient Onset/Duration: Sudden Onset, Resolved Context: Witnessed - By daughter Associated Head Trauma: No Associated Signs And Symptoms: Pain - headache and neck pain - Allergies/Home Medications Allergies/Adverse Reactions: Allergies Allergy/AdvReac Type Severity Reaction Status Date / Time Adhesive Tape Allergy Rash Verified 12/17/16 15:36 Amoxicillin Allergy Anaphylatic Verified 12/17/16 15:36 Shock Atorvastatin [From Lipitor] Allergy Muscle Ache Verified 12/17/16 15:36 CI Pigment Blue 63 Allergy Unknown Verified 12/17/16 15:36 [From Cymbalta] Reaction Details Doxycycline Allergy Rash Verified 12/17/16 15:36 Duloxetine [From Cymbalta] Allergy Unknown Verified 12/17/16 15:36 Reaction Details Fluvastatin [From Lescol] Allergy Muscle Ache Verified 12/17/16 15:36 Iodine Allergy Hives Verified 12/17/16 15:36 Levofloxacin [From Levaquin] Allergy Unknown Verified 12/17/16 15:36 Reaction Details Penicillins [PCN] Allergy Anaphylatic Verified 12/17/16 15:36 Shock Simvastatin [From Zocor] Allergy Muscle Ache Verified 12/17/16 15:36 Sulfites Allergy Difficulty Verified 12/17/16 15:36 Breathing Warfarin Allergy See Comment Verified 12/17/16 15:36 Donepezil AdvReac Severe Anaphylatic Verified 12/17/16 15:36 Shock Gabapentin AdvReac Intermediate Swelling Verified 12/17/16 15:36 Hydrochlorothiazide AdvReac See Comment Verified 12/17/16 15:36 Morphine AdvReac GI Upset Verified 12/17/16 15:36 Pregabalin [From Lyrica] AdvReac Edema Verified 12/17/16 15:36 Sulfa Drugs AdvReac Nausea And Verified 12/17/16 15:36 Vomiting PMH/Surg Hx/FS Hx/Imm Hx Endocrine/Hematology History: Reports: Hx Thyroid Disease - hypothyroidism Denies: Hx Diabetes Cardiovascular History: Reports: Hx Cardiomegaly, Hx Congestive Heart Failure, Hx Hypercholesterolemia, Hx Hypotension, Hx Hypertension, Other Cardiovascular Problems/Disorders - Takotsubo cardiomyopathy, [place] Denies: Hx Pacemaker/ICD Respiratory History: Reports: Hx Asthma, Hx Pneumonia, Hx Sleep Apnea Denies: Hx Chronic Obstructive Pulmonary Disease (COPD) GI History: Reports: Hx Gastroesophageal Reflux Disease, Hx Obstructive Bowel - 2015 History: Denies: Hx Dialysis, Hx Renal Disease Musculoskeletal History: Reports: Hx Arthritis - hands,hips, shoulders, Hx Back Problems, Hx Fibromyalgia, Hx Orthopedic Injury - Fx Pelvis 1960; Rt. Tibia, Fibula,&Ankle Sensory History: Reports: Hx Contacts or Glasses - reading Denies: Hx Hearing Aid Opthamlomology History: Reports: Hx Contacts or Glasses - reading Neurological History: Reports: Hx Dementia, Hx Migraine, Other Neuro Impairments /Disorders - Encephalopathy on recent EEG's; started on Aricept for memory loss Denies: Hx Seizures Psychiatric History: Reports: Hx Anxiety, Hx Depression Denies: Hx Panic Disorder - Surgical History Surgery Procedure, Year, and Place: Radical hysterectomy, 1989. Repair of right leg and ankle fx. Deric fundoplication surgery. Tonsillectomy. Cholecystectomy. Total right ankle replacement, 2003. Total left knee replacement, 2006 Hx Anesthesia Reactions: No - Immunization History Date of Tetanus Vaccine: unknown Date of Influenza Vaccine: 2014 Infectious Disease History: No Infectious Disease History: Denies: Hx Clostridium Difficile, Hx Hepatitis, Hx Human Immunodeficiency Virus (HIV), Hx of Known/Suspected MRSA, Hx Shingles, Hx Tuberculosis, Hx Known/ Suspected VRE, Hx Known/Suspected VRSA, History Other Infectious Disease, Traveled Outside the [place] in Last 30 Days - Family History Known Family History: Positive: Cardiac Disease - Social History Alcohol Use: None Substance Use Type: Reports: None, Prescribed Substance Use Comment - Amount & Last Used: percocet Smoking Status (MU): Never Smoked Tobacco Have You Smoked in the Last Year: No Review of Systems Negative: Fever, Chills Negative: Chest Pain Negative: Shortness Of Breath Positive: Other - neck pain Positive: Headache. Negative: Numbness All Other Systems Reviewed And Are Negative: Yes Physical Exam Triage Information Reviewed: Yes Vital Signs On Initial Exam: Initial Vitals Temp Pulse Resp BP Pulse Ox 98.8 F 84 13 116/49 89 12/17/16 15:03 12/17/16 15:03 12/17/16 15:03 12/17/16 15:03 12/17/16 15:03 Vital Signs Reviewed: Yes Appearance: Positive: Well-Appearing Skin: Positive: Warm, Skin Color Reflects Adequate Perfusion, Dry, Other - a scar on right ankle, well healed Head/Face: Positive: Normal Head/Face Inspection Eyes: Positive: Normal ENT: Positive: Normal ENT inspection Neck: Positive: Supple, Nontender Respiratory/Lung Sounds: Positive: Clear to Auscultation, Breath Sounds Present Cardiovascular: Positive: RRR, Murmur - systolic ejection murmur Abdomen Description: Positive: Nontender, Soft Bowel Sounds: Positive: Present Musculoskeletal: Positive: Normal Neurological: Positive: Normal, Sensory/Motor Intact, Alert, Oriented to Person Place, Time, CN Intact II-III Psychiatric: Positive: Normal, Affect/Mood Appropriate - José Miguel Coma Scale Coma Scale Total: 15 Diagnostics - Vital Signs Vital Signs Temp Pulse Resp BP Pulse Ox 12/17/16 15:03 98.8 F 84 13 116/49 89 - Laboratory Lab Results: Lab Results 12/17/16 12/17/16 12/17/16 Range/Units 15:55 15:55 15:55 WBC 6.0 (3.5-10.8) 10^3/ul RBC 4.08 (4.0-5.4) 10^6/ul Hgb 11.1 L (12.0-16.0) g/dl Hct 34 L (35-47) % MCV 82 (80-97) fL MCH 27 (27-31) pg MCHC 33 (31-36) g/dl RDW 17 H (10.5-15) % Plt Count 243 (150-450) 10^3/ul MPV 9 (7.4-10.4) um3 Neut % (Auto) 47.3 (38-83) % Lymph % (Auto) 39.3 (25-47) % [place] % (Auto) 8.2 (1-9) % Eos % (Auto) 4.8 (0-6) % Baso % (Auto) 0.4 (0-2) % Absolute Neuts (auto) 2.8 (1.5-7.7) 10^3/ul Absolute Lymphs (auto) 2.4 (1.0-4.8) 10^3/ul Absolute Monos (auto) 0.5 (0-0.8) 10^3/ul Absolute Eos (auto) 0.3 (0-0.6) 10^3/ul Absolute Basos (auto) 0 (0-0.2) 10^3/ul Absolute Nucleated RBC 0 10^3/ul Nucleated RBC % 0.1 INR (Anticoag Therapy) (0.89-1.11) D-Dimer, Quantitative (Less Than 230) ng/mL Sodium 137 (133-145) mmol/L Potassium 3.9 (3.5-5.0) mmol/L Chloride 104 (101-111) mmol/L Carbon Dioxide 26 (22-32) mmol/L Anion Gap 7 (2-11) mmol/L BUN 16 (6-24) mg/dL Creatinine 1.00 H (0.51-0.95) mg/dL Est GFR ( Amer) 69.7 (>60) Est GFR (Non-Af Amer) 54.2 (>60) BUN/Creatinine Ratio 16.0 (8-20) Glucose 145 H (70-100) mg/dL Lactic Acid 1.4 (0.5-2.0) mmol/L Calcium 9.9 (8.6-10.3) mg/dL Magnesium 1.7 L (1.9-2.7) mg/dL Total Bilirubin 0.30 (0.2-1.0) mg/dL AST 15 (13-39) U/L ALT 9 (7-52) U/L Alkaline Phosphatase 49 (34-104) U/L Troponin I 0.02 (<0.04) ng/mL Total Protein 7.2 (6.4-8.9) g/dL Albumin 4.1 (3.2-5.2) g/dL Globulin 3.1 (2-4) g/dL Albumin/Globulin Ratio 1.3 (1-3) TSH 2.23 (0.34-5.60) mcIU/mL Urine Color Urine Appearance Urine pH (5-9) Ur Specific [place] (1.010-1.030) Urine Protein (Negative) Urine Ketones (Negative) Urine Blood (Negative) Urine Nitrate (Negative) Urine Bilirubin (Negative) Urine Urobilinogen (Negative) Ur Leukocyte Esterase (Negative) Urine Glucose (Negative) Urine Ascorbic Acid (Negative) 12/17/16 12/17/16 Range/Units 15:55 18:15 WBC (3.5-10.8) 10^3/ul RBC (4.0-5.4) 10^6/ul Hgb (12.0-16.0) g/dl Hct (35-47) % MCV (80-97) fL MCH (27-31) pg MCHC (31-36) g/dl RDW (10.5-15) % Plt Count (150-450) 10^3/ul MPV (7.4-10.4) um3 Neut % (Auto) (38-83) % Lymph % (Auto) (25-47) % [place] % (Auto) (1-9) % Eos % (Auto) (0-6) % Baso % (Auto) (0-2) % Absolute Neuts (auto) (1.5-7.7) 10^3/ul Absolute Lymphs (auto) (1.0-4.8) 10^3/ul Absolute Monos (auto) (0-0.8) 10^3/ul Absolute Eos (auto) (0-0.6) 10^3/ul Absolute Basos (auto) (0-0.2) 10^3/ul Absolute Nucleated RBC 10^3/ul Nucleated RBC % INR (Anticoag Therapy) 0.89 (0.89-1.11) D-Dimer, Quantitative 270 H (Less Than 230) ng/mL Sodium (133-145) mmol/L Potassium (3.5-5.0) mmol/L Chloride (101-111) mmol/L Carbon Dioxide (22-32) mmol/L Anion Gap (2-11) mmol/L BUN (6-24) mg/dL Creatinine (0.51-0.95) mg/dL Est GFR ( Amer) (>60) Est GFR (Non-Af Amer) (>60) BUN/Creatinine Ratio (8-20) Glucose (70-100) mg/dL Lactic Acid (0.5-2.0) mmol/L Calcium (8.6-10.3) mg/dL Magnesium (1.9-2.7) mg/dL Total Bilirubin (0.2-1.0) mg/dL AST (13-39) U/L ALT (7-52) U/L Alkaline Phosphatase (34-104) U/L Troponin I (<0.04) ng/mL Total Protein (6.4-8.9) g/dL Albumin (3.2-5.2) g/dL Globulin (2-4) g/dL Albumin/Globulin Ratio (1-3) TSH (0.34-5.60) mcIU/mL Urine Color Yellow Urine Appearance Clear Urine pH 5.0 (5-9) Ur Specific [place] 1.020 (1.010-1.030) Urine Protein Negative (Negative) Urine Ketones Negative (Negative) Urine Blood Negative (Negative) Urine Nitrate Negative (Negative) Urine Bilirubin Negative (Negative) Urine Urobilinogen Negative (Negative) Ur Leukocyte Esterase Negative (Negative) Urine Glucose Negative (Negative) Urine Ascorbic Acid * H (Negative) Result Diagrams: 12/17/16 15:55 12/17/16 15:55 Lab Statement: Any lab studies that have been ordered have been reviewed, and results considered in the medical decision making process. - Radiology Chest XR Xray Interpretation: No Acute Changes - IMPRESSION: No active cardiopulmonary disease. ED physician has reviewed this radiology report and agrees. Radiology Interpretation Completed By: Radiologist - EKG 15:15 Cardiac Rate: NL - 81 bpm EKG Rhythm: Sinus Rhythm 16:31 Cardiac Rate: NL - 74 bpm EKG Rhythm: Sinus Rhythm Course/Dx Course Of Treatment: Ms. Mcfadden came in with another episode of syncope. She has recently been admitted and monitored for this and then subsequently came in for CP and had a stress test. She was fine here with labs and monitoring and will likely need and event monitor. She is scheduled for F/U with cardiology. She is up, moving about and requesting D/C. - Diagnoses Provider Diagnoses: Syncope Discharge - Discharge Plan Condition: Stable Disposition: HOME Patient Education Materials: Syncope (ED) Referrals: Chantal Cobb NP [Primary Care Provider] - Additional Instructions: Please follow up with your primary care physician to assure your symptoms are improving. The documentation as recorded by the Jr wisdom Angela accurately reflects the service I personally performed and the decisions made by me, Christopher Epperson MD.
== END 2016-12-17 18:57 | disposition home or self-care (01) ==
LOC: ED 14:59
DX: R55 Syncope and collapse (principal); R51 Headache; M54.2 Cervicalgia; E03.9 Hypothyroidism, unspecified; I50.9 Heart failure, unspecified; I51.7 Cardiomegaly; I10 Essential (primary) hypertension; I21.3 ST elevation (STEMI) myocardial infarction of unspecified site; E78.00 Pure hypercholesterolemia, unspecified; J45.909 Unspecified asthma, uncomplicated; K21.9 Gastro-esophageal reflux disease without esophagitis; F41.9 Anxiety disorder, unspecified; F32.9 Major depressive disorder, single episode, unspecified; Z96.651 Presence of right artificial knee joint; Z96.661 Presence of right artificial ankle joint; Z90.49 Acquired absence of other specified parts of digestive tract; Z90.710 Acquired absence of both cervix and uterus; Z88.1 Allergy status to other antibiotic agents; Z88.0 Allergy status to penicillin; Z88.2 Allergy status to sulfonamides; Z88.8 Allergy status to other drugs, medicaments and biological substances; Z91.048 Other nonmedicinal substance allergy status
CPT/HCPCS: 36415; 71010; 80053; 81003; 83605; 83735; 84443; 84484; 85025; 85379; 85610; 93005; 99283

== ENCOUNTER 2017-06-23 13:28 | Inpatient (IN) | payer MEDICARE, BC ==
[2017-06-23] MEDS ORDERED: NS 0.9% 1000 ML*IV.FLUID IV ONE (13:44)
[2017-06-23] MEDS ORDERED: cefTRIAXone(*) 1 GM in NS 0.9% 50 ML* 50 ML IVPB ONE (14:01)
[2017-06-23] MEDS ORDERED: Albuterol/Ipratropium NEB.SOL* Albuterol 2.5 MG/Ipratropium 0.5 MG 3 ML INH ONE ×3 (14:01→16:04)
[2017-06-23] MEDS ORDERED: methylPREDNISolone 125 MG* 2 ML VIAL IV ONE (14:01)
--- NOTE | 2017-06-23 14:23 | RAD ---
INDICATION: Short of breath COMPARISON: December 17, 2016 TECHNIQUE: An AP portable view obtained at 1355 hours is submitted. FINDINGS: Bones/Soft Tissues: There are no acute bony findings. Cardiomediastinal: The cardiomediastinal silhouette is normal. Lungs: There are no infiltrates. Pleura: There are no pleural effusions. Other: None IMPRESSION: NO ACTIVE DISEASE.
[2017-06-23 15:26] LABS: ABS Basophils 0.1 10^3/ul (0-0.2); ABS Eosinophils 0.1 10^3/ul (0-0.6); ABS Lymphocytes 2.7 10^3/ul (1.0-4.8); ABS Monocytes 1.1 10^3/ul (0-0.8); ABS Neutrophils 7.9 10^3/ul (1.5-7.7); ABS Nucleated RBC 0 10^3/ul; Eosinophil % 0.5 % (0-6); Hematocrit 34 % (35-47); Hemoglobin 10.9 g/dl (12.0-16.0); Lymphocyte % 22.6 % (25-47); Mean Corpuscular HGB Conc 32 g/dl (31-36); Mean Corpuscular Hemoglobin 27 pg (27-31); Mean Corpuscular Volume 84 fL (80-97); Mean Platelet Volume 8 um3 (7.4-10.4); Nucleated Red Blood Cells % 0.1; Platelet Count 242 10^3/ul (150-450); Red Blood Count 4.07 10^6/ul (4.0-5.4); Red Cell Distribution Width 16 % (10.5-15); White Blood Count 11.8 10^3/ul (3.5-10.8)
[2017-06-23 15:39] LABS: INR 0.87 (0.77-1.02)
[2017-06-23 15:42] LABS: EGFR Non-African American 52.8 (>60)
[2017-06-23] MEDS ORDERED: Ondansetron INJ* 2 MG/ML VIAL IV PRN (16:43)
[2017-06-23] MEDS ORDERED: Potassium Chloride LIQUID* 20 MEQ PACKET PO ONE (16:48)
[2017-06-23] MEDS ORDERED: Albuterol 2.5 MG/3 ML NEB.SOL* (0.083%) INH PRN (16:51)
[2017-06-23] MEDS ORDERED: Albuterol/Ipratropium NEB.SOL* Albuterol 2.5 MG/Ipratropium 0.5 MG 3 ML INH SCH (17:00)
[2017-06-23] MEDS ORDERED: methylPREDNISolone SOD 40 MG* 1 ML VIAL IV SCH (17:00)
[2017-06-23] MEDS ORDERED: NS 0.9% 500 ML* 500 ML IV ONE (18:22)
[2017-06-23] MEDS: oxyCODONE TAB* 5 MG TAB PO PRN (20:04)
[2017-06-23] MEDS: Azithromycin IV(*) 500 MG in NS 0.9% 250 ML* 250 ML IVPB SCH (20:09)
[2017-06-23] MEDS: NS 0.9% 1000 ML* 1,000 ML IV SCH (20:09)
[2017-06-23] MEDS: Albuterol/Ipratropium NEB.SOL* Albuterol 2.5 MG/Ipratropium 0.5 MG 3 ML INH SCH (20:21)
[2017-06-23] MEDS ORDERED: Losartan TAB* 25 MG PO SCH (21:00)
--- NOTE | 2017-06-23 21:20 | ED ---
Alexander Ballard Thomas, scribed for Lawrence Aguilar MD on 06/23/17 at 1349 . Shortness of Breath - HPI Summary HPI Summary: The patient is a 77 year old male brought in by ambulance with difficulty breathing. She has a history of asthma and dementia. She is on non-rebreather mask on arrival and she was given Duo-Neb prior to arrival. She was not given steroids. She also complains of a dry cough. She denies chest pain. - History of Current Complaint Chief Complaint: EDShortnessOfBreath Hx Obtained From: Patient Onset/Duration: Still Present Timing: Constant Dyspnea At: Rest Aggrevating Factors: Nothing Alleviating Factors: EMS Tx, OTC Meds Associated Signs & Symptoms: Negative - CP, Cough (Nonproductive) Related History: Obesity - Allergy/Home Medications Allergies/Adverse Reactions: Allergies Allergy/AdvReac Type Severity Reaction Status Date / Time Adhesive Tape Allergy Rash Verified 05/24/17 15:04 MS Amoxicillin [Amoxicillin] Allergy Anaphylatic Verified 05/24/17 15:04 Shock MS Atorvastatin Allergy Muscle Ache Verified 05/24/17 15:04 [From Lipitor] MS CI Pigment Blue 63 Allergy Unknown Verified 05/24/17 15:04 [From Cymbalta] Reaction Details MS Doxycycline [Doxycycline] Allergy Rash Verified 05/24/17 15:04 MS Duloxetine [From Cymbalta] Allergy Unknown Verified 05/24/17 15:04 Reaction Details MS Fluvastatin [From Lescol] Allergy Muscle Ache Verified 05/24/17 15:04 MS Iodine [Iodine] Allergy Hives Verified 05/24/17 15:04 MS Levofloxacin Allergy Unknown Verified 05/24/17 15:04 [From Levaquin] Reaction Details MS Penicillins [PCN] Allergy Anaphylatic Verified 05/24/17 15:04 Shock MS Simvastatin [From Zocor] Allergy Muscle Ache Verified 05/24/17 15:04 MS Sulfites [Sulfites] Allergy Difficulty Verified 05/24/17 15:04 Breathing MS Warfarin [Warfarin] Allergy See Comment Verified 05/24/17 15:04 MS Donepezil [Donepezil] AdvReac Severe Anaphylatic Verified 05/24/17 15:04 Shock MS Gabapentin [Gabapentin] AdvReac Intermediate Swelling Verified 05/24/17 15:04 morphine AdvReac GI Upset Verified 06/23/17 18:27 MS Hydrochlorothiazide AdvReac See Comment Verified 05/24/17 15:04 [Hydrochlorothiazide] pregabalin AdvReac Edema Verified 06/23/17 18:27 Sulfa (Sulfonamide AdvReac Nausea And Verified 06/23/17 18:27 Antibiotics) Vomiting PMH/Surg Hx/FS Hx/Imm Hx Endocrine/Hematology History: Reports: Hx Thyroid Disease - hypothyroidism Denies: Hx Diabetes Cardiovascular History: Reports: Hx Cardiomegaly, Hx Congestive Heart Failure, Hx Hypercholesterolemia, Hx Hypotension, Hx Hypertension, Other Cardiovascular Problems/Disorders - Takotsubo cardiomyopathy, [place] Denies: Hx Pacemaker/ICD Respiratory History: Reports: Hx Asthma, Hx Pneumonia, Hx Sleep Apnea Denies: Hx Chronic Obstructive Pulmonary Disease (COPD) GI History: Reports: Hx Gastroesophageal Reflux Disease, Hx Obstructive Bowel - 2015 History: Denies: Hx Dialysis, Hx Renal Disease Musculoskeletal History: Reports: Hx Arthritis - hands,hips, shoulders, Hx Back Problems, Hx Fibromyalgia, Hx Orthopedic Injury - Fx Pelvis 1960; Rt. Tibia, Fibula,&Ankle Sensory History: Reports: Hx Contacts or Glasses - reading Denies: Hx Hearing Aid Opthamlomology History: Reports: Hx Contacts or Glasses - reading Neurological History: Reports: Hx Dementia, Hx Migraine, Other Neuro Impairments /Disorders - Encephalopathy on recent EEG's; started on Aricept for memory loss , PAIN PT Denies: Hx Seizures Psychiatric History: Reports: Hx Anxiety, Hx Depression Denies: Hx Panic Disorder - Surgical History Surgery Procedure, Year, and Place: Radical hysterectomy, 1989. Repair of right leg and ankle fx. Deric fundoplication surgery. Tonsillectomy. Cholecystectomy. Total right ankle replacement, 2003. Total left knee replacement, 2006 Hx Anesthesia Reactions: No - Immunization History Date of Tetanus Vaccine: unknown Date of Influenza Vaccine: 2014 Infectious Disease History: No Infectious Disease History: Denies: Hx Clostridium Difficile, Hx Hepatitis, Hx Human Immunodeficiency Virus (HIV), Hx of Known/Suspected MRSA, Hx Shingles, Hx Tuberculosis, Hx Known/ Suspected VRE, Hx Known/Suspected VRSA, History Other Infectious Disease, Traveled Outside the [place] in Last 30 Days - Family History Known Family History: Positive: Cardiac Disease - Social History Alcohol Use: None Substance Use Type: Reports: None Substance Use Comment - Amount & Last Used: percocet Smoking Status (MU): Never Smoked Tobacco Have You Smoked in the Last Year: No Review of Systems Negative: Fever Negative: Chest Pain Positive: Shortness Of Breath, Cough - dry All Other Systems Reviewed And Are Negative: Yes Physical Exam - Summary Physical Exam Summary: General: well-appearing, no pain distress Skin: warm, color reflects adequate perfusion, dry Head: normal Eyes: EOMI, VERONICA ENT: normal Neck: supple, nontender Respiratory: rhonchi with expiratory wheezing Cardiovascular: RRR Abdomen: soft, nontender Bowel: present Musculoskeletal: strength/ROM intact. No edema. Neurological: normal, sensory/motor intact, A&O x3 Psychological: affect/mood appropriate Triage Information Reviewed: Yes Vital Signs On Initial Exam: Initial Vitals Temp Pulse Resp BP Pulse Ox 99.1 F 108 14 152/76 98 06/23/17 13:39 06/23/17 13:39 06/23/17 13:39 06/23/17 13:39 06/23/17 13:39 Vital Signs Reviewed: Yes Diagnostics - Vital Signs Vital Signs Temp Pulse Resp BP Pulse Ox 06/23/17 13:39 99.1 F 108 14 152/76 98 - Laboratory Lab Results: Lab Results 06/23/17 06/23/17 06/23/17 Range/Units 15:06 15:06 15:06 WBC (3.5-10.8) 10^3/ul RBC (4.0-5.4) 10^6/ul Hgb (12.0-16.0) g/dl Hct (35-47) % MCV (80-97) fL MCH (27-31) pg MCHC (31-36) g/dl RDW (10.5-15) % Plt Count (150-450) 10^3/ul MPV (7.4-10.4) um3 Neut % (Auto) (38-83) % Lymph % (Auto) (25-47) % [place] % (Auto) (0-7) % Eos % (Auto) (0-6) % Baso % (Auto) (0-2) % Absolute Neuts (auto) (1.5-7.7) 10^3/ul Absolute Lymphs (auto) (1.0-4.8) 10^3/ul Absolute Monos (auto) (0-0.8) 10^3/ul Absolute Eos (auto) (0-0.6) 10^3/ul Absolute Basos (auto) (0-0.2) 10^3/ul Absolute Nucleated RBC 10^3/ul Nucleated RBC % INR (Anticoag Therapy) 0.87 (0.77-1.02) APTT 18.2 L (26.0-36.3) seconds Sodium 137 (133-145) mmol/L Potassium 3.1 L (3.5-5.0) mmol/L Chloride 105 (101-111) mmol/L Carbon Dioxide 22 (22-32) mmol/L Anion Gap 10 (2-11) mmol/L BUN 20 (6-24) mg/dL Creatinine 1.02 H (0.51-0.95) mg/dL Est GFR ( Amer) 67.9 (>60) Est GFR (Non-Af Amer) 52.8 (>60) BUN/Creatinine Ratio 19.6 (8-20) Glucose 232 H (70-100) mg/dL Lactic Acid (0.5-2.0) mmol/L Calcium 9.0 (8.6-10.3) mg/dL Magnesium 1.6 L (1.9-2.7) mg/dL Total Bilirubin 0.30 (0.2-1.0) mg/dL AST 11 L (13-39) U/L ALT 8 (7-52) U/L Alkaline Phosphatase 46 (34-104) U/L Troponin I 0.01 (<0.04) ng/mL C-Reactive Protein 2.33 (< 5.00) mg/L B-Natriuretic Peptide 81 ( - 100) pg/mL Total Protein 6.7 (6.4-8.9) g/dL Albumin 3.6 (3.2-5.2) g/dL Globulin 3.1 (2-4) g/dL Albumin/Globulin Ratio 1.2 (1-3) Procalcitonin (<0.6) ng/mL Influenza A (Rapid) (Negative) Influenza B (Rapid) (Negative) 06/23/17 06/23/17 06/23/17 Range/Units 15:06 15:06 15:06 WBC 11.8 H (3.5-10.8) 10^3/ul RBC 4.07 (4.0-5.4) 10^6/ul Hgb 10.9 L (12.0-16.0) g/dl Hct 34 L (35-47) % MCV 84 (80-97) fL MCH 27 (27-31) pg MCHC 32 (31-36) g/dl RDW 16 H (10.5-15) % Plt Count 242 (150-450) 10^3/ul MPV 8 (7.4-10.4) um3 Neut % (Auto) 67.1 (38-83) % Lymph % (Auto) 22.6 L (25-47) % [place] % (Auto) 9.2 H (0-7) % Eos % (Auto) 0.5 (0-6) % Baso % (Auto) 0.6 (0-2) % Absolute Neuts (auto) 7.9 H (1.5-7.7) 10^3/ul Absolute Lymphs (auto) 2.7 (1.0-4.8) 10^3/ul Absolute Monos (auto) 1.1 H (0-0.8) 10^3/ul Absolute Eos (auto) 0.1 (0-0.6) 10^3/ul Absolute Basos (auto) 0.1 (0-0.2) 10^3/ul Absolute Nucleated RBC 0 10^3/ul Nucleated RBC % 0.1 INR (Anticoag Therapy) (0.77-1.02) APTT (26.0-36.3) seconds Sodium (133-145) mmol/L Potassium (3.5-5.0) mmol/L Chloride (101-111) mmol/L Carbon Dioxide (22-32) mmol/L Anion Gap (2-11) mmol/L BUN (6-24) mg/dL Creatinine (0.51-0.95) mg/dL Est GFR ( Amer) (>60) Est GFR (Non-Af Amer) (>60) BUN/Creatinine Ratio (8-20) Glucose (70-100) mg/dL Lactic Acid 2.7 H* (0.5-2.0) mmol/L Calcium (8.6-10.3) mg/dL Magnesium (1.9-2.7) mg/dL Total Bilirubin (0.2-1.0) mg/dL AST (13-39) U/L ALT (7-52) U/L Alkaline Phosphatase (34-104) U/L Troponin I (<0.04) ng/mL C-Reactive Protein (< 5.00) mg/L B-Natriuretic Peptide ( - 100) pg/mL Total Protein (6.4-8.9) g/dL Albumin (3.2-5.2) g/dL Globulin (2-4) g/dL Albumin/Globulin Ratio (1-3) Procalcitonin < 0.1 (<0.6) ng/mL Influenza A (Rapid) (Negative) Influenza B (Rapid) (Negative) 06/23/17 Range/Units 16:35 WBC (3.5-10.8) 10^3/ul RBC (4.0-5.4) 10^6/ul Hgb (12.0-16.0) g/dl Hct (35-47) % MCV (80-97) fL MCH (27-31) pg MCHC (31-36) g/dl RDW (10.5-15) % Plt Count (150-450) 10^3/ul MPV (7.4-10.4) um3 Neut % (Auto) (38-83) % Lymph % (Auto) (25-47) % [place] % (Auto) (0-7) % Eos % (Auto) (0-6) % Baso % (Auto) (0-2) % Absolute Neuts (auto) (1.5-7.7) 10^3/ul Absolute Lymphs (auto) (1.0-4.8) 10^3/ul Absolute Monos (auto) (0-0.8) 10^3/ul Absolute Eos (auto) (0-0.6) 10^3/ul Absolute Basos (auto) (0-0.2) 10^3/ul Absolute Nucleated RBC 10^3/ul Nucleated RBC % INR (Anticoag Therapy) (0.77-1.02) APTT (26.0-36.3) seconds Sodium (133-145) mmol/L Potassium (3.5-5.0) mmol/L Chloride (101-111) mmol/L Carbon Dioxide (22-32) mmol/L Anion Gap (2-11) mmol/L BUN (6-24) mg/dL Creatinine (0.51-0.95) mg/dL Est GFR ( Amer) (>60) Est GFR (Non-Af Amer) (>60) BUN/Creatinine Ratio (8-20) Glucose (70-100) mg/dL Lactic Acid (0.5-2.0) mmol/L Calcium (8.6-10.3) mg/dL Magnesium (1.9-2.7) mg/dL Total Bilirubin (0.2-1.0) mg/dL AST (13-39) U/L ALT (7-52) U/L Alkaline Phosphatase (34-104) U/L Troponin I (<0.04) ng/mL C-Reactive Protein (< 5.00) mg/L B-Natriuretic Peptide ( - 100) pg/mL Total Protein (6.4-8.9) g/dL Albumin (3.2-5.2) g/dL Globulin (2-4) g/dL Albumin/Globulin Ratio (1-3) Procalcitonin (<0.6) ng/mL Influenza A (Rapid) Negative (Negative) Influenza B (Rapid) Negative (Negative) Result Diagrams: 06/23/17 15:06 06/23/17 15:06 Lab Statement: Any lab studies that have been ordered have been reviewed, and results considered in the medical decision making process. - Radiology CXR Xray Interpretation: No Acute Changes - NO ACTIVE DISEASE. Dr. Aguilar has reviewed this report. Radiology Interpretation Completed By: Radiologist - EKG 13:42 Cardiac Rate: Tachycardia - at 103 BPM EKG Rhythm: Sinus Tachycardia EKG Interpretation: Minimal ST depressions in anterolateral leads. Course/Dx - Course Course Of Treatment: Medications reviewed. Allergies noted. BP noted and patient urged to follow up with primary care. ADMIT HOSPITALIST - Diagnoses Provider Diagnoses: Uncontrolled hypertension, Bronchitis, Asthma - Physician Notifications Discussed Care of Patient With: Yaritza Laurent Time Discussed With Above Provider: 16:08 Instructed by Provider To: Admit As Inpatient - Critical Care Time Critical Care Time: 30-74 min Discharge - Discharge Plan Condition: Guarded Disposition: ADMITTED TO [facility] documentation as recorded by the Alexander wisdom Thomas accurately reflects the service I personally performed and the decisions made by me, Lawrence Aguilar MD.
[2017-06-23] MEDS ORDERED: Magnesium Sulfate 2 GM IV* 2 GM/50 ML BAG IVPB ONE (21:35)
[2017-06-23] MEDS: methylPREDNISolone SOD 40 MG* 1 ML VIAL IV SCH (22:06)
[2017-06-23] MEDS: Losartan TAB* 25 MG PO SCH (22:07)
[2017-06-23] MEDS: Benzonatate CAP* 100 MG PO PRN (22:07)
[2017-06-23] MEDS: Heparin VIAL(*) 5000 UNITS/ML VIAL (FIVE THOUSAND) SUBCUT SCH (22:07)
[2017-06-23] MEDS: guaiFENesin ER TAB 600 MG PO SCH (22:07)
[2017-06-23] MEDS ORDERED: NS 0.9% 1000 ML* 1,000 ML IV ONE (22:26)
--- NOTE | 2017-06-24 00:13 | HP ---
CC: Dr. Cobb * ADMISSION HISTORY AND PHYSICAL: DATE OF ADMISSION: 06/23/17 PRIMARY CARE PHYSICIAN: Dr. Cobb. ATTENDING WHILE IN THE HOSPITAL: Yaritza Laurent MD * (DICTATED BY FRANCISCO SWENSON) CHIEF COMPLAINT: Shortness of breath, cough and sore throat x1 day. HISTORY OF PRESENT ILLNESS: Ms. Mcfadden is a 77-year-old female with past medical history significant for NSTEMI, asthma, obstructive sleep apnea, takotsubo cardiomyopathy, posterior reversible encephalopathy syndrome, and hypertension, who presents with shortness of breath, cough, and sore throat since this morning. The patient is accompanied by her daughter, who augments patient's history as she lives with her. The patient's daughter states that she was in her normal state of health yesterday evening, did not feel off at all. The only change in her routine was that she went outside on what was a night stay and went to sleep, woke up in the morning, was significantly shortness of breath, had cough, was given antihistamine without relief and tried her home albuterol inhaler without relief. The patient was unable to catch her breath and felt panicky about this. The patient states that she has had subjective fevers and chills. The patient states that she has asthma, but does not need to use her inhaler for control of her symptoms routinely for many years. The patient was taken to the emergency department in the ambulance and improved with the nebulizer they gave her in the ambulance, but did not feel significantly better. The patient need to be placed on oxygen once she arrived in the emergency room. The patient states that she is having pleuritic chest pain without radiation that is sharp, worse with breathing and also has burning when she coughs in all of her sternum. The patient denies other symptoms. The patient denies sick contacts. The patient has no muscle aches, diarrhea, or other flu-like symptoms. The patient has recently been exposed to large crowd of people or other high risk areas for zora the flu. The patient denies recent changes in activity level, shortness of breath, or dyspnea on exertion, increase in the swelling of her legs, or change in her diet. The patient was recently started on a cholesterol medication, which she and her daughter do not remember the name of, but she takes in the evening. The patient is on 3 L of oxygen and has significant respiratory complaints, so we were asked to evaluate for admission. PAST MEDICAL HISTORY: NSTEMI, August 2015; Takotsubo cardiomyopathy; hypertension with posterior reversible encephalopathy syndrome; GERD; fibromyalgia; history of small bowel obstruction; chronic kidney disease; obstructive sleep apnea; asthma; hypothyroidism. PAST SURGICAL HISTORY: Hysterectomy in 1989, left total knee arthroplasty in 2006, right ankle ORIF followed by arthroplasty in 2003, Deric fundoplication, right ankle arthroscopy, left knee arthroscopy, partial meniscectomy. MEDICATIONS: On admission: 1. Escitalopram 20 mg p.o. daily. 2. Omeprazole 40 mg p.o. daily. 3. Levothyroxine 125 mcg p.o. daily. 4. Percocet 1 tablet p.o. q.4 hours as needed for pain. 5. Losartan 50 mg p.o. b.i.d. 6. Albuterol ProAir RespiClick 1 puff inhalation q.6 hours as needed. 7. Alprazolam 0.25 mg p.o. t.i.d. as needed for anxiety. 8. Flonase 2 sprays daily as needed. 9. Amlodipine 10 mg p.o. daily. 10. Unknown cholesterol medication in the evening. ALLERGIES: The patient has allergies to ADHESIVE TAPE, AMOXICILLIN, LIPITOR, CYMBALTA, DOXYCYCLINE, LOVASTATIN, IODINE, LEVOFLOXACIN, PENICILLIN, SIMVASTATIN , SULFITES, WARFARIN, DONEPEZIL, GABAPENTIN, HYDROCHLOROTHIAZIDE, MORPHINE, LYRICA, and SULFA. The patient has difficulty breathing or anaphylactic shock with DONEPEZIL, SULFITES, PENICILLINS. FAMILY HISTORY: The patient's mother, father, 2 sisters, 3 brothers have a history of coronary artery disease. The patient has 2 sisters with a history of diabetes mellitus. The patient was found to have history of Wilms tumor. SOCIAL HISTORY: The patient denies any history of alcohol, tobacco, or recreational drug use. She lives with her daughter, Jose Velazquez, who is her surrogate decision maker. REVIEW OF SYSTEMS: A 14-point review of systems was reviewed and is negative except as above. PHYSICAL EXAMINATION GENERAL: The patient is a 77-year-old female, who appears stated age and sitting comfortably in bed, in no acute distress, but with significant barking, intermittent cough. VITAL SIGNS: At the time of admission, heart rate 100, respiratory rate 16, oxygen saturation 95% on 3 L, blood pressure 97/49. HEENT: Head normocephalic, atraumatic. Sclerae anicteric. No conjunctival injection. Nasal mucosa moist. Oral mucosa moist. Significant pharyngeal erythema without postnasal drip, exudates, or discharge. NECK: Supple, nontender. No lymphadenopathy. No carotid bruits auscultated. LUNGS: No adventitious lung sounds. PMI nondisplaced. Loud, coarse rhonchi heard throughout all lung lewis. Slight end expiratory wheeze is heard throughout with slight prolongation of the expiratory phase. Good air exchange bilaterally. CARDIAC: Grade 3/6 soft ejection murmur heard best at the right upper sternal border. Tachycardic. S1, S2 present. Pulses 2+ in the bilateral dorsalis pedis, and posterior tibialis, and radial areas. 1+ edema in the lower extremities. ABDOMEN: Soft, nontender, nondistended. Bowel sounds present. Normoactive in all 4 quadrants. No hepatosplenomegaly. No abdominal bruits auscultated. GENITOURINARY: No CVA tenderness or suprapubic tenderness. NEURO: Cranial nerves II through XII intact. Alert and oriented x3, but slightly forgetful. No focal deficits. PSYCHIATRIC: Pleasant and cooperative. SKIN: Clean, dry, and intact. No rash. DIAGNOSTIC STUDIES/LABORATORY DATA: White blood cell count 11.8, hemoglobin 10.9, RDW 16, platelet count 242, INR 0.87, AST 18.1. Sodium 137, potassium 3.1 , chloride 105, carbon dioxide 22, anion gap 10, BUN 20, creatinine 1.02. Glucose 232, lactic acid 2.7, calcium 9.0, bilirubin 0.3, AST 11, ALT 8, alkaline phosphatase 46, troponin I 0.01. CRP 2.33. BNP 81, total protein 6.7. Albumin 3.6, globulin 3.1, albumin/globulin ratio 1.2. Calcitonin less than 0.1. Magnesium pending. Flu swab pending. Studies: EKG show sinus tachycardia, ST depression in V3, V4, V5. No ST segment changes, left axis deviation, no blocks or hypertrophy. QTc of 473. No other abnormalities. Chest x-ray read as no active disease. IMPRESSION: The patient is a 77-year-old female with a past medical history significant for hypertension, non-ST elevation myocardial infarction, takotsubo cardiomyopathy, asthma, who presents with 1 day of difficulty of breathing along with harsh cough and intermittent fevers and chills. In the setting of negative CRP and procalcitonin, this likely represents a viral upper respiratory infection with associated asthma exacerbation. The patient will be admitted to the hospital for steroids, antibiotics, nebulizers, and supportive care. The patient has signs of strain on her EKG with a negative troponin. This is likely related to tachycardia. No further investigation will be obtained at this time. 1. Asthma exacerbation, viral bronchitis. The patient has one day of shortness of breath with subjective fevers and chills and slightly elevated temperature in the emergency department. The patient has no focal consolidations and negative CRP and procalcitonin. The patient will be started on Solu-Medrol, DuoNebs q.4 hours while awake, guaifenesin, benzonatate, azithromycin, and ceftriaxone for the anti- inflammatory properties. The patient will be continued on supplemental oxygen and weaned as tolerated. The patient will be continued on nasal spray and Claritin to help decrease any sort of atopic reaction that she might be having exacerbating her asthma. The patient will be admitted to the hospital for supportive care. The patient will have albuterol q.2 hours as needed for breakthrough shortness of breath and wheezing. 2. Abnormal EKG. The patient had minimal ST segment depressions in her septal and lateral leads. The patient has a known history of coronary artery disease and non- ST elevation myocardial infarction. The patient had a negative troponin. We will repeat patient's EKG in the morning. This likely represents strain from tachycardia and shortness of breath. We will not investigate further while the patient is inpatient unless the patient develops chest pain, would recommend consideration of her outpatient stress test. 3. Hypertension, history of PRES. The patient is borderline hypotensive at this time. We will hold patient's amlodipine and losartan and reintroduce as tolerated. The patient will receive fluids for blood pressure support and tachycardia at 100 mL/hour. 4. History of takotsubo cardiomyopathy, the patient has no signs of congestive heart failure exacerbation at this time. 5. Gastroesophageal reflux disease. Continue omeprazole. 6. Fibromyalgia. Continue oxycodone. 7. Obstructive sleep apnea. The patient does not use CPAP. 8. Hypokalemia. The patient will replete and recheck. 9. DVT prophylaxis. The patient will have heparin subcu and SCDs as she is a high risk for blood clot. 10. Code status. The patient will be a full code. The patient's surrogate decision maker will be her daughter, Jose Velazquez. 11. FEN. The patient will have fluids at 100 mL/hour as above and healthy diet without caffeine. 12. Disposition. The patient will be admitted inpatient. ESTIMATED LENGTH OF STAY: Greater than 2 days. TIME SPENT: Approximately 60 minutes were spent on this admission, 30 of which were spent [id number] with the patient obtaining history and physical and discussing treatment plan. This plan has been discussed with my attending, Dr. Yaritza Laurent, she is in agreement. FRANCISCO SWENSON [id number]/JUVE #: [id number] KEVIN
[2017-06-24] MEDS: oxyCODONE TAB* 5 MG TAB PO PRN ×5 (00:16→22:09)
[2017-06-24] MEDS: oxyCODONE/Acetamin 5/325 MG* TAB PO PRN ×5 (00:16→22:09)
[2017-06-24] MEDS: ALPRAZolam TAB* 0.25 MG PO PRN ×2 (00:16→22:10)
[2017-06-24] MEDS: Albuterol/Ipratropium NEB.SOL* Albuterol 2.5 MG/Ipratropium 0.5 MG 3 ML INH SCH ×5 (00:54→18:01)
[2017-06-24] MEDS: NS 0.9% 1000 ML* 1,000 ML IV SCH ×3 (01:56→17:08)
[2017-06-24 02:05] LABS: Urine Appearance Clear; Urine Blood Negative (Negative); Urine Color Yellow; Urine Ketones Negative (Negative); Urine Protein Negative (Negative); Urine Specific Gravity 1.015 (1.010-1.030); Urine Urobilinogen Negative (Negative)
[2017-06-24] MEDS: methylPREDNISolone SOD 40 MG* 1 ML VIAL IV SCH ×3 (05:44→22:08)
[2017-06-24] MEDS: Levothyroxine TAB* 125 MCG TAB PO SCH (05:44)
[2017-06-24] MEDS: Heparin VIAL(*) 5000 UNITS/ML VIAL (FIVE THOUSAND) SUBCUT SCH ×3 (05:44→22:09)
[2017-06-24 06:27] LABS: ABS Basophils 0 10^3/ul (0-0.2); ABS Eosinophils 0 10^3/ul (0-0.6); ABS Lymphocytes 0.8 10^3/ul (1.0-4.8); ABS Monocytes 0.1 10^3/ul (0-0.8); ABS Neutrophils 6.8 10^3/ul (1.5-7.7); ABS Nucleated RBC 0 10^3/ul; Eosinophil % 0 % (0-6); Hematocrit 32 % (35-47); Hemoglobin 10.5 g/dl (12.0-16.0); Lymphocyte % 10.1 % (25-47); Mean Corpuscular HGB Conc 33 g/dl (31-36); Mean Corpuscular Hemoglobin 28 pg (27-31); Mean Corpuscular Volume 85 fL (80-97); Mean Platelet Volume 8 um3 (7.4-10.4); Nucleated Red Blood Cells % 0.1; Platelet Count 235 10^3/ul (150-450); Red Blood Count 3.76 10^6/ul (4.0-5.4); Red Cell Distribution Width 16 % (10.5-15); White Blood Count 7.7 10^3/ul (3.5-10.8)
[2017-06-24 06:37] LABS: EGFR Non-African American 52.2 (>60)
[2017-06-24] MEDS: CMCS: Escitalopram (NF) 10 MG TAB PO SCH (08:47)
[2017-06-24] MEDS: Losartan TAB* 25 MG PO SCH ×2 (08:47→21:02)
[2017-06-24] MEDS: guaiFENesin ER TAB 600 MG PO SCH ×2 (08:47→21:02)
[2017-06-24] MEDS: Omeprazole CAP* 20 MG PO SCH (08:48)
[2017-06-24] MEDS: Cetirizine* 10 MG TAB PO SCH (08:48)
[2017-06-24] MEDS: cefTRIAXone(*) 1 GM in NS 0.9% 50 ML* 50 ML IVPB SCH (17:01)
--- NOTE | 2017-06-24 17:03 | PN ---
Subjective Date of Service: 06/24/17 Interval History: Patient seen and examined. Was up and sitting at the side of the bed earlier, feels fatigued now. Midsternal pain with deep inspiration also radiates to her back, no fevers or chills. Still feels SOB and wheezy. Daughter at bedside. Objective Active Medications: Albuterol (Ventolin 2.5 Mg/3 Ml Neb.Sasha*) 2.5 mg INH Q2H PRN PRN Reason: SOB/WHEEZING Albuterol/Ipratropium (Duoneb (Albuterol 2.5 Mg/Ipratropium 0.5 Mg)) 1 neb INH [id number] AWAKE [facility] Last Admin: 06/24/17 13:26 Dose: 1 neb Alprazolam (Xanax Tab*) 0.25 mg PO TID PRN PRN Reason: ANXIETY Last Admin: 06/24/17 00:16 Dose: 0.25 mg Benzonatate (Tessalon Cap*) 100 mg PO BID PRN PRN Reason: COUGH Last Admin: 06/23/17 22:07 Dose: 100 mg Cetirizine HCl (Zyrtec*) 10 mg PO DAILY [facility] Last Admin: 06/24/17 08:48 Dose: 10 mg Escitalopram Oxalate (Lexapro (Nf)) 20 mg PO DAILY [facility] Last Admin: 06/24/17 08:47 Dose: 20 mg Fluticasone Propionate (Flonase Nasal [place] 50mcg*) 2 spray NASAL DAILY PRN PRN Reason: Allergy Symptoms Guaifenesin (Mucinex*) 1,200 mg PO BID [facility] Last Admin: 06/24/17 08:47 Dose: 1,200 mg Heparin Sodium (Porcine) (Heparin Vial(*)) 5,000 units SUBCUT Q8HR [facility] Last Admin: 06/24/17 14:56 Dose: 5,000 units Azithromycin 500 mg/ Sodium (Chloride) 250 mls @ 250 mls/hr IVPB Q24H [facility] Last Admin: 06/23/17 20:09 Dose: 250 mls/hr Sodium Chloride (Ns 0.9% 1000 Ml*) 1,000 mls @ 125 mls/hr IV PER RATE [facility] Last Admin: 06/24/17 09:54 Dose: 125 mls/hr Ceftriaxone Sodium 1 gm/ (Sodium Chloride) 50 mls @ 200 mls/hr IVPB Q24H [facility] Levothyroxine Sodium (Synthroid Tab*) 125 mcg PO DAILY@0600 [facility] Last Admin: 06/24/17 05:44 Dose: 125 mcg Losartan Potassium (Cozaar Tab*) 50 mg PO BID [facility] Last Admin: 06/24/17 08:47 Dose: 50 mg Methylprednisolone Sodium Succinate (Solu-Medrol 40 Mg) 40 mg IV Q8H [facility] Last Admin: 06/24/17 14:56 Dose: 40 mg Omeprazole (Prilosec Cap*) 40 mg PO DAILY [facility] Last Admin: 06/24/17 08:48 Dose: 40 mg Ondansetron HCl (Zofran Inj*) 4 mg IV Q6H PRN PRN Reason: NAUSEA Oxycodone HCl (Roxycodone Tab*) 5 mg PO Q4H PRN PRN Reason: PAIN Last Admin: 06/24/17 12:21 Dose: 5 mg Oxycodone/Acetaminophen (Percocet 5/325 Tab*) 1 tab PO Q4H PRN PRN Reason: PAIN Last Admin: 06/24/17 12:22 Dose: 1 tab Vital Signs - 8 hr 06/24/17 06/24/17 06/24/17 09:38 11:21 12:21 Temperature 97.9 F Pulse Rate 90 Respiratory 20 18 20 Rate Blood Pressure 123/61 (mmHg) O2 Sat by Pulse 96 Oximetry 06/24/17 06/24/17 06/24/17 12:22 14:55 15:47 Temperature 97.5 F Pulse Rate 92 Respiratory 20 18 18 Rate Blood Pressure 136/64 (mmHg) O2 Sat by Pulse 96 Oximetry Oxygen Devices in Use Now: Nasal Cannula Appearance: Alert, anxious Ears/Nose/Mouth/Throat: Mucous Membranes Moist Neck: Trachea Midline - mild tachypnea, bilateral wheeze with R>L Cardiovascular: NL Sounds; No Murmurs; No JVD, RRR Extremities: No Clubbing, Cyanosis Neurological: Alert and Oriented x 3, - - forgetful at times Nutrition: Taking PO's Result Diagrams: 06/24/17 05:53 06/24/17 05:53 Additional Lab and Data: Diagnostic Imaging: Patient Name: CINDY BEAL Medical Record#: [id number] Ordering Physician: Lawrence Aguilar MD Acct.#: [id number] : 1940 Age: 77 Sex: F Location: EMERGENCY DEPARTMENT Exam Date: 06/23/17 1344 ADM Status: REG ER Order Information: CHEST AP PORTABLE Accession Number: [id number] CPT: 24446 INDICATION: Short of breath COMPARISON: December 17, 2016 TECHNIQUE: An AP portable view obtained at 1355 hours is submitted. FINDINGS: Bones/Soft Tissues: There are no acute bony findings. Cardiomediastinal: The cardiomediastinal silhouette is normal. Lungs: There are no infiltrates. Pleura: There are no pleural effusions. Other: None IMPRESSION: NO ACTIVE DISEASE. <Electronically signed by Lawrence Grace MD in OV> 06/23/17 1419 Dictated By: Lawrence Grace MD Dictated Date/Time: 06/23/17 1419 Transcribed Date/Time: 06/23/17 1418 Copy to: Assess/Plan/Problems-Billing Assessment: This is a 77 year old female patient with history of asthma, cardiomyopathy, HTN , mild dementia and hypothyroidsm that presented to the ER with dyspnea and wheeze, admitted for asthma exacerbation and viral bronchitis. - Patient Problems (1) SOB (shortness of breath) Code(s): R06.02 - SHORTNESS OF BREATH SNOMED Code(s): 052304535 Comment: - No congestion on xray, does not appear fluid overloaded, no consolidation or effusions - Continue atizthromycin, duonebs Q6h, albuterol Q2h, IV steroids, supportive O2, mucinex and flutter valve (2) Anxiety with depression Comment: - Continue home escitalopram and prn alprazolam (3) Chronic pain Code(s): G89.29 - OTHER CHRONIC PAIN SNOMED Code(s): 17700244 Comment: - continue narcotic analgesia per home regimen (4) HTN (hypertension) Code(s): I10 - ESSENTIAL (PRIMARY) HYPERTENSION SNOMED Code(s): 52577930 Comment: - BP stable on losartan, amlodipine, metoprolol (5) Takotsubo cardiomyopathy Code(s): I51.81 - TAKOTSUBO SYNDROME SNOMED Code(s): 787567126 Comment: - Hx of Takotsubo cardiomyopathy - ECHO on 11/16/16 shows normal LV function with no regional wall motion abnormalities, LVEF 55-60%, normal RV function, mild - If SOB perisists, will get ECHO tomorrow to assess for new changes (6) GERD (gastroesophageal reflux disease) Current Visit: No Status: Chronic Code(s): K21.9 - GASTRO-ESOPHAGEAL REFLUX DISEASE WITHOUT ESOPHAGITIS SNOMED Code(s): 802364389 Comment: Continue omeprazole. (7) MAGDA (obstructive sleep apnea) Code(s): G47.33 - OBSTRUCTIVE SLEEP APNEA (ADULT) (PEDIATRIC) SNOMED Code(s): 54131591 Comment: - Not on CPAP - Monitor resp status (8) DVT prophylaxis Code(s): EVL0387 - SNOMED Code(s): 736174627 Comment: - HSQ (9) Full code status Current Visit: No Status: Acute Code(s): Z78.9 - OTHER SPECIFIED HEALTH STATUS SNOMED Code(s): 362140999 Status and Disposition: Remain inpatient Counseling and/or Coordination of Care Minutes: coordinated with patient and staff
[2017-06-24] MEDS: Azithromycin IV(*) 500 MG in NS 0.9% 250 ML* 250 ML IVPB SCH (17:21)
[2017-06-25] MEDS: Benzonatate CAP* 100 MG PO PRN ×2 (01:13→20:42)
[2017-06-25] MEDS: Albuterol/Ipratropium NEB.SOL* Albuterol 2.5 MG/Ipratropium 0.5 MG 3 ML INH SCH ×2 (01:17→07:59)
[2017-06-25] MEDS ORDERED: Furosemide IV* 10 MG/ML 2 ML VIAL (20 MG) IV ONE ×2 (01:32→10:34)
[2017-06-25] MEDS: Levothyroxine TAB* 125 MCG TAB PO SCH (06:04)
[2017-06-25] MEDS: oxyCODONE/Acetamin 5/325 MG* TAB PO PRN ×3 (06:04→20:41)
[2017-06-25] MEDS: methylPREDNISolone SOD 40 MG* 1 ML VIAL IV SCH ×3 (06:04→21:28)
[2017-06-25] MEDS: oxyCODONE TAB* 5 MG TAB PO PRN ×3 (06:04→20:40)
[2017-06-25] MEDS: Heparin VIAL(*) 5000 UNITS/ML VIAL (FIVE THOUSAND) SUBCUT SCH ×3 (06:08→21:25)
[2017-06-25] MEDS: Losartan TAB* 25 MG PO SCH ×2 (09:42→20:42)
[2017-06-25] MEDS: Omeprazole CAP* 20 MG PO SCH (09:42)
[2017-06-25 09:43] LABS: ABS Basophils 0 10^3/ul (0-0.2); ABS Eosinophils 0 10^3/ul (0-0.6); ABS Lymphocytes 0.8 10^3/ul (1.0-4.8); ABS Monocytes 0.4 10^3/ul (0-0.8); ABS Neutrophils 12.6 10^3/ul (1.5-7.7); ABS Nucleated RBC 0 10^3/ul; Eosinophil % 0 % (0-6); Hematocrit 33 % (35-47); Hemoglobin 10.8 g/dl (12.0-16.0); Lymphocyte % 6.1 % (25-47); Mean Corpuscular HGB Conc 32 g/dl (31-36); Mean Corpuscular Hemoglobin 27 pg (27-31); Mean Corpuscular Volume 85 fL (80-97); Mean Platelet Volume 8 um3 (7.4-10.4); Nucleated Red Blood Cells % 0; Platelet Count 288 10^3/ul (150-450); Red Blood Count 3.95 10^6/ul (4.0-5.4); Red Cell Distribution Width 16 % (10.5-15); White Blood Count 13.8 10^3/ul (3.5-10.8)
[2017-06-25] MEDS: guaiFENesin ER TAB 600 MG PO SCH ×2 (09:43→20:43)
[2017-06-25] MEDS: Cetirizine* 10 MG TAB PO SCH (09:43)
[2017-06-25] MEDS: ALPRAZolam TAB* 0.25 MG PO PRN (09:44)
[2017-06-25] MEDS: CMCS: Escitalopram (NF) 10 MG TAB PO SCH (09:44)
[2017-06-25 10:01] LABS: EGFR Non-African American 59.5 (>60)
[2017-06-25] MEDS: Fluticasone NASAL SPRAY 50MCG* 16 gm SPRAY BTL NASAL PRN (13:52)
--- NOTE | 2017-06-25 15:59 | PN ---
Subjective Date of Service: 06/25/17 Interval History: Patient seen and examined. SOB improved from last night. Was fluid overloaded and received lasix with good effect. Denies chest pain, no n/v, tolerating PO. Tearful during examination, upset because her brother from COPD complications and DM. She is concerned for her health and weight. Objective Active Medications: Albuterol (Ventolin 2.5 Mg/3 Ml Neb.Sasha*) 2.5 mg INH Q2H PRN PRN Reason: SOB/WHEEZING Alprazolam (Xanax Tab*) 0.25 mg PO TID PRN PRN Reason: ANXIETY Last Admin: 06/25/17 09:44 Dose: 0.25 mg Benzonatate (Tessalon Cap*) 100 mg PO BID PRN PRN Reason: COUGH Last Admin: 06/25/17 01:13 Dose: 100 mg Cetirizine HCl (Zyrtec*) 10 mg PO DAILY [facility] Last Admin: 06/25/17 09:43 Dose: 10 mg Escitalopram Oxalate (Lexapro (Nf)) 20 mg PO DAILY [facility] Last Admin: 06/25/17 09:44 Dose: 20 mg Fluticasone Propionate (Flonase Nasal [place] 50mcg*) 2 spray NASAL DAILY PRN PRN Reason: Allergy Symptoms Last Admin: 06/25/17 13:52 Dose: 2 spray Guaifenesin (Mucinex*) 1,200 mg PO BID [facility] Last Admin: 06/25/17 09:43 Dose: 1,200 mg Heparin Sodium (Porcine) (Heparin Vial(*)) 5,000 units SUBCUT Q8HR [facility] Last Admin: 06/25/17 13:51 Dose: 5,000 units Azithromycin 500 mg/ Sodium (Chloride) 250 mls @ 250 mls/hr IVPB Q24H [facility] Last Admin: 06/24/17 17:21 Dose: 250 mls/hr Ceftriaxone Sodium 1 gm/ (Sodium Chloride) 50 mls @ 200 mls/hr IVPB Q24H [facility] Last Admin: 06/24/17 17:01 Dose: 200 mls/hr Levothyroxine Sodium (Synthroid Tab*) 125 mcg PO DAILY@0600 [facility] Last Admin: 06/25/17 06:04 Dose: 125 mcg Losartan Potassium (Cozaar Tab*) 50 mg PO BID [facility] Last Admin: 06/25/17 09:42 Dose: 50 mg Methylprednisolone Sodium Succinate (Solu-Medrol 40 Mg) 40 mg IV Q8H [facility] Last Admin: 06/25/17 13:53 Dose: 40 mg Omeprazole (Prilosec Cap*) 40 mg PO DAILY [facility] Last Admin: 06/25/17 09:42 Dose: 40 mg Ondansetron HCl (Zofran Inj*) 4 mg IV Q6H PRN PRN Reason: NAUSEA Oxycodone HCl (Roxycodone Tab*) 5 mg PO Q4H PRN PRN Reason: PAIN Last Admin: 06/25/17 10:54 Dose: 5 mg Oxycodone/Acetaminophen (Percocet 5/325 Tab*) 1 tab PO Q4H PRN PRN Reason: PAIN Last Admin: 06/25/17 10:55 Dose: 1 tab Vital Signs - 8 hr 06/25/17 06/25/17 06/25/17 08:00 08:02 09:44 Pulse Rate 95 Respiratory 18 16 18 Rate O2 Sat by Pulse 98 Oximetry 06/25/17 06/25/17 06/25/17 09:45 10:54 10:55 Pulse Rate Respiratory 16 20 20 Rate O2 Sat by Pulse Oximetry 06/25/17 06/25/17 11:57 13:41 Pulse Rate Respiratory 18 18 Rate O2 Sat by Pulse Oximetry Oxygen Devices in Use Now: Nasal Cannula Appearance: Alert, tearful Ears/Nose/Mouth/Throat: Clear Oropharnyx Neck: Trachea Midline Respiratory: Symmetrical Chest Expansion and Respiratory Effort, - - diminished bases, fine rales noted Cardiovascular: NL Sounds; No Murmurs; No JVD, - - trace bipedal edema Extremities: No Clubbing, Cyanosis Skin: No Rash or Ulcers Neurological: Alert and Oriented x 3, NL Gait Nutrition: Taking PO's Result Diagrams: 06/25/17 09:30 06/25/17 09:30 Additional Lab and Data: Diagnostic Imaging: Patient Name: CINDY BEAL Medical Record#: [id number] Ordering Physician: Lawrence Aguilar MD Acct.#: [id number] : 1940 Age: 77 Sex: F Location: EMERGENCY DEPARTMENT Exam Date: 06/23/17 134 ADM Status: REG ER Order Information: CHEST AP PORTABLE Accession Number: [id number] CPT: 39079 INDICATION: Short of breath COMPARISON: December 17, 2016 TECHNIQUE: An AP portable view obtained at 1355 hours is submitted. FINDINGS: Bones/Soft Tissues: There are no acute bony findings. Cardiomediastinal: The cardiomediastinal silhouette is normal. Lungs: There are no infiltrates. Pleura: There are no pleural effusions. Other: None IMPRESSION: NO ACTIVE DISEASE. <Electronically signed by Lawrence Grace MD in OV> 06/23/17 141 Dictated By: Lawrence Grace MD Dictated Date/Time: 06/23/17 141 Transcribed Date/Time: 06/23/171417 Copy to: Assess/Plan/Problems-Billing Assessment: This is a 77 year old female patient with history of asthma, cardiomyopathy, HTN , mild dementia and hypothyroidsm that presented to the ER with dyspnea and wheeze, admitted for asthma/COPD exacerbation and viral bronchitis and subsequent fluid overload. - Patient Problems (1) SOB (shortness of breath) Code(s): R06.02 - SHORTNESS OF BREATH SNOMED Code(s): 776407824 Comment: - No congestion on xray, but became fluid overloaded last night requiring lasix - Continue atizthromycin, duonebs Q6h, albuterol Q2h, IV steroids, supportive O2, mucinex and flutter valve (2) Anxiety with depression Comment: - Continue home escitalopram and prn alprazolam (3) Chronic pain Code(s): G89.29 - OTHER CHRONIC PAIN SNOMED Code(s): 76471461 Comment: - continue narcotic analgesia per home regimen (4) HTN (hypertension) Code(s): I10 - ESSENTIAL (PRIMARY) HYPERTENSION SNOMED Code(s): 78526209 Comment: - BP stable on losartan, amlodipine, metoprolol (5) Takotsubo cardiomyopathy Code(s): I51.81 - TAKOTSUBO SYNDROME SNOMED Code(s): 351458811 Comment: - Hx of Takotsubo cardiomyopathy - ECHO on 7/24/17 shows normal LV function with no regional wall motion abnormalities, LVEF 55-60%, normal RV function, mild - 2 doses lasix IV with adequate diuresis and relief of symptoms today - Given fluid overload last night and now elevated BNP, will order cardiac echo to reassess function (6) Hyperglycemia Code(s): R73.9 - HYPERGLYCEMIA, UNSPECIFIED SNOMED Code(s): 86994055 Comment: - Steroid related vs. underlying DM - Lispro SS ACHS - A1c ordered - Nutrition consult (7) GERD (gastroesophageal reflux disease) Current Visit: No Status: Chronic Code(s): K21.9 - GASTRO-ESOPHAGEAL REFLUX DISEASE WITHOUT ESOPHAGITIS SNOMED Code(s): 821921693 Comment: Continue omeprazole. (8) MAGDA (obstructive sleep apnea) Code(s): G47.33 - OBSTRUCTIVE SLEEP APNEA (ADULT) (PEDIATRIC) SNOMED Code(s): 61620362 Comment: - Not on CPAP - Monitor resp status - Highly recommend outpatient sleep study (9) DVT prophylaxis Code(s): XFQ7050 - SNOMED Code(s): 458894222 Comment: - HSQ (10) Full code status Current Visit: No Status: Acute Code(s): Z78.9 - OTHER SPECIFIED HEALTH STATUS SNOMED Code(s): 005490118 Status and Disposition: Remain inpatient
[2017-06-25] MEDS ORDERED: Dextrose 50% Syringe 50 ML* 25 GM/50 ML SYRINGE IV PUSH PRN (16:10)
[2017-06-25] MEDS: cefTRIAXone(*) 1 GM in NS 0.9% 50 ML* 50 ML IVPB SCH (16:58)
[2017-06-25] MEDS: Insulin LISPRO* 1 UNITS UNIT SUBCUT SCH ×2 (16:59→21:24)
[2017-06-25] MEDS: Azithromycin IV(*) 500 MG in NS 0.9% 250 ML* 250 ML IVPB SCH (18:16)
[2017-06-26] MEDS: oxyCODONE/Acetamin 5/325 MG* TAB PO PRN ×3 (02:52→21:33)
[2017-06-26] MEDS: oxyCODONE TAB* 5 MG TAB PO PRN ×3 (02:53→21:33)
[2017-06-26] MEDS: Heparin VIAL(*) 5000 UNITS/ML VIAL (FIVE THOUSAND) SUBCUT SCH ×3 (05:49→21:08)
[2017-06-26] MEDS: methylPREDNISolone SOD 40 MG* 1 ML VIAL IV SCH ×3 (05:50→21:10)
[2017-06-26] MEDS: Levothyroxine TAB* 125 MCG TAB PO SCH (05:53)
[2017-06-26 06:55] LABS: Hematocrit 33 % (35-47); Mean Corpuscular HGB Conc 33 g/dl (31-36); Mean Corpuscular Hemoglobin 28 pg (27-31); Mean Corpuscular Volume 84 fL (80-97); Mean Platelet Volume 8 um3 (7.4-10.4); Platelet Count 266 10^3/ul (150-450); Red Blood Count 3.98 10^6/ul (4.0-5.4); Red Cell Distribution Width 16 % (10.5-15); White Blood Count 10.2 10^3/ul (3.5-10.8)
[2017-06-26 07:05] LABS: EGFR Non-African American 60.3 (>60)
[2017-06-26 08:20] LABS: ABS Basophils 0 10^3/ul (0-0.2); ABS Eosinophils 0 10^3/ul (0-0.6); ABS Lymphocytes 1.1 10^3/ul (1.0-4.8); ABS Monocytes 0.3 10^3/ul (0-0.8); ABS Neutrophils 8.8 10^3/ul (1.5-7.7); ABS Nucleated RBC 0 10^3/ul; Eosinophil % 0 % (0-6); Lymphocyte % 10.7 % (25-47); Nucleated Red Blood Cells % 0.1
[2017-06-26] MEDS: Insulin LISPRO* 1 UNITS UNIT SUBCUT SCH ×4 (08:58→21:04)
[2017-06-26] MEDS: Omeprazole CAP* 20 MG PO SCH (09:01)
[2017-06-26] MEDS: Losartan TAB* 25 MG PO SCH ×2 (09:01→21:02)
[2017-06-26] MEDS: guaiFENesin ER TAB 600 MG PO SCH ×2 (09:02→21:01)
[2017-06-26] MEDS: Cetirizine* 10 MG TAB PO SCH (09:02)
[2017-06-26] MEDS: Benzonatate CAP* 100 MG PO PRN (09:02)
[2017-06-26] MEDS: Fluticasone NASAL SPRAY 50MCG* 16 gm SPRAY BTL NASAL PRN (09:03)
[2017-06-26] MEDS: CMCS: Escitalopram (NF) 10 MG TAB PO SCH (09:15)
--- NOTE | 2017-06-26 10:39 | PN ---
Subjective Date of Service: 06/26/17 Interval History: Feels a little better today, but still short of breath occasionally with paroxysms of coughing. No chest pain, nausea, headaches, fevers. Family History: Unchanged from Admission Social History: Unchanged from Admission Past Medical History: Unchanged from Admission Objective Active Medications: Albuterol (Ventolin 2.5 Mg/3 Ml Neb.Sasha*) 2.5 mg INH Q2H PRN PRN Reason: SOB/WHEEZING Alprazolam (Xanax Tab*) 0.25 mg PO TID PRN PRN Reason: ANXIETY Last Admin: 06/25/17 09:44 Dose: 0.25 mg Benzonatate (Tessalon Cap*) 100 mg PO BID PRN PRN Reason: COUGH Last Admin: 06/26/17 09:02 Dose: 100 mg Cetirizine HCl (Zyrtec*) 10 mg PO DAILY [facility] Last Admin: 06/26/17 09:02 Dose: 10 mg Dextrose (D50w Syringe 50 Ml*) 12.5 gm IV PUSH .FOR FS < 60 - SS PRN PRN Reason: FS < 60 Escitalopram Oxalate (Lexapro (Nf)) 20 mg PO DAILY [facility] Last Admin: 06/26/17 09:15 Dose: 20 mg Fluticasone Propionate (Flonase Nasal [place] 50mcg*) 2 spray NASAL DAILY PRN PRN Reason: Allergy Symptoms Last Admin: 06/26/17 09:03 Dose: 2 spray Guaifenesin (Mucinex*) 1,200 mg PO BID [facility] Last Admin: 06/26/17 09:02 Dose: 1,200 mg Heparin Sodium (Porcine) (Heparin Vial(*)) 5,000 units SUBCUT Q8HR [facility] Last Admin: 06/26/17 05:49 Dose: 5,000 units Azithromycin 500 mg/ Sodium (Chloride) 250 mls @ 250 mls/hr IVPB Q24H [facility] Last Admin: 06/25/17 18:16 Dose: 250 mls/hr Ceftriaxone Sodium 1 gm/ (Sodium Chloride) 50 mls @ 200 mls/hr IVPB Q24H [facility] Last Admin: 06/25/17 16:58 Dose: 200 mls/hr Insulin Human Lispro (Humalog*) 0 units SUBCUT ACHS [facility] PRN Reason: Protocol Last Admin: 03/03/18 08:58 Dose: 6 units Levothyroxine Sodium (Synthroid Tab*) 125 mcg PO DAILY@0600 [facility] Last Admin: 06/26/17 05:53 Dose: 125 mcg Losartan Potassium (Cozaar Tab*) 50 mg PO BID [facility] Last Admin: 06/26/17 09:01 Dose: 50 mg Methylprednisolone Sodium Succinate (Solu-Medrol 40 Mg) 40 mg IV Q8H [facility] Last Admin: 06/26/17 05:50 Dose: 40 mg Omeprazole (Prilosec Cap*) 40 mg PO DAILY [facility] Last Admin: 06/26/17 09:01 Dose: 40 mg Ondansetron HCl (Zofran Inj*) 4 mg IV Q6H PRN PRN Reason: NAUSEA Oxycodone HCl (Roxycodone Tab*) 5 mg PO Q4H PRN PRN Reason: PAIN Last Admin: 06/26/17 02:53 Dose: 5 mg Oxycodone/Acetaminophen (Percocet 5/325 Tab*) 1 tab PO Q4H PRN PRN Reason: PAIN Last Admin: 06/26/17 02:52 Dose: 1 tab Vital Signs - 8 hr 06/26/17 06/26/17 06/26/17 02:52 02:53 03:28 Temperature 98.1 F Pulse Rate 74 Respiratory 18 18 18 Rate Blood Pressure 143/70 (mmHg) O2 Sat by Pulse 97 Oximetry 06/26/17 06/26/17 04:55 08:07 Temperature 97.7 F Pulse Rate 71 Respiratory 18 20 Rate Blood Pressure 138/61 (mmHg) O2 Sat by Pulse 98 Oximetry Oxygen Devices in Use Now: Nasal Cannula Appearance: alert, sitting up in bed eating breakfast, her partner is at the bedside Eyes: No Scleral Icterus Ears/Nose/Mouth/Throat: NL Teeth, Lips, Gums Neck: NL Appearance and Movements; NL JVP Respiratory: Symmetrical Chest Expansion and Respiratory Effort, - - coughs frequently Cardiovascular: - - systolic murmur throughout, loudest at the upper sternal border Abdominal: NL Sounds; No Tenderness; No Distention Lymphatic: No Cervical Adenopathy Extremities: - - ulnar deformities of the DIPs Skin: No Rash or Ulcers Neurological: Alert and Oriented x 3 Result Diagrams: 06/26/17 06:20 06/26/17 06:20 Additional Lab and Data: Diagnostic Imaging: Patient Name: CINDY BEAL Medical Record#: [id number] Ordering Physician: Lawrence Aguilar MD Acct.#: [id number] : 1940 Age: 77 Sex: F Location: EMERGENCY DEPARTMENT Exam Date: 06/23/17 1344 ADM Status: REG ER Order Information: CHEST AP PORTABLE Accession Number: [id number] CPT: 04344 INDICATION: Short of breath COMPARISON: December 17, 2016 TECHNIQUE: An AP portable view obtained at 1355 hours is submitted. FINDINGS: Bones/Soft Tissues: There are no acute bony findings. Cardiomediastinal: The cardiomediastinal silhouette is normal. Lungs: There are no infiltrates. Pleura: There are no pleural effusions. Other: None IMPRESSION: NO ACTIVE DISEASE. <Electronically signed by Lawrence Grace MD in OV> 06/23/17 1419 Dictated By: Lawrence Grace MD Dictated Date/Time: 06/23/17 1419 Transcribed Date/Time: 06/23/17 1418 Copy to: Assess/Plan/Problems-Billing Assessment: This is a 77 year old female patient with history of asthma, cardiomyopathy, HTN , mild dementia and hypothyroidsm that presented to the ER with dyspnea and wheeze, admitted for asthma/COPD exacerbation and viral bronchitis, then noted to be fluid overloaded. - Patient Problems (1) Asthma attack Current Visit: Yes Status: Acute Code(s): J45.901 - UNSPECIFIED ASTHMA WITH (ACUTE) EXACERBATION SNOMED Code(s): 781778607 Comment: No documented hypoxia, but she is currently on 2L Continue steroids, improving May have an environmental component--occurred after she was outdoors when it was warm last week Needs PFTs on discharge; she also reports heavy second hand smoke exposure, but has never had PFTs (2) Community acquired pneumonia Current Visit: Yes Status: Acute Code(s): J18.9 - PNEUMONIA, UNSPECIFIED ORGANISM SNOMED Code(s): 035836148 Comment: no infiltrate at admission, but being treated given high pretest probability azithro/ceftriaxone (3) Cardiomyopathy Current Visit: No Status: Acute Code(s): I42.9 - CARDIOMYOPATHY, UNSPECIFIED SNOMED Code(s): 42548108 Comment: h/o takotsubo; last TTE showed recovered EF plan for repeat TTE tomorrow she is euvolemic on exam today (4) Anxiety with depression Current Visit: No Status: Chronic Comment: Her episode of sudden onset dyspnea the other night may have been related to anxiety, as she suggests, however according to nursing and RT notes at that time, clinically she did show evidence of volume overload. Continue home escitalopram and prn alprazolam (5) Chronic pain Current Visit: No Status: Chronic Code(s): G89.29 - OTHER CHRONIC PAIN SNOMED Code(s): 57326545 Comment: controlled on home analgesic regimen Status and Disposition: Remain inpatient
[2017-06-26] MEDS: ALPRAZolam TAB* 0.25 MG PO PRN (12:21)
[2017-06-26] MEDS: cefTRIAXone(*) 1 GM in D5W 50 ML BAG* 50 ML IVPB SCH (17:09)
[2017-06-26] MEDS ORDERED: Polyethylene Glycol 3350* 17 GM PACKET PO PRN (17:29)
[2017-06-26] MEDS: Azithromycin IV(*) 500 MG in NS 0.9% 250 ML* 250 ML IVPB SCH (17:31)
[2017-06-27] MEDS: Benzonatate CAP* 100 MG PO PRN ×2 (02:08→09:04)
[2017-06-27] MEDS: oxyCODONE/Acetamin 5/325 MG* TAB PO PRN ×3 (02:08→22:03)
[2017-06-27] MEDS: oxyCODONE TAB* 5 MG TAB PO PRN ×3 (02:10→22:04)
[2017-06-27] MEDS: Levothyroxine TAB* 125 MCG TAB PO SCH (05:31)
[2017-06-27] MEDS: methylPREDNISolone SOD 40 MG* 1 ML VIAL IV SCH ×3 (05:34→16:30)
[2017-06-27] MEDS: Heparin VIAL(*) 5000 UNITS/ML VIAL (FIVE THOUSAND) SUBCUT SCH ×3 (05:40→22:23)
[2017-06-27 06:07] LABS: Hematocrit 32 % (35-47); Hemoglobin 10.8 g/dl (12.0-16.0); Mean Corpuscular HGB Conc 34 g/dl (31-36); Mean Corpuscular Hemoglobin 28 pg (27-31); Mean Corpuscular Volume 83 fL (80-97); Mean Platelet Volume 8 um3 (7.4-10.4); Platelet Count 241 10^3/ul (150-450); Red Blood Count 3.87 10^6/ul (4.0-5.4); Red Cell Distribution Width 16 % (10.5-15); White Blood Count 6.3 10^3/ul (3.5-10.8)
[2017-06-27 06:24] LABS: EGFR Non-African American 66.1 (>60)
[2017-06-27 06:27] LABS: INR 0.9 (0.77-1.02)
[2017-06-27 06:39] LABS: ABS Basophils 0 10^3/ul (0-0.2); ABS Eosinophils 0 10^3/ul (0-0.6); ABS Lymphocytes 1.1 10^3/ul (1.0-4.8); ABS Monocytes 0.2 10^3/ul (0-0.8); ABS Nucleated RBC 0 10^3/ul; Eosinophil % 0 % (0-6); Lymphocyte % 17.2 % (25-47); Nucleated Red Blood Cells % 0.1
[2017-06-27] MEDS ORDERED: Senna TAB PO PRN (08:15)
[2017-06-27] MEDS ORDERED: Docusate CAP* 100 MG PO PRN (08:15)
[2017-06-27] MEDS: Insulin LISPRO* 1 UNITS UNIT SUBCUT SCH ×4 (09:03→22:23)
[2017-06-27] MEDS: CMCS: Escitalopram (NF) 10 MG TAB PO SCH (09:04)
[2017-06-27] MEDS: guaiFENesin ER TAB 600 MG PO SCH ×2 (09:04→20:46)
[2017-06-27] MEDS: Magnesium Hydroxide LIQ* 30 ML UDC PO SCH ×2 (09:04→20:46)
[2017-06-27] MEDS: Losartan TAB* 25 MG PO SCH ×2 (09:04→20:46)
[2017-06-27] MEDS: Cetirizine* 10 MG TAB PO SCH (09:04)
[2017-06-27] MEDS: Omeprazole CAP* 20 MG PO SCH (09:04)
--- NOTE | 2017-06-27 12:03 | ECHO ---
Patient: CINDY BEAL [facility] Rec#: [id number] : 1940 Date: 06/27/2017 Age: 77y Height: 165.1 cm / 65.0 in Weight: 116.57 kg / 256.9 lbs Sex: F BSA: 2.2 Room#: [facility] Admit Date#: 06/23/2017 Type: Inpatient Referring: Leena Soriano Reading: Santo Beckman MD Auto Bench Mechanic: Poonam Awad RDCS CC: Anai Cobb MD Transthoracic Echocardiogram Indication: Shortness of breath BP: 145/72 HR: 90 Rhythm: NSR Findings History: HTN, HLD, thyroid disease, asthma, Takotsubo cardiomyopathy, MAGDA, and CKD. Technical Comments: The study quality is fair. The study is technically limited due to patient body habitus. Completed at 1045. Left Ventricle: The left ventricular chamber size is normal. Mild concentric left ventricular hypertrophy is observed. Global left ventricular wall motion and contractility are within normal limits. There is normal left ventricular systolic function. The estimated ejection fraction is 55-60%. The assessment of diastolic function is non-diagnostic. Left Atrium: The left atrium is mildly dilated. Right Ventricle: Moderator Band present. The right ventricular cavity size is normal. The right ventricular global systolic function is normal. Right Atrium: The right atrium is mildly dilated. Aortic Valve: The aortic valve structure is not well visualized. The aortic valve is trileaflet. Mild aortic leaflet calcification is visualized. There is no evidence of aortic regurgitation. There is mild aortic stenosis. The mean gradient of the aortic valve is 13.34 mmHg. The peak instantaneous gradient of the aortic valve is 22.29 mmHg. The aortic valve area, by peak velocities, is calculated at 1.7 cm2. The aortic valve area, by VTI's, is calculated at 1.5 cm2. Mitral Valve: Moderate mitral annular calcification present. The mitral valve leaflets are mildly thickened. There is a trace of mitral regurgitation. There is no evidence of mitral stenosis. Tricuspid Valve: The tricuspid valve leaflets are normal. There is trace to mild tricuspid regurgitation. The right ventricular systolic pressure is estimated at 46 mmHg. There is evidence of moderate pulmonary hypertension. Pulmonic Valve: The pulmonic valve appears thickened with good excursion. There is no evidence of pulmonic regurgitation. There is no pulmonic stenosis. Pericardium: There is no significant pericardial effusion. A pericardial fat pad is visualized. Aorta: There is no dilatation of the ascending aorta. There is no dilatation of the aortic arch. The aortic root is normal in size. Pulmonary Artery: The main pulmonary artery is not well visualized. Venous: The inferior vena cava is dilated. There is a greater than 50% respiratory change in the inferior vena cava dimension. Conclusions There is normal left ventricular systolic function. The estimated ejection fraction is 55-60%. Global left ventricular wall motion and contractility are within normal limits. The left ventricular chamber size is normal. Mild concentric left ventricular hypertrophy is observed. The left atrium is mildly dilated. The right atrium is mildly dilated. There is mild aortic stenosis. There is evidence of moderate pulmonary hypertension. Since the prior echocardiogram completed 06/08/16, prior pulmonary pressure not able to be estimated; otherwise there is no significant change. Measurements Name Value Normal Range RVIDd (AP) 2D 3.2 cm (0.9 - 2.6) RAd ISD 4CH 5.1 cm (3.4 - 4.9) RA (A4C)W 4.2 cm (2.9 - 4.6) IVSd (2D) 1.4 cm (0.6 - 1) LVPWd (2D) 1.2 cm (0.6 - 1) LVIDd (2D) 3.8 cm (3.6 - 5.4) LVIDs (2D) 2.1 cm - LV FS (2D) 46 % (25 - 45) Aortic Annulus 1.9 cm (1.4 - 2.6) Ao root diameter (2D) 3.3 cm (2.1 - 3.5) Ascending Ao 3.4 cm (2.1 - 3.4) Aortic arch 2.7 cm (1.8 - 3.4) LA dimension (AP) 2D 3.8 cm (2.3 - 3.8) LAd ISD 4CH 5.5 cm (2.9 - 5.3) LA ISD 4CH W 3.9 cm (2.5 - 4.5) Name Value Normal Range LA ESV SP 4CH (A/L) 43 ml - LA ESV SP 2CH (A/L) 112 ml - LA ESV BP (A/L) 77 ml - LA ESV BP (A/L) index 35 ml/m2 - LA ESV SP 4CH (MOD) 42 ml - LA ESV SP 2CH (MOD) 103 ml - Name Value Normal Range MV E-wave Vmax 1.71 m/sec - MV deceleration time 228.5 msec - MV A-wave Vmax 1.5 m/sec - MV E:A ratio 1.14 ratio - LV septal e' Vmax 0.07 m/sec - LV lateral e' Vmax 0.05 m/sec - LV E:e' septal ratio 24.29 ratio - LV E:e' lateral ratio 34.2 ratio - Name Value Normal Range AV Vmax 2.4 m/sec - AV VTI 53.2 cm - AV peak gradient 22.29 mmHg - AV mean gradient 13.34 mmHg - LVOT diameter 2 cm - LVOT Vmax 1.29 m/sec - LVOT VTI 24.9 cm - LVOT peak gradient 6.66 mmHg - LVOT mean gradient 2.69 mmHg - DOI (VTI) 0.47 ratio - FLY (continuity Vmax) 1.7 cm2 - FLY (continuity VTI) 1.5 cm2 - Name Value Normal Range MV Vmax 2.43 m/sec - MV VTI 56.85 cm - MV peak gradient 23.7 mmHg - MV mean gradient 9.54 mmHg - MV PHT 73.52 msec - MVA (PHT) 2.99 cm2 - MVA (continuity VTI) 1.38 cm2 - Name Value Normal Range TR Vmax 3.1 m/sec - TR peak gradient 38 mmHg - RAP 8 mmHg - RVSP 46 mmHg - IVC diameter 2.8 cm - Name Value Normal Range PV Vmax 1.19 m/sec - PV peak gradient 5.67 mmHg -
--- NOTE | 2017-06-27 15:12 | PN ---
Subjective Date of Service: 06/27/17 Interval History: Ms. Beal is crying when I enter the room. Her daughter and are here. She is very upset that her sugars have been elevated, and she does not know "how to eat" when she goes home. She is unable to express what she is fearful of, but is very scared to go home. She has been off oxygen since this morning and went for a walk and felt good. Family History: Unchanged from Admission Social History: Unchanged from Admission Past Medical History: Unchanged from Admission Objective Active Medications: Albuterol (Ventolin 2.5 Mg/3 Ml Neb.Sasha*) 2.5 mg INH Q2H PRN PRN Reason: SOB/WHEEZING Last Admin: 06/26/17 11:30 Dose: 2.5 mg Alprazolam (Xanax Tab*) 0.25 mg PO TID PRN PRN Reason: ANXIETY Last Admin: 06/26/17 12:21 Dose: 0.25 mg Azithromycin (Zithromax Tab*) 250 mg PO 1830 ONE Stop: 06/27/17 18:31 Benzonatate (Tessalon Cap*) 100 mg PO BID PRN PRN Reason: COUGH Last Admin: 06/27/17 09:04 Dose: 100 mg Cetirizine HCl (Zyrtec*) 10 mg PO DAILY [facility] Last Admin: 06/27/17 09:04 Dose: 10 mg Dextrose (D50w Syringe 50 Ml*) 12.5 gm IV PUSH .FOR FS < 60 - SS PRN PRN Reason: FS < 60 Docusate Sodium (Colace Cap*) 100 mg PO BID PRN PRN Reason: CONSTIPATION Last Admin: 06/27/17 09:04 Dose: 100 mg Escitalopram Oxalate (Lexapro (Nf)) 20 mg PO DAILY [facility] Last Admin: 06/27/17 09:04 Dose: 20 mg Fluticasone Propionate (Flonase Nasal [place] 50mcg*) 2 spray NASAL DAILY PRN PRN Reason: Allergy Symptoms Last Admin: 06/26/17 09:03 Dose: 2 spray Guaifenesin (Mucinex*) 1,200 mg PO BID [facility] Last Admin: 06/27/17 09:04 Dose: 1,200 mg Heparin Sodium (Porcine) (Heparin Vial(*)) 5,000 units SUBCUT Q8HR [facility] Last Admin: 06/27/17 12:49 Dose: 5,000 units Ceftriaxone Sodium 1 gm/ (Dextrose) 50 mls @ 200 mls/hr IVPB Q24H [facility] Last Admin: 06/26/17 17:09 Dose: 200 mls/hr Insulin Human Lispro (Humalog*) 0 units SUBCUT ACHS [facility] PRN Reason: Protocol Last Admin: 06/27/17 12:49 Dose: 9 units Levothyroxine Sodium (Synthroid Tab*) 125 mcg PO DAILY@0600 [facility] Last Admin: 06/27/17 05:31 Dose: 125 mcg Losartan Potassium (Cozaar Tab*) 50 mg PO BID [facility] Last Admin: 06/27/17 09:04 Dose: 50 mg Magnesium Hydroxide (Milk Of Magnesia Liq*) 30 ml PO BID [facility] Last Admin: 06/27/17 09:04 Dose: 30 ml Metformin HCl (Glucophage*) 500 mg PO 0800,1700 [facility] Methylprednisolone Sodium Succinate (Solu-Medrol 40 Mg) 40 mg IV Q12H [facility] Omeprazole (Prilosec Cap*) 40 mg PO DAILY [facility] Last Admin: 06/27/17 09:04 Dose: 40 mg Ondansetron HCl (Zofran Inj*) 4 mg IV Q6H PRN PRN Reason: NAUSEA Oxycodone HCl (Roxycodone Tab*) 5 mg PO Q4H PRN PRN Reason: PAIN Last Admin: 06/27/17 14:58 Dose: 5 mg Oxycodone/Acetaminophen (Percocet 5/325 Tab*) 1 tab PO Q4H PRN PRN Reason: PAIN Last Admin: 06/27/17 14:58 Dose: 1 tab Polyethylene Glycol/Electrolytes (Miralax*) 17 gm PO DAILY PRN PRN Reason: CONSTIPATION Last Admin: 06/26/17 17:41 Dose: 17 gm Senna (Senokot Tab*) 1 tab PO DAILY PRN PRN Reason: CONSTIPATION Last Admin: 06/27/17 09:04 Dose: 1 tab Vital Signs - 8 hr 06/27/17 06/27/17 06/27/17 07:42 08:00 11:05 Temperature 97.3 F 98.0 F Pulse Rate 70 75 Respiratory 17 22 16 Rate Blood Pressure 155/85 146/78 (mmHg) O2 Sat by Pulse 97 96 Oximetry 06/27/17 06/27/17 14:58 15:01 Temperature Pulse Rate 74 Respiratory 16 14 Rate Blood Pressure (mmHg) O2 Sat by Pulse 97 Oximetry Oxygen Devices in Use Now: None Appearance: tearful, anxious Eyes: No Scleral Icterus Ears/Nose/Mouth/Throat: NL Teeth, Lips, Gums Neck: NL Appearance and Movements; NL JVP Respiratory: Symmetrical Chest Expansion and Respiratory Effort, Clear to Auscultation Cardiovascular: NL Sounds; No Murmurs; No JVD, RRR Abdominal: NL Sounds; No Tenderness; No Distention Lymphatic: No Cervical Adenopathy Extremities: No Edema Skin: No Rash or Ulcers Neurological: Alert and Oriented x 3 Result Diagrams: 06/27/17 05:54 06/27/17 05:54 Additional Lab and Data: Diagnostic Imaging: Patient Name: CINDY BEAL Medical Record#: [id number] Ordering Physician: Lawrence Aguilar MD Acct.#: [id number] : 1940 Age: 77 Sex: F Location: EMERGENCY DEPARTMENT Exam Date: 06/23/17 134 ADM Status: REG ER Order Information: CHEST AP PORTABLE Accession Number: [id number] CPT: 45836 INDICATION: Short of breath COMPARISON: December 17, 2016 TECHNIQUE: An AP portable view obtained at 1355 hours is submitted. FINDINGS: Bones/Soft Tissues: There are no acute bony findings. Cardiomediastinal: The cardiomediastinal silhouette is normal. Lungs: There are no infiltrates. Pleura: There are no pleural effusions. Other: None IMPRESSION: NO ACTIVE DISEASE. <Electronically signed by Lawrence Grace MD in OV> 06/23/171418 Dictated By: Lawrence Grace MD Dictated Date/Time: 06/23/171418 Transcribed Date/Time: 06/23/171417 Copy to: Assess/Plan/Problems-Billing Assessment: This is a 77 year old female patient with history of asthma, cardiomyopathy, HTN , mild dementia and hypothyroidsm that presented to the ER with dyspnea and wheeze, admitted for asthma/COPD exacerbation and viral bronchitis, then noted to be fluid overloaded. - Patient Problems (1) Asthma attack Current Visit: Yes Status: Acute Code(s): J45.901 - UNSPECIFIED ASTHMA WITH (ACUTE) EXACERBATION SNOMED Code(s): 301451803 Comment: No documented hypoxia, but she was requiring 2L, now weaned off to room air Check amb pulse ox tomorrow prior to discharge Continue steroids, improving; taper today May have an environmental component--occurred after she was outdoors when it was warm last week Needs PFTs on discharge; she also reports heavy second hand smoke exposure, but has never had PFTs Will refer to Dr. Paz at discharge (2) Community acquired pneumonia Current Visit: Yes Status: Acute Code(s): J18.9 - PNEUMONIA, UNSPECIFIED ORGANISM SNOMED Code(s): 265120265 Comment: no infiltrate at admission, but being treated given high pretest probability Day 5 of 5, azithro/ceftriaxone (3) Cardiomyopathy Current Visit: No Status: Acute Code(s): I42.9 - CARDIOMYOPATHY, UNSPECIFIED SNOMED Code(s): 11342642 Comment: h/o takotsubo; repeat TTE this admission showed recovered EF she is euvolemic on exam today (4) Anxiety with depression Current Visit: No Status: Chronic Comment: This contributes heavily to her shortness of breath Continue home escitalopram and prn alprazolam (5) Diabetes mellitus Current Visit: Yes Status: Acute Code(s): E11.9 - TYPE 2 DIABETES MELLITUS WITHOUT COMPLICATIONS SNOMED Code(s): 49209784 Comment: this is a new diagnosis for her. I discussed this finding, and will start metformin. She reports her family members having GI upset and expresses concern over this, but we will start it tonight to see how she tolerates it. I explained that she may also develop symptoms after she is discharged, but that she can discontinue it if she does experience that and follow up with her pcp. Nutrition has been consulted and discussed home food choices with her, for which she is grateful. Status and Disposition: Remain inpatient
[2017-06-27] MEDS: ALPRAZolam TAB* 0.25 MG PO PRN (16:24)
[2017-06-27] MEDS: metFORMIN* 500 MG TAB PO SCH (16:26)
[2017-06-27] MEDS: cefTRIAXone(*) 1 GM in D5W 50 ML BAG* 50 ML IVPB SCH (17:55)
[2017-06-27] MEDS ORDERED: Azithromycin TAB* 250 MG PO ONE (18:30)
[2017-06-28] MEDS: methylPREDNISolone SOD 40 MG* 1 ML VIAL IV SCH (02:41)
[2017-06-28] MEDS: oxyCODONE TAB* 5 MG TAB PO PRN (03:48)
[2017-06-28] MEDS: oxyCODONE/Acetamin 5/325 MG* TAB PO PRN ×2 (03:48→13:03)
[2017-06-28] MEDS: ALPRAZolam TAB* 0.25 MG PO PRN (04:45)
[2017-06-28] MEDS: Levothyroxine TAB* 125 MCG TAB PO SCH (05:09)
[2017-06-28] MEDS: Heparin VIAL(*) 5000 UNITS/ML VIAL (FIVE THOUSAND) SUBCUT SCH (05:09)
[2017-06-28 07:55] VITALS: BP 150/84
[2017-06-28] MEDS: Omeprazole CAP* 20 MG PO SCH (08:36)
[2017-06-28] MEDS: Cetirizine* 10 MG TAB PO SCH (08:36)
[2017-06-28] MEDS: Losartan TAB* 25 MG PO SCH (08:36)
[2017-06-28] MEDS: metFORMIN* 500 MG TAB PO SCH (08:37)
[2017-06-28] MEDS: guaiFENesin ER TAB 600 MG PO SCH (08:37)
[2017-06-28] MEDS: CMCS: Escitalopram (NF) 10 MG TAB PO SCH (08:37)
[2017-06-28] MEDS: Insulin LISPRO* 1 UNITS UNIT SUBCUT SCH ×2 (08:37→12:16)
[2017-06-28] MEDS: Magnesium Hydroxide LIQ* 30 ML UDC PO SCH (08:45)
--- NOTE | 2017-06-29 19:55 | DS ---
CC: Dr. Brooks * DISCHARGE SUMMARY: DATE OF ADMISSION: 06/23/17 DATE OF DISCHARGE: 06/28/17 ADMITTING PROVIDER: FRANCISCO Eagle. ATTENDING PHYSICIAN: John Mancuso MD. PRIMARY CARE PHYSICIANS: Chantal Cobb NP., and Dr. Brooks. CHIEF COMPLAINT: Shortness of breath, cough, sore throat x1 day. PRINCIPAL DIAGNOSIS: Acute asthma exacerbation. HISTORY OF PRESENT ILLNESS/HOSPITAL COURSE: Skylar Mcfadden is a 77-year-old female with a past medical history of NSTEMI, asthma, obstructive sleep apnea, Takotsubo cardiomyopathy, posterior reversible encephalopathy syndrome, hypertension, who presented with shortness of breath, cough, and sore throat on the morning of admission. On the night prior to admission she went outside, given the unseasonably warm weather, and by next morning was significantly short of breath, with coughing, and her antihistamines did not provide any relief and neither did her albuterol inhaler. She began to feel panicky about her shortness of breath. She had subjective fevers and chills. She was placed on oxygen in the emergency room. She was having pleuritic chest pain without radiation, it was sharp. She denies sick contacts or flu-like symptoms. She recently was started on anticholesterol medication. In the emergency room she was found to have expiratory wheeze and coarse rhonchi throughout all lung lewis. She had a white count of 11.8 and lactic acidosis of 2.7. She was admitted for asthma exacerbation and viral bronchitis. She was started on Solu- Medrol, DuoNeb q.4 hours, azithromycin, ceftriaxone. Admission EKG showed some ST depressions in the septal and lateral leads. Initial troponin was negative. Denied any chest pain other than of a pleuritic nature. She had a chest x- ray which showed no active disease. She had a BNP of 366 on hospital day #3, up from 81 on admission. She had been net positive after fluid bolus in the emergency room, was given some diuresis. She had a transthoracic echocardiogram on 06/25/17, showed an ejection fraction of 55% to 60%, mild aortic stenosis, moderate pulmonary hypertension, RVSP of 46 mmHg. She had blood cultures with no growth x5 days. She had glucoses of 232 on admission, increased to mid 300s with steroids, and had an A1c level of 8.2. She, as a newly diagnosed diabetic, was started on metformin. She reported, although a never smoker, she had a very large exposure to second-hand smoke for many decades and is being recommended to follow up with Dr. Paz for pulmonary function test as an outpatient. She continued to improve and was off oxygen by 06/26/17, hospital day #4. She is being discharged with new medications of albuterol nebulizer and metformin along with pulse oximetry recording and a steroid taper. DISCHARGE MEDICATIONS: Include: 1. Albuterol inhaler MDI 1 puff inhaled q.6 hours. 2. Xanax 0.25 mg p.o. t.i.d. 3. Amlodipine 10 mg p.o. daily. 4. Lexapro 20 mg p.o. daily. 5. Flonase 2 sprays nasal daily. 6. Synthroid 125 mcg p.o. daily. 7. Losartan 50 mg p.o. b.i.d. 8. Metformin 500 mg p.o. b.i.d. (new). 9. Omeprazole 40 mg p.o. daily. 10. Percocet 1 tab p.o. q.4 hours. 11. Prednisone 50 mg daily for 5 days. 12. Albuterol 2.5 mg inhaled q.2 hours p.r.n., nebulized. DISCHARGE DIET: Carbohydrate consistent. ACTIVITY LEVEL: No restrictions. FOLLOWUP: Please follow up with Chantal Cobb NP, within 5 days of discharge, and Dr. Annalise Paz within 2 weeks' of discharge for pulmonary function testing. She was arranged to have visiting nursing services as well as professional home care to help set up her nebulizer machine and pulse oximetry. TIME SPENT ON DISCHARGE: Thirty-five minutes. [id number]/[facility] #: [id number] KEVIN
== END 2017-06-28 13:30 | disposition home health service (06) | DRG 202 ==
LOC: ED 13:28 → MED 17:17
PROVIDERS: ADMIT Internal Medicine; ATTEND Internal Medicine
DX: J45.901 Unspecified asthma with (acute) exacerbation (principal); E87.2 Acidosis; E11.22 Type 2 diabetes mellitus with diabetic chronic kidney disease; E87.70 Fluid overload, unspecified; I13.0 Hypertensive heart and chronic kidney disease with heart failure and stage 1 through stage 4 chronic kidney disease, or unspecified chronic kidney disease; I51.81 Takotsubo syndrome; I27.20 Pulmonary hypertension, unspecified; I50.9 Heart failure, unspecified; J20.8 Acute bronchitis due to other specified organisms; F03.90 Unspecified dementia, unspecified severity, without behavioral disturbance, psychotic disturbance, mood disturbance, and anxiety; E03.9 Hypothyroidism, unspecified; E78.00 Pure hypercholesterolemia, unspecified; K21.9 Gastro-esophageal reflux disease without esophagitis; M79.7 Fibromyalgia; M19.042 Primary osteoarthritis, left hand; M19.041 Primary osteoarthritis, right hand; M16.0 Bilateral primary osteoarthritis of hip; M19.012 Primary osteoarthritis, left shoulder; M19.011 Primary osteoarthritis, right shoulder; G43.909 Migraine, unspecified, not intractable, without status migrainosus; Z96.661 Presence of right artificial ankle joint; Z96.652 Presence of left artificial knee joint; E87.6 Hypokalemia; I25.10 Atherosclerotic heart disease of native coronary artery without angina pectoris; G89.29 Other chronic pain; F41.8 Other specified anxiety disorders; J02.9 Acute pharyngitis, unspecified; I35.0 Nonrheumatic aortic (valve) stenosis; N18.9 Chronic kidney disease, unspecified; G47.33 Obstructive sleep apnea (adult) (pediatric); R07.81 Pleurodynia; Z77.22 Contact with and (suspected) exposure to environmental tobacco smoke (acute) (chronic); Z88.2 Allergy status to sulfonamides; Z88.8 Allergy status to other drugs, medicaments and biological substances; Z88.0 Allergy status to penicillin; Z88.1 Allergy status to other antibiotic agents; Z91.041 Radiographic dye allergy status; I25.2 Old myocardial infarction; Z90.710 Acquired absence of both cervix and uterus; Z90.49 Acquired absence of other specified parts of digestive tract; Z82.49 Family history of ischemic heart disease and other diseases of the circulatory system; Z83.3 Family history of diabetes mellitus; Z82.5 Family history of asthma and other chronic lower respiratory diseases; Z79.84 Long term (current) use of oral hypoglycemic drugs; Z88.5 Allergy status to narcotic agent; Z80.51 Family history of malignant neoplasm of kidney
CPT/HCPCS: 36415; 71045; 80048; 80053; 81003; 83036; 83605; 83735; 83880; 84145; 84484; 85025; 85610; 85730; 86140; 87040; 87502; 93005; 93306; 94640; 94760; 99282; A9270-GY; J0456; J0696; J1644; J1940; J2920; J2930; J3475

== ENCOUNTER 2017-07-13 14:27 | Inpatient (IN) | payer MEDICARE, BC ==
[2017-07-13] MEDS ORDERED: Nitroglycerin TAB 0.4 MG* 0.4 MG TAB SL ONE (14:55)
[2017-07-13] MEDS ORDERED: Aspirin 81 mg CHEW TAB* 81 MG TAB.CHEW PO ONE (14:55)
[2017-07-13] MEDS ORDERED: Ondansetron INJ* 2 MG/ML VIAL IV ONE (15:11)
[2017-07-13] MEDS ORDERED: Ondansetron INJ* 2 MG/ML VIAL ONE (15:13)
[2017-07-13 15:15] LABS: ABS Basophils 0.1 10^3/ul (0-0.2); ABS Eosinophils 0.1 10^3/ul (0-0.6); ABS Lymphocytes 1.3 10^3/ul (1.0-4.8); ABS Monocytes 0.4 10^3/ul (0-0.8); ABS Neutrophils 3.2 10^3/ul (1.5-7.7); ABS Nucleated RBC 0 10^3/ul; Eosinophil % 2.1 % (0-6); Hematocrit 32 % (35-47); Hemoglobin 10.5 g/dl (12.0-16.0); Lymphocyte % 25.6 % (25-47); Mean Corpuscular HGB Conc 33 g/dl (31-36); Mean Corpuscular Hemoglobin 28 pg (27-31); Mean Corpuscular Volume 84 fL (80-97); Mean Platelet Volume 8 um3 (7.4-10.4); Nucleated Red Blood Cells % 0; Platelet Count 133 10^3/ul (150-450); Red Blood Count 3.81 10^6/ul (4.0-5.4); Red Cell Distribution Width 16 % (10.5-15); White Blood Count 5.1 10^3/ul (3.5-10.8)
[2017-07-13 15:24] LABS: INR 0.96 (0.77-1.02)
[2017-07-13 15:34] LABS: EGFR Non-African American 55.3 (>60)
[2017-07-13] MEDS ORDERED: Lidocaine 2% VISCOUS* 15 ML UDC PO ONE (15:42)
[2017-07-13] MEDS ORDERED: Al Hydrox/Mg Hydrox/Simet LIQ* 30 ML UDC PO ONE (15:42)
--- NOTE | 2017-07-13 15:55 | RAD ---
INDICATION: Epigastric and substernal chest pain. History of cardiomyopathy. Congestive heart failure. June 23, 2017 Asthma. COMPARISON: No relevant prior exams available on the [facility] for comparison. TECHNIQUE: Dual energy PA and routine lateral views of the chest were obtained. REPORT: Elevated lung volumes. No focal pulmonary lesion, compelling alveolar consolidation, pleural effusion, pneumothorax. The heart, pulmonary vasculature, and mediastinal contours are unremarkable. Unremarkable osseous structures for age. IMPRESSION: Stigmata of probable chronic obstructive pulmonary disease. No acute cardiopulmonary process evident.
--- NOTE | 2017-07-13 16:24 | RAD ---
HISTORY: Upper abdominal pain nausea COMPARISONS: October 15, 2016 VIEWS: Frontal views of the abdomen FINDINGS: BOWEL: There is a nonobstructive bowel gas pattern. There is a large amount of stool within the colon. CALCULI: There are no abnormal calculi. BONES AND SOFT TISSUES: Mild degenerative changes are noted OTHER FINDINGS: The lung bases are clear. There is no subphrenic gas. IMPRESSION: NONOBSTRUCTIVE BOWEL GAS PATTERN. LARGE AMOUNT OF STOOL THROUGHOUT THE COLON.
[2017-07-13] MEDS ORDERED: oxyCODONE/Acetamin 5/325 MG* TAB PO ONE (16:46)
[2017-07-13] MEDS ORDERED: Albuterol 2.5 MG/3 ML NEB.SOL* (0.083%) INH PRN (18:27)
[2017-07-13] MEDS ORDERED: oxyCODONE/Acetamin 10/325(NF) TAB PO PRN (18:32)
[2017-07-13] MEDS ORDERED: Dextrose 50% Syringe 50 ML* 25 GM/50 ML SYRINGE IV PUSH PRN (18:32)
[2017-07-13] MEDS ORDERED: Potassium Chlor TAB* 20 MEQ TAB.ER PO ONE (18:34)
[2017-07-13] MEDS ORDERED: Albuterol/Ipratropium NEB.SOL* Albuterol 2.5 MG/Ipratropium 0.5 MG 3 ML INH SCH (19:00)
[2017-07-13] MEDS: Mometasone/Formoter 200/5 MDI INH SCH (19:31)
--- NOTE | 2017-07-13 20:47 | RAD ---
HISTORY: Cough, chest pain COMPARISONS: December 16, 2015 TECHNIQUE: Multiple contiguous axial CT scans were obtained of the chest, abdomen, and pelvis, without intravenous contrast enhancement. Coronal and sagittal multiplanar reformations are submitted for review.. Oral contrast was administered. FINDINGS: The study is limited by the lack of intravenous contrast. This limits evaluation of the solid organs and vasculature. CHEST NECK AND THYROID: The lower neck and thyroid are unremarkable. CHEST WALL: There is no lower cervical, axillary, or supraclavicular lymphadenopathy by size criteria. HEART AND PERICARDIUM: Coronary and valvular cardiac calcifications are noted. AORTA AND PULMONARY VASCULATURE: There is calcification of the thoracic aorta. The pulmonary vasculature is unremarkable. MEDIASTINUM: There is no mediastinal lymphadenopathy by size criteria. RENAN: There is no hilar lymphadenopathy by size criteria. AIRWAY AND ESOPHAGUS: The airway is unremarkable, without endobronchial filling defect. The esophagus is grossly normal. LUNG PARENCHYMA: The lungs are clear. PLEURA: No pleural abnormalities are noted. BONES AND SOFT TISSUES: No bone or soft tissue abnormalities are noted. ABDOMEN/PELVIS: LIVER: The liver is diffusely low in attenuation compared to the spleen. There are no focal hepatic parenchymal masses. The liver measures 21 cm in long axis. BILE DUCTS: There is no intrahepatic or extrahepatic biliary dilatation. GALLBLADDER: The gallbladder is not visualized. Surgical clips are noted in the gallbladder fossa. PANCREAS: The pancreas is normal, without mass or ductal dilatation. SPLEEN: Normal in size and appearance. UPPER GI TRACT: Evaluation of the gastrointestinal tract is limited by incomplete gastric distention. The upper GI tract is unremarkable. SMALL BOWEL & MESENTERY: The small bowel is normal in contour, course, and caliber. There is no obstruction or dilatation. COLON: The colon is normal in contour, course, caliber. There is no pericolonic inflammatory change. There is a tubular, vermiform, hollow viscus that is blind ending, and originates from the cecum, consistent with a normal appendix. There is no periappendiceal inflammatory change. This is best seen on axial images 85 through 88. ADRENALS: Normal bilaterally. KIDNEYS: There is a horizontal deviation of the axis of the kidneys bilaterally. There is no appreciable hydronephrosis or nephrolithiasis. BLADDER: The bladder is collapsed and is not well evaluated. PELVIC ORGANS: The pelvic organs are not visualized. AORTA: The aorta is normal. IVC: Unremarkable LYMPH NODES: There is no lymphadenopathy by size criteria. ABDOMINAL WALL: There is no evidence for abdominal wall hernia. BONES AND SOFT TISSUES: There are mild diffuse degenerative changes. OTHER: None IMPRESSION: 1. HEPATOMEGALY WITH FATTY INFILTRATION OF THE LIVER. 2. ATHEROSCLEROSIS. 3. NO ACUTE NONCONTRAST CT PATHOLOGY OF THE VISUALIZED CHEST, ABDOMEN, OR PELVIS.
[2017-07-13] MEDS: Losartan TAB* 25 MG PO SCH (21:21)
[2017-07-13] MEDS: Senna TAB PO SCH (21:23)
[2017-07-13] MEDS: Docusate CAP* 100 MG PO SCH (21:23)
[2017-07-13] MEDS: Heparin VIAL(*) 5000 UNITS/ML VIAL (FIVE THOUSAND) SUBCUT SCH (21:26)
[2017-07-13] MEDS: Albuterol/Ipratropium NEB.SOL* Albuterol 2.5 MG/Ipratropium 0.5 MG 3 ML INH SCH (22:47)
[2017-07-13] MEDS: Oseltamivir CAP* 75 MG CAP PO SCH (23:17)
[2017-07-14] MEDS: Benzonatate CAP* 100 MG PO PRN ×2 (00:13→22:11)
[2017-07-14] MEDS: oxyCODONE TAB* 5 MG TAB PO PRN ×5 (00:14→17:14)
[2017-07-14] MEDS: oxyCODONE/Acetamin 5/325 MG* TAB PO PRN ×5 (00:14→17:14)
[2017-07-14] MEDS: Acetaminophen TAB* 325 MG PO PRN (02:20)
[2017-07-14 02:31] LABS: Urine Appearance Cloudy; Urine Blood Negative (Negative); Urine Color Yellow; Urine Ketones Negative (Negative); Urine Protein Negative (Negative); Urine Specific Gravity 1.021 (1.010-1.030); Urine Urobilinogen Negative (Negative)
[2017-07-14] MEDS: Albuterol/Ipratropium NEB.SOL* Albuterol 2.5 MG/Ipratropium 0.5 MG 3 ML INH SCH (03:54)
[2017-07-14 06:00] LABS: ABS Basophils 0 10^3/ul (0-0.2); ABS Eosinophils 0 10^3/ul (0-0.6); ABS Lymphocytes 0.7 10^3/ul (1.0-4.8); ABS Monocytes 0.3 10^3/ul (0-0.8); ABS Nucleated RBC 0 10^3/ul; Eosinophil % 0.9 % (0-6); Hematocrit 30 % (35-47); Hemoglobin 9.8 g/dl (12.0-16.0); Lymphocyte % 23.1 % (25-47); Mean Corpuscular HGB Conc 32 g/dl (31-36); Mean Corpuscular Hemoglobin 27 pg (27-31); Mean Corpuscular Volume 85 fL (80-97); Mean Platelet Volume 9 um3 (7.4-10.4); Nucleated Red Blood Cells % 0.1; Platelet Count 117 10^3/ul (150-450); Red Blood Count 3.59 10^6/ul (4.0-5.4); Red Cell Distribution Width 16 % (10.5-15); White Blood Count 3.2 10^3/ul (3.5-10.8)
[2017-07-14 06:07] LABS: INR 0.95 (0.77-1.02)
[2017-07-14 06:16] LABS: EGFR Non-African American 51.1 (>60)
[2017-07-14] MEDS: Levothyroxine TAB* 125 MCG TAB PO SCH (06:22)
[2017-07-14] MEDS: Heparin VIAL(*) 5000 UNITS/ML VIAL (FIVE THOUSAND) SUBCUT SCH ×3 (06:23→20:47)
[2017-07-14] MEDS: Ondansetron INJ* 2 MG/ML VIAL IV PRN (07:29)
[2017-07-14] MEDS: Omeprazole CAP* 20 MG PO SCH (07:29)
[2017-07-14] MEDS: Mometasone/Formoter 200/5 MDI INH SCH ×2 (08:11→20:29)
[2017-07-14] MEDS: Insulin LISPRO* 1 UNITS UNIT SUBCUT SCH ×3 (08:31→17:14)
[2017-07-14] MEDS: Docusate CAP* 100 MG PO SCH ×2 (08:47→20:46)
[2017-07-14] MEDS: FLUoxetine CAP* 20 MG PO SCH (08:48)
[2017-07-14] MEDS: Oseltamivir CAP* 75 MG CAP PO SCH ×2 (08:48→20:46)
[2017-07-14] MEDS: amLODIPine TAB* 5 MG PO SCH (08:48)
[2017-07-14] MEDS: Losartan TAB* 25 MG PO SCH ×2 (08:48→20:49)
--- NOTE | 2017-07-14 11:22 | HP ---
CC: Dr. Brooks * HISTORY AND PHYSICAL: DATE OF ADMISSION: 07/13/17 PRIMARY CARE PROVIDER: Dr. Brooks. ATTENDING PHYSICIAN WHILE IN THE HOSPITAL: Dr. Eusebia Jeffers * (report dictated by Arnoldo Mills NP). CHIEF COMPLAINT: 1. Cough. 2. Lower abdominal pain. 3. Chest pain. HISTORY OF PRESENT ILLNESS: Ms. Mcfadden is a 77-year-old female patient, who was recently here admitted and discharged. She was discharged about 2 weeks ago. She states that she has been feeling well with the exception in the last 3 days she has had again return of her cough progressively getting worse. She denies having any fevers or chills, but she states that since the weekend she has had worsening cough, it has been a dry cough. She just has not been feeling well. She had been feeling weak. She has had some chest discomfort particularly with taking a deep breath. She has had some lower abdominal cramping discomfort, abdominal discomfort. She denies any diarrhea. She does state that she has been having some nausea, but no vomiting. She denies having any abdominal pain currently, but she has also been having some chest discomfort , particularly when she coughs, particularly describes as a sharp stabbing pain , worse with taking a deep breath. She was evaluated today by visiting nurses. They were concerned because her O2 saturations were low. They were in the 80s. Her family member that is with her checked her saturations before visiting nurse got there and they were in the 70s. They were concerned because of these findings and the patient came into the hospital. She denied any fevers or chills. She does state that at times the cough can be productive of yellow sputum. She denies having any abdominal pain currently, but she admits having this cramping lower abdominal discomfort. There has been no reports of any dysuria or frequency, or no reports of flank or back pain. There has been shortness of breath particularly with exertion. The family again was concerned. She came into the ED and was evaluated. Because of the chest pain and abdominal pain, we were asked to evaluate for admission. PAST MEDICAL HISTORY: Significant for: 1. Diabetes. 2. 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 3. Hyperlipidemia. 4. Hypothyroidism. 5. Fibromyalgia. 6. GERD. 7. Depression. 8. History of NSTEMI. 9. Takotsubo cardiomyopathy. 10. History of SBO. 11. CKD. 12. MAGDA. PAST SURGICAL HISTORY: 1. She has had a hysterectomy. 2. She had a left knee replacement. 3. She has had a right knee arthroscopy. 4. She has had a right ankle arthroplasty. 5. She had Deric fundoplication. HOME MEDICATIONS: Include: 1. Crestor 10 mg p.o. daily. 2. Zofran 8 mg every 8 hours as needed. 3. Flexeril 10 mg p.o. b.i.d. 4. Pepcid 20 mg p.o. b.i.d. as needed. 5. Prozac 40 mg daily. 6. Prilosec 20 mg daily. 7. Cozaar 50 mg p.o. b.i.d. 8. Synthroid 125 mcg p.o. daily. 9. Metformin 500 mg p.o. b.i.d. 10. Amlodipine 10 mg p.o. daily. 11. Percocet 1 tablet every 4 hours as needed. ALLERGIES TO MEDICATIONS: Include TAPE, AMOXICILLIN, ARICEPT, DOXYCYCLINE, CYMBALTA, GABAPENTIN, IODINE, LEVAQUIN, PENICILLIN, LYRICA, SULFITE, ATORVASTATIN, FLUVASTATIN, MORPHINE, SIMVASTATIN, AND SULFA, WARFARIN. FAMILY HISTORY: Both her parents had CAD. SOCIAL HISTORY: She does not smoke. She does not drink. Surrogate decision maker is her daughter. REVIEW OF SYSTEMS: There is no documented fever. She did have a significant weight change, she gained about 5 pounds. She was given a p.r.n. dose of Bumex and now her weight is back down to her baseline. She denied having any orthopnea. No nocturnal dyspnea. There was chest pain from HPI. There was abdominal pain from the HPI, it does not get worse or better with food. There was nausea, but no vomiting. No dysuria, no frequency, no diarrhea. No lightheadedness, no loss of consciousness, no pruritus, and no skin ulcerations. Review of 14 systems completed, all others negative. PHYSICAL EXAMINATION GENERAL: At this time, Ms. Mcfadden is a 77-year-old female patient, she is sitting in the ED stretcher. She does not appear to be in any acute distress. VITAL SIGNS: Blood pressure 103/58, pulse 86, respirations 16, O2 saturation 98 % on room air, temperature 98.6. HEENT: Head is atraumatic, normocephalic. Eyes: EOMs are intact. Sclerae anicteric and not pale. Throat: Oral mucosa appears to be moist. No oropharyngeal erythema. NECK: Supple. LUNGS: She had wheezing noted on the left upper lobe, left lower lobe. She had equal diaphragmatic expansion. HEART: Sounds S1, S2. Regular rate and rhythm. No murmurs or gallops. ABDOMEN: Soft, flat. There was tenderness in the suprapubic area and in the left lower quadrant. Her abdomen was nondistended. Bowel sounds were present. EXTREMITIES: Pulses were 2+ throughout. She had no peripheral edema. She is moving all 4 extremities, 5/5 strength. NEUROLOGIC: The patient is awake, alert. She is oriented x3. She had no gross focal deficits. SKIN: Intact. LABORATORY DATA/DIAGNOSTIC DATA: WBC of 5.1, RBC of 3.81, hemoglobin of 10.5, hematocrit of 32, platelet count of 133, INR 0.96. Sodium 138, potassium 3.2, chloride 102, bicarb 30, BUN 10, creatinine 0.98, glucose 125, lactic 0.6, calcium 8.7, total bilirubin 0.5, AST 12, ALT 8, alk phos 35, troponin 0.02, albumin is 3.5. Lipase was negative. She had an abdominal and pelvis x-ray obtained today. Impression: Nonobstructive bowel gas pattern, large amount of stool throughout the colon. She had a chest x- ray obtained today. Impression: Stigmata of probable COPD. No acute cardiopulmonary process evident. She had an EKG obtained today. She had a normal sinus rhythm, rate of 89, no ST elevations or T-wave inversions were noted. Old medical records were reviewed. ASSESSMENT AND PLAN: Ms. Mcfadden is a 77-year-old female patient coming into the ED today with complaints of cough, wheezing, and hypoxia. We were asked to evaluate for admission. She will admitted under observation status for: 1. Shortness of breath, chest pain, hypoxia. Again, at this point she is wheezing on exam. She has been coughing, bringing up yellow sputum at times. Suspect that she may have another bronchitis, in addition to this she may have influenza. She was hospitalized just a couple of weeks ago. I do think we should get a flu swab. We should put her on inhaled steroids, as p.o. steroids did increase her sugars and she required metformin. Inhaled steroids. Nebs every 4 hours. Pulmonary toileting, get the legionella antigen, strep pneumo antigen, try to get a sputum culture. If she does not improve then I would consider doing a V/Q scan. She is allergic to IV dye, but at this point she is not tachycardic and she is not tachypneic. At this point she is not having any calf pain or leg pain. I think PE is less likely and she is wheezing on exam so I think if she does not improve again I probably try a v/Q scan, but at this point I am going to get a CAT scan of her chest because she is allergic to iodine. I would like to get a CAT scan of her chest because she is back again within two weeks of recent admission here. She is not having a fever and no white count so I do not think she needs antibiotics just yet. Should she have a fever then I would put her on probably broad-spectrum antibiotics, but there is no white count or fever. I think we can hold off on that and we will continue to follow. 2. Abdominal pain, this could be secondary to constipation. I did order Colace and Senna. My plan would be to go ahead and get a CT of the abdomen and pelvis with p.o. contrast just to make sure there is no obstruction, but I suspect this is less likely. She is nondistended. Bowel sounds are present. She has not been vomiting. We will continue to follow this. 3. Diabetes, again this is a recent diagnosis. She was placed on metformin. I am going to check the A1c to see where she is at with this and we will continue to follow. 4. Hypertension. We will continue medicines as described. 5. Hyperlipidemia. Continue medications as described. 6. GERD. Continue PPI therapy. 7. History of fibromyalgia and chronic pain. Continue medications as described if stable. 8. Hypothyroidism. Continue her Synthroid. 9. Depression. Continue supportive care. 10. History of NSTEMI and takotsubo cardiomyopathy. I will go ahead and place her on telemetry and cycle her troponin. She did have an echo done here on the 25 of June, which showed an EF of 55% to 60% so I do not think we need to repeat that. 11. SBO. Again, we are getting the CAT scan. I do not think she is obstructive, at this point we will monitor. 12. MAGDA. She does not wear a mask. 13. DVT prophylaxis. Heparin subcu has been ordered. 14. Code status. She wishes to be a full code. She is going to talk to her family about possible DNR, will need to follow up with this. 15. Fluids, electrolytes, and nutrition. She can have a clear liquid diet. TIME SPENT: Time spent on the admission was 60 minutes; greater than half the time spent [id number] with the patient obtaining my history and physical, other half of the time spent going over the plan of care with the patient and implementing the plan of care. I did discuss the plan of care with my attending, Dr. Jeffers. She is in agreement. ARNOLDO MILLS NP [id number]/CPS #: [id number] KEVIN
[2017-07-14] MEDS: Magnesium Hydroxide LIQ* 30 ML UDC PO PRN (12:56)
--- NOTE | 2017-07-14 15:13 | PN ---
Subjective Date of Service: 07/14/17 Interval History: still feels bad today. complains of abdominal cramping and constipation, cough , generalized malaise. Objective Active Medications: Acetaminophen (Tylenol Tab*) 650 mg PO Q4H PRN PRN Reason: FEVER/PAIN Last Admin: 07/14/17 02:20 Dose: 650 mg Al Hydrox/Mg Hydrox/Simethicone (Maalox Plus*) 30 ml PO Q4H PRN PRN Reason: INDIGESTION Albuterol (Ventolin 2.5 Mg/3 Ml Neb.Sasha*) 2.5 mg INH Q2H PRN PRN Reason: SOB/WHEEZING Albuterol/Ipratropium (Duoneb (Albuterol 2.5 Mg/Ipratropium 0.5 Mg)) 1 neb INH Q4H PRN PRN Reason: SOB/WHEEZING Amlodipine Besylate (Norvasc Tab*) 10 mg PO DAILY [facility] Last Admin: 07/14/17 08:48 Dose: 10 mg Benzonatate (Tessalon Cap*) 100 mg PO BID PRN PRN Reason: COUGH Last Admin: 07/14/17 00:13 Dose: 100 mg Cyclobenzaprine HCl (Flexeril Tab*) 10 mg PO BID PRN PRN Reason: SPASMS - MUSCLE Dextrose (D50w Syringe 50 Ml*) 12.5 gm IV PUSH .FOR FS < 60 - SS PRN PRN Reason: FS < 60 Docusate Sodium (Colace Cap*) 100 mg PO BID [facility] Last Admin: 07/14/17 08:47 Dose: 100 mg Famotidine (Pepcid Tab*) 20 mg PO BID PRN PRN Reason: NAUSEA/VOMITING Fluoxetine HCl (Prozac Cap*) 40 mg PO DAILY [facility] Last Admin: 07/14/17 08:48 Dose: 40 mg Heparin Sodium (Porcine) (Heparin Vial(*)) 5,000 units SUBCUT Q8HR [facility] Last Admin: 07/14/17 13:57 Dose: 5,000 units Insulin Human Lispro (Humalog*) 0 units SUBCUT AC [facility] PRN Reason: Protocol Last Admin: 07/14/17 12:14 Dose: 3 units Levothyroxine Sodium (Synthroid Tab*) 125 mcg PO DAILY@0600 [facility] Last Admin: 07/14/17 06:22 Dose: 125 mcg Losartan Potassium (Cozaar Tab*) 50 mg PO BID [facility] Last Admin: 07/14/17 08:48 Dose: 50 mg Magnesium Hydroxide (Milk Of Magnesia Liq*) 30 ml PO Q6H PRN PRN Reason: CONSTIPATION Last Admin: 07/14/17 12:56 Dose: 30 ml Mometasone Furoate/Formoterol Fumar (Dulera 200/5 Mdi*) 2 puff INH BID [facility] Last Admin: 07/14/17 08:11 Dose: 2 puff Omeprazole (Prilosec Cap*) 20 mg PO DAILY@0730 [facility] Last Admin: 07/14/17 07:29 Dose: 20 mg Ondansetron HCl (Zofran Inj*) 4 mg IV Q6H PRN PRN Reason: NAUSEA Last Admin: 07/14/17 07:29 Dose: 4 mg Oseltamivir Phosphate (Tamiflu Cap*) 75 mg PO BID [facility] Stop: 07/18/17 09:01 Last Admin: 07/14/17 08:48 Dose: 75 mg Oxycodone HCl (Roxycodone Tab*) 5 mg PO Q4H PRN PRN Reason: PAIN Last Admin: 07/14/17 12:56 Dose: 5 mg Oxycodone/Acetaminophen (Percocet 5/325 Tab*) 1 tab PO Q4H PRN PRN Reason: PAIN Last Admin: 07/14/17 12:55 Dose: 1 tab Rosuvastatin Calcium (Crestor (Nf)) 10 mg PO DAILY [facility] PRN Reason: Protocol Last Admin: 07/14/17 08:48 Dose: 10 mg Senna (Senokot Tab*) 2 tab PO BEDTIME [facility] Last Admin: 07/13/17 21:23 Dose: 2 tab Vital Signs - 8 hr 07/14/17 07/14/17 07/14/17 07:35 08:18 08:36 Temperature 99.2 F Pulse Rate 84 93 Respiratory 18 16 20 Rate Blood Pressure 127/56 (mmHg) O2 Sat by Pulse 91 89 Oximetry 07/14/17 07/14/17 07/14/17 08:47 10:14 10:20 Temperature Pulse Rate 93 Respiratory 18 14 18 Rate Blood Pressure (mmHg) O2 Sat by Pulse 91 Oximetry 07/14/17 07/14/17 07/14/17 11:44 12:55 12:56 Temperature 98.5 F Pulse Rate 83 Respiratory 16 18 18 Rate Blood Pressure 99/47 (mmHg) O2 Sat by Pulse 90 Oximetry 07/14/17 14:36 Temperature Pulse Rate Respiratory 18 Rate Blood Pressure (mmHg) O2 Sat by Pulse Oximetry Oxygen Devices in Use Now: None Appearance: alert, tired, no distress, able to speak in full sentences Eyes: No Scleral Icterus Ears/Nose/Mouth/Throat: NL Teeth, Lips, Gums Neck: NL Appearance and Movements; NL JVP Respiratory: Symmetrical Chest Expansion and Respiratory Effort, - - few crackles at the bases Abdominal: - - mildly tender to deep palpation Lymphatic: No Cervical Adenopathy Extremities: - - trace le edema Skin: No Rash or Ulcers Neurological: Alert and Oriented x 3 Result Diagrams: 07/14/17 05:52 07/14/17 05:52 Microbiology and Other Data: Microbiology 07/13/17 19:24 Influenza Types A,B Antigen (DENISSE) - Final Nasopharyngeal Specimen received for Influenza A/B Molecular testing Assess/Plan/Problems-Billing Assessment: 77 yo female with history of MAGDA, DM, asthma, and pulmonary htn who presented yesterday after VNS found her to be hypoxic at home with multiple complaints including abdominal pain, chest pain, and generalized not feeling well, found to be flu + - Patient Problems (1) Acute respiratory failure with hypoxia Current Visit: Yes Status: Acute Code(s): J96.01 - ACUTE RESPIRATORY FAILURE WITH HYPOXIA SNOMED Code(s): 04742240 Comment: likely related to pulmonary htn; no pulmonary edema and actually 6kg below discharge weight 3 weeks ago. she may need home O2; will try to wean down (2) Influenza B Current Visit: Yes Status: Acute Code(s): J10.1 - FLU DUE TO OTH IDENT INFLUENZA VIRUS W OTH RESP MANIFEST SNOMED Code(s): 67714545 Comment: tamiflu day 2 (3) Pulmonary HTN Current Visit: Yes Status: Acute Code(s): I27.20 - PULMONARY HYPERTENSION, UNSPECIFIED SNOMED Code(s): 83539958 Comment: likely type III in relation to MAGDA and asthma I suspect this is the underlying cause of her ongoing shortness of breath and hypoxia, as she does not have pulmonary edema or bronchospasm (4) Diabetes mellitus Current Visit: No Status: Acute Code(s): E11.9 - TYPE 2 DIABETES MELLITUS WITHOUT COMPLICATIONS SNOMED Code(s): 33532932 Comment: holding metformin; continue lispro sliding scale (5) MAGDA (obstructive sleep apnea) Current Visit: No Status: Acute Code(s): G47.33 - OBSTRUCTIVE SLEEP APNEA ( ADULT) (PEDIATRIC) SNOMED Code(s): 25772600 Comment: not on cpap check trending pulse ox nocturnal (6) GERD (gastroesophageal reflux disease) Current Visit: No Status: Chronic Code(s): K21.9 - GASTRO-ESOPHAGEAL REFLUX DISEASE WITHOUT ESOPHAGITIS SNOMED Code(s): 816867713 Comment: add maalox today
[2017-07-14 15:29] LABS: Urine Appearance Cloudy; Urine Blood 1+ (Negative); Urine Color Amber; Urine Ketones Negative (Negative); Urine Protein 1+(30 mg/dL) (Negative); Urine Specific Gravity 1.027 (1.010-1.030); Urine Urobilinogen Negative (Negative)
[2017-07-14] MEDS: Senna TAB PO SCH (20:46)
[2017-07-14] MEDS: Al Hydrox/Mg Hydrox/Simet LIQ* 30 ML UDC PO PRN (22:11)
[2017-07-15] MEDS: oxyCODONE TAB* 5 MG TAB PO PRN ×2 (02:21→11:57)
[2017-07-15] MEDS: Famotidine TAB* 20 MG PO PRN (03:51)
[2017-07-15] MEDS: Levothyroxine TAB* 125 MCG TAB PO SCH (05:35)
[2017-07-15] MEDS: Heparin VIAL(*) 5000 UNITS/ML VIAL (FIVE THOUSAND) SUBCUT SCH ×3 (05:35→22:14)
[2017-07-15] MEDS: FLUoxetine CAP* 20 MG PO SCH (08:04)
[2017-07-15] MEDS: Omeprazole CAP* 20 MG PO SCH (08:04)
[2017-07-15] MEDS: Docusate CAP* 100 MG PO SCH ×2 (08:04→20:44)
[2017-07-15] MEDS: Losartan TAB* 25 MG PO SCH (08:04)
[2017-07-15] MEDS: amLODIPine TAB* 5 MG PO SCH (08:04)
[2017-07-15] MEDS: Oseltamivir CAP* 75 MG CAP PO SCH ×2 (08:05→20:43)
[2017-07-15] MEDS: Insulin LISPRO* 1 UNITS UNIT SUBCUT SCH ×3 (08:05→17:18)
[2017-07-15] MEDS: Mometasone/Formoter 200/5 MDI INH SCH ×2 (09:13→22:14)
[2017-07-15] MEDS: Albuterol/Ipratropium NEB.SOL* Albuterol 2.5 MG/Ipratropium 0.5 MG 3 ML INH PRN (09:19)
[2017-07-15] MEDS: Magnesium Hydroxide LIQ* 30 ML UDC PO PRN (11:57)
[2017-07-15] MEDS: Al Hydrox/Mg Hydrox/Simet LIQ* 30 ML UDC PO PRN (11:57)
[2017-07-15] MEDS: oxyCODONE/Acetamin 5/325 MG* TAB PO PRN (11:58)
[2017-07-15] MEDS: Ondansetron INJ* 2 MG/ML VIAL IV PRN (14:33)
--- NOTE | 2017-07-15 18:58 | PN ---
Subjective Date of Service: 07/15/17 Interval History: feels worse today. sleepy, "pain all over my body." did not go for a walk today, did not feel up to it. still on 3L o2. Objective Active Medications: Acetaminophen (Tylenol Tab*) 650 mg PO Q4H PRN PRN Reason: FEVER/PAIN Last Admin: 07/14/17 02:20 Dose: 650 mg Al Hydrox/Mg Hydrox/Simethicone (Maalox Plus*) 30 ml PO Q4H PRN PRN Reason: INDIGESTION Last Admin: 07/15/17 11:57 Dose: 30 ml Albuterol (Ventolin 2.5 Mg/3 Ml Neb.Sasha*) 2.5 mg INH Q2H PRN PRN Reason: SOB/WHEEZING Albuterol/Ipratropium (Duoneb (Albuterol 2.5 Mg/Ipratropium 0.5 Mg)) 1 neb INH Q4H PRN PRN Reason: SOB/WHEEZING Last Admin: 07/15/17 09:19 Dose: 1 neb Amlodipine Besylate (Norvasc Tab*) 10 mg PO DAILY [facility] Last Admin: 07/15/17 08:04 Dose: 10 mg Benzonatate (Tessalon Cap*) 100 mg PO BID PRN PRN Reason: COUGH Last Admin: 07/14/17 22:11 Dose: 100 mg Cyclobenzaprine HCl (Flexeril Tab*) 10 mg PO BID PRN PRN Reason: SPASMS - MUSCLE Dextrose (D50w Syringe 50 Ml*) 12.5 gm IV PUSH .FOR FS < 60 - SS PRN PRN Reason: FS < 60 Docusate Sodium (Colace Cap*) 100 mg PO BID [facility] Last Admin: 07/15/17 08:04 Dose: 100 mg Famotidine (Pepcid Tab*) 20 mg PO BID PRN PRN Reason: NAUSEA/VOMITING Last Admin: 07/15/17 03:51 Dose: 20 mg Fluoxetine HCl (Prozac Cap*) 40 mg PO DAILY [facility] Last Admin: 07/15/17 08:04 Dose: 40 mg Guaifenesin (Mucinex*) 600 mg PO BID [facility] Heparin Sodium (Porcine) (Heparin Vial(*)) 5,000 units SUBCUT Q8HR [facility] Last Admin: 07/15/17 14:29 Dose: 5,000 units Insulin Human Lispro (Humalog*) 0 units SUBCUT [facility] PRN Reason: Protocol Last Admin: 07/15/17 17:18 Dose: 2 units Levothyroxine Sodium (Synthroid Tab*) 125 mcg PO DAILY@0600 [facility] Last Admin: 07/15/17 05:35 Dose: 125 mcg Magnesium Hydroxide (Milk Of Magnesia Liq*) 30 ml PO Q6H PRN PRN Reason: CONSTIPATION Last Admin: 07/15/17 11:57 Dose: 30 ml Mometasone Furoate/Formoterol Fumar (Dulera 200/5 Mdi*) 2 puff INH BID [facility] Last Admin: 07/15/17 09:13 Dose: 2 puff Omeprazole (Prilosec Cap*) 20 mg PO DAILY@0730 [facility] Last Admin: 07/15/17 08:04 Dose: 20 mg Ondansetron HCl (Zofran Inj*) 4 mg IV Q6H PRN PRN Reason: NAUSEA Last Admin: 07/15/17 14:33 Dose: 4 mg Oseltamivir Phosphate (Tamiflu Cap*) 75 mg PO BID [facility] Stop: 07/18/17 09:01 Last Admin: 07/15/17 08:05 Dose: 75 mg Oxycodone HCl (Roxycodone Tab*) 5 mg PO Q4H PRN PRN Reason: PAIN Last Admin: 07/15/17 11:57 Dose: 5 mg Oxycodone/Acetaminophen (Percocet 5/325 Tab*) 1 tab PO Q4H PRN PRN Reason: PAIN Last Admin: 07/15/17 11:58 Dose: 1 tab Prednisone (Deltasone Tab*) 40 mg PO DAILY [facility] Rosuvastatin Calcium (Crestor (Nf)) 10 mg PO DAILY [facility] PRN Reason: Protocol Last Admin: 07/15/17 08:04 Dose: 10 mg Senna (Senokot Tab*) 2 tab PO BEDTIME [facility] Last Admin: 07/14/17 20:46 Dose: 2 tab Vital Signs - 8 hr 07/15/17 07/15/17 07/15/17 11:18 11:22 11:57 Temperature 98.7 F Pulse Rate 83 82 Respiratory 20 20 Rate Blood Pressure 94/40 (mmHg) O2 Sat by Pulse 95 Oximetry 07/15/17 07/15/17 07/15/17 11:58 12:03 13:55 Temperature Pulse Rate Respiratory 20 18 Rate Blood Pressure 94/40 (mmHg) O2 Sat by Pulse Oximetry 07/15/17 15:36 Temperature 97.6 F Pulse Rate 80 Respiratory 16 Rate Blood Pressure 93/50 (mmHg) O2 Sat by Pulse 92 Oximetry Oxygen Devices in Use Now: Nasal Cannula Result Diagrams: 07/14/17 05:52 07/14/17 05:52 Microbiology and Other Data: Microbiology 07/13/17 19:24 Influenza Types A,B Antigen (DENISSE) - Final Nasopharyngeal Specimen received for Influenza A/B Molecular testing Assess/Plan/Problems-Billing Assessment: 77 yo female with history of MAGDA, DM, asthma, and pulmonary htn who presented yesterday after VNS found her to be hypoxic at home with multiple complaints including abdominal pain, chest pain, and generalized not feeling well, found to be flu + - Patient Problems (1) Acute respiratory failure with hypoxia Current Visit: Yes Status: Acute Code(s): J96.01 - ACUTE RESPIRATORY FAILURE WITH HYPOXIA SNOMED Code(s): 92350853 Comment: likely related to pulmonary htn; no pulmonary edema and actually 6kg below discharge weight 3 weeks ago. had no wheezing yesterday, but does have some today, so will start prednisone she may need home O2; will try to wean down (2) Influenza B Current Visit: Yes Status: Acute Code(s): J10.1 - FLU DUE TO OTH IDENT INFLUENZA VIRUS W OTH RESP MANIFEST SNOMED Code(s): 38774738 Comment: tamiflu day 3 (3) Pulmonary HTN Current Visit: Yes Status: Acute Code(s): I27.20 - PULMONARY HYPERTENSION, UNSPECIFIED SNOMED Code(s): 80172900 Comment: likely type III in relation to MAGDA and asthma I suspect this is contributing to her ongoing shortness of breath and hypoxia (4) Diabetes mellitus Current Visit: No Status: Acute Code(s): E11.9 - TYPE 2 DIABETES MELLITUS WITHOUT COMPLICATIONS SNOMED Code(s): 12033374 Comment: holding metformin; continue lispro sliding scale (5) MAGDA (obstructive sleep apnea) Current Visit: No Status: Acute Code(s): G47.33 - OBSTRUCTIVE SLEEP APNEA ( ADULT) (PEDIATRIC) SNOMED Code(s): 21835944 Comment: continue nocturnal cpap--she says she tried to wear it at home but usually can't tolerate it through the night. (6) GERD (gastroesophageal reflux disease) Current Visit: No Status: Chronic Code(s): K21.9 - GASTRO-ESOPHAGEAL REFLUX DISEASE WITHOUT ESOPHAGITIS SNOMED Code(s): 384528267 Comment: maalox prn (7) Chronic pain syndrome Current Visit: Yes Status: Acute Code(s): G89.4 - CHRONIC PAIN SYNDROME SNOMED Code(s): 956415496 Comment: fibromyalgia unfortunately she has been maintained on oxycodone chronically and is dependent on it
[2017-07-15] MEDS: Senna TAB PO SCH (20:44)
[2017-07-15] MEDS: guaiFENesin ER TAB 600 MG PO SCH (20:44)
--- NOTE | 2017-07-15 22:02 | CONS ---
PULMONARY CONSULTATION REPORT: DATE OF CONSULT: 07/15/17 CONSULTATION REQUESTED BY: Eusebia Jeffers DO REASON FOR CONSULT: Evaluation of shortness of breath and hypoxemia. HISTORY OF PRESENT ILLNESS: The patient is a 77-year-old morbidly obese female with history of asthma, obstructive sleep apnea, Takotsubo cardiomyopathy, NSTEMI, reversible encephalopathy syndrome, fibromyalgia, depression, and GERD. The patient recently was hospitalized 2 weeks ago for evaluation of shortness of breath and was attributed to acute asthma exacerbation. The patient subsequently was discharged home, presents a week later with worsening shortness of breath, cough, discomfort in the chest and upper abdomen area. The patient tested positive for influenza and was started on Tamiflu. The patient also has been noted to be hypoxemic and is requiring O2 supplementation at 3 L per minute. The patient was seen and examined at bedside. The patient is sitting up in chair, is falling asleep and appears tired. The patient has not been taking deep breaths that was noticed during the interview. The patient is easily arousable, reports that she is feeling drained. The patient reports discomfort taking deep breath. The patient also reports cough. The patient denies fevers or chills at home. The patient's cough is mostly dry in nature. The patient also reports vague abdominal discomfort. The patient reports that her chest discomfort is worse when she takes deep breath or when she tries to cough. The patient was noted to have hypoxemia with O2 sats in 80s on arrival in the emergency room and was placed on supplemental oxygen which is at 3 L per minute. The patient also reports that she has been having dry cough mostly with productive of yellow phlegm intermittently. The patient had CT scan of the chest abdomen and pelvis. I have personally reviewed the images with the patient today. The patient with no significant abnormality noted on CT chest and no acute abdominal issues noted. Evidence of patchy airspace opacity in the right middle lobe area which could be indicative of atelectasis. The patient did not have elevated white count. Her platelet count did drop significantly from recent admission. The patient has history of chronic normocytic anemia. The patient with elevated creatinine since the last admission. Lactic acid was within normal limits. Troponins were also within normal limits. Procalcitonin was normal. BNP was within normal limits. The patient tested positive for influenza B and was started on Tamiflu. The patient does have wheezing on auscultation, however, is not visibly tachypneic. The patient was also started on Dulera. The patient has been receiving nebulizer treatments. Her blood pressure is on lower end; however, she is on 2 blood pressure medications and normally runs low. She is not tachycardiac, however. PAST MEDICAL HISTORY: 1. Diabetes. 2. Hypertension with reversible encephalopathy syndrome. 3. Hyperlipidemia. 4. Hypothyroidism. 5. Fibromyalgia. 6. GERD. 7. Depression. 8. NSTEMI. 9. Takotsubo cardiomyopathy. 10. History of small bowel obstruction. 11. Chronic kidney disease. 12. Sleep apnea. PAST SURGICAL HISTORY: 1. Hysterectomy. 2. Left knee replacement. 3. Right knee arthroscopy. 4. Right ankle arthroplasty. 5. Deric fundoplication. MEDICATIONS: 1. Crestor. 2. Zofran. 3. Flexeril. 4. Pepcid. 5. Prozac. 6. Prilosec. 7. Cozaar. 8. Synthroid. 9. Metformin. 10. Amlodipine. 11. Percocet. ALLERGIES: TAPE, AMOXICILLIN, ARICEPT, DOXYCYCLINE, CYMBALTA, GABAPENTIN, IODINE, LEVAQUIN, PENICILLIN, LYRICA, SULFITE, ATORVASTATIN, FLUVASTATIN, MORPHINE, SIMVASTATIN, SULFA, and WARFARIN. FAMILY HISTORY: Both her parents had coronary artery disease. SOCIAL HISTORY: Does not smoke or drink alcohol. REVIEW OF SYSTEMS: All 14 systems reviewed and as per HPI. Other pertinent positives include weight gain of 5 pounds since the past visit and also takes Bumex as needed. PHYSICAL EXAM: The patient sitting in bed, in no apparent distress. The patient falling asleep frequently during the interview. Vital Signs: Temperature 97.6, heart rate 80 beats per minute, respiratory rate 16 per minute , O2 sat 92% on 3 L, blood pressure 93/50. HEENT: Pupils are equal and reactive to light, mucous membranes moist. Mallampati class IV airway. Lungs: Diffuse wheezing bilaterally, distant breath sounds, decreased breath sounds at bases. Cardiovascular: S1, S2 present, regular. No murmurs, gallops, or rubs. Abdomen: Obese. Bowel sounds present. Nontender, nondistended. Extremities: Normal range of motion. No edema. Neurologic: No focal deficits. Skin: No rash or bruises. DIAGNOSTIC STUDIES/LAB DATA: WBC count 5.1, hemoglobin 10.5, hematocrit 32, platelet count is 133 with drop from 241 last visit. Sodium 137, potassium 3.7, chloride 102, bicarb 29, BUN 11, creatinine 1.05 with normal troponins, normal BMP, normal procalcitonin and lactate. Influenza B was positive. Sputum cultures negative to date. Legionella and strep pneumo antigens were negative. CT chest as describes above in HPI. Echocardiogram from last visit from 06/25/17 showed evidence of moderate pulmonary hypertension with normal systolic function, could not evaluate for diastolic dysfunction. IMPRESSION AND RECOMMENDATIONS: 77-year-old morbidly obese female with history of asthma with recent exacerbation, normally with well controlled asthma with history of sleep apnea not being treated currently, however, has mild sleep apnea, recent hospitalization for acute COPD exacerbation, readmitted with worsening shortness of breath, found to have influenza B positivity. 1. Influenza with possible viral bronchitis. 2. Acute asthma exacerbation. 3. Hypoxemia likely combination of acute bronchospasm, atelectasis secondary to poor inspiratory effort, contribution from obesity, hypoventilation and pulmonary hypertension. 4. Pulmonary hypertension likely secondary to underlying sleep apnea. The patient with acute reactive airways disease, would benefit from steroids and initiating bronchodilators. We will order prednisone 40 mg. Given history of diabetes, we will need to monitor closely. Hypoxemia could be from underlying lung disease, bronchospasm and pulmonary hypertension. Encouraged the patient to take deep breath, incentive spirometry. Continue with bronchodilators q. 4 hours. Continue with O2 supplementation. For now, would recommend repeating overnight oximetry when the patient is clinically improved. She appears to be having significant hypoxemia in spite of O2 supplementation as noted on overnight oximetry. I do not appreciate significant parenchymal abnormality. She is at risk for pulmonary embolism; however, hypoxemia could be explained by the current illness , if the patient does not appears to be improving with current management would then recommend obtaining CTA. I would like to avoid more contrast dye given renal insufficiency. A V/Q scan could be considered since she does have normal lungs. The patient's blood pressure is kind of borderline at this time. I would recommend lowering the dose of her current blood pressure medications. Thank you for allowing me to participate in the care of your patient. The patient was also educated on importance of compliance with CPAP, she agreed to use CPAP once discharged. [id number]/[facility] #: [id number] [facility]
[2017-07-16] MEDS: Heparin VIAL(*) 5000 UNITS/ML VIAL (FIVE THOUSAND) SUBCUT SCH ×3 (05:45→20:52)
[2017-07-16] MEDS: Levothyroxine TAB* 125 MCG TAB PO SCH (05:45)
[2017-07-16] MEDS: oxyCODONE TAB* 5 MG TAB PO PRN ×2 (05:45→16:27)
[2017-07-16 06:15] LABS: ABS Basophils 0 10^3/ul (0-0.2); ABS Eosinophils 0.1 10^3/ul (0-0.6); ABS Monocytes 0.4 10^3/ul (0-0.8); ABS Nucleated RBC 0 10^3/ul; Eosinophil % 2.2 % (0-6); Hematocrit 31 % (35-47); Hemoglobin 10.4 g/dl (12.0-16.0); Lymphocyte % 28.5 % (25-47); Mean Corpuscular HGB Conc 33 g/dl (31-36); Mean Corpuscular Hemoglobin 28 pg (27-31); Mean Corpuscular Volume 84 fL (80-97); Mean Platelet Volume 8.7 um3 (7.4-10.4); Nucleated Red Blood Cells % 0.1; Platelet Count 171 10^3/ul (150-450); Red Blood Count 3.72 10^6/ul (4.0-5.4); Red Cell Distribution Width 16 % (10.5-15); White Blood Count 3.5 10^3/ul (3.5-10.8)
[2017-07-16] MEDS: Mometasone/Formoter 200/5 MDI INH SCH ×2 (07:23→19:45)
[2017-07-16] MEDS: Oseltamivir CAP* 75 MG CAP PO SCH ×2 (08:43→20:52)
[2017-07-16] MEDS: FLUoxetine CAP* 20 MG PO SCH (08:43)
[2017-07-16] MEDS: guaiFENesin ER TAB 600 MG PO SCH ×2 (08:43→20:52)
[2017-07-16] MEDS: Omeprazole CAP* 20 MG PO SCH (08:43)
[2017-07-16] MEDS: Insulin LISPRO* 1 UNITS UNIT SUBCUT SCH ×3 (08:43→17:14)
[2017-07-16] MEDS: Docusate CAP* 100 MG PO SCH ×2 (08:43→20:51)
[2017-07-16] MEDS: predniSONE TAB* 20 MG PO SCH (08:44)
[2017-07-16] MEDS: amLODIPine TAB* 5 MG PO SCH (09:37)
[2017-07-16] MEDS ORDERED: LORazepam INJ* 2 MG/ML 1 ML VIAL ONE (10:50)
[2017-07-16 12:10] LABS: EGFR Non-African American 56.7 (>60)
--- NOTE | 2017-07-16 12:28 | PN ---
Subjective Date of Service: 07/16/17 Interval History: called to bedside this morning for seizure activity. Ms. Mcfadden was sitting up in the chair, when her noticed abnormal activity and called for a nurse. Nena went to evaluate the patient and reported about 90 seconds of head-bobbing during which the patient was unconscious, along with full body fine shaking, followed by one more dynamic shake after which her eyes opened and she was unable to say where she was. she slowly aroused and was able to tell Nena her name and that she was in the hospital. When I arrived, she was awake, disoriented but answered questions and was able to identify me and her , and was able to walk back to her bed. Objective Active Medications: Acetaminophen (Tylenol Tab*) 650 mg PO Q4H PRN PRN Reason: FEVER/PAIN Last Admin: 07/14/17 02:20 Dose: 650 mg Al Hydrox/Mg Hydrox/Simethicone (Maalox Plus*) 30 ml PO Q4H PRN PRN Reason: INDIGESTION Last Admin: 07/15/17 11:57 Dose: 30 ml Albuterol (Ventolin 2.5 Mg/3 Ml Neb.Sasha*) 2.5 mg INH Q2H PRN PRN Reason: SOB/WHEEZING Albuterol/Ipratropium (Duoneb (Albuterol 2.5 Mg/Ipratropium 0.5 Mg)) 1 neb INH Q4H PRN PRN Reason: SOB/WHEEZING Last Admin: 07/15/17 09:19 Dose: 1 neb Benzonatate (Tessalon Cap*) 100 mg PO BID PRN PRN Reason: COUGH Last Admin: 07/14/17 22:11 Dose: 100 mg Cyclobenzaprine HCl (Flexeril Tab*) 10 mg PO BID PRN PRN Reason: SPASMS - MUSCLE Dextrose (D50w Syringe 50 Ml*) 12.5 gm IV PUSH .FOR FS < 60 - SS PRN PRN Reason: FS < 60 Docusate Sodium (Colace Cap*) 100 mg PO BID [facility] Last Admin: 07/16/17 08:43 Dose: 100 mg Famotidine (Pepcid Tab*) 20 mg PO BID PRN PRN Reason: NAUSEA/VOMITING Last Admin: 07/15/17 03:51 Dose: 20 mg Fluoxetine HCl (Prozac Cap*) 40 mg PO DAILY [facility] Last Admin: 07/16/17 08:43 Dose: 40 mg Guaifenesin (Mucinex*) 600 mg PO BID [facility] Last Admin: 07/16/17 08:43 Dose: 600 mg Heparin Sodium (Porcine) (Heparin Vial(*)) 5,000 units SUBCUT Q8HR [facility] Last Admin: 07/16/17 05:45 Dose: 5,000 units Insulin Human Lispro (Humalog*) 0 units SUBCUT AC [facility] PRN Reason: Protocol Last Admin: 07/16/17 08:43 Dose: 3 units Levothyroxine Sodium (Synthroid Tab*) 125 mcg PO DAILY@0600 [facility] Last Admin: 07/16/17 05:45 Dose: 125 mcg Lorazepam (Ativan Inj*) 1 mg IV PUSH Q1H PRN PRN Reason: seizure Magnesium Hydroxide (Milk Of Magnesia Liq*) 30 ml PO Q6H PRN PRN Reason: CONSTIPATION Last Admin: 07/15/17 11:57 Dose: 30 ml Mometasone Furoate/Formoterol Fumar (Dulera 200/5 Mdi*) 2 puff INH BID [facility] Last Admin: 07/16/17 07:23 Dose: 2 puff Omeprazole (Prilosec Cap*) 20 mg PO DAILY@0730 [facility] Last Admin: 07/16/17 08:43 Dose: 20 mg Ondansetron HCl (Zofran Inj*) 4 mg IV Q6H PRN PRN Reason: NAUSEA Last Admin: 07/15/17 14:33 Dose: 4 mg Oseltamivir Phosphate (Tamiflu Cap*) 75 mg PO BID [facility] Stop: 07/18/17 09:01 Last Admin: 07/16/17 08:43 Dose: 75 mg Oxycodone HCl (Roxycodone Tab*) 5 mg PO Q4H PRN PRN Reason: PAIN Last Admin: 07/16/17 05:45 Dose: 5 mg Oxycodone/Acetaminophen (Percocet 5/325 Tab*) 1 tab PO Q4H PRN PRN Reason: PAIN Last Admin: 07/15/17 11:58 Dose: 1 tab Prednisone (Deltasone Tab*) 40 mg PO DAILY [facility] Last Admin: 07/16/17 08:44 Dose: 40 mg Rosuvastatin Calcium (Crestor (Nf)) 10 mg PO DAILY [facility] PRN Reason: Protocol Last Admin: 07/16/17 08:44 Dose: 10 mg Senna (Senokot Tab*) 2 tab PO BEDTIME [facility] Last Admin: 07/15/17 20:44 Dose: 2 tab Vital Signs - 8 hr 07/16/17 07/16/17 07/16/17 05:45 07:43 07:50 Temperature Pulse Rate 79 Respiratory 18 19 16 Rate Blood Pressure (mmHg) O2 Sat by Pulse 93 Oximetry 07/16/17 07/16/17 07/16/17 07:53 08:44 10:53 Temperature 98.5 F 98.8 F Pulse Rate 76 86 Respiratory 16 19 20 Rate Blood Pressure 90/49 111/63 (mmHg) O2 Sat by Pulse 94 95 Oximetry Oxygen Devices in Use Now: Nasal Cannula Appearance: drowsy but alerts to voice, no distress Eyes: - - pupils 3mm b/l, reactive to light, no nystagmus Ears/Nose/Mouth/Throat: NL Teeth, Lips, Gums Neck: NL Appearance and Movements; NL JVP, Trachea Midline Respiratory: Symmetrical Chest Expansion and Respiratory Effort, Clear to Auscultation, - - expiratory wheezing b/l Cardiovascular: NL Sounds; No Murmurs; No JVD, RRR Abdominal: NL Sounds; No Tenderness; No Distention, No Hepatosplenomegaly Lymphatic: No Cervical Adenopathy Extremities: No Edema Skin: No Rash or Ulcers Neurological: Alert and Oriented x 3, NL Sensation, NL Gait, NL Muscle Strength and Tone Result Diagrams: 07/16/17 05:38 07/16/17 05:35 Microbiology and Other Data: Microbiology 07/13/17 19:24 Influenza Types A,B Antigen (DENISSE) - Final Nasopharyngeal Specimen received for Influenza A/B Molecular testing Assess/Plan/Problems-Billing Assessment: 77 yo female with history of MAGDA, DM, asthma, and pulmonary htn who presented yesterday after VNS found her to be hypoxic at home with multiple complaints including abdominal pain, chest pain, and generalized not feeling well, found to be flu +, now with seizure activity this morning. - Patient Problems (1) Seizure Current Visit: Yes Status: Acute Code(s): R56.9 - UNSPECIFIED CONVULSIONS SNOMED Code(s): 33621343 Comment: she does have history of suspected seizure related to PRES last May check EEG now check MRI now consult neurology ativan on hold (2) Acute respiratory failure with hypoxia Current Visit: Yes Status: Acute Code(s): J96.01 - ACUTE RESPIRATORY FAILURE WITH HYPOXIA SNOMED Code(s): 90262870 Comment: likely related to pulmonary htn + asthma exacerbation due to influenza; no pulmonary edema and actually 6kg below discharge weight 3 weeks ago. prednisone day 2 (3) Influenza B Current Visit: Yes Status: Acute Code(s): J10.1 - FLU DUE TO OTH IDENT INFLUENZA VIRUS W OTH RESP MANIFEST SNOMED Code(s): 01115801 Comment: tamiflu day 4 (4) Pulmonary HTN Current Visit: Yes Status: Acute Code(s): I27.20 - PULMONARY HYPERTENSION, UNSPECIFIED SNOMED Code(s): 79817077 Comment: likely type III in relation to MAGDA and asthma I suspect this is contributing to her ongoing shortness of breath and hypoxia (5) Diabetes mellitus Current Visit: No Status: Acute Code(s): E11.9 - TYPE 2 DIABETES MELLITUS WITHOUT COMPLICATIONS SNOMED Code(s): 31583231 Comment: holding metformin; continue lispro sliding scale (6) MAGDA (obstructive sleep apnea) Current Visit: No Status: Acute Code(s): G47.33 - OBSTRUCTIVE SLEEP APNEA ( ADULT) (PEDIATRIC) SNOMED Code(s): 25415528 Comment: continue nocturnal cpap--she says she tried to wear it at home but usually can't tolerate it through the night. (7) GERD (gastroesophageal reflux disease) Current Visit: No Status: Chronic Code(s): K21.9 - GASTRO-ESOPHAGEAL REFLUX DISEASE WITHOUT ESOPHAGITIS SNOMED Code(s): 148037348 Comment: maalox prn (8) Chronic pain syndrome Current Visit: Yes Status: Acute Code(s): G89.4 - CHRONIC PAIN SYNDROME SNOMED Code(s): 953141711 Comment: fibromyalgia unfortunately she has been maintained on oxycodone chronically and is dependent on it
[2017-07-16] MEDS ORDERED: clonazePAM TAB(*) 1 MG PO ONE (14:16)
[2017-07-16] MEDS ORDERED: clonazePAM TAB(*) 1 MG ONE (14:25)
--- NOTE | 2017-07-16 15:54 | RAD ---
HISTORY: Seizure COMPARISONS: None TECHNIQUE: The following sequences were obtained of the head: Sagittal T1-weighted images, axial T2-weighted images, axial FLAIR images, axial susceptibility weighted images, axial T1-weighted images, coronal T1, T2 and FLAIR images through the mesial temporal lobes. Additionally, axial diffusion-weighted images were obtained with calculated apparent diffusion coefficients. FINDINGS: The study is limited by patient motion artifact. HEMORRHAGE/INFARCT: There is no hemorrhage or acute infarct. MASSES/SHIFT: There is no mass or shift. EXTRA-AXIAL SPACES/MENINGES: There are no extra-axial fluid collections. SULCI AND VENTRICLES: The sulci and ventricles are normal in size and position for the patient's stated age. CEREBRUM: There are small scattered foci of elevated T2/STIR signal in the subcortical white matter] bilateral. This has improved when compared to the previous examination, with resolution of the right matter changes noted in the posterior cerebral hemispheres bilaterally. The mesial temporal lobes are symmetric. There is no appreciable cortical dysplasia or heterotopia. BRAINSTEM: There are no focal parenchymal abnormalities. CEREBELLUM: There are no focal parenchymal abnormalities. The cerebellar tonsils are normal in size and position. SELLA: The sella is normal. PINEAL: The pineal region is clear. CP ANGLE/TEMPORAL BONES: The labyrinthine structures are grossly normal. VESSELS: Normal flow-voids are noted within the visualized vertebral vasculature. DIFFUSION ABNORMALITIES: There are no diffusion abnormalities. PARANASAL SINUSES/MASTOIDS: The paranasal sinuses are clear. ORBITS: The orbits are unremarkable. BONES AND SOFT TISSUE: No bone or soft tissue abnormalities are noted. OTHER: None IMPRESSION: FEW, SCATTERED, SMALL NONSPECIFIC WHITE MATTER CHANGES. THE MESIAL TEMPORAL LOBES ARE SYMMETRIC. THERE IS NO APPRECIABLE CORTICAL DYSPLASIA OR HETEROTOPIA.
[2017-07-16] MEDS: oxyCODONE/Acetamin 5/325 MG* TAB PO PRN (16:28)
[2017-07-16] MEDS ORDERED: clonazePAM TAB(*) 0.5 MG PO PRN (18:21)
[2017-07-16] MEDS: Senna TAB PO SCH (20:52)
--- NOTE | 2017-07-16 21:07 | CONS ---
CONSULTATION REPORT: DATE OF CONSULT: 07/16/17 PATIENT OF: Dr. Jeffers and Dr. Cobb. HISTORY OF PRESENT ILLNESS: This 77-year-old woman, I am asked to evaluate for possible seizures. She was in hospital admitted on 07/13/17 for other reasons namely cough, abdominal pain and chest pain. Today, while she had 2 brief episodes lasting apparently 1 to 2 minutes, one of them was witnessed by a friend who I spoke to, the other was witnessed by Dr. Jeffers. They described similar things. She had head bobbing and her hands slapped back and forth, this is not described as clonic activity. Dr. Jeffers's impression was that it was not a seizure. She was apparently awake and talked to her friend for a portion of this and was aware of what she was doing. She said that things were fractured and when asked what that meant, it was hard for her to describe, but said that her vision was possibly fractured. She was apparently fine after these symptoms and has had no further episodes since one today. PAST MEDICAL HISTORY: She has a history of diabetes, hypertension with a history of PRES syndrome, hyperlipidemia, hypothyroidism, fibromyalgia, GERD, depression, history of STEMI, Takotsubo cardiomyopathy, SBO, chronic kidney disease, and MAGDA. PAST SURGICAL HISTORY: She has had a hysterectomy, left knee replacement, right knee arthroscopy, right ankle arthroscopy, Deric fundoplication. MEDICATIONS AT HOME: Include: 1. Crestor 10 mg daily. 2. Zofran 8 mg q.8 hours as needed. 3. Flexeril 10 mg b.i.d. 4. Pepcid 20 mg b.i.d. as needed. 5. Prozac 40 mg daily. 6. Prilosec 20 mg daily. 7. Cozaar 50 mg b.i.d. 8. Synthroid 125 mcg daily. 9. Metformin 500 b.i.d. 10. Amlodipine 10 mg daily. 11. Percocet 1 tab q.4 hours as needed. ALLERGIES: She is allergic to TAPE, AMOXICILLIN, ARICEPT, DOXYCYCLINE, CYMBALTA , GABAPENTIN, IODINE, LEVAQUIN, PENICILLIN, LYRICA, SULFITE, ATORVASTATIN, MORPHINE, SIMVASTATIN, SULFA, AND WARFARIN. FAMILY HISTORY: Both parents had coronary artery disease. SOCIAL HISTORY: She does not smoke, drink. REVIEW OF SYSTEMS: Included as mentioned above abdominal pain, recent chest pains and nausea but no vomiting, no headaches and no lightheadedness. Dr. Almanza was the last neurologist to see her in September 2016 for her PRES syndrome, presenting with seizure. No anticonvulsants were prescribed on an ongoing basis. She also has a history of cognitive issues and has been on Aricept in the past. PHYSICAL EXAM: Temperature 97.8, pulse 80, respirations 20, blood pressure 121/ 61. She was alert and oriented with normal speech, although she was somewhat a poor historian. Cranial nerves II through XII intact. Discs were sharp. Motor exam revealed normal tone and strength. Sensation intact to light touch. She was able to get up and walk. She apparently walks with a walker at home and she was able to take steps with slight light hand holding. Chest: Clear. Cardiovascular: Regular rate and rhythm. Abdomen: Soft with positive bowel sounds. DIAGNOSTIC STUDIES/LAB DATA: Her EEG showed some slowing and some left more provoking left temporal area than the right, although there was a shifting asymmetry. Her MRI scan of the brain was reviewed and showed some small white matter changes, but no acute findings, no clear temporal lobe scars. Her white count is 3.5, hematocrit 31, platelet count 171. She had a normal INR. Her chemistries showed normal glucose. Calcium 9. UA, 1+ protein, 2+ white. Positive Influenza B. IMPRESSION AND PLAN: Skylar's clinical episode today by description do not sounds most likely like seizures, specially since she had bilateral hand movements, but was awake and alert during. I signed her case off to Dr. Barrett who is aware and will be involved as necessary. Thank you for sharing her case. [id number]/[facility] #: [id number] [facility]
--- NOTE | 2017-07-17 02:17 | EEG ---
ELECTROENCEPHALOGRAPHY: DATE OF STUDY: 07/16/17 - ROOM #450 PATIENT OF: Eusebia DO Aury CLINICAL PROBLEM: This is a 77-year-old woman being evaluated for a probable seizure this morning. He has been on Aricept for dementia and he has had past history of status, but is not on any ongoing seizure medicines. MEDICATIONS: Include: 1. Dulera. 2. Tamiflu. 3. Senokot. 4. Synthroid. 5. Prilosec. 6. Norvasc. 7. Deltasone. 8. Rosuvastatin. 9. Maalox. 10. Ventolin. 11. DuoNeb. 12. Flexeril. 13. Tessalon. 14. Pepcid. 15. Zofran. 16. Oxycodone. 17. Percocet. REPORT: With the patient awake, background cerebral activity consists of moderate amplitude posterior dominant 8 Hz rhythm with some admixed theta range slowings. With the patient asleep, background consisted of admixed delta and theta range frequencies. At times, there is some left temporal sharply contoured activity lasting up to half to one second. CLINICAL IMPRESSION: This awake and asleep EEG is abnormal because of some focal sharp activity arising out of the left temporal head region suggesting predisposition to focal seizures. [id number]/[facility] #: [id number] [facility]
[2017-07-17] MEDS: oxyCODONE TAB* 5 MG TAB PO PRN ×3 (04:19→12:55)
[2017-07-17] MEDS: Cyclobenzaprine TAB* 10 MG PO PRN ×2 (04:25→23:08)
[2017-07-17] MEDS: Levothyroxine TAB* 125 MCG TAB PO SCH (05:50)
[2017-07-17] MEDS: Heparin VIAL(*) 5000 UNITS/ML VIAL (FIVE THOUSAND) SUBCUT SCH ×3 (05:50→21:51)
[2017-07-17] MEDS: Mometasone/Formoter 200/5 MDI INH SCH ×2 (08:07→19:55)
[2017-07-17] MEDS: Insulin LISPRO* 1 UNITS UNIT SUBCUT SCH ×3 (08:23→17:21)
[2017-07-17] MEDS: Oseltamivir CAP* 75 MG CAP PO SCH ×2 (08:24→21:50)
[2017-07-17] MEDS: FLUoxetine CAP* 20 MG PO SCH (08:24)
[2017-07-17] MEDS: Docusate CAP* 100 MG PO SCH ×2 (08:24→21:49)
[2017-07-17] MEDS: predniSONE TAB* 20 MG PO SCH (08:24)
[2017-07-17] MEDS: guaiFENesin ER TAB 600 MG PO SCH ×2 (08:24→21:49)
[2017-07-17] MEDS: Omeprazole CAP* 20 MG PO SCH (08:24)
[2017-07-17] MEDS: oxyCODONE/Acetamin 5/325 MG* TAB PO PRN ×3 (08:25→22:05)
[2017-07-17] MEDS: Famotidine TAB* 20 MG PO PRN (13:31)
[2017-07-17] MEDS: Benzonatate CAP* 100 MG PO PRN ×2 (13:31→21:51)
--- NOTE | 2017-07-17 13:42 | ED ---
Kemal Ballard Gabriel, scribed for Marco Bender MD on 07/13/17 at 1455 . Abdominal Pain/Female - HPI Summary HPI Summary: This patient is a 77 year old F BIBA to [facility] with a chief complaint of epigastric pain since 0300 last night. The patient rates the pain 6/10 in severity. Patient reports nausea, general malaise, weak, and sub sternal chest pressure. Patient denies edema. Pt was seen two weeks ago for similar symptoms and nothing significant was found. Pts last BM was 2 days ago. Hx MT, HTN, HLD , and DM. - History of Current Complaint Chief Complaint: EDAbdPain Stated Complaint: ABD PAIN Time Seen by Provider: 07/13/17 14:29 Hx Obtained From: Patient Onset/Duration: Still Present Timing: Constant Severity Initially: Moderate Severity Currently: Moderate Pain Intensity: 6 Pain Scale Used: 0-10 Numeric Location: Epigastric Associated Signs and Symptoms: Positive: Negative - edema, Other: - nausea, general malaise, weak, and sub sternal chest pressure Allergies/Adverse Reactions: Allergies Allergy/AdvReac Type Severity Reaction Status Date / Time Adhesive Tape Allergy Rash Verified 07/13/17 14:49 adhesive tape Allergy Rash Verified 07/13/17 14:49 amoxicillin Allergy Anaphylatic Verified 07/13/17 14:49 Shock donepezil Allergy Anaphylatic Verified 07/13/17 14:49 Shock doxycycline Allergy Rash Verified 07/13/17 14:49 duloxetine [From Cymbalta] Allergy Unknown Verified 07/13/17 14:49 Reaction Details gabapentin Allergy Swelling Verified 07/13/17 14:49 iodine Allergy Hives Verified 07/13/17 14:49 levofloxacin Allergy Unknown Verified 07/13/17 14:49 Reaction Details Penicillins Allergy Anaphylatic Verified 07/13/17 14:49 Shock pregabalin Allergy Edema Verified 07/13/17 14:49 sulfite Allergy Difficulty Verified 07/13/17 14:49 Breathing atorvastatin AdvReac Muscle Ache Verified 07/13/17 14:49 fluvastatin AdvReac Muscle Ache Verified 07/13/17 14:49 morphine AdvReac GI Upset Verified 07/13/17 14:49 simvastatin AdvReac Muscle Ache Verified 07/13/17 14:49 Sulfa (Sulfonamide AdvReac Nausea And Verified 03/20/18 14:49 Antibiotics) Vomiting warfarin AdvReac GI Upset Verified 07/13/17 14:49 PMH/Surg Hx/FS Hx/Imm Hx Endocrine/Hematology History: Reports: Hx Diabetes, Hx Thyroid Disease - hypothyroidism Cardiovascular History: Reports: Hx Cardiomegaly, Hx Congestive Heart Failure, Hx Hypercholesterolemia, Hx Hypotension, Hx Hypertension, Other Cardiovascular Problems/Disorders - Takotsubo cardiomyopathy, MT Denies: Hx Pacemaker/ICD Respiratory History: Reports: Hx Asthma, Hx Pneumonia, Hx Sleep Apnea Denies: Hx Chronic Obstructive Pulmonary Disease (COPD) GI History: Reports: Hx Gastroesophageal Reflux Disease, Hx Obstructive Bowel - 2015 History: Denies: Hx Dialysis, Hx Renal Disease Musculoskeletal History: Reports: Hx Arthritis - hands,hips, shoulders, Hx Back Problems, Hx Fibromyalgia, Hx Orthopedic Injury - Fx Pelvis 1960; Rt. Tibia, Fibula,&Ankle Sensory History: Denies: Hx Contacts or Glasses, Hx Hearing Aid Opthamlomology History: Denies: Hx Contacts or Glasses Neurological History: Reports: Hx Dementia, Hx Migraine, Other Neuro Impairments /Disorders - Encephalopathy on recent EEG's; started on Aricept for memory loss , PAIN PT Denies: Hx Seizures Psychiatric History: Reports: Hx Anxiety, Hx Depression Denies: Hx Panic Disorder - Surgical History Surgery Procedure, Year, and Place: Radical hysterectomy, 1989. Repair of right leg and ankle fx. Deric fundoplication surgery. Tonsillectomy. Cholecystectomy. Total right ankle replacement, 2003. Total left knee replacement, 2006 Hx Anesthesia Reactions: No - Immunization History Date of Tetanus Vaccine: unknown Date of Influenza Vaccine: 2014 Infectious Disease History: No Infectious Disease History: Denies: Hx Clostridium Difficile, Hx Hepatitis, Hx Human Immunodeficiency Virus (HIV), Hx of Known/Suspected MRSA, Hx Shingles, Hx Tuberculosis, Hx Known/ Suspected VRE, Hx Known/Suspected VRSA, History Other Infectious Disease, Traveled Outside the [place] in Last 30 Days - Family History Known Family History: Positive: Cardiac Disease - Social History Alcohol Use: None Substance Use Type: Reports: None Substance Use Comment - Amount & Last Used: percocet Smoking Status (MU): Never Smoked Tobacco Have You Smoked in the Last Year: No Review of Systems Positive: Other - general malaise, . Negative: Fever, Chills Negative: Erythema Negative: Ear Ache Positive: Chest Pain Negative: Shortness Of Breath Positive: Abdominal Pain, Nausea. Negative: Vomiting Negative: dysuria, hematuria Negative: Myalgia, Edema Neurological: Negative - dizziness Positive: Weakness All Other Systems Reviewed And Are Negative: Yes Physical Exam - Summary Physical Exam Summary: Constitutional: Well-developed, Well-nourished, Alert. (-) Distressed Skin: Warm, Dry HENT: Normocephalic; Atraumatic Eyes: Conjunctiva normal Neck: Musculoskeletal ROM normal neck. (-) JVD, (-) Stridor, (-) Tracheal deviation Cardio: Rhythm regular, rate normal, Heart sounds normal; Intact distal pulses; The pedal pulses are 2+ and symmetric. Radial pulses are 2+ and symmetric. (-) Murmur Pulmonary/Chest wall: Effort normal. (-) Respiratory distress, (-) Wheezes, (-) Rales Abd: Soft, (+) epigastria Tenderness, (-) Distension, (-) Guarding, (-) Rebound Musculoskeletal: (-) Edema Lymph: (-) Cervical adenopathy Neuro: Alert, Oriented x3 Psych: Mood and affect Normal Triage Information Reviewed: Yes Vital Signs On Initial Exam: Initial Vitals Temp Pulse Resp BP Pulse Ox 98.6 F 86 16 103/53 90 07/13/17 14:37 07/13/17 14:37 07/13/17 14:37 07/13/17 14:37 07/13/17 14:37 Vital Signs Reviewed: Yes Diagnostics - Vital Signs Vital Signs Temp Pulse Resp BP Pulse Ox 07/13/17 14:37 98.6 F 86 16 103/53 90 - Laboratory Result Diagrams: 07/13/17 15:04 07/13/17 15:04 Lab Statement: Any lab studies that have been ordered have been reviewed, and results considered in the medical decision making process. - Radiology CXR Radiology Interpretation Completed By: Radiologist - Stigmata of probable chronic obstructive pulmonary disease. No acute cardiopulmonary process evident. ED physician has reviewed this radiology report. - EKG 1441 Cardiac Rate: NL EKG Rhythm: Sinus Rhythm - at 86 BPM EKG Interpretation: No STEMI Abdominal Pain Fem Course/Dx - Course Course Of Treatment: This patient is a 77 year old F BIBA to [facility] with a chief complaint of epigastric pain since 0300 last night. The patient rates the pain 6 /10 in severity. Patient reports nausea, general malaise, weak, and sub sternal chest pressure. Patient denies edema. Pt was seen two weeks ago for similar symptoms and nothing significant was found. Pts last BM was 2 days ago. Hx MT , HTN, HLD, and DM. An EKG reveals NSR. CXR reveals, per radiologist, Stigmata of probable chronic obstructive pulmonary disease. No acute. cardiopulmonary process evident. Test results with no significant abnormalities. In the ED course the patient was given Zofran, NTG, ASA, and Maalox. We discussed patient care with Dr. Jeffers and they have accepted the patient for admission. Patient will be admitted for chest pain unspecified and epigastric pain. The patient is agreeable with this plan. 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
--- NOTE | 2017-07-17 13:53 | PN ---
Subjective Date of Service: 07/17/17 Interval History: feels worse today. she has not been out of bed. more short of breath with a bothersome cough. pain all over. Objective Active Medications: Acetaminophen (Tylenol Tab*) 650 mg PO Q4H PRN PRN Reason: FEVER/PAIN Last Admin: 07/14/17 02:20 Dose: 650 mg Al Hydrox/Mg Hydrox/Simethicone (Maalox Plus*) 30 ml PO Q4H PRN PRN Reason: INDIGESTION Last Admin: 07/15/17 11:57 Dose: 30 ml Albuterol (Ventolin 2.5 Mg/3 Ml Neb.Sasha*) 2.5 mg INH Q2H PRN PRN Reason: SOB/WHEEZING Albuterol/Ipratropium (Duoneb (Albuterol 2.5 Mg/Ipratropium 0.5 Mg)) 1 neb INH Q4H PRN PRN Reason: SOB/WHEEZING Last Admin: 07/15/17 09:19 Dose: 1 neb Albuterol/Ipratropium (Duoneb (Albuterol 2.5 Mg/Ipratropium 0.5 Mg)) 1 neb INH [id number] AWAKE IASBEL Benzonatate (Tessalon Cap*) 100 mg PO BID PRN PRN Reason: COUGH Last Admin: 07/17/17 13:31 Dose: 100 mg Clonazepam (Klonopin Tab(*)) 0.5 mg PO BID PRN PRN Reason: ANXIETY Cyclobenzaprine HCl (Flexeril Tab*) 10 mg PO BID PRN PRN Reason: SPASMS - MUSCLE Last Admin: 07/17/17 04:25 Dose: 10 mg Dextrose (D50w Syringe 50 Ml*) 12.5 gm IV PUSH .FOR FS < 60 - SS PRN PRN Reason: FS < 60 Docusate Sodium (Colace Cap*) 100 mg PO BID ISABEL Last Admin: 07/17/17 08:24 Dose: 100 mg Famotidine (Pepcid Tab*) 20 mg PO BID PRN PRN Reason: NAUSEA/VOMITING Last Admin: 07/17/17 13:31 Dose: 20 mg Fluoxetine HCl (Prozac Cap*) 40 mg PO DAILY ISABEL Last Admin: 07/17/17 08:24 Dose: 40 mg Guaifenesin (Mucinex*) 600 mg PO BID [facility] Last Admin: 07/17/17 08:24 Dose: 600 mg Heparin Sodium (Porcine) (Heparin Vial(*)) 5,000 units SUBCUT Q8HR [facility] Last Admin: 07/17/17 13:31 Dose: 5,000 units Insulin Human Lispro (Humalog*) 0 units SUBCUT AC [facility] PRN Reason: Protocol Last Admin: 07/17/17 12:55 Dose: 12 units Levothyroxine Sodium (Synthroid Tab*) 125 mcg PO DAILY@0600 [facility] Last Admin: 07/17/17 05:50 Dose: 125 mcg Lorazepam (Ativan Inj*) 1 mg IV PUSH Q1H PRN PRN Reason: seizure Magnesium Hydroxide (Milk Of Magnesia Liq*) 30 ml PO Q6H PRN PRN Reason: CONSTIPATION Last Admin: 07/15/17 11:57 Dose: 30 ml Methylprednisolone Sodium Succinate (Solu-Medrol 40 Mg) 40 mg IV Q8H [facility] Mometasone Furoate/Formoterol Fumar (Dulera 200/5 Mdi*) 2 puff INH BID [facility] Last Admin: 07/17/17 08:07 Dose: 2 puff Omeprazole (Prilosec Cap*) 20 mg PO DAILY@0730 [facility] Last Admin: 07/17/17 08:24 Dose: 20 mg Ondansetron HCl (Zofran Inj*) 4 mg IV Q6H PRN PRN Reason: NAUSEA Last Admin: 07/15/17 14:33 Dose: 4 mg Oseltamivir Phosphate (Tamiflu Cap*) 75 mg PO BID [facility] Stop: 07/18/17 09:01 Last Admin: 07/17/17 08:24 Dose: 75 mg Oxycodone HCl (Roxycodone Tab*) 5 mg PO Q4H PRN PRN Reason: PAIN Last Admin: 07/17/17 12:55 Dose: 5 mg Oxycodone/Acetaminophen (Percocet 5/325 Tab*) 1 tab PO Q4H PRN PRN Reason: PAIN Last Admin: 07/17/17 12:54 Dose: 1 tab Rosuvastatin Calcium (Crestor (Nf)) 10 mg PO DAILY [facility] PRN Reason: Protocol Last Admin: 07/17/17 08:24 Dose: 10 mg Senna (Senokot Tab*) 2 tab PO BEDTIME [facility] Last Admin: 07/16/17 20:52 Dose: 2 tab Vital Signs - 8 hr 07/17/17 07/17/17 07/17/17 06:20 07:52 08:23 Temperature 98.3 F Pulse Rate 70 Respiratory 18 15 20 Rate Blood Pressure 102/49 (mmHg) O2 Sat by Pulse 90 Oximetry 07/17/17 07/17/17 07/17/17 08:24 08:25 10:40 Temperature Pulse Rate Respiratory 20 20 20 Rate Blood Pressure (mmHg) O2 Sat by Pulse Oximetry 07/17/17 07/17/17 12:54 12:55 Temperature Pulse Rate Respiratory 21 21 Rate Blood Pressure (mmHg) O2 Sat by Pulse Oximetry Oxygen Devices in Use Now: Nasal Cannula Appearance: depressed, no distress, coughs frequently Eyes: No Scleral Icterus Ears/Nose/Mouth/Throat: NL Teeth, Lips, Gums Neck: NL Appearance and Movements; NL JVP Respiratory: Symmetrical Chest Expansion and Respiratory Effort, - - diffuse expiratory wheezing Cardiovascular: NL Sounds; No Murmurs; No JVD, RRR Abdominal: NL Sounds; No Tenderness; No Distention Lymphatic: No Cervical Adenopathy Extremities: No Edema Skin: No Rash or Ulcers Neurological: Alert and Oriented x 3, NL Muscle Strength and Tone Result Diagrams: 07/16/17 05:38 07/16/17 05:35 Microbiology and Other Data: Microbiology 07/13/17 19:24 Influenza Types A,B Antigen (DENISSE) - Final Nasopharyngeal Specimen received for Influenza A/B Molecular testing Assess/Plan/Problems-Billing Assessment: 77 yo female with history of MAGDA, DM, asthma, and pulmonary htn who presented yesterday after VNS found her to be hypoxic at home with multiple complaints including abdominal pain, chest pain, and generalized not feeling well, found to be flu +.. - Patient Problems (1) Acute respiratory failure with hypoxia Current Visit: Yes Status: Acute Code(s): J96.01 - ACUTE RESPIRATORY FAILURE WITH HYPOXIA SNOMED Code(s): 62855202 Comment: asthma exacerbation + influenza amb pulse ox steroids/nebs --> decrease solumedrol now no pulmonary edema and actually 6kg below discharge weight 3 weeks ago. (2) Influenza B Current Visit: Yes Status: Acute Code(s): J10.1 - FLU DUE TO OTH IDENT INFLUENZA VIRUS W OTH RESP MANIFEST SNOMED Code(s): 21522158 Comment: s/p 5 days of tamiflu (3) Seizure Current Visit: Yes Status: Acute Code(s): R56.9 - UNSPECIFIED CONVULSIONS SNOMED Code(s): 62738525 Comment: ? seizure activity seems to have been related to anxiety and pain she does have history of suspected seizure related to PRES last May evaluated by neurology; equivocal EEG; MRI indeterminate appreciate neuro recommendations (4) Pulmonary HTN Current Visit: Yes Status: Acute Code(s): I27.20 - PULMONARY HYPERTENSION, UNSPECIFIED SNOMED Code(s): 17933751 Comment: likely type III in relation to MAGDA and asthma I suspect this is contributing to her ongoing shortness of breath and hypoxia (5) Diabetes mellitus Current Visit: No Status: Acute Code(s): E11.9 - TYPE 2 DIABETES MELLITUS WITHOUT COMPLICATIONS SNOMED Code(s): 53343467 Comment: poorly controlled on steroids; lantus added yesterday (6) MAGDA (obstructive sleep apnea) Current Visit: No Status: Acute Code(s): G47.33 - OBSTRUCTIVE SLEEP APNEA ( ADULT) (PEDIATRIC) SNOMED Code(s): 09207948 Comment: continue nocturnal cpap--she says she tried to wear it at home but usually can't tolerate it through the night. (7) GERD (gastroesophageal reflux disease) Current Visit: No Status: Chronic Code(s): K21.9 - GASTRO-ESOPHAGEAL REFLUX DISEASE WITHOUT ESOPHAGITIS SNOMED Code(s): 235188089 Comment: maalox prn (8) Chronic pain syndrome Current Visit: Yes Status: Acute Code(s): G89.4 - CHRONIC PAIN SYNDROME SNOMED Code(s): 394544693 Comment: fibromyalgia with narcotic dependence. she agreed to decrease the frequency of oxycodone so that she is more awake during the day yesterday, however she is much more anxious today
[2017-07-17] MEDS: methylPREDNISolone SOD 40 MG* 1 ML VIAL IV SCH ×2 (14:52→21:50)
[2017-07-17] MEDS: Insulin GLARGINE(*) 1 UNITS UNIT SUBCUT SCH (14:52)
[2017-07-17] MEDS: Albuterol/Ipratropium NEB.SOL* Albuterol 2.5 MG/Ipratropium 0.5 MG 3 ML INH SCH ×2 (15:38→19:55)
[2017-07-17] MEDS: Senna TAB PO SCH (21:50)
[2017-07-17] MEDS: LORazepam INJ* 2 MG/ML 1 ML VIAL IV PUSH PRN (23:11)
[2017-07-18] MEDS: Acetaminophen TAB* 325 MG PO PRN (01:41)
[2017-07-18] MEDS: oxyCODONE/Acetamin 5/325 MG* TAB PO PRN ×2 (04:09→17:03)
[2017-07-18] MEDS: oxyCODONE TAB* 5 MG TAB PO PRN (04:11)
[2017-07-18] MEDS: Heparin VIAL(*) 5000 UNITS/ML VIAL (FIVE THOUSAND) SUBCUT SCH ×3 (06:42→22:16)
[2017-07-18] MEDS: Levothyroxine TAB* 125 MCG TAB PO SCH (06:43)
[2017-07-18] MEDS: methylPREDNISolone SOD 40 MG* 1 ML VIAL IV SCH (06:44)
[2017-07-18] MEDS: Mometasone/Formoter 200/5 MDI INH SCH ×2 (08:10→20:12)
[2017-07-18] MEDS: Albuterol/Ipratropium NEB.SOL* Albuterol 2.5 MG/Ipratropium 0.5 MG 3 ML INH PRN (08:10)
[2017-07-18] MEDS: Omeprazole CAP* 20 MG PO SCH (08:50)
[2017-07-18] MEDS: Docusate CAP* 100 MG PO SCH ×2 (08:50→22:15)
[2017-07-18] MEDS: Insulin LISPRO* 1 UNITS UNIT SUBCUT SCH ×3 (08:50→17:40)
[2017-07-18] MEDS: FLUoxetine CAP* 20 MG PO SCH (08:50)
[2017-07-18] MEDS: Oseltamivir CAP* 75 MG CAP PO SCH (08:51)
[2017-07-18] MEDS: guaiFENesin ER TAB 600 MG PO SCH ×2 (08:51→22:15)
[2017-07-18] MEDS: Al Hydrox/Mg Hydrox/Simet LIQ* 30 ML UDC PO PRN (10:53)
[2017-07-18] MEDS: Cyclobenzaprine TAB* 10 MG PO PRN ×2 (11:34→22:16)
[2017-07-18] MEDS: LORazepam INJ* 2 MG/ML 1 ML VIAL IV PUSH PRN (11:58)
[2017-07-18] MEDS ORDERED: methylPREDNISolone SOD 40 MG* 1 ML VIAL IV SCH (13:00)
[2017-07-18] MEDS: Ondansetron INJ* 2 MG/ML VIAL IV PRN (13:49)
--- NOTE | 2017-07-18 14:10 | PN ---
Subjective Date of Service: 07/18/17 Interval History: no overnight events. her and son are at the bedside. she is tearful, anxious, getting in and out of bed, shaking her legs. her son explains that her brother about a month ago, and she is struggling to cope with this. Objective Active Medications: Acetaminophen (Tylenol Tab*) 650 mg PO Q4H PRN PRN Reason: FEVER/PAIN Last Admin: 07/18/17 01:41 Dose: 650 mg Al Hydrox/Mg Hydrox/Simethicone (Maalox Plus*) 30 ml PO Q4H PRN PRN Reason: INDIGESTION Last Admin: 07/18/17 10:53 Dose: 30 ml Albuterol (Ventolin 2.5 Mg/3 Ml Neb.Sasha*) 2.5 mg INH Q2H PRN PRN Reason: SOB/WHEEZING Albuterol/Ipratropium (Duoneb (Albuterol 2.5 Mg/Ipratropium 0.5 Mg)) 1 neb INH Q4H PRN PRN Reason: SOB/WHEEZING Last Admin: 07/18/17 08:10 Dose: 1 neb Benzonatate (Tessalon Cap*) 100 mg PO BID PRN PRN Reason: COUGH Last Admin: 07/17/17 21:51 Dose: 100 mg Clonazepam (Klonopin Tab(*)) 0.5 mg PO BID PRN PRN Reason: ANXIETY Cyclobenzaprine HCl (Flexeril Tab*) 10 mg PO BID PRN PRN Reason: SPASMS - MUSCLE Last Admin: 07/18/17 11:34 Dose: 10 mg Dextrose (D50w Syringe 50 Ml*) 12.5 gm IV PUSH .FOR FS < 60 - SS PRN PRN Reason: FS < 60 Docusate Sodium (Colace Cap*) 100 mg PO BID [facility] Last Admin: 07/18/17 08:50 Dose: 100 mg Famotidine (Pepcid Tab*) 20 mg PO BID PRN PRN Reason: NAUSEA/VOMITING Last Admin: 07/17/17 13:31 Dose: 20 mg Fluoxetine HCl (Prozac Cap*) 40 mg PO DAILY [facility] Last Admin: 07/18/17 08:50 Dose: 40 mg Guaifenesin (Mucinex*) 600 mg PO BID [facility] Last Admin: 07/18/17 08:51 Dose: 600 mg Heparin Sodium (Porcine) (Heparin Vial(*)) 5,000 units SUBCUT Q8HR [facility] Last Admin: 07/18/17 13:49 Dose: 5,000 units Insulin Glargine (Lantus(*)) 15 units SUBCUT Q24H [facility] Last Admin: 07/17/17 14:52 Dose: 15 units Insulin Human Lispro (Humalog*) 0 units SUBCUT AC [facility] PRN Reason: Protocol Last Admin: 07/18/17 11:59 Dose: 15 units Levothyroxine Sodium (Synthroid Tab*) 125 mcg PO DAILY@0600 [facility] Last Admin: 07/18/17 06:43 Dose: 125 mcg Lorazepam (Ativan Inj*) 1 mg IV PUSH Q1H PRN PRN Reason: seizure Last Admin: 07/18/17 11:58 Dose: 1 mg Magnesium Hydroxide (Milk Of Magnbrii Liq*) 30 ml PO Q6H PRN PRN Reason: CONSTIPATION Last Admin: 07/15/17 11:57 Dose: 30 ml Methylprednisolone Sodium Succinate (Solu-Medrol 40 Mg) 40 mg IV Q12H [facility] Last Admin: 07/18/17 13:49 Dose: 40 mg Mometasone Furoate/Formoterol Fumar (Dulera 200/5 Mdi*) 2 puff INH BID [facility] Last Admin: 07/18/17 08:10 Dose: 2 puff Omeprazole (Prilosec Cap*) 20 mg PO DAILY@0730 [facility] Last Admin: 07/18/17 08:50 Dose: 20 mg Ondansetron HCl (Zofran Inj*) 4 mg IV Q6H PRN PRN Reason: NAUSEA Last Admin: 07/18/17 13:49 Dose: 4 mg Oxycodone HCl (Roxycodone Tab*) 5 mg PO Q6H PRN PRN Reason: PAIN Last Admin: 07/18/17 04:11 Dose: 5 mg Oxycodone/Acetaminophen (Percocet 5/325 Tab*) 1 tab PO Q6H PRN PRN Reason: PAIN Last Admin: 07/18/17 04:09 Dose: 1 tab Rosuvastatin Calcium (Crestor (Nf)) 10 mg PO DAILY [facility] PRN Reason: Protocol Last Admin: 07/18/17 08:51 Dose: 10 mg Senna (Senokot Tab*) 2 tab PO BEDTIME [facility] Last Admin: 07/17/17 21:50 Dose: 2 tab Vital Signs - 8 hr 07/18/17 07/18/17 07/18/17 06:10 06:12 08:00 Temperature Pulse Rate Respiratory 20 20 18 Rate Blood Pressure (mmHg) O2 Sat by Pulse Oximetry 07/18/17 07/18/17 07/18/17 08:13 08:17 11:34 Temperature 97.3 F Pulse Rate 68 65 Respiratory 16 16 20 Rate Blood Pressure 123/72 (mmHg) O2 Sat by Pulse 95 96 Oximetry 07/18/17 07/18/17 11:41 11:58 Temperature 98.6 F Pulse Rate 84 Respiratory 16 20 Rate Blood Pressure 117/71 (mmHg) O2 Sat by Pulse 99 Oximetry Oxygen Devices in Use Now: Nasal Cannula Appearance: tearful, anxious, bounces her legs constantly Eyes: No Scleral Icterus Ears/Nose/Mouth/Throat: NL Teeth, Lips, Gums Neck: NL Appearance and Movements; NL JVP Respiratory: - - improved air movement Cardiovascular: - - systolic murmur rusb Abdominal: NL Sounds; No Tenderness; No Distention Lymphatic: No Cervical Adenopathy Extremities: - - trace le edema Result Diagrams: 07/16/17 05:38 07/16/17 05:35 Microbiology and Other Data: Microbiology 07/13/17 19:24 Influenza Types A,B Antigen (DENISSE) - Final Nasopharyngeal Specimen received for Influenza A/B Molecular testing Assess/Plan/Problems-Billing Assessment: 77 yo female with history of MAGDA, DM, asthma, and pulmonary htn who presented on 07/15 after VNS found her to be hypoxic at home with multiple complaints including abdominal pain, chest pain, and generalized not feeling well, found to be flu +.. - Patient Problems (1) Anxiety Current Visit: Yes Status: Acute Code(s): F41.9 - ANXIETY DISORDER, UNSPECIFIED SNOMED Code(s): 18457339 Comment: I believe most of her symptoms at this point are driven by anxiety, fibromyalgia, and chronic pain syndrome, however I appreciate neurology input given her slightly abnormal MRI and EEG. She is allergic to lyrica, duloxetine , and she thinks she is allergic to gabapentin. (2) Acute respiratory failure with hypoxia Current Visit: Yes Status: Acute Code(s): J96.01 - ACUTE RESPIRATORY FAILURE WITH HYPOXIA SNOMED Code(s): 84280769 Comment: asthma exacerbation + influenza amb pulse ox steroids/nebs --> decrease solumedrol now no pulmonary edema and actually 6kg below discharge weight 3 weeks ago. (3) Influenza B Current Visit: Yes Status: Acute Code(s): J10.1 - FLU DUE TO OTH IDENT INFLUENZA VIRUS W OTH RESP MANIFEST SNOMED Code(s): 28158463 Comment: s/p 5 days of tamiflu (4) Seizure Current Visit: Yes Status: Acute Code(s): R56.9 - UNSPECIFIED CONVULSIONS SNOMED Code(s): 28068936 Comment: ? seizure activity seems to have been related to anxiety and pain she does have history of suspected seizure related to PRES last May evaluated by neurology; equivocal EEG; MRI indeterminate appreciate neuro recommendations (5) Pulmonary HTN Current Visit: Yes Status: Acute Code(s): I27.20 - PULMONARY HYPERTENSION, UNSPECIFIED SNOMED Code(s): 59145595 Comment: likely type III in relation to MAGDA and asthma I suspect this is contributing to her ongoing shortness of breath and hypoxia (6) Diabetes mellitus Current Visit: No Status: Acute Code(s): E11.9 - TYPE 2 DIABETES MELLITUS WITHOUT COMPLICATIONS SNOMED Code(s): 66045086 Comment: poorly controlled on steroids; lantus added yesterday (7) MAGDA (obstructive sleep apnea) Current Visit: No Status: Acute Code(s): G47.33 - OBSTRUCTIVE SLEEP APNEA ( ADULT) (PEDIATRIC) SNOMED Code(s): 30405084 Comment: continue nocturnal cpap--she says she tried to wear it at home but usually can't tolerate it through the night. (8) GERD (gastroesophageal reflux disease) Current Visit: No Status: Chronic Code(s): K21.9 - GASTRO-ESOPHAGEAL REFLUX DISEASE WITHOUT ESOPHAGITIS SNOMED Code(s): 945324699 Comment: maalox prn (9) Chronic pain syndrome Current Visit: Yes Status: Acute Code(s): G89.4 - CHRONIC PAIN SYNDROME SNOMED Code(s): 142145932 Comment: fibromyalgia with narcotic dependence. she agreed to decrease the frequency of oxycodone so that she is more awake during the day yesterday, however she is much more anxious today Status and Disposition: she refused PT this morning; PT writes that she kept falling asleep while they were trying to talk to her
[2017-07-18] MEDS: Insulin GLARGINE(*) 1 UNITS UNIT SUBCUT SCH (14:51)
[2017-07-18] MEDS: Ropinirole TAB* 0.5 MG TAB PO SCH (17:03)
[2017-07-18] MEDS: ALPRAZolam TAB* 0.5 MG PO PRN (22:15)
[2017-07-18] MEDS: Senna TAB PO SCH (22:15)
[2017-07-19] MEDS: oxyCODONE/Acetamin 5/325 MG* TAB PO PRN ×2 (00:30→13:32)
[2017-07-19] MEDS: oxyCODONE TAB* 5 MG TAB PO PRN ×2 (00:30→13:33)
--- NOTE | 2017-07-19 02:21 | PN ---
NEUROLOGY PROGRESS NOTE: DATE OF FOLLOWUP: 07/18/17 HISTORY: I was asked to see Ms. Mcfadden in followup by Dr. Jeffers because of development of significant restlessness with an appearance of restless leg syndrome. Dr. Jeffers reports that today Ms. Mcfadden has become increasingly anxious and restless. She is admitted to the hospital because of respiratory distress related to flu. I was asked to see her to help determine whether there is any neurologic cause for her presentation currently. MEDICATIONS: This is not an exhaustive list, but include: 1. Tylenol 650 p.r.n. 2. Albuterol nebulizers as needed. 3. Alprazolam 0.5 mg 3 times daily as needed, which has not been used. 4. Tessalon Perles twice daily. 5. Flexeril 10 mg as needed, last given at 11:30 this morning. 6. Prozac 40 mg daily. 7. Lantus. 8. Synthroid 125 mcg daily. 9. Methylprednisolone 40 mg IV q.12 hours, started this afternoon and yesterday she was receiving this q.8 hours. Previous to that, she had been receiving prednisone 40 mg daily. 10. Dulera twice daily. 11. Prilosec. 12. Zofran as needed, last received at 1349. 13. Oxycodone 5 q.6 p.r.n., last received at 4 a.m. this morning. 14. Percocet 5/325 q.6 p.r.n., last received at 4 this morning. 15. Crestor 10 mg. PHYSICAL EXAMINATION: Vital Signs: Temperature 98.6, blood pressure 117/71, heart rate 84, oxygen saturation 99% on 3 L. On general examination, she was lying on her left side when I initially entered the room and easily opened her eyes to voice. She did not appear overly anxious to me, but was intermittently rubbing her legs against the bed. When asked to describe what she was feeling, she stated that there was pain going down her legs and that she felt she needed to move down but otherwise had a hard time describing the sensations. She has had similar but much less severe and much more brief episodes like this at home in the past. Her heart is in regular rate and rhythm. Her lungs are clear anteriorly. Her left lower leg is slightly bigger than her right lower leg, but I do not feel any palpable cords. She does report some back pain. On neurologic exam, she is oriented to the month and stated the date was or . She initially stated she was in [facility], but then was able to correct to [facility]. She recalled me from the outpatient setting. Her versions are full without nystagmus. [place] are full to confrontation. Facial sensation and musculature is full and symmetric. Palate elevates symmetrically and the tongue is midline. On motor examination, there is no evidence of focal weakness. Her sensation is intact to light touch in the upper and lower extremities. Reflexes are 2+ throughout. She exhibits intermittent abnormal movements as described above. LABORATORY DATA: Recent lab data includes [id number] glucose readings, which have been in the mid 200s to 300s over the past 24 hours. Her rapid flu was positive for influenza B on 07/13/17. I also reviewed a brain MRI, which was obtained on 07/16/17 when she had an episode of some abnormal movements associated with her eyes being closed and anxiety and this shows evidence of some atrophy as well as some small vessel disease, but nothing otherwise significant. IMPRESSION: A 77-year-old woman admitted for respiratory distress secondary to flu with a history of unspecified dementia as well as chronic pain, who is now exhibiting some akathisia/restless leg type symptoms. Given the recent change in her steroid dosing, I questioned whether she is having side effects related to that. I have a call in to Dr. Jeffers to see if this can be adjusted as she seemed to tolerate prednisone better in the past. For now, I also ordered ropinirole 0.5 mg daily to start now in the hopes of helping her through these current symptoms. I do not anticipate that this will need to be a long-term medication and it would be advisable to discontinue this prior to her discharge if possible since she has an quite extensive medication list already. [id number]/[facility] #: [id number] [facility]
[2017-07-19] MEDS: Levothyroxine TAB* 125 MCG TAB PO SCH (06:51)
[2017-07-19] MEDS: Heparin VIAL(*) 5000 UNITS/ML VIAL (FIVE THOUSAND) SUBCUT SCH ×3 (06:51→21:30)
[2017-07-19] MEDS: Mometasone/Formoter 200/5 MDI INH SCH ×2 (08:05→19:50)
[2017-07-19] MEDS: Insulin LISPRO* 1 UNITS UNIT SUBCUT SCH ×3 (08:55→17:28)
[2017-07-19] MEDS: Omeprazole CAP* 20 MG PO SCH (09:10)
[2017-07-19] MEDS: predniSONE TAB* 20 MG PO SCH (09:10)
[2017-07-19] MEDS: guaiFENesin ER TAB 600 MG PO SCH ×2 (09:10→20:50)
[2017-07-19] MEDS: Docusate CAP* 100 MG PO SCH ×2 (09:10→20:49)
[2017-07-19] MEDS: FLUoxetine CAP* 20 MG PO SCH (09:10)
[2017-07-19] MEDS: Ropinirole TAB* 0.5 MG TAB PO SCH (09:11)
[2017-07-19] MEDS: Magnesium Hydroxide LIQ* 30 ML UDC PO PRN (09:13)
[2017-07-19] MEDS: ALPRAZolam TAB* 0.5 MG PO PRN ×2 (13:34→22:55)
[2017-07-19] MEDS: Insulin GLARGINE(*) 1 UNITS UNIT SUBCUT SCH (13:58)
--- NOTE | 2017-07-19 18:56 | PN ---
Subjective Date of Service: 07/19/17 Interval History: family at bedside. she walked with her nurse and o2 did not drop. feels okay today but falls asleep through my entire exam. Objective Active Medications: Acetaminophen (Tylenol Tab*) 650 mg PO Q4H PRN PRN Reason: FEVER/PAIN Last Admin: 07/18/17 01:41 Dose: 650 mg Al Hydrox/Mg Hydrox/Simethicone (Maalox Plus*) 30 ml PO Q4H PRN PRN Reason: INDIGESTION Last Admin: 07/18/17 10:53 Dose: 30 ml Albuterol (Ventolin 2.5 Mg/3 Ml Neb.Sasha*) 2.5 mg INH Q2H PRN PRN Reason: SOB/WHEEZING Albuterol/Ipratropium (Duoneb (Albuterol 2.5 Mg/Ipratropium 0.5 Mg)) 1 neb INH Q4H PRN PRN Reason: SOB/WHEEZING Last Admin: 07/18/17 08:10 Dose: 1 neb Alprazolam (Xanax Tab*) 0.5 mg PO TID PRN PRN Reason: ANXIETY Last Admin: 07/19/17 13:34 Dose: 0.5 mg Benzonatate (Tessalon Cap*) 100 mg PO BID PRN PRN Reason: COUGH Last Admin: 07/17/17 21:51 Dose: 100 mg Cyclobenzaprine HCl (Flexeril Tab*) 10 mg PO BID PRN PRN Reason: SPASMS - MUSCLE Last Admin: 07/18/17 22:16 Dose: 10 mg Dextrose (D50w Syringe 50 Ml*) 12.5 gm IV PUSH .FOR FS < 60 - SS PRN PRN Reason: FS < 60 Docusate Sodium (Colace Cap*) 100 mg PO BID [facility] Last Admin: 07/19/17 09:10 Dose: 100 mg Famotidine (Pepcid Tab*) 20 mg PO BID PRN PRN Reason: NAUSEA/VOMITING Last Admin: 07/17/17 13:31 Dose: 20 mg Fluoxetine HCl (Prozac Cap*) 40 mg PO DAILY [facility] Last Admin: 07/19/17 09:10 Dose: 40 mg Guaifenesin (Mucinex*) 600 mg PO BID [facility] Last Admin: 07/19/17 09:10 Dose: 600 mg Heparin Sodium (Porcine) (Heparin Vial(*)) 5,000 units SUBCUT Q8HR [facility] Last Admin: 07/19/17 13:58 Dose: 5,000 units Insulin Glargine (Lantus(*)) 15 units SUBCUT Q24H [facility] Last Admin: 07/19/17 13:58 Dose: 15 units Insulin Human Lispro (Humalog*) 0 units SUBCUT AC [facility] PRN Reason: Protocol Last Admin: 07/19/17 17:28 Dose: 3 units Levothyroxine Sodium (Synthroid Tab*) 125 mcg PO DAILY@0600 [facility] Last Admin: 07/19/17 06:51 Dose: 125 mcg Magnesium Hydroxide (Milk Of Magnesia Liq*) 30 ml PO Q6H PRN PRN Reason: CONSTIPATION Last Admin: 07/15/17 11:57 Dose: 30 ml Mometasone Furoate/Formoterol Fumar (Dulera 200/5 Mdi*) 2 puff INH BID [facility] Last Admin: 07/19/17 08:05 Dose: 2 puff Omeprazole (Prilosec Cap*) 20 mg PO DAILY@0730 [facility] Last Admin: 07/19/17 09:10 Dose: 20 mg Ondansetron HCl (Zofran Inj*) 4 mg IV Q6H PRN PRN Reason: NAUSEA Last Admin: 07/18/17 13:49 Dose: 4 mg Oxycodone HCl (Roxycodone Tab*) 5 mg PO Q6H PRN PRN Reason: PAIN Last Admin: 07/19/17 13:33 Dose: 5 mg Oxycodone/Acetaminophen (Percocet 5/325 Tab*) 1 tab PO Q6H PRN PRN Reason: PAIN Last Admin: 07/19/17 13:32 Dose: 1 tab Prednisone (Deltasone Tab*) 40 mg PO DAILY [facility] Last Admin: 07/19/17 09:10 Dose: 40 mg Ropinirole HCl (Requip Tab*) 0.5 mg PO DAILY [facility] Last Admin: 07/19/17 09:11 Dose: 0.5 mg Rosuvastatin Calcium (Crestor (Nf)) 10 mg PO DAILY [facility] PRN Reason: Protocol Last Admin: 07/19/17 09:11 Dose: 10 mg Senna (Senokot Tab*) 2 tab PO BEDTIME [facility] Last Admin: 07/18/17 22:15 Dose: 2 tab Vital Signs - 8 hr 07/19/17 07/19/17 07/19/17 11:07 12:24 13:19 Temperature 99.1 F 98.3 F Pulse Rate 73 83 Respiratory 15 Rate Blood Pressure 140/65 131/66 (mmHg) O2 Sat by Pulse 94 95 97 Oximetry 07/19/17 07/19/17 07/19/17 13:32 13:33 13:34 Temperature Pulse Rate Respiratory 18 18 18 Rate Blood Pressure (mmHg) O2 Sat by Pulse Oximetry 07/19/17 07/19/17 07/19/17 15:28 15:29 18:05 Temperature Pulse Rate Respiratory 16 16 18 Rate Blood Pressure (mmHg) O2 Sat by Pulse Oximetry Oxygen Devices in Use Now: Nasal Cannula Appearance: drowsy, alerts to voice, confused Eyes: No Scleral Icterus Ears/Nose/Mouth/Throat: NL Teeth, Lips, Gums Neck: NL Appearance and Movements; NL JVP Respiratory: Symmetrical Chest Expansion and Respiratory Effort, Clear to Auscultation Cardiovascular: NL Sounds; No Murmurs; No JVD, RRR Lymphatic: No Cervical Adenopathy Extremities: No Edema Skin: No Rash or Ulcers Neurological: - - follows commands, strength 5/5 Result Diagrams: 07/16/17 05:38 07/16/17 05:35 Microbiology and Other Data: Microbiology 07/13/17 19:24 Influenza Types A,B Antigen (DENISSE) - Final Nasopharyngeal Specimen received for Influenza A/B Molecular testing Assess/Plan/Problems-Billing Assessment: 77 yo female with history of MAGDA, DM, asthma, and pulmonary htn who presented yesterday after VNS found her to be hypoxic at home with multiple complaints including abdominal pain, chest pain, and generalized not feeling well, found to be flu +, now with generalized weakness and sleepiness. - Patient Problems (1) Has daytime drowsiness Current Visit: Yes Status: Acute Code(s): R40.0 - SOMNOLENCE SNOMED Code(s ): 301408355873 Comment: I suspect polypharmacy, but she also doesn't tolerate cpap well check AM ABG She and her family are resistant to me decreasing her medications (2) Acute respiratory failure with hypoxia Current Visit: Yes Status: Acute Code(s): J96.01 - ACUTE RESPIRATORY FAILURE WITH HYPOXIA SNOMED Code(s): 88222533 Comment: now resolved. asthma exacerbation + influenza steroids decreased yesterday (she does not tolerate solumedrol) no pulmonary edema and actually 6kg below discharge weight 3 weeks ago. (3) Influenza B Current Visit: Yes Status: Acute Code(s): J10.1 - FLU DUE TO OTH IDENT INFLUENZA VIRUS W OTH RESP MANIFEST SNOMED Code(s): 31619947 Comment: s/p 5 days of tamiflu (4) Seizure Current Visit: Yes Status: Acute Code(s): R56.9 - UNSPECIFIED CONVULSIONS SNOMED Code(s): 15770815 Comment: she does have history of suspected seizure related to PRES last August , but she was evaluated by neuro on this admission, and agree this episode was probably not a seizure but likely related to anxiety. no AEDs indicated. (5) Pulmonary HTN Current Visit: Yes Status: Acute Code(s): I27.20 - PULMONARY HYPERTENSION, UNSPECIFIED SNOMED Code(s): 12540562 Comment: likely type III in relation to MAGDA and asthma I suspect this is contributing to her ongoing shortness of breath and hypoxia (6) Diabetes mellitus Current Visit: No Status: Acute Code(s): E11.9 - TYPE 2 DIABETES MELLITUS WITHOUT COMPLICATIONS SNOMED Code(s): 25450747 Comment: poorly controlled on steroids; lantus added yesterday just while she is on steroids. should be SD'ed prior to discharge. (7) MAGDA (obstructive sleep apnea) Current Visit: No Status: Acute Code(s): G47.33 - OBSTRUCTIVE SLEEP APNEA ( ADULT) (PEDIATRIC) SNOMED Code(s): 45690586 Comment: continue nocturnal cpap--she says she trie to wear it but usually can't tolerate it through the night. (8) GERD (gastroesophageal reflux disease) Current Visit: No Status: Chronic Code(s): K21.9 - GASTRO-ESOPHAGEAL REFLUX DISEASE WITHOUT ESOPHAGITIS SNOMED Code(s): 240267797 Comment: maalox prn (9) Chronic pain syndrome Current Visit: Yes Status: Acute Code(s): G89.4 - CHRONIC PAIN SYNDROME SNOMED Code(s): 893928933 Comment: fibromyalgia with narcotic dependence she is actually on less oxycodone than she has been at home (I decreased frequency to q6 instead of q4) but she's still sleepy all day Status and Disposition: evaluated by PT this morning, seems okay from a PT standpoint for home. will need more services for [facility] if available.
[2017-07-19] MEDS: Senna TAB PO SCH (20:49)
[2017-07-19] MEDS: Famotidine TAB* 20 MG PO PRN (22:56)
[2017-07-20] MEDS: oxyCODONE/Acetamin 5/325 MG* TAB PO PRN ×2 (00:10→17:33)
[2017-07-20] MEDS: Heparin VIAL(*) 5000 UNITS/ML VIAL (FIVE THOUSAND) SUBCUT SCH ×3 (05:15→22:28)
[2017-07-20] MEDS: Levothyroxine TAB* 125 MCG TAB PO SCH (05:16)
[2017-07-20] MEDS: Omeprazole CAP* 20 MG PO SCH (07:38)
[2017-07-20] MEDS: Insulin LISPRO* 1 UNITS UNIT SUBCUT SCH ×3 (08:37→17:34)
[2017-07-20] MEDS: guaiFENesin ER TAB 600 MG PO SCH ×2 (09:03→22:29)
[2017-07-20] MEDS: FLUoxetine CAP* 20 MG PO SCH (09:03)
[2017-07-20] MEDS: predniSONE TAB* 20 MG PO SCH (09:04)
[2017-07-20] MEDS: Docusate CAP* 100 MG PO SCH ×2 (09:06→22:29)
[2017-07-20] MEDS: Ropinirole TAB* 0.5 MG TAB PO SCH (09:06)
[2017-07-20] MEDS: Mometasone/Formoter 200/5 MDI INH SCH ×2 (09:10→19:58)
[2017-07-20] MEDS: oxyCODONE TAB* 5 MG TAB PO PRN ×2 (11:47→17:32)
[2017-07-20] MEDS: Insulin GLARGINE(*) 1 UNITS UNIT SUBCUT SCH (13:53)
--- NOTE | 2017-07-20 15:19 | PN ---
Subjective Date of Service: 07/20/17 Interval History: Patient seen and examined. States she feels better on O2 and overall. Pain at baseline, no SOB today. Objective Active Medications: Acetaminophen (Tylenol Tab*) 650 mg PO Q4H PRN PRN Reason: FEVER/PAIN Last Admin: 07/18/17 01:41 Dose: 650 mg Al Hydrox/Mg Hydrox/Simethicone (Maalox Plus*) 30 ml PO Q4H PRN PRN Reason: INDIGESTION Last Admin: 07/18/17 10:53 Dose: 30 ml Albuterol (Ventolin 2.5 Mg/3 Ml Neb.Sasha*) 2.5 mg INH Q2H PRN PRN Reason: SOB/WHEEZING Albuterol/Ipratropium (Duoneb (Albuterol 2.5 Mg/Ipratropium 0.5 Mg)) 1 neb INH Q4H PRN PRN Reason: SOB/WHEEZING Last Admin: 07/18/17 08:10 Dose: 1 neb Alprazolam (Xanax Tab*) 0.5 mg PO TID PRN PRN Reason: ANXIETY Last Admin: 07/19/17 22:55 Dose: 0.5 mg Benzonatate (Tessalon Cap*) 100 mg PO BID PRN PRN Reason: COUGH Last Admin: 07/17/17 21:51 Dose: 100 mg Cyclobenzaprine HCl (Flexeril Tab*) 10 mg PO BID PRN PRN Reason: SPASMS - MUSCLE Last Admin: 07/18/17 22:16 Dose: 10 mg Dextrose (D50w Syringe 50 Ml*) 12.5 gm IV PUSH .FOR FS < 60 - SS PRN PRN Reason: FS < 60 Docusate Sodium (Colace Cap*) 100 mg PO BID [facility] Last Admin: 07/20/17 09:06 Dose: 100 mg Famotidine (Pepcid Tab*) 20 mg PO BID PRN PRN Reason: NAUSEA/VOMITING Last Admin: 07/19/17 22:56 Dose: 20 mg Fluoxetine HCl (Prozac Cap*) 40 mg PO DAILY [facility] Last Admin: 07/20/17 09:03 Dose: 40 mg Guaifenesin (Mucinex*) 600 mg PO BID [facility] Last Admin: 07/20/17 09:03 Dose: 600 mg Heparin Sodium (Porcine) (Heparin Vial(*)) 5,000 units SUBCUT Q8HR [facility] Last Admin: 07/20/17 13:53 Dose: 5,000 units Insulin Glargine (Lantus(*)) 15 units SUBCUT Q24H [facility] Last Admin: 07/20/17 13:53 Dose: 15 units Insulin Human Lispro (Humalog*) 0 units SUBCUT AC [facility] PRN Reason: Protocol Last Admin: 07/20/17 12:37 Dose: 3 units Levothyroxine Sodium (Synthroid Tab*) 125 mcg PO DAILY@0600 [facility] Last Admin: 07/20/17 05:16 Dose: 125 mcg Magnesium Hydroxide (Milk Of Magnesia Liq*) 30 ml PO Q6H PRN PRN Reason: CONSTIPATION Last Admin: 07/15/17 11:57 Dose: 30 ml Mometasone Furoate/Formoterol Fumar (Dulera 200/5 Mdi*) 2 puff INH BID [facility] Last Admin: 07/20/17 09:10 Dose: Not Given Omeprazole (Prilosec Cap*) 20 mg PO DAILY@0730 [facility] Last Admin: 07/20/17 07:38 Dose: 20 mg Ondansetron HCl (Zofran Inj*) 4 mg IV Q6H PRN PRN Reason: NAUSEA Last Admin: 07/18/17 13:49 Dose: 4 mg Oxycodone HCl (Roxycodone Tab*) 5 mg PO Q6H PRN PRN Reason: PAIN Last Admin: 07/20/17 11:47 Dose: 5 mg Oxycodone/Acetaminophen (Percocet 5/325 Tab*) 1 tab PO Q6H PRN PRN Reason: PAIN Last Admin: 07/20/17 00:10 Dose: 1 tab Prednisone (Deltasone Tab*) 40 mg PO DAILY [facility] Last Admin: 07/20/17 09:04 Dose: 40 mg Ropinirole HCl (Requip Tab*) 0.5 mg PO DAILY [facility] Last Admin: 07/20/17 09:06 Dose: 0.5 mg Rosuvastatin Calcium (Crestor (Nf)) 10 mg PO DAILY [facility] PRN Reason: Protocol Last Admin: 07/20/17 09:05 Dose: 10 mg Senna (Senokot Tab*) 2 tab PO BEDTIME [facility] Last Admin: 07/19/17 20:49 Dose: 2 tab Vital Signs - 8 hr 07/20/17 07/20/17 07/20/17 08:00 08:05 09:07 Temperature 97.8 F Pulse Rate 72 Respiratory 14 18 Rate Blood Pressure 158/69 (mmHg) O2 Sat by Pulse 94 97 Oximetry 07/20/17 07/20/17 07/20/17 09:10 11:47 13:45 Temperature Pulse Rate Respiratory 20 16 Rate Blood Pressure (mmHg) O2 Sat by Pulse 94 Oximetry Oxygen Devices in Use Now: Nasal Cannula Appearance: Alert, NAD Eyes: No Scleral Icterus, PERRLA Ears/Nose/Mouth/Throat: NL Teeth, Lips, Gums, Mucous Membranes Moist Neck: NL Appearance and Movements; NL JVP, Trachea Midline Respiratory: Symmetrical Chest Expansion and Respiratory Effort, Clear to Auscultation Cardiovascular: RRR, No Edema, - - Grade II/ murmur Abdominal: NL Sounds; No Tenderness; No Distention Extremities: No Edema Neurological: Alert and Oriented x 3 Nutrition: Taking PO's Result Diagrams: 07/16/17 05:38 07/16/17 05:35 Microbiology and Other Data: Microbiology 07/13/17 19:24 Influenza Types A,B Antigen (DENISSE) - Final Nasopharyngeal Specimen received for Influenza A/B Molecular testing Assess/Plan/Problems-Billing Assessment: 77 yo female with history of MAGDA, DM, asthma, and pulmonary htn who presented yesterday after VNS found her to be hypoxic at home with multiple complaints including abdominal pain, chest pain, and generalized not feeling well, found to be flu +, now with generalized weakness and sleepiness. - Patient Problems (1) Acute respiratory failure with hypoxia Code(s): J96.01 - ACUTE RESPIRATORY FAILURE WITH HYPOXIA SNOMED Code(s): 49405066 Comment: - ABG with PO2 of 58%, likely combination of MAGDA and hypoventilation - Currently tolerating on 3L NC with improved respiration and mentation - Will DC on home O2 - Patient and family counseled on use of CPAP at night - Asthma exac and influenza resolved - Will need f/u with Dr. Paz, has appointment for (2) Chronic pain syndrome Code(s): G89.4 - CHRONIC PAIN SYNDROME SNOMED Code(s): 759680799 Comment: - 2/2 fibromyalgia with current narcotic dependence - Sleepiness improved, stay on current dosing (3) Has daytime drowsiness Code(s): R40.0 - SOMNOLENCE SNOMED Code(s): 597338387960 Comment: - Likely 2/2 chronic respiratory and polypharmacy - Reinforced CPAP and use of O2 during the day (4) Pulmonary HTN Code(s): I27.20 - PULMONARY HYPERTENSION, UNSPECIFIED SNOMED Code(s): 46188029 Comment: - Likely type III in relation to MAGDA and asthma, contributing to current SOB/ resp failure (5) Seizure Code(s): R56.9 - UNSPECIFIED CONVULSIONS SNOMED Code(s): 95888437 Comment: - Resolved - History of suspected seizure related to PRES last August, but seems more anxiety related (6) DVT prophylaxis Current Visit: No Status: Acute Code(s): NIC5498 - SNOMED Code(s): 016090521 Comment: - HSQ (7) Diabetes mellitus Code(s): E11.9 - TYPE 2 DIABETES MELLITUS WITHOUT COMPLICATIONS SNOMED Code(s) : 42128851 Comment: - poorly controlled while on steroids, now DCd - Continue lantus through tomorrow then DC lantus before going home (8) MAGDA (obstructive sleep apnea) Code(s): G47.33 - OBSTRUCTIVE SLEEP APNEA (ADULT) (PEDIATRIC) SNOMED Code(s): 60520675 Comment: - Non-compliance per patient and family - MUST be worn at night - F/U with Dr. Paz for new mask for comfort if needed (9) Chronic pain Code(s): G89.29 - OTHER CHRONIC PAIN SNOMED Code(s): 16364264 Comment: - Monitor respiratory status while on home regimen of narcotics (10) Dementia Code(s): F03.90 - UNSPECIFIED DEMENTIA WITHOUT BEHAVIORAL DISTURBANCE SNOMED Code(s): 75365491 Comment: - Mentation seems improved with O2 - Continue supportive care. Status and Disposition: Will DC in AM to home with O2, coordinated with family and staff.
[2017-07-20] MEDS: Senna TAB PO SCH (22:29)
[2017-07-21] MEDS: oxyCODONE/Acetamin 5/325 MG* TAB PO PRN ×2 (00:27→14:51)
[2017-07-21] MEDS: oxyCODONE TAB* 5 MG TAB PO PRN ×2 (00:28→14:52)
[2017-07-21] MEDS: Heparin VIAL(*) 5000 UNITS/ML VIAL (FIVE THOUSAND) SUBCUT SCH ×2 (06:04→14:44)
[2017-07-21] MEDS: Levothyroxine TAB* 125 MCG TAB PO SCH (06:04)
[2017-07-21] MEDS: Mometasone/Formoter 200/5 MDI INH SCH (07:42)
[2017-07-21] MEDS: Insulin LISPRO* 1 UNITS UNIT SUBCUT SCH ×3 (08:03→16:42)
[2017-07-21] MEDS: Ropinirole TAB* 0.5 MG TAB PO SCH ×2 (08:14→08:28)
[2017-07-21] MEDS: guaiFENesin ER TAB 600 MG PO SCH (08:14)
[2017-07-21] MEDS: Docusate CAP* 100 MG PO SCH (08:14)
[2017-07-21] MEDS: FLUoxetine CAP* 20 MG PO SCH ×2 (08:14→08:22)
[2017-07-21] MEDS: predniSONE TAB* 20 MG PO SCH (08:15)
[2017-07-21] MEDS: Omeprazole CAP* 20 MG PO SCH (08:15)
[2017-07-21] MEDS: Al Hydrox/Mg Hydrox/Simet LIQ* 30 ML UDC PO PRN (13:10)
[2017-07-21] MEDS: Insulin GLARGINE(*) 1 UNITS UNIT SUBCUT SCH (14:44)
[2017-07-21 16:48] VITALS: BP 160/71
--- NOTE | 2017-07-21 22:15 | DS ---
CC: Dr. Brooks * DISCHARGE SUMMARY: DATE OF ADMISSION: 07/13/17 DATE OF DISCHARGE: 07/21/17 PRIMARY CARE PROVIDER: Dr. Brooks. ATTENDING WHILE IN THE HOSPITAL: Dr. Eusebia Jeffers. MY ATTENDING FOR TODAY: Dr. Kera Hager.* (DICTATED BY BINH MERIDA NP) SPECIALISTS INVOLVED IN THIS PATIENT'S CARE: Dr. Annalise Paz and Dr. Martha Barrett. HOSPITAL COURSE: This is a 77-year-old female patient who was admitted to the hospital on 07/13/17 when she was found to be hypoxic at home when visiting nurse service came to evaluate her. They said her saturations were into the 70s and 80s. She also had some sharp pains worse with inspirations, some chest discomfort and a cough and some other kind of vague respiratory findings. The patient was referred to the emergency department for evaluation where she was subsequently admitted for shortness of breath, chest pain and hypoxia. She was wheezing at that time. She does have history of asthma. She was treated with inhaled steroids as well as steroids by mouth. She was placed on the insulin sliding scale and long acting as her sugars were increased secondary to the steroids. Normally, she is on metformin at home. She was seen by Dr. Paz in conjunction with Neuro as she does have questionable history of seizures and because she was having some day time sleepiness and some issues with what appeared to may be the postictal state. She was also evaluated for seizure disorder by Neurology. Essentially, the patient's condition may have also been due to polypharmacy. She does take chronic narcotics for fibromyalgia and chronic pain, so she essentially had a combination of factors, which put her into some respiratory depression. Her ABG that was performed on 07/20/17 showed some significant changes. Her pH is 7.46, CO2 was 48, pO2 was 58, and bicarb was 32 with a base excess of 9.2. Her O2 saturation being 95.2. She was subsequently placed on 3 L of O2 to which she responded well. The patient also has history of obstructive sleep apnea. There was some noncompliance with her CPAP at home as well as here in the hospital. However, it was discussed at length with the family and with the patient that she would need to remain on the CPAP and followup with Pulmonology very, very closely. Also of significant note, patient has history of Takotsubo cardiomyopathy. She did not have any issues with troponin, so her chest pain was felt to be more pulmonary in nature than cardiac. She did have CAT scan of chest, abdomen and pelvis which did not show any acute findings and essentially began to feel a little bit better especially with oxygen and minimizing her narcotics and trying to ambulate the patient and get her up and moving. The patient was cleared for discharge on on home oxygen. The patient's family is in agreement with the plan. She will continue her visiting nurse services in the home. Her followups with Dr. Annalise Paz on with her primary care physician on Wednesday and with VNS as needed. PHYSICAL EXAMINATION: On the day of discharge, patient is awake and alert, in no acute distress. Vital signs today are blood pressure 158/64, heart rate 58, respiratory rate 19, satting at 95% on 2 L, temperature 97.9. HEENT: The patient is atraumatic, normocephalic. PERRLA with nonicteric sclerae. Neck is supple, nontender. No JVD noted. No carotid bruits auscultated. Cardiovascular: S1, S2 were present. Rate and rhythm are regular, slightly bradycardic today. She does have an audible grade 2/6 systolic murmur at baseline. Lungs are clear at the apices, greatly diminished at the bases. No appreciable wheeze today, rhonchi or rales noted. Abdomen is soft, nontender, nondistended. Positive bowel sounds in all 4 quadrants. Musculoskeletal: There is no clubbing and no cyanosis, no edema. She has a steady gait with minimal assistance. Neurologic: She does have periods of confusion. She has some underlying baseline cognitive deficits; however, she is alert and oriented x3 and appropriate while here. LABORATORY DATA: WBCs 3.5, RBCs 3.72, hemoglobin 10.4, hematocrit 31, platelets 171. Blood sugar anywhere from 105 to 246. Sodium 140, potassium 4.3 , chloride 105, CO2 30, anion gap 5. BUN 10, creatinine 0.96. GFR 56.7. Venous glucose 167. Triglycerides 105, cholesterol 91, LDL 38, HDL 31.7, BNP was 86, procalcitonin at admission was less than 0.1. DISCHARGE MEDICATIONS: Include: 1. Crestor 10 mg daily. 2. Zofran 4 mg q.4 hours as needed. 3. Flexeril 10 mg 2 times a day as needed. 4. Pepcid 20 mg 2 times a day. 5. Prozac 40 mg daily. 6. Omeprazole 20 mg daily. 7. Losartan 50 mg 2 times a day. 8. Synthroid 125 mcg daily. 9. Metformin 500 mg 2 times a day. 10. Amlodipine 10 mg daily. 11. Percocet 10/325 mg 1 tablet q.4 hours as needed. 12. Prednisone 40 mg daily. 13. Guaifenesin 600 mg 2 times a day. 14. Ropinirole 0.5 mg daily. 15. Dulera 200/5 two puffs 2 times a day. 16. Tessalon 100 mg 2 times a day as needed. 17. Albuterol inhaler 1 puff q.4 hours as needed. DISCHARGE DIAGNOSES: 1. Acute respiratory failure with hypoxia. 2. Chronic pain syndrome. 3. Pulmonary hypertension. 4. Seizure disorder. 5. Diabetes mellitus. 6. Obstructive sleep apnea. 7. Fibromyalgia with chronic pain. 8. History of dementia. 9. Obstructive sleep apnea. PLAN: Again, the patient will be discharged to home with home oxygen and CPAP. Medications had be sent to her pharmacy. Again, she will follow up with Dr. Paz tomorrow and her primary care on Wednesday. BINH MERIDA, AIME [id number]/[facility] #: [id number] KEVIN
== END 2017-07-21 17:05 | disposition home health service (06) | DRG 193 ==
LOC: ED 14:27 → MEDTELE 18:24 → OBSVTOIN 07-15 09:00 → MED 07-19 19:42
PROVIDERS: ADMIT Internal Medicine; ATTEND Hospitalist
PROC: 4A10X4Z Monitoring of Central Nervous Electrical Activity, External Approach (ICD-10-PCS; principal; 2017-07-16)
DX: J10.1 Influenza due to other identified influenza virus with other respiratory manifestations (principal); J96.01 Acute respiratory failure with hypoxia; J45.901 Unspecified asthma with (acute) exacerbation; I51.81 Takotsubo syndrome; I13.0 Hypertensive heart and chronic kidney disease with heart failure and stage 1 through stage 4 chronic kidney disease, or unspecified chronic kidney disease; F11.20 Opioid dependence, uncomplicated; Z68.41 Body mass index [BMI] 40.0-44.9, adult; E03.9 Hypothyroidism, unspecified; I50.9 Heart failure, unspecified; G47.30 Sleep apnea, unspecified; K21.9 Gastro-esophageal reflux disease without esophagitis; M19.042 Primary osteoarthritis, left hand; M19.041 Primary osteoarthritis, right hand; M16.0 Bilateral primary osteoarthritis of hip; M19.012 Primary osteoarthritis, left shoulder; G43.909 Migraine, unspecified, not intractable, without status migrainosus; M19.011 Primary osteoarthritis, right shoulder; M79.7 Fibromyalgia; F03.90 Unspecified dementia, unspecified severity, without behavioral disturbance, psychotic disturbance, mood disturbance, and anxiety; F41.9 Anxiety disorder, unspecified; F32.9 Major depressive disorder, single episode, unspecified; Z96.661 Presence of right artificial ankle joint; Z96.652 Presence of left artificial knee joint; E78.5 Hyperlipidemia, unspecified; G47.33 Obstructive sleep apnea (adult) (pediatric); N18.9 Chronic kidney disease, unspecified; E11.22 Type 2 diabetes mellitus with diabetic chronic kidney disease; K59.00 Constipation, unspecified; E66.01 Morbid (severe) obesity due to excess calories; D64.9 Anemia, unspecified; G40.909 Epilepsy, unspecified, not intractable, without status epilepticus; I27.20 Pulmonary hypertension, unspecified; R40.0 Somnolence; Z88.5 Allergy status to narcotic agent; Z88.0 Allergy status to penicillin; Z88.2 Allergy status to sulfonamides; Z88.8 Allergy status to other drugs, medicaments and biological substances; Z88.1 Allergy status to other antibiotic agents; Z91.041 Radiographic dye allergy status; I25.2 Old myocardial infarction; Z90.710 Acquired absence of both cervix and uterus; Z90.49 Acquired absence of other specified parts of digestive tract; Z82.49 Family history of ischemic heart disease and other diseases of the circulatory system; Z91.19 Patient's noncompliance with other medical treatment and regimen; Z79.84 Long term (current) use of oral hypoglycemic drugs; Z79.52 Long term (current) use of systemic steroids
CPT/HCPCS: 36415; 36600; 70551; 71046; 71250; 74018; 74176; 80048; 80053; 80061; 81003; 81015; 82803; 83036; 83605; 83690; 83880; 84145; 84484; 85025; 85610; 85652; 86140; 87070; 87086; 87205; 87502; 87899; 93005; 94640; 94760; 94762; 95819; 99283; A9270-GY; G8978-GP-CI; G8979-GP-CI; G8980-GP-CI; J1644; J2060; J2405; J2920; J7512

== ENCOUNTER 2017-10-10 11:26 | Emergency (ER) | payer MEDICARE, BC ==
[2017-10-10] MEDS ORDERED: HYDROmorphone INJ* 2 MG/ML CARPUJECT SYRINGE ONE (13:00)
[2017-10-10] MEDS: HYDROmorphone INJ* 2 MG/ML CARPUJECT SYRINGE IV SLOW PU PRN ×2 (13:13→16:20)
[2017-10-10 13:18] LABS: ABS Basophils 0.1 10^3/ul (0-0.2); ABS Eosinophils 0.2 10^3/ul (0-0.6); ABS Lymphocytes 2.7 10^3/ul (1.0-4.8); ABS Monocytes 0.5 10^3/ul (0-0.8); ABS Nucleated RBC 0 10^3/ul; Eosinophil % 2.1 % (0-6); Hematocrit 33 % (35-47); Hemoglobin 10.9 g/dl (12.0-16.0); Lymphocyte % 35.6 % (25-47); Mean Corpuscular HGB Conc 33 g/dl (31-36); Mean Corpuscular Hemoglobin 27 pg (27-31); Mean Corpuscular Volume 81 fL (80-97); Mean Platelet Volume 8.8 um3 (7.4-10.4); Nucleated Red Blood Cells % 0; Platelet Count 229 10^3/ul (150-450); Red Blood Count 4.03 10^6/ul (4.00-5.40); Red Cell Distribution Width 17 % (10.5-15); White Blood Count 7.5 10^3/ul (3.5-10.8)
[2017-10-10 13:36] LABS: EGFR Non-African American 81.6 (>60)
[2017-10-10] MEDS ORDERED: HYDROmorphone INJ* 2 MG/ML CARPUJECT SYRINGE IV SLOW PU PRN (15:56)
[2017-10-10 17:28] VITALS: BP 127/70
--- NOTE | 2017-10-10 18:45 | ED ---
Geovanni Ballard Tariq, scribed for Christopher Epperson MD on 10/10/17 at 1245 . Complex/Multi-Sys Presentation - HPI Summary HPI Summary: A 77 year old F pt REKHA presents to the ED c/o diffuse myalgias and SOB. Pain started early this morning. Pt describes that she is, "trembling with pain" and her arms and legs are "killing me". She is currently in pain, as per triage ranked moderate 5/10. She feels slightly better since onset after being given oxygen by EMS en route. Additionally, pt c/o chronic back pain. Movement aggravates the Sx. Currently takes several medications including oxycodone. She has not taken any oxycodone today. PMHx of fibromyalgia, murmur and anxiety. 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 - Onset/Duration: Sudden Onset, Lasting Hours Timing: Constant Severity Currently: Moderate Location: Pain At: - Diffuse myalgias Aggravating Factor(s): Movement Alleviating Factor(s): O2 Associated Signs And Symptoms: Positive: SOB, Back Pain - Chronic - Allergies/Home Medications Allergies/Adverse Reactions: Allergies Allergy/AdvReac Type Severity Reaction Status Date / Time Adhesive Tape Allergy Rash Verified 10/10/17 11:40 adhesive tape Allergy Rash Verified 10/10/17 11:40 amoxicillin Allergy Anaphylatic Verified 10/10/17 11:40 Shock donepezil Allergy Anaphylatic Verified 10/10/17 11:40 Shock doxycycline Allergy Rash Verified 10/10/17 11:40 duloxetine [From Cymbalta] Allergy Unknown Verified 10/10/17 11:40 Reaction Details gabapentin Allergy Swelling Verified 10/10/17 11:40 iodine Allergy Hives Verified 10/10/17 11:40 levofloxacin Allergy Unknown Verified 10/10/17 11:40 Reaction Details Penicillins Allergy Anaphylatic Verified 10/10/17 11:40 Shock pregabalin Allergy Edema Verified 10/10/17 11:40 sulfite Allergy Difficulty Verified 10/10/17 11:40 Breathing atorvastatin AdvReac Muscle Ache Verified 10/10/17 11:40 fluvastatin AdvReac Muscle Ache Verified 10/10/17 11:40 morphine AdvReac GI Upset Verified 10/10/17 11:40 simvastatin AdvReac Muscle Ache Verified 10/10/17 11:40 Sulfa (Sulfonamide AdvReac Nausea And Verified 10/10/17 11:40 Antibiotics) Vomiting warfarin AdvReac GI Upset Verified 10/10/17 11:40 PMH/Surg Hx/FS Hx/Imm Hx Endocrine/Hematology History: Reports: Hx Diabetes, Hx Thyroid Disease - hypothyroidism Cardiovascular History: Reports: Hx Cardiomegaly, Hx Congestive Heart Failure, Hx Hypercholesterolemia, Hx Hypotension, Hx Hypertension, Other Cardiovascular Problems/Disorders - Takotsubo cardiomyopathy, [place] Denies: Hx Pacemaker/ICD Respiratory History: Reports: Hx Asthma, Hx Pneumonia, Hx Sleep Apnea Denies: Hx Chronic Obstructive Pulmonary Disease (COPD) GI History: Reports: Hx Gastroesophageal Reflux Disease, Hx Obstructive Bowel - 2015 History: Denies: Hx Dialysis, Hx Renal Disease Musculoskeletal History: Reports: Hx Arthritis - hands,hips, shoulders, Hx Back Problems, Hx Fibromyalgia, Hx Orthopedic Injury - Fx Pelvis 1960; Rt. Tibia, Fibula,&Ankle Sensory History: Denies: Hx Contacts or Glasses, Hx Hearing Aid Opthamlomology History: Denies: Hx Contacts or Glasses Neurological History: Reports: Hx Dementia, Hx Migraine, Other Neuro Impairments /Disorders - Encephalopathy on recent EEG's; started on Aricept for memory loss , PAIN PT Denies: Hx Seizures Psychiatric History: Reports: Hx Anxiety, Hx Depression Denies: Hx Panic Disorder - Surgical History Surgery Procedure, Year, and Place: Radical hysterectomy, 1989. Repair of right leg and ankle fx. Deric fundoplication surgery. Tonsillectomy. Cholecystectomy. Total right ankle replacement, 2003. Total left knee replacement, 2006 Hx Anesthesia Reactions: No - Immunization History Date of Tetanus Vaccine: unknown Date of Influenza Vaccine: 2014 Infectious Disease History: No Infectious Disease History: Denies: Hx Clostridium Difficile, Hx Hepatitis, Hx Human Immunodeficiency Virus (HIV), Hx of Known/Suspected MRSA, Hx Shingles, Hx Tuberculosis, Hx Known/ Suspected VRE, Hx Known/Suspected VRSA, History Other Infectious Disease, Traveled Outside the [place] in Last 30 Days - Family History Known Family History: Positive: Cardiac Disease - Social History Alcohol Use: None Substance Use Type: Reports: None Substance Use Comment - Amount & Last Used: percocet Smoking Status (MU): Never Smoked Tobacco Have You Smoked in the Last Year: No Review of Systems Negative: Fever Positive: Shortness Of Breath Positive: Myalgia - Diffuse, Other - Chronic back pain All Other Systems Reviewed And Are Negative: Yes Physical Exam - Summary Physical Exam Summary: Appearance: The patient is well-nourished in no acute distress and in no acute pain. Skin: The skin is warm and dry and skin color reflects adequate perfusion. HEENT: The head is normocephalic and atraumatic. The pupils are equal and reactive. The conjunctivae are clear and without drainage. Nares are patent and without drainage. Mouth reveals moist mucous membranes and the throat is without erythema and exudate. The external ears are intact. The ear canals are patent and without drainage. The tympanic membranes are intact. Neck: The neck is supple with full range of motion and non-tender. There are no carotid bruits. There is no neck vein distension. Respiratory: Chest is non-tender. Lungs are clear to auscultation and breath sounds are symmetrical and equal. Cardiovascular: Heart is regular rate and rhythm. Systolic ejection murmur. There is no peripheral edema and pulses are symmetrical and equal. Abdomen: The abdomen is soft and non-tender. There are normal bowel sounds heard in all four quadrants and there is no organomegaly palpated. Musculoskeletal: There is no back tenderness noted. Extremities are non-tender with full range of motion. There is good capillary refill. There is no peripheral edema or calf tenderness elicited. Neurological: Patient is alert and oriented to person, place and time. The patient has symmetrical motor strength in all four extremities. Cranial nerves are grossly intact. Deep tendon reflexes are symmetrical and equal in all four extremities. Psychiatric: The patient has an appropriate affect and does not exhibit any anxiety or depression. Triage Information Reviewed: Yes Vital Signs On Initial Exam: Initial Vitals Temp Pulse Resp BP Pulse Ox 98.6 F 95 18 140/68 93 10/10/17 11:33 10/10/17 11:33 10/10/17 11:33 10/10/17 11:33 10/10/17 11:33 Vital Signs Reviewed: Yes Diagnostics - Vital Signs Vital Signs Temp Pulse Resp BP Pulse Ox 10/10/17 11:33 98.6 F 95 18 140/68 93 - Laboratory Lab Results: Lab Results 10/10/17 10/10/17 10/10/17 Range/Units 13:11 13:11 13:11 WBC 7.5 (3.5-10.8) 10^3/ul RBC 4.03 (4.00-5.40) 10^6/ul Hgb 10.9 L (12.0-16.0) g/dl Hct 33 L (35-47) % MCV 81 (80-97) fL MCH 27 (27-31) pg MCHC 33 (31-36) g/dl RDW 17 H (10.5-15) % Plt Count 229 (150-450) 10^3/ul MPV 8.8 (7.4-10.4) um3 Neut % (Auto) 54.0 (38-83) % Lymph % (Auto) 35.6 (25-47) % [place] % (Auto) 7.0 (0-7) % Eos % (Auto) 2.1 (0-6) % Baso % (Auto) 1.3 (0-2) % Absolute Neuts (auto) 4.0 (1.5-7.7) 10^3/ul Absolute Lymphs (auto) 2.7 (1.0-4.8) 10^3/ul Absolute Monos (auto) 0.5 (0-0.8) 10^3/ul Absolute Eos (auto) 0.2 (0-0.6) 10^3/ul Absolute Basos (auto) 0.1 (0-0.2) 10^3/ul Absolute Nucleated RBC 0 10^3/ul Nucleated RBC % 0 D-Dimer, Quantitative 264 H (Less Than 230) ng/mL Sodium 141 (135-145) mmol/L Potassium 3.8 (3.5-5.0) mmol/L Chloride 108 (101-111) mmol/L Carbon Dioxide 26 (22-32) mmol/L Anion Gap 7 (2-11) mmol/L BUN 13 (6-24) mg/dL Creatinine 0.70 (0.51-0.95) mg/dL Est GFR ( Amer) 104.9 (>60) Est GFR (Non-Af Amer) 81.6 (>60) BUN/Creatinine Ratio 18.6 (8-20) Glucose 107 H (70-100) mg/dL Calcium 9.5 (8.6-10.3) mg/dL Total Bilirubin 0.40 (0.2-1.0) mg/dL AST 12 L (13-39) U/L ALT 10 (7-52) U/L Alkaline Phosphatase 55 (34-104) U/L C-Reactive Protein 1.72 (< 5.00) mg/L B-Natriuretic Peptide ( - 100) pg/mL Total Protein 6.4 (6.4-8.9) g/dL Albumin 3.9 (3.2-5.2) g/dL Globulin 2.5 (2-4) g/dL Albumin/Globulin Ratio 1.6 (1-3) // Range/Units 13:11 WBC (3.5-10.8) 10^3/ul RBC (4.00-5.40) 10^6/ul Hgb (12.0-16.0) g/dl Hct (35-47) % MCV (80-97) fL MCH (27-31) pg MCHC (31-36) g/dl RDW (10.5-15) % Plt Count (150-450) 10^3/ul MPV (7.4-10.4) um3 Neut % (Auto) (38-83) % Lymph % (Auto) (25-47) % [place] % (Auto) (0-7) % Eos % (Auto) (0-6) % Baso % (Auto) (0-2) % Absolute Neuts (auto) (1.5-7.7) 10^3/ul Absolute Lymphs (auto) (1.0-4.8) 10^3/ul Absolute Monos (auto) (0-0.8) 10^3/ul Absolute Eos (auto) (0-0.6) 10^3/ul Absolute Basos (auto) (0-0.2) 10^3/ul Absolute Nucleated RBC 10^3/ul Nucleated RBC % D-Dimer, Quantitative (Less Than 230) ng/mL Sodium (135-145) mmol/L Potassium (3.5-5.0) mmol/L Chloride (101-111) mmol/L Carbon Dioxide (22-32) mmol/L Anion Gap (2-11) mmol/L BUN (6-24) mg/dL Creatinine (0.51-0.95) mg/dL Est GFR ( Amer) (>60) Est GFR (Non-Af Amer) (>60) BUN/Creatinine Ratio (8-20) Glucose (70-100) mg/dL Calcium (8.6-10.3) mg/dL Total Bilirubin (0.2-1.0) mg/dL AST (13-39) U/L ALT (7-52) U/L Alkaline Phosphatase (34-104) U/L C-Reactive Protein (< 5.00) mg/L B-Natriuretic Peptide 296 H ( - 100) pg/mL Total Protein (6.4-8.9) g/dL Albumin (3.2-5.2) g/dL Globulin (2-4) g/dL Albumin/Globulin Ratio (1-3) Result Diagrams: 10/10/17 13:11 10/10/17 13:11 Lab Statement: Any lab studies that have been ordered have been reviewed, and results considered in the medical decision making process. Re-Evaluation - Re-Evaluation First Eval Re-Evaluation Time: 15:54 Change: Unchanged Complex Multi-Symp Course/Dx Course Of Treatment: Ms. Mcfadden presents complaining that her chronic pain from myalgia has gotten much worse today. She normally takes oxycodone at home she was unable to take it today because of the pain. She was worked up here for any sign of acute infection etc. and nothing was found. She was given parenteral pain medication here which helped with her pains. She was discharged with recommendations for close follow-up if not improved. - Diagnoses Provider Diagnoses: Chronic pain Discharge - Sign-Out/Discharge Documenting (check all that apply): Discharge/Admit/Transfer - Discharge - Discharge Plan Condition: Stable Disposition: HOME Patient Education Materials: Chronic Pain (ED) Referrals: Chantal Cobb NP [Primary Care Provider] - 3 Days - Billing Disposition and Condition Condition: STABLE Disposition: Home The documentation as recorded by the Geovanni wisdom Tariq accurately reflects the service I personally performed and the decisions made by me, Christopher Epperson MD.
== END 2017-10-10 17:28 | disposition home or self-care (01) ==
LOC: ED 11:26
DX: G89.29 Other chronic pain (principal); M79.1 Myalgia; Z88.3 Allergy status to other anti-infective agents; Z88.8 Allergy status to other drugs, medicaments and biological substances; Z88.0 Allergy status to penicillin
CPT/HCPCS: 36415; 80053; 83880; 85025; 85379; 86140; 96374; 96376; 99283; J1170

== ENCOUNTER 2018-12-19 13:11 | Inpatient (IN) | payer MEDICARE, BC ==
--- NOTE | 2018-12-19 13:36 | ED ---
Neurological HPI - HPI Summary HPI Summary: This patient is a 78 year old F presenting to [facility] via EMS with a chief complaint of a seizure since earlier today. Pt states she felt "out of it" in her living room. She is not sure what happened. Per EMS, pt had a 30 minute seizure. The patient rates the pain 7/10 in severity. Symptoms aggravated by nothing. Symptoms alleviated by nothing. Pt reports cough, chronic pain. Pt denies any fever, chills, erythema of eyes, sore throat, CP, SOB, abdominal pain, N/V, dysuria, hematuria, myalgia, edema, rash, or dizziness. Pt does not smoke or drink, but lived with smokers during all of her life. PMHx of HTN diabetes, seizures, depression. Pt sleeps with 1 pillow. She denies gaining weight recently. Pt uses a walker to ambulate at home sometimes due to her ankle issues. - History of Current Complaint Stated Complaint: SEIZURE PER EMS Time Seen by Provider: 12/19/18 13:14 Hx Obtained From: Patient Onset/Duration: Sudden Onset, Started hours ago - earlier today, Resolved Timing: Sudden Onset Onset Severity: Moderate Current Severity: Moderate Number of Seizures: 1 Pain Intensity: 7 Pain Scale Used: 0-10 Numeric Episode Lasting: Seconds/Minutes - 30 minutes per EMS Aggravating: Nothing Alleviating: Nothing Associated Signs and Symptoms: Positive: Seizure, Pain - chronic. Negative: Nausea/Vomiting, Fever - Additional Pertinent History Primary Care Physician: [id number] - Allergy/Home Medications Allergies/Adverse Reactions: Allergies Allergy/AdvReac Type Severity Reaction Status Date / Time Adhesive Tape Allergy Rash Verified 10/18/18 22:49 adhesive tape Allergy Rash Verified 10/18/18 22:49 amoxicillin Allergy Anaphylatic Verified 10/18/18 22:49 Shock donepezil Allergy Anaphylatic Verified 10/18/18 22:49 Shock doxycycline Allergy Rash Verified 10/18/18 22:49 duloxetine [From Cymbalta] Allergy Unknown Verified 10/18/18 22:49 Reaction Details gabapentin Allergy Swelling Verified 10/18/18 22:49 iodine Allergy Hives Verified 10/18/18 22:49 levofloxacin Allergy Unknown Verified 10/18/18 22:49 Reaction Details Penicillins Allergy Anaphylatic Verified 10/18/18 22:49 Shock pregabalin Allergy Edema Verified 10/18/18 22:49 sulfite Allergy Difficulty Verified 10/18/18 22:49 Breathing atorvastatin AdvReac Muscle Ache Verified 10/18/18 22:49 fluvastatin AdvReac Muscle Ache Verified 10/18/18 22:49 morphine AdvReac GI Upset Verified 10/18/18 22:49 simvastatin AdvReac Muscle Ache Verified 10/18/18 22:49 Sulfa (Sulfonamide AdvReac Nausea And Verified 10/18/18 22:49 Antibiotics) Vomiting warfarin AdvReac GI Upset Verified 10/18/18 22:49 Home Medications: Home Medications Cyanocobalamin TAB* [Vitamin B12 TAB*] 1,000 mcg PO DAILY 12/19/18 [History Confirmed 12/19/18] Divalproex Sodium [Depakote] 250 mg PO BID 12/19/18 [History Confirmed 12/19/18] Escitalopram * [Lexapro 10 mg (NF)] 20 mg PO QAM 12/19/18 [History Confirmed ] Levothyroxine TAB* [Synthroid TAB*] 100 mcg PO DAILY 12/19/18 [History Confirmed 12/19/18] Losartan TAB* [Cozaar TAB*] 100 mg PO Q8HR 12/19/18 [History Confirmed 12/19/18] Magnesium Oxide TAB* [MagOx 400 TAB*] 400 mg PO DAILY 12/19/18 [History Confirmed 12/19/18] Omeprazole CAP (NF) [Prilosec CAP* 20 MG] 20 mg PO BID 12/19/18 [History Confirmed 12/19/18] Ropinirole TAB* [Requip TAB*] 0.5 mg PO BEDTIME 12/19/18 [History Confirmed ] Rosuvastatin (NF) [Crestor (NF)] 10 mg PO DAILY 12/19/18 [History Confirmed ] amLODIPine TAB* [Norvasc 5 mg TAB*] 5 mg PO DAILY 12/19/18 [History Confirmed ] metFORMIN* [Glucophage 1000 MG TAB *] 1,000 mg PO DAILY 12/19/18 [History Confirmed 12/19/18] PMH/Surg Hx/FS Hx/Imm Hx Previously Healthy: No Endocrine/Hematology History: Reports: Hx Diabetes, Hx Thyroid Disease - hypothyroidism Cardiovascular History: Reports: Hx Cardiomegaly, Hx Congestive Heart Failure, Hx Hypercholesterolemia, Hx Hypotension, Hx Hypertension, Other Cardiovascular Problems/Disorders - Takotsubo cardiomyopathy, [place] Denies: Hx Pacemaker/ICD Respiratory History: Reports: Hx Asthma, Hx Pneumonia, Hx Sleep Apnea Denies: Hx Chronic Obstructive Pulmonary Disease (COPD) GI History: Reports: Hx Gastroesophageal Reflux Disease, Hx Obstructive Bowel - 2016 History: Denies: Hx Dialysis, Hx Renal Disease Musculoskeletal History: Reports: Hx Arthritis - hands,hips, shoulders, Hx Back Problems, Hx Fibromyalgia, Hx Orthopedic Injury - Fx Pelvis 1960; Rt. Tibia, Fibula,&Ankle Sensory History: Denies: Hx Contacts or Glasses, Hx Hearing Aid Opthamlomology History: Denies: Hx Contacts or Glasses Neurological History: Reports: Hx Dementia, Hx Migraine, Other Neuro Impairments /Disorders - Encephalopathy on recent EEG's; started on Aricept for memory loss , PAIN PT Denies: Hx Seizures Psychiatric History: Reports: Hx Anxiety, Hx Depression Denies: Hx Panic Disorder - Surgical History Surgical History: Yes Surgery Procedure, Year, and Place: Radical hysterectomy, 1989. Repair of right leg and ankle fx. Deric fundoplication surgery. Tonsillectomy. Cholecystectomy. Total right ankle replacement, 2003. Total left knee replacement, 2006 Hx Anesthesia Reactions: No - Immunization History Date of Tetanus Vaccine: unknown Date of Influenza Vaccine: 2014 Infectious Disease History: No Infectious Disease History: Denies: Hx Clostridium Difficile, Hx Hepatitis, Hx Human Immunodeficiency Virus (HIV), Hx of Known/Suspected MRSA, Hx Shingles, Hx Tuberculosis, Hx Known/ Suspected VRE, Hx Known/Suspected VRSA, History Other Infectious Disease, Traveled Outside the [place] in Last 30 Days - Family History Known Family History: Positive: Cardiac Disease - Social History Alcohol Use: None Hx Substance Use: No Substance Use Type: Reports: None Substance Use Comment - Amount & Last Used: percocet Hx Tobacco Use: No Smoking Status (MU): Never Smoked Tobacco Have You Smoked in the Last Year: No Review of Systems Constitutional: Other - positive - chronic pain Negative: Fever, Chills Negative: Erythema Negative: Sore Throat Negative: Chest Pain Positive: Cough. Negative: Shortness Of Breath Negative: Abdominal Pain, Vomiting, Nausea Negative: dysuria, hematuria Negative: Myalgia, Edema Negative: Rash Neurological: Other - positive - seizure. negative - dizziness All Other Systems Reviewed And Are Negative: Yes Physical Exam - Summary Physical Exam Summary: Constitutional: Well-developed, Well-nourished, Alert. (-) Distressed Skin: Warm, Dry HENT: Normocephalic; Atraumatic Eyes: Conjunctiva normal Neck: Musculoskeletal ROM normal neck. (-) JVD, (-) Stridor, (-) Tracheal deviation Cardio: Rhythm regular, rate normal, Heart sounds normal; Intact distal pulses; The pedal pulses are 2+ and symmetric. Radial pulses are 2+ and symmetric. (-) Murmur Pulmonary/Chest wall: Crackles in base of lungs. Wheezing sounds when she breathes with her mouth open that resolves when she breathes through her nose. Effort normal. (-) Respiratory distress, (-) Rales Abd: Soft, (-) tenderness, (-) Distension, (-) Guarding, (-) Rebound Musculoskeletal: (-) Edema Lymph: (-) Cervical adenopathy Neuro: Alert, Oriented x3 Psych: Mood and affect Normal Triage Information Reviewed: Yes Vital Signs On Initial Exam: Initial Vitals BP 151/95 12/19/18 13:21 Vital Signs Reviewed: Yes Diagnostics - Vital Signs Vital Signs Temp Pulse Resp BP Pulse Ox 12/19/18 13:26 94 12/19/18 13:23 98.2 F 83 20 151/95 89 12/19/18 13:22 9 12/19/18 13:21 151/95 - Laboratory Result Diagrams: 12/19/18 13:30 12/19/18 13:30 Lab Statement: Any lab studies that have been ordered have been reviewed, and results considered in the medical decision making process. - Radiology Chest X-ray Radiology Interpretation Completed By: Radiologist Summary of Radiographic Findings: IMPRESSION: NO ACTIVE CARDIOPULMONARY DISEASE IS NOTED. These findings were reviewed by Dr. Bender. - EKG 1336 Cardiac Rate: NL - 85 BPM EKG Rhythm: Sinus Rhythm Summary of EKG Findings: EKG at 1336 shows 85 BPM, sinus rhythm, no STEMI. Re-Evaluation - Re-Evaluation First Eval Re-Evaluation Time: 14:42 Comment: Daughter of pt is not able to be reached at this time. Significant other Grady said he got home from doctors apt and found pt to be confused and unable to answer questions. Daughter told Grady pt was shaking uncontrollably previous to this. Grady said pt has not had her medications yet today. Second Eval Re-Evaluation Time: 15:29 Comment: Daughter called back and said her mother is not on Keppra, but is on Depacon. She says her mother is mildly demented. Course/Dx - Course Course Of Treatment: This patient is a 78 year old F presenting to [facility] via EMS with a chief complaint of a seizure since earlier today. Pt states she felt "out of it" in her living room. She is not sure what happened. Per EMS, pt had a 30 minute seizure. The patient rates the pain 7/10 in severity. Symptoms aggravated by nothing. Symptoms alleviated by nothing. Pt reports cough, chronic pain. Pt denies any fever, chills, erythema of eyes, sore throat, CP, SOB, abdominal pain, N/V, dysuria, hematuria, myalgia, edema, rash, or dizziness. Pt does not smoke or drink, but lived with smokers during all of her life. PMHx of HTN diabetes, seizures, depression. Pt sleeps with 1 pillow. She denies gaining weight recently. Pt uses a walker to ambulate at home sometimes due to her ankle issues. Her previous charts were reviewed and saw that at the end of September 2018, she was admitted for LOC with an abnormal EEG and was started on 250 mg kepra BID. Physical exam shows crackles in the base of lungs and wheezing sounds when she breathes with her mouth open that resolves when she breathes through her nose. Lab results show Hgb 10.5, Hct 33, RDW 17, glucose 126, magnesium 1.7, BNP 219, total protein 6.0. CXR IMPRESSION: NO ACTIVE CARDIOPULMONARY DISEASE IS NOTED. EKG at 1336 shows 85 BPM, sinus rhythm, no STEMI. At 1445, Dr. Almanza recommends 500mg IV Kepra and to increase prescription to 500mg BID. At 1600, Dr. Campbell says pt will be admitted. During ED course, pt was given Duoneb, Keppra, and Depacon. Dx is hypoxia, medication noncompliance, and seizure disorder. Pt will have supplemental oxygen requirement. Pt had crackles and some audible wheezes. Dr. Bender recommends pts admission. There is a question of whether the pt had a seizure or was hypoxic. - Diagnoses Provider Diagnoses: Hypoxia, Nonadherence to medication, Seizure disorder - Physician Notifications Discussed Care Of Patient With: Jacek Almanza Time Discussed With Above Provider: 14:45 Instructed by Provider To: Other - Dr. Almanza recommends 500mg IV Kepra and to increase prescription to 500mg BID. At 1600, Dr. Campbell says pt will be admitted. Discharge ED - Sign-Out/Discharge Documenting (check all that apply): Patient Departure - admit Patient Received Moderate/Deep Sedation with Procedure: No - Discharge Plan Condition: Stable Disposition: ADMITTED TO [facility] Referrals: Michael Brooks MD [Primary Care Provider] - - Attestation Statements Document Initiated by Scribe: Yes Documenting Scribe: Juaquin Marion Provider For Whom Scribe is Documenting (Include Credential): Dr. Marco Bender MD Scribe Attestation: Juaquin Ballard, scribed for Dr. Marco Bender MD on 12/19/18 at 1630. Status of Scribe Document: Ready
[2018-12-19 13:46] LABS: ABS Eosinophils 0.2 10^3/ul (0-0.6); ABS Lymphocytes 1.8 10^3/ul (1.0-4.8); ABS Monocytes 0.5 10^3/ul (0-0.8); ABS Neutrophils 1.7 10^3/ul (1.5-7.7); Eosinophil % 4.9 %; Hematocrit 33 % (35-47); Hemoglobin 10.5 g/dL (12.0-16.0); Lymphocyte % 42.6 %; Mean Corpuscular HGB Conc 32 g/dL (31-36); Mean Corpuscular Hemoglobin 27 pg (27-31); Mean Corpuscular Volume 83 fL (80-97); Mean Platelet Volume 8.4 fL (7.4-10.4); Platelet Count 165 10^3/uL (150-450); Red Blood Count 3.97 10^6 /uL (3.70-4.87); Red Cell Distribution Width 17 % (10-15); White Blood Count 4.3 10^3/uL (3.5-10.8)
[2018-12-19 13:58] LABS: INR 0.93 (0.82-1.09)
[2018-12-19 14:02] LABS: Albumin 3.7 g/dL (3.2-5.2); Albumin/Globulin Ratio 1.6 (1-3); BUN/Creatinine Ratio 12.3 (8-20); Calcium 9.7 mg/dL (8.6-10.3); EGFR African American 93.8 (>60); EGFR Non-African American 77.5 (>60); Globulin 2.3 g/dL (2-4); Magnesium 1.7 mg/dL (1.9-2.7); Potassium 3.8 mmol/L (3.5-5.0); Total Bilirubin 0.3 mg/dL (0.2-1.0)
[2018-12-19] MEDS ORDERED: levETIRAcetam 1000MG IVPREMIX* 1,000 MG/100 ML BAG IVPB ONE (14:37)
[2018-12-19] MEDS ORDERED: levETIRAcetam 500 MG IVPREMIX* 500 MG/100 ML BAG IVPB ONE (14:57)
[2018-12-19] MEDS ORDERED: Albuterol/Ipratropium NEB.SOL* Albuterol 2.5 MG/Ipratropium 0.5 MG 3 ML INH ONE (15:09)
[2018-12-19] MEDS ORDERED: Valproic Acid IV(*) 100 MG/ML 5 ML VIAL (500 MG) IVPB ONE (15:15)
[2018-12-19] MEDS ORDERED: oxyCODONE/Acetamin 5/325 MG* TAB PO ONE (15:34)
[2018-12-19] MEDS ORDERED: VALPROIC ACID 500 MG IV - ED ONCE IVPB ONE ×2 (16:00)
[2018-12-19 17:02] LABS: Urine Appearance Clear; Urine Bilirubin Negative (Negative); Urine Blood Negative (Negative); Urine Color Yellow; Urine Glucose Negative (Negative); Urine Ketones Trace (Negative); Urine Nitrite Negative (Negative); Urine Protein Negative (Negative); Urine Specific Gravity 1.014 (1.010-1.030); Urine Urobilinogen Negative (Negative)
[2018-12-19] MEDS ORDERED: Albuterol/Ipratropium NEB.SOL* Albuterol 2.5 MG/Ipratropium 0.5 MG 3 ML INH PRN (17:10)
[2018-12-19] MEDS ORDERED: Magnesium Sulfate 2 GM IV* 2 GM/50 ML BAG IVPB ONE (17:31)
--- NOTE | 2018-12-19 19:00 | HP ---
CC: Michael Brooks MD; Estela García MD * HISTORY AND PHYSICAL: DATE OF ADMISSION: 12/19/18 PRIMARY CARE PROVIDER: Michael Brooks MD ATTENDING PHYSICIAN: Estela García MD * (dictated by FRANCISCO Jacobson ). CHIEF COMPLAINT: 1. "I think I had a seizure." 2. Dry cough. HISTORY OF PRESENT ILLNESS: Ms. Mcfadden is a 78-year-old female with a past medical history of seizures, hypertension, diastolic heart failure, hyperlipidemia, diabetes mellitus and asthma, who presented to the ER today, status post seizure. She is accompanied by her significant other Grady who is at the bedside. He notes that this seizure was witnessed by the patient's daughter, Jose. He came along shortly after, and when he arrived, the patient was sitting in her chair and was unresponsive to voice and touch for approximately 30 minutes. The patient states that she woke in the ambulance and she felt disoriented afterwards. She denied fatigue. She denied oral injuries such as biting the cheek or tongue and denied loss of bowel or bladder function. The patient follows with Dr. Wallace. In September, she was started on Keppra 250 b.i.d. Medication was then changed at the end of October 2018, to Depakote 250 b.i.d. The patient takes these medications as prescribed. Her significant other distributes these medications to her and she has not missed any doses. The patient also complains of dry cough. She notes that she had a cough that subsided approximately 2 weeks ago and she started dry cough again today. She complains of chest congestion, but denies fever, recent exposure. She has a history of asthma. She does not use tobacco, but has over 30-year history of secondhand smoke exposure. The patient denies dyspnea on exertion, PND. She is noted to have required oxygen at the beginning of her stay in the ER, but by the end she was breathing comfortably, satting at greater than 93% on room air, even during conversation. She does not require oxygen at baseline. She denies lower extremity edema. Currently, the patient complains of pain which is chronic in the arms and legs and has not changed. She complains of occasional wheezing and chronic fatigue which has not changed. She denies abdominal pain, nausea, vomiting, diarrhea, or constipation. She denies numbness or tingling in the extremities. While in the emergency department, the patient received a full workup, which included laboratory workup revealing a normocytic anemia, hypomagnesemia, mildly elevated BNP. The patient's valproic acid was on the low end of normal. In the ER, the patient was given oxycodone 10/325, 500 mg valproic acid. Hospitalist team was asked to further evaluate the patient for admission. PAST MEDICAL HISTORY: 1. Diastolic heart failure. 2. Hypertension. 3. Hyperlipidemia. 4. Diabetes mellitus. 5. Seizure disorder. 6. Hypothyroidism. 7. GERD. 8. Fibromyalgia. 9. Obstructive sleep apnea, noncompliant with CPAP. 10. Asthma. 11. Depression. 12. History of takotsubo cardiomyopathy in 2016. 13. History of NSTEMI in 2016. PAST SURGICAL HISTORY: Hysterectomy, left knee, right ankle, tonsillectomy, Deric fundoplication. HOME MEDICATIONS: 1. Amlodipine 5 mg p.o. daily. 2. Cyanocobalamin 1000 mcg p.o. daily. 3. Divalproex sodium 250 mg p.o. b.i.d. 4. Escitalopram 20 mg p.o. daily. 5. Levothyroxine 100 mcg p.o. daily. 6. Losartan 100 mg p.o. q.8 hours. 7. Magnesium oxide 400 mg p.o. daily. 8. Metformin 1000 mg p.o. daily. 9. Omeprazole 20 mg p.o. b.i.d. 10. Ropinirole 0.5 mg p.o. at bedtime. 11. Rosuvastatin 10 mg p.o. daily. DRUG ALLERGIES: ADHESIVE TAPE, rash; AMOXICILLIN, anaphylaxis; DONEPEZIL, anaphylaxis; DOXYCYCLINE, rash; DULOXETINE; GABAPENTIN, edema; IODINE, urticaria ; LEVOFLOXACIN; PENICILLIN, anaphylaxis; PREGABALIN, edema; SULFITE, shortness of breath; ATORVASTATIN, FLUVASTATIN, SIMVASTATIN, muscle ache; MORPHINE, GI upset; WARFARIN, GI upset. FAMILY HISTORY: Father; lung cancer, [place]. Mother had diabetes mellitus, [place]. SOCIAL HISTORY: The patient denies current or former use of tobacco, although she admits to over 30-year exposure to secondhand tobacco smoke. She does not use alcohol. She is retired at the age of 57. 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 She is . She currently lives with her significant other of approximately 24 years, Grady. She has 3 children. In the event that she is unable to make her own medical decisions, she has appointed her daughter, Jose Velazquez, to be her surrogate decision maker. REVIEW OF SYSTEMS: A 14-point review of systems has been performed and all the pertinent positives and negatives are in the HPI. All other systems are negative. PHYSICAL EXAMINATION GENERAL: Ms. Mcfadden is a well-developed, well-nourished, obese, older white woman who is sitting up in bed. She appears to be in no acute distress. She appears her stated age. VITAL SIGNS: Temperature 98.2 temporal, heart rate 91, respiratory rate 15, oxygen saturation 95% on room air, blood pressure 132/81. HEENT: Visual lewis grossly intact. PERRL. EOMI. Nonicteric sclerae. Mildly hard of hearing. Oral mucous membranes are moist, without lesions. The pharynx is clear. PULMONARY: Symmetrical chest expansion without use of accessory muscles. There are faint expiratory wheezes at end expiration throughout. Faint crackles at the left lung base. No digital clubbing or cyanosis. CARDIOVASCULAR: Regular rate and rhythm with mild systolic murmur noted. S1, S2 present. No rubs, clicks, or gallops. There is no JVD. There is no peripheral edema. ABDOMEN: Obese. Bowel sounds in all quadrants. The abdomen is soft without tenderness to palpation. There is no noted hepatosplenomegaly. MUSCULOSKELETAL: Full range of motion. The patient has arthritic changes to bilateral hands. Strength 5/5 in bilateral upper and lower extremities. Validation Intern strength equal. NEURO: The patient is awake. She is alert and oriented x3 with cranial nerves grossly intact. DIAGNOSTIC STUDIES/LAB DATA: HGB 10.5, HCT 33, magnesium 1.7, BNP 219, valproic acid 53. ECG: Rate 85, no ST changes, normal sinus rhythm. Chest x-ray, impression: No active cardiopulmonary disease noted. ASSESSMENT AND PLAN: Ms. Mcfadden is a 78-year-old female with a past medical history of diastolic heart failure, epilepsy, asthma, obstructive sleep apnea, who presented to the ER today with complaints of dry cough and status post seizure. She will be admitted to observation for: 1. Seizure. The patient arrived after a period of 30 minutes where she was unresponsive to voice and touch, but breathing. Within the last month, she was changed from Keppra 250 b.i.d. to Depakote 250 b.i.d. Her Depakote level today was noted to be on the low end of normal. Neurology, Dr. Almanza was consulted and recommended increasing Depakote from 250 to 500 b.i.d. This has been ordered. Neurology will see the patient tomorrow. 2. Wheeze. Upon arrival to the ER, the patient was noted to require oxygen to keep O2 sats greater than 90%. During our discussion, she was satting greater than 93% on room air. Pulmonary exam revealed faint end expiratory wheezing. I do not believe that she is in exacerbation at this time. We will order DuoNebs q.4 hours p.r.n. wheeze. 3. Diabetes mellitus. Continue metformin. 4. Hypertension. Continue home medications amlodipine, losartan. 5. Hyperlipidemia. Continue rosuvastatin. 6. Hypothyroidism. Continue Synthroid. 7. Gastroesophageal reflux disease. Continue omeprazole 20 b.i.d. 8. Depression. Continue Lexapro. 9. DVT prophylaxis. According to DVT Risk Assessment, the patient scores 4, placing her at high risk. She will be started on Lovenox. 10. Code status. Full code. TIME SPENT: Approximately 60 minutes was spent on this admission, greater than half that time was spent [id number] with the patient and her partner, Grady, obtaining history, performing physical, and reviewing the plan of care. The case has been reviewed with my attending, Dr. García, who is in agreement with the plan of care. FRANCISCO JACOBSON [id number]/[facility] #: [id number] KEVIN
[2018-12-19] MEDS ORDERED: oxyCODONE/Acetamin 5/325 MG* TAB PO PRN (20:09)
[2018-12-19] MEDS: Enoxaparin(*) 40 MG/0.4 ML SYR SUBCUT SCH (20:46)
[2018-12-19] MEDS: oxyCODONE/Acetamin 5/325 MG* TAB PO PRN (20:47)
[2018-12-19] MEDS: Pantoprazole TAB * 40 MG TAB PO SCH (20:48)
[2018-12-19] MEDS: Divalproex DR TAB(*) 500 MG PO SCH (20:48)
[2018-12-19] MEDS: Ropinirole TAB* 0.5 MG TAB PO SCH (20:48)
[2018-12-20] MEDS: oxyCODONE/Acetamin 5/325 MG* TAB PO PRN ×5 (03:46→22:35)
[2018-12-20] MEDS: Levothyroxine TAB* 100 MCG TAB PO SCH (05:49)
[2018-12-20] MEDS ORDERED: Furosemide IV* 10 MG/ML VIAL (40 MG) IV ONE (08:28)
[2018-12-20] MEDS: amLODIPine TAB* 5 MG PO SCH (09:34)
[2018-12-20] MEDS: Magnesium Oxide TAB* 400 MG PO SCH (09:34)
[2018-12-20] MEDS: Losartan TAB* 25 MG PO SCH (09:34)
[2018-12-20] MEDS: Cyanocobalamin TAB* 500 MCG PO SCH (09:34)
[2018-12-20] MEDS: Divalproex DR TAB(*) 500 MG PO SCH ×2 (09:34→20:06)
[2018-12-20] MEDS: Escitalopram * 20 MG TABLET PO SCH (09:35)
[2018-12-20] MEDS: ROSUVASTATIN 10 MG PO SCH (09:35)
[2018-12-20] MEDS: metFORMIN* 1,000 MG TAB PO SCH (09:35)
[2018-12-20] MEDS: Pantoprazole TAB * 40 MG TAB PO SCH ×2 (09:35→20:06)
[2018-12-20] MEDS: Albuterol/Ipratropium NEB.SOL* Albuterol 2.5 MG/Ipratropium 0.5 MG 3 ML INH SCH ×4 (11:43→22:58)
[2018-12-20] MEDS: guaiFENesin ER TAB 600 MG PO SCH ×2 (14:06→20:06)
--- NOTE | 2018-12-20 15:47 | PN ---
Subjective Date of Service: 12/20/18 Interval History: Patient seen and examined. She is complaining of cough and "all over pain", primarily headache. She is exhibiting no neuro deficits per record and no overnight events. She states she doesn't know what's happening to her but she doesn't feel like she had a seizure. Objective Active Medications: Albuterol/Ipratropium (Duoneb (Albuterol 2.5 Mg/Ipratropium 0.5 Mg)) 1 neb INH Q4H ISABEL Stop: 12/20/18 23:01 Last Admin: 12/20/18 15:31 Dose: 1 neb Amlodipine Besylate (Norvasc Tab*) 5 mg PO DAILY [facility] [place] Last Admin: 12/20/18 09:34 Dose: 5 mg Cyanocobalamin (Vitamin B12 Tab*) 1,000 mcg PO DAILY [facility] [place] Last Admin: 12/20/18 09:34 Dose: 1,000 mcg Divalproex Sodium (Depakote Dr Tab(*)) 500 mg PO BID [facility] [place] Last Admin: 12/20/18 09:34 Dose: 500 mg Enoxaparin Sodium (Lovenox(*)) 40 mg SUBCUT Q24H [facility] [place] Last Admin: 12/19/18 20:46 Dose: 40 mg Escitalopram Oxalate (Lexapro *) 20 mg PO QAM [facility] [place] Last Admin: 12/20/18 09:35 Dose: 20 mg Guaifenesin (Mucinex*) 600 mg PO BID [facility] [place] Last Admin: 12/20/18 14:06 Dose: 600 mg Levothyroxine Sodium (Synthroid Tab*) 100 mcg PO DAILY@0600 [facility] [place] Last Admin: 12/20/18 05:49 Dose: 100 mcg Losartan Potassium (Cozaar Tab*) 100 mg PO DAILY [facility] [place] Last Admin: 12/20/18 09:34 Dose: 100 mg Magnesium Oxide (Magox 400 Tab*) 400 mg PO DAILY [facility] [place] Last Admin: 12/20/18 09:34 Dose: 400 mg Metformin HCl (Glucophage*) 1,000 mg PO DAILY [facility] [place] Last Admin: 12/20/18 09:35 Dose: 1,000 mg Oxycodone/Acetaminophen (Percocet 5/325 Tab*) 1 tab PO Q4H PRN PRN Reason: Pain- mild to moderate Last Admin: 12/20/18 14:20 Dose: 1 tab Pantoprazole Sodium (Protonix Tab*) 40 mg PO BID [facility] Last Admin: 12/20/18 09:35 Dose: 40 mg Ropinirole HCl (Requip Tab*) 0.5 mg PO BEDTIME [facility] Last Admin: 12/19/18 20:48 Dose: 0.5 mg Rosuvastatin Calcium (Crestor (Nf)) 10 mg PO DAILY [facility] [place]; Protocol Last Admin: 12/20/18 09:35 Dose: 10 mg Vital Signs - 8 hr 12/20/18 12/20/18 12/20/18 09:43 11:45 11:46 Temperature Pulse Rate 74 91 Respiratory 16 14 75 Rate Blood Pressure (mmHg) O2 Sat by Pulse 91 14 Oximetry 12/20/18 12/20/18 12/20/18 13:04 14:06 14:20 Temperature 97.2 F Pulse Rate 93 Respiratory 16 16 17 Rate Blood Pressure 130/72 (mmHg) O2 Sat by Pulse 93 Oximetry 12/20/18 15:32 Temperature Pulse Rate 90 Respiratory 18 Rate Blood Pressure (mmHg) O2 Sat by Pulse 93 Oximetry Oxygen Devices in Use Now: None Appearance: alert, NAD Eyes: No Scleral Icterus, PERRLA Ears/Nose/Mouth/Throat: NL Teeth, Lips, Gums, Mucous Membranes Moist Neck: NL Appearance and Movements; NL JVP, Trachea Midline Respiratory: Symmetrical Chest Expansion and Respiratory Effort, - - crackles bilaterally at the bases with expiratory wheeze on the right Cardiovascular: NL Sounds; No Murmurs; No JVD, RRR Abdominal: NL Sounds; No Tenderness; No Distention Extremities: No Edema, No Clubbing, Cyanosis Skin: No Rash or Ulcers Neurological: Alert and Oriented x 3 Nutrition: Taking PO's Result Diagrams: 12/19/18 13:30 12/19/18 13:30 Assess/Plan/Problems-Billing Assessment: This is a 78 year old female with history of diastolic HF, takotsubo's cardiomyopathy, PRES, seizure disorder, chronic pain/fibromyalgia, obesity, MAGDA that presented to the ED with an episode of unresponsiveness described as seizure like by family, lasting 30 minutes. - Patient Problems (1) Altered mental status Code(s): R41.82 - ALTERED MENTAL STATUS, UNSPECIFIED SNOMED Code(s): 282120026 Comment: - Per family, period of unresponsiveness for 30 minutes, described as tremors and seizure like activity - Unlikely that this was a seizure lasting this long. Multiple EEGs in the past with no true epileptiform changes, she had no post-ictal period, normal lactic acid and normal glucose on arrival; the patient was, however, hypoxic which leads me to believe this is likely a pulmonary event or arrhythmia - Per notes from previous admissions for similar events, patient is non- compliant with home CPAP, also has component of obesity hypoventilation syndrome - Will order CPAP for tonight on hospital equipement and and place on telemetry - Recommendation after last discharge was outpatient holter or loop recorder, will discuss with cardiology tomorrow, as I do not believe patient followed up on this recommendation (2) Diastolic heart failure Code(s): I50.30 - UNSPECIFIED DIASTOLIC (CONGESTIVE) HEART FAILURE SNOMED Code (s): 466752339 Comment: - Bilateral rales noted on today's exam with cough and desaturations - Will give one dose lasix IV today given hx of cardiomyopathy and clinical presentation - BNP slightly elevated at 214 - CXR official read is clear, however, my interpretation of the film is that it does appear to be fluid overloaded - ECHO from September shows grade II diastolic dysfunction, patient also has hx of CAD/[place] - Will continue to optimize, may need diuretic for home - Also placed on mucinex and flutter valve for pulmonary toilet/cough - BP stable, does not appear to need nitrates (3) Cardiomyopathy Current Visit: No Code(s): I42.9 - CARDIOMYOPATHY, UNSPECIFIED SNOMED Code(s ): 77368564 Comment: - Had reduced EF in 2016 with dx of takutsubo's CM - EF in September 2018 55-60% with diastolic dysfunction - Continue to optimize medically, placed on telemetry (4) Fibromyalgia Code(s): M79.7 - FIBROMYALGIA SNOMED Code(s): 975620606 Comment: - Confirmed narcotic dose with [place] [employer], patient attends pain clinic - Patient also with lumbar disc disease and receives epidurals - Supportive care (5) Migraine Code(s): G43.909 - MIGRAINE, UNSP, NOT INTRACTABLE, WITHOUT STATUS MIGRAINOSUS SNOMED Code(s): 63058047 Comment: - Patient reports she has hx of migraines and takes percocet for headaches and fibromyalgia pain - Appreciate further recs from neuro (6) Chronic pain syndrome Code(s): G89.4 - CHRONIC PAIN SYNDROME SNOMED Code(s): 233959562 Comment: - 2/2 fibromyalgia with current narcotic dependence - Decreased dose to percocet 5/325 Q4h from home dose of 10mg/325 q4h - Given her non-compliance with CPAP and narcotic dependence, I am extremely concerned that her episodes of hypoxia and non-responsive behavior are related to narcotics combined with retention of CO2 and/or arrhythmias - Per hospital records, patient has had issues with daytime sleepiness on previous admissions but when narcotic doses are decreased she becomes anxious, tearful and difficult - Continue to monitor closely (7) Dementia Code(s): F03.90 - UNSPECIFIED DEMENTIA WITHOUT BEHAVIORAL DISTURBANCE SNOMED Code(s): 33545122 Comment: - Cont Requip (8) HTN (hypertension) Code(s): I10 - ESSENTIAL (PRIMARY) HYPERTENSION SNOMED Code(s): 76854042 Comment: - Stable on losartan and norvasc (9) MAGDA (obstructive sleep apnea) Code(s): G47.33 - OBSTRUCTIVE SLEEP APNEA (ADULT) (PEDIATRIC) SNOMED Code(s): 14581472 Comment: - Non-compliance with CPAP per patient and family which is likely contributing to many of her current symptoms and hospitalizations - Hospital CPAP ordered (10) Type 2 diabetes mellitus Comment: - Continue metformin, BG stable (11) DVT prophylaxis Code(s): GAW7065 - SNOMED Code(s): 999599031 Comment: - lovenox sq (12) Full code status Code(s): Z78.9 - OTHER SPECIFIED HEALTH STATUS SNOMED Code(s): 713307872 Status and Disposition: Inpatient
--- NOTE | 2018-12-20 16:08 | CONS ---
CC: Dr. Mayco Wallace * NEUROLOGY CONSULTATION REPORT: DATE OF CONSULT: 12/20/18 LOCATION: She is an inpatient in room 410. REFERRING PROVIDER: FRANCISCO Jacobson CHIEF COMPLAINT: Episode of unresponsiveness. HISTORY OF PRESENT ILLNESS: Skylar Mcfadden is a 78-year-old woman known to me from prior evaluation in 2016, when she presented with unresponsiveness and possible seizures requiring intubation. Over the years, she has had multiple hospitalizations for episodes of unresponsiveness. She has had a number of EEGs over the years in the electronic medical record. Five out of six just showed diffuse nonspecific slowing or effects of sedative drug medications. There was one EEG that Dr. Hui felt might show some left temporal sharp waves. There has been never any clear description of convulsions but just episodes of confusion and unresponsiveness. She apparently was confused yesterday. Her significant other Grady is here and said that he was called into the room by her daughter because she was shaking. When he got there, she was not shaking but was just not responding verbally. She had her head back and her eyes closed. She was brought into the emergency room. In the emergency room, she seemed to be cognitive at her baseline. There have been not any recurrent episodes since yesterday. The patient is cognitively impaired and carries a diagnosis of dementia. She does not recall the events of yesterday. She complains of pain and asked if I can increase her pain medication. She states she takes 5 oxycodone a day. She cannot localize her pain and describes diffuse pain throughout her body. Her significant other Grady says that she has been diagnosed with fibromyalgia syndrome. She was recently seen in our office by Dr. Mayco Wallace and Arnoldo Mills and switched from Keppra to Depakote. She was started on Keppra by Dr. José Chaudhry when she was here in the hospital in September. PAST MEDICAL HISTORY: Otherwise notable for chronic pain, apparently felt to be consistent with fibromyalgia, diabetes, hypertension, history of posterior reversible encephalopathy syndrome and severe hypertension, left knee surgery, right ankle surgery, hysterectomy, Deric fundoplication, depression, asthma, sleep apnea with noncompliance with CPAP, history of Takotsubo cardiomyopathy in 2016, history of STEMI 2016, hypothyroidism, gastroesophageal reflux. MEDICATIONS: At home consist of: 1. Amlodipine 5 mg p.o. daily. 2. Depakote 250 mg p.o. b.i.d. 3. Escitalopram 20 mg p.o. daily 4. Levothyroxine 100 mcg p.o. daily. 5. Losartan 100 mg p.o. q.8 hours. 6. Magnesium oxide 400 mg p.o. daily. 7. Metformin 1000 mg p.o. daily. 8. Omeprazole 20 mg p.o. b.i.d. 9. Ropinirole 0.5 mg p.o. q.h.s. 10. Rosuvastatin 10 mg p.o. daily. ALLERGIES: She has multiple drug allergies including anaphylaxis to AMOXICILLIN , rash to DOXYCYCLINE, edema to GABAPENTIN, urticaria to IODINE, shortness of breath to SULFITES. FAMILY HISTORY: Notable for mother having diabetes. SOCIAL HISTORY: She lives at home with Grady, she does not smoke. She does not drink alcohol. REVIEW OF SYSTEMS: Notable for chronic pain, poor memory, gastroesophageal upset, shortness of breath, headaches, chronic tiredness, no fevers or chills, no dysuria, no cough, she thinks her weight is probably stable. She has not noticed any tremor. She has not noticed any increased sedation on the switch to Depakote. She is prone to panic attacks. PHYSICAL EXAM: She is obese. Blood pressure 130/70, heart rate in the 90s and regular, respiratory rate is 16 and oxygen saturation is 93% on room air. Lungs are clear. Heart tones are distant. There is a grade 3/6 holosystolic murmur. I do not hear any carotid bruits although she has a very thick neck. Oral mucosa is moist and atraumatic. Head is atraumatic. Neurological Exam: Pupils react equally from 3 to 2 mm. Eye movements are normal. Visual lewis are full to confrontation. There is no nystagmus. Funduscopic exam reveals sharp disks and arteriolar tortuosity. Facial musculature is symmetric. Facial sensation to light touch is symmetric. Palate and tongue appear normal, palate rises symmetrically and tongue protrudes in the midline. There is no dysarthria. Hearing is intact bilaterally. Neck range of motion is painful. Motor exam has limited by pain in all limbs. She has antigravity and some resistive strength proximally and distally. I do not see any asymmetries. There is no rigidity or spasticity in the limbs. There is a mild sustention tremor in the hands. There is no rest tremor. Plantar responses are flexor bilaterally. Reflexes are trace in the biceps and knees and otherwise absent. I did not attempt to ambulate her. She is awake and alert and a poor historian with impaired memory. Language is fluent. Attention, concentration, and fund of knowledge are poor. DIAGNOSTIC STUDIES/LAB DATA: This admission notable for CBC with a hemoglobin of 10.5 and otherwise unremarkable CBC. Her chemistries from yesterday notable for glucose 126, hemoglobin A1c this past June was 8%. Lactic acid yesterday in the emergency room was normal at 1.6. Magnesium was mildly low at 1.7 and calcium is normal. Liver enzymes are normal on admission. BNP is mildly elevated at 219. Urinalysis from yesterday is negative. Chest x-ray was interpreted as no acute disease. IMPRESSION AND PLAN: Impression is that of possible seizures. Her episodes over several years have been pretty hard to characterize with certainty. She may be having respiratory insufficiency episodes causing convulsive activity as opposed to epilepsy primarily. I did continue her on Depakote but increased the dose to 500 mg twice per day. She seems to be tolerating it well. Dr.. Lois Durham is evaluating her cardiopulmonary status. She might benefit from an overnight oximetry study if she does need to stay in the hospital. [id number]/[facility] #: [id number] [facility]
[2018-12-20] MEDS: Enoxaparin(*) 40 MG/0.4 ML SYR SUBCUT SCH (18:07)
[2018-12-20] MEDS: Ropinirole TAB* 0.5 MG TAB PO SCH (20:06)
[2018-12-21] MEDS: oxyCODONE/Acetamin 5/325 MG* TAB PO PRN ×4 (05:35→22:02)
[2018-12-21] MEDS: Levothyroxine TAB* 100 MCG TAB PO SCH (05:35)
[2018-12-21] MEDS ORDERED: Albuterol/Ipratropium NEB.SOL* Albuterol 2.5 MG/Ipratropium 0.5 MG 3 ML INH PRN (06:10)
[2018-12-21] MEDS: Divalproex DR TAB(*) 500 MG PO SCH ×2 (10:29→22:03)
[2018-12-21] MEDS: Magnesium Oxide TAB* 400 MG PO SCH (10:29)
[2018-12-21] MEDS: Losartan TAB* 25 MG PO SCH (10:29)
[2018-12-21] MEDS: ROSUVASTATIN 10 MG PO SCH (10:29)
[2018-12-21] MEDS: guaiFENesin ER TAB 600 MG PO SCH ×2 (10:29→22:03)
[2018-12-21] MEDS: amLODIPine TAB* 5 MG PO SCH (10:30)
[2018-12-21] MEDS: metFORMIN* 1,000 MG TAB PO SCH (10:30)
[2018-12-21] MEDS: Escitalopram * 20 MG TABLET PO SCH (10:30)
[2018-12-21] MEDS: Cyanocobalamin TAB* 500 MCG PO SCH (10:30)
[2018-12-21] MEDS: Pantoprazole TAB * 40 MG TAB PO SCH ×2 (10:30→22:03)
[2018-12-21] MEDS: Polyethylene Glycol 3350* 17 GM PACKET PO SCH (13:49)
--- NOTE | 2018-12-21 16:15 | PN ---
Subjective Date of Service: 12/21/18 Interval History: Patient seen and examined. Per records and discussion with patient, she did not wear CPAP last night. Her pain seems to be better controlled today, she denies acute SOB, no seizure activity, mild cough, not further hypoxia. Objective Active Medications: Albuterol/Ipratropium (Duoneb (Albuterol 2.5 Mg/Ipratropium 0.5 Mg)) 1 neb INH Q6H PRN PRN Reason: SOB/WHEEZING Last Admin: 12/21/18 06:35 Dose: 1 neb Amlodipine Besylate (Norvasc Tab*) 5 mg PO DAILY [facility] Last Admin: 12/21/18 10:30 Dose: 5 mg Cyanocobalamin (Vitamin B12 Tab*) 1,000 mcg PO DAILY [facility] Last Admin: 12/21/18 10:30 Dose: 1,000 mcg Divalproex Sodium (Depakote Dr Tab(*)) 500 mg PO BID [facility] Last Admin: 12/21/18 10:29 Dose: 500 mg Enoxaparin Sodium (Lovenox(*)) 40 mg SUBCUT Q24H [facility] Last Admin: 12/20/18 18:07 Dose: 40 mg Escitalopram Oxalate (Lexapro *) 20 mg PO QAM [facility] Last Admin: 12/21/18 10:30 Dose: 20 mg Guaifenesin (Mucinex*) 600 mg PO BID [facility] Last Admin: 12/21/18 10:29 Dose: 600 mg Levothyroxine Sodium (Synthroid Tab*) 100 mcg PO DAILY@0600 [facility] Last Admin: 12/21/18 05:35 Dose: 100 mcg Losartan Potassium (Cozaar Tab*) 100 mg PO DAILY [facility] Last Admin: 12/21/18 10:29 Dose: 100 mg Magnesium Oxide (Magox 400 Tab*) 400 mg PO DAILY [facility] Last Admin: 12/21/18 10:29 Dose: 400 mg Metformin HCl (Glucophage*) 1,000 mg PO DAILY [facility] Last Admin: 12/21/18 10:30 Dose: 1,000 mg Oxycodone/Acetaminophen (Percocet 5/325 Tab*) 1 tab PO Q4H PRN PRN Reason: Pain- mild to moderate Last Admin: 12/21/18 13:50 Dose: 1 tab Pantoprazole Sodium (Protonix Tab*) 40 mg PO BID [facility] Last Admin: 12/21/18 10:30 Dose: 40 mg Polyethylene Glycol/Electrolytes (Miralax*) 17 gm PO DAILY [facility] Last Admin: 12/21/18 13:49 Dose: Not Given Ropinirole HCl (Requip Tab*) 0.5 mg PO BEDTIME [facility] Last Admin: 12/20/18 20:06 Dose: 0.5 mg Rosuvastatin Calcium (Crestor (Nf)) 10 mg PO DAILY [facility]; Protocol Last Admin: 12/21/18 10:29 Dose: 10 mg Vital Signs - 8 hr 12/21/18 12/21/18 12/21/18 10:30 10:59 13:50 Temperature 97.9 F Pulse Rate 86 Respiratory 16 16 17 Rate Blood Pressure 137/59 (mmHg) O2 Sat by Pulse 95 Oximetry Oxygen Devices in Use Now: None Appearance: alert, NAD Eyes: No Scleral Icterus, PERRLA Ears/Nose/Mouth/Throat: Mucous Membranes Moist Neck: NL Appearance and Movements; NL JVP, Trachea Midline Respiratory: Symmetrical Chest Expansion and Respiratory Effort, - - clear apices, mild exp wheeze bilat improved Cardiovascular: RRR - systolic murmur noted, No Edema Abdominal: NL Sounds; No Tenderness; No Distention Extremities: No Edema, No Clubbing, Cyanosis Skin: No Rash or Ulcers Neurological: Alert and Oriented x 3 - forgetful Nutrition: Taking PO's Result Diagrams: 12/19/18 13:30 12/19/18 13:30 Assess/Plan/Problems-Billing Assessment: This is a 78 year old female with history of diastolic HF, takotsubo's cardiomyopathy, PRES, seizure disorder, chronic pain/fibromyalgia, obesity, MAGDA that presented to the ED with an episode of unresponsiveness described as seizure like by family, lasting 30 minutes. - Patient Problems (1) Altered mental status Code(s): R41.82 - ALTERED MENTAL STATUS, UNSPECIFIED SNOMED Code(s): 581604047 Comment: - Per family, period of unresponsiveness for 30 minutes, described as tremors and seizure like activity - Unlikely that this was a seizure lasting this long. Multiple EEGs in the past with no true epileptiform changes, she had no post-ictal period, normal lactic acid and normal glucose on arrival; the patient was, however, hypoxic which leads me to believe this is likely a pulmonary event or arrhythmia - Per notes from previous admissions for similar events, patient is non- compliant with home CPAP, also has component of obesity hypoventilation syndrome - Recommendation after last discharge was outpatient holter or loop recorder, I do not believe patient followed up on this recommendation - Dr. Almanza has increased depakote to 500mg BID, she is tolerating well - Discussed lack of compliance with home CPAP at length with patient and her sig other at the bedside. Reinforced the dangers of not using, including arrhythmias, hypoxia, stroke and . Also discussed concurrent use of narcotics which cause respiratory depression - for her in particular, this is even more dangerous because she is refusing to use supportive CPAP. (2) Diastolic heart failure Code(s): I50.30 - UNSPECIFIED DIASTOLIC (CONGESTIVE) HEART FAILURE SNOMED Code (s): 612699152 Comment: - Bilateral rales noted on today's exam with cough and desaturations - Will give one dose lasix IV today given hx of cardiomyopathy and clinical presentation - BNP slightly elevated at 214 - CXR official read is clear, however, my interpretation of the film is that it does appear to be fluid overloaded - ECHO from September shows grade II diastolic dysfunction, patient also has hx of CAD/[place] - Will continue to optimize, may need diuretic for home - Also placed on mucinex and flutter valve for pulmonary toilet/cough - BP stable, does not appear to need nitrates - Respiratory status improved today (3) Cardiomyopathy Current Visit: No Code(s): I42.9 - CARDIOMYOPATHY, UNSPECIFIED SNOMED Code(s ): 25251201 Comment: - Had reduced EF in 2016 with dx of takutsubo's CM - EF in September 2018 55-60% with diastolic dysfunction - Continue to optimize medically, continue telemetry (4) Fibromyalgia Code(s): M79.7 - FIBROMYALGIA SNOMED Code(s): 875287267 Comment: - Confirmed narcotic dose with [place] [employer], patient attends pain clinic - Patient also with lumbar disc disease and receives epidurals - Highly recommend patient continues to decrease narcotic usage and find alternatives for pain control with pain clinic (5) Migraine Code(s): G43.909 - MIGRAINE, UNSP, NOT INTRACTABLE, WITHOUT STATUS MIGRAINOSUS SNOMED Code(s): 05632624 Comment: - Patient reports she has hx of migraines and takes percocet for headaches and fibromyalgia pain - Appreciate further recs from neuro (6) Chronic pain syndrome Code(s): G89.4 - CHRONIC PAIN SYNDROME SNOMED Code(s): 389529483 Comment: - 2/2 fibromyalgia with current narcotic dependence - Decreased dose to percocet 5/325 Q4h from home dose of 10mg/325 q4h - Given her non-compliance with CPAP and narcotic dependence, I am extremely concerned that her episodes of hypoxia and non-responsive behavior are related to narcotics combined with retention of CO2 and/or arrhythmias - Per hospital records, patient has had issues with daytime sleepiness on previous admissions but when narcotic doses are decreased she becomes anxious, tearful and difficult - Continue to monitor closely - Counseled extensively as above (7) Dementia Code(s): F03.90 - UNSPECIFIED DEMENTIA WITHOUT BEHAVIORAL DISTURBANCE SNOMED Code(s): 50640936 Comment: - Cont Requip (8) HTN (hypertension) Code(s): I10 - ESSENTIAL (PRIMARY) HYPERTENSION SNOMED Code(s): 37561330 Comment: - Stable on losartan and norvasc (9) MAGDA (obstructive sleep apnea) Code(s): G47.33 - OBSTRUCTIVE SLEEP APNEA (ADULT) (PEDIATRIC) SNOMED Code(s): 70118312 Comment: - Non-compliance with CPAP per patient and family which is likely contributing to many of her current symptoms and hospitalizations - Continue hospital CPAP tonight, patient is agreeable to use overnight and while napping during the day. - Will need outpatient repeat sleep study, her equipment at home is from 2010 - CM will request family to bring her CPAP from home to have respiratory evaluate for usage (10) Type 2 diabetes mellitus Comment: - Continue metformin, BG stable (11) DVT prophylaxis Code(s): EPG5507 - SNOMED Code(s): 056878452 Comment: - lovenox sq (12) Full code status Code(s): Z78.9 - OTHER SPECIFIED HEALTH STATUS SNOMED Code(s): 016777244 Status and Disposition: Inpatient, discharge when appropriate CPAP for home can be arranged.
[2018-12-21] MEDS: Analgesic BALM* 114 GM TOPICAL PRN (18:24)
[2018-12-21] MEDS: Enoxaparin(*) 40 MG/0.4 ML SYR SUBCUT SCH (18:26)
[2018-12-21] MEDS ORDERED: Analgesic BALM* 114 GM TOPICAL SCH (21:00)
[2018-12-21] MEDS: Ropinirole TAB* 0.5 MG TAB PO SCH (22:03)
[2018-12-22] MEDS: Levothyroxine TAB* 100 MCG TAB PO SCH (06:05)
[2018-12-22] MEDS: oxyCODONE/Acetamin 5/325 MG* TAB PO PRN ×3 (06:05→15:51)
[2018-12-22] MEDS: Polyethylene Glycol 3350* 17 GM PACKET PO SCH (08:24)
[2018-12-22] MEDS: Cyanocobalamin TAB* 500 MCG PO SCH (08:32)
[2018-12-22] MEDS: Analgesic BALM* 114 GM TOPICAL PRN (08:32)
[2018-12-22] MEDS: amLODIPine TAB* 5 MG PO SCH (08:32)
[2018-12-22] MEDS: Losartan TAB* 25 MG PO SCH (08:32)
[2018-12-22] MEDS: Escitalopram * 20 MG TABLET PO SCH (08:32)
[2018-12-22] MEDS: guaiFENesin ER TAB 600 MG PO SCH (08:32)
[2018-12-22] MEDS: ROSUVASTATIN 10 MG PO SCH (08:33)
[2018-12-22] MEDS: metFORMIN* 1,000 MG TAB PO SCH (08:33)
[2018-12-22] MEDS: Pantoprazole TAB * 40 MG TAB PO SCH (08:33)
[2018-12-22] MEDS: Magnesium Oxide TAB* 400 MG PO SCH (08:33)
[2018-12-22] MEDS: Divalproex DR TAB(*) 500 MG PO SCH (08:33)
[2018-12-22 11:37] VITALS: BP 126/67
--- NOTE | 2018-12-22 21:59 | DS ---
CC: Dr. Michael Brooks * DISCHARGE SUMMARY: DATE OF ADMISSION: 12/19/18 DATE OF DISCHARGE: 12/22/18 PRIMARY CARE PROVIDER: Dr. Michael Brooks. ATTENDING FOR THIS DISCHARGE: Dr. Arroyo.* (DICTATED BY BINH MERIDA NP) HOSPITAL COURSE: Please refer to admitting H and P on 12/19/18, but in short, Ms. Mcfadden is a very complex patient with a past medical history of seizure disorder, hypertension, diastolic heart failure, Takotsubo cardiomyopathy, hyperlipidemia, diabetes mellitus, asthma, chronic pain disorder, fibromyalgia, who presented to the emergency department after reported seizure. Family states that she was unresponsive to voice and touch for 30 minutes and was noting some tremors and seizure like activity persistently for 30 minutes. They called 911 and she was brought to the emergency department for evaluation. It should be noted that the patient did not have any postictal period. She also did not have any incontinence, did not have any injuries during the period , it was not referred to as a tonic- clonic seizure. She spontaneously awoke and did not have any injuries during that time. In the ED, her only complaint was that she felt disoriented and she had a cough. The patient does follow with Dr. Wallace of Neurology where she was admitted to observation for breakthrough seizure. It should be noted; however, that she had a normal lactic acid of 1.6, normal glucose, relatively unremarkable labs with the exception of a valproic acid level of 53 and a BNP that was slightly elevated at 219. She did have some hypoxia; however, her oxygen levels were somewhat low in the ambulance at admission. She did require oxygen initially. Her O2 sats were in the 80s initially and she responded well to 2 L of oxygen nasal cannula. The patient was seen in consultation by Dr. Jacek Almanza of neurology service, who increased the patient's Depakote to 500 mg twice per day. His impression on this consultation is that it is possible seizures. He did review her chart going back several years, noting that her episodes over the years has been very hard to characterize. She has had 5 or 6 EEGs over the years that did not show any epileptiform changes. She did have one in the beginning that may have had one epileptiform discharge; however, it is difficult to quantify if she is really having convulsive activity or not. In any case, Dr. Almanza did increase her Depakote and instructed her to follow up with Dr. Wallace as an outpatient. She did have a somewhat low magnesium, which was repleted. Dr. Almanza and I also did talk about the patient's other comorbid conditions, which may be contributing to this type of behavior, in particular her cardiopulmonary status. The patient did sound fluid overloaded in the emergency department. She had bilateral crackles. Her chest x-ray did appear somewhat fluid overloaded as well. I did give her 40 mg of Lasix IV to which she did have sufficient diuresis. It should also be noted that the patient does take narcotics for chronic pain. She takes Percocet 10/325 mg every 4 hours around the clock. The patient also has very strong history of obstructive sleep apnea and she does not use her CPAP. I had a very long discussion with the patient and her significant other, Grady, who was at the bedside. They both state that the patient has had a CPAP machine in the house since 2010, which she has never used. She also reports daytime sleepiness. Her partner, Grady reports that she often will fall asleep in mid conversation and that when she does this, she sounds sonorous, sometimes she does become quite pale and he does feel that this episode of this shaking activity happened shortly after she had one of these sonorous episodes where she appeared to initially be falling asleep and then was unresponsive for 30 minutes. Given this scenario and the patient's lack of compliance with her CPAP, I feel a greater portion of her issues is likely secondary to noncompliance with CPAP for her obstructive sleep apnea combined with obesity hypoventilation syndrome and use of narcotic analgesia. I decreased the patient's narcotics to 5 mg q.5 hours as needed. The patient was initially very unhappy with decreasing the narcotics, but when I explained to her the respiratory depression and the lack of CPAP use and the dangers it posed to her, I did have a very eli discussion with her about stroke, , cardiac arrhythmias and overall quality of life issues. The patient initially was placed on hospital CPAP equipment with nasal pillows. The first night she again refused it. The second night after having more discussion regarding the benefits of CPAP and the risks of not using it again reinforcing cardiac arrhythmia, stroke and , the patient seemed more amenable to using the CPAP. She was instructed by hospital staff to bring her CPAP from home, which was evaluated by our respiratory staff. She was set up for CPAP on her home machine with the nasal pillow device for her face. She slept all night on her own machine with our face piece. She seemed to tolerate that very well. On the morning of 12/22/18, the patient reported that she slept all night long, she did not remove the CPAP and she reported feeling very refreshed and she also had decreased pain in the morning and she appeared to be less somnolent. At that time, I again had a discussion with her and Grady regarding the benefits of utilizing the CPAP, decreasing her narcotics, following up with Dr. Wallace as an outpatient and also following back up with Dr. Paz and having a followup sleep study to ensure that the current CPAP settings that she is on are still relevant, being that it has been so many years since her last sleep study. The patient was medically ready and stable for discharge on 12/22/18. DISCHARGE DIAGNOSES: 1. Altered mental status, multifactorial, likely secondary to lack of compliance with CPAP and narcotic analgesia. 2. Chronic diastolic heart failure. 3. History of cardiomyopathy. 4. Fibromyalgia with chronic pain syndrome. 5. Mild dementia. 6. History of hypertension. 7. Obstructive sleep apnea, noncompliance with CPAP. 8. Diabetes mellitus type 2. 9. History of Takotsubo cardiomyopathy. 10. History of seizure disorder. MEDICATIONS FOR DISCHARGE: Include: 1. Losartan 100 mg p.o. daily. 2. Vitamin B12 1000 mcg p.o. daily. 3. Amlodipine 5 mg p.o. daily. 4. Magnesium oxide 400 mg p.o. daily. 5. Ropinirole 0.5 mg p.o. at bedtime. 6. Metformin 1000 mg p.o. daily. 7. Crestor 10 mg p.o. daily. 8. Synthroid 100 mcg p.o. daily. 9. Lexapro 20 mg p.o. daily. 10. Omeprazole 20 mg p.o. b.i.d. Change in medication: Depakote DR tablet 500 mg p.o. b.i.d. Recommended change in medication: Decreasing Percocet from 10/325 mg q.4 hours to 5/325 mg q.4 hours as needed for pain. REVIEW OF SYSTEMS: On day of discharge, the patient denies any fever, fatigue, or chills. No dizziness. No acute shortness of breath. No chest pain. No nausea, no vomiting. No abdominal pain. No urinary complaints. She has some generalized arthralgias and myalgias. She has neuropathic foot pain at baseline , which is well controlled, but otherwise no further constitutional complaints. PHYSICAL EXAMINATION: Reveals a well-appearing older female, in no acute distress. Her vital signs are blood pressure 144/74, respiratory rate 13, heart rate 82, O2 saturation 94% on room air with a temperature of 98.2. HEENT: The patient is atraumatic, normocephalic. PERRLA. Nonicteric sclerae. Oral mucosa is moist. Tongue is midline. Neck is supple and nontender. No JVD noted. No carotid bruit auscultated. Cardiovascular: S1, S2 present. Rate and rhythm are regular with no murmurs, gallops, or rubs noted. Lungs are clear bilaterally at the apices, slightly diminished at the bases with no wheezing, rhonchi, or rales noted. Abdomen is soft, nontender, and nondistended. Obese. No organomegaly noted. Positive bowel sounds in all 4 quadrants. : Deferred. Musculoskeletal: There is no clubbing, no cyanosis , no edema. She has +2 distal pulses palpable. Full range of motion. Steady gait. Gross motor and sensation are intact. Neurologic: No focal deficits noted. She can be forgetful at times, but otherwise she is neurologically intact. Psychiatric: Cooperative and appropriate. DIAGNOSTIC STUDIES/LAB DATA: Laboratories: WBCs 4.3, RBCs 3.97, hemoglobin 10.5, hematocrit 33, platelets 165,000. Sodium 141, potassium 3.8, chloride 106 , CO2 of 30, BUN 9, creatinine 0.73, GFR 77.5, glucose 126, lactic acid 1.6, calcium 9.7, magnesium 1.7 repleted. Total bilirubin 0.30, AST 14, ALT 7, alk phos 43. BNP 2219. Total protein 6.0, albumin 3.7, globulin 2.3, albumin- globulin ratio 1.6. Urinalysis showed no acute infective process. INR was 0.93. Valproic acid level is 53. Imaging: Chest x-ray showed some mild fluid overload. EKG at admission shows regular sinus rhythm with a rate in the 80s with no acute ST segment changes. DISCHARGE DIET: Heart-healthy diabetic as tolerated. ACTIVITY: Progress activity as tolerated. FOLLOWUPS: The patient was instructed to follow up with her primary care provider, Dr. Michael Brooks in the next 1 to 2 weeks; Dr. Annalise Paz for followup sleep study within the next month; Dr. Mayco Wallace of Neurology, she does have an appointment at the end of December and Dr. David Kat of the pain clinic, she does have an appointment coming up this week. I requested that she discuss not just her epidural injections with Dr. Kat, but also decreasing her pain medication, either decreasing frequency or decreasing the dose given her last several admissions of her altered mental status. DISPOSITION: The patient was discharged in stable condition in the care of her significant other. All questions were answered. The patient and her significant other stated their understanding of the discharge instructions, medication changes and followups. TIME SPENT: Sixty minutes on discharge planning, patient counseling. BINH MERIDA NP [id number]/[facility] #: [id number] KEVIN
--- NOTE | 2019-01-19 10:57 | DS ---
DISCHARGE SUMMARY: ADDENDUM: The patient was discharged to home in stable condition in the care of her . BINH MERIDA, NURSING HOME ASSISTANT ADMINISTRATOR [id number]/[facility] #: [id number] MTDD
== END 2018-12-22 16:00 | disposition home health service (06) | DRG 948 ==
LOC: ED 13:11 → MED 16:56 → OBSVTOIN 12-20 11:00
PROVIDERS: ADMIT Internal Medicine; ATTEND Internal Medicine
PROC: 5A09357 Assistance with Respiratory Ventilation, Less than 24 Consecutive Hours, Continuous Positive Airway Pressure (ICD-10-PCS; principal; 2018-12-20)
DX: R41.82 Altered mental status, unspecified (principal); I50.32 Chronic diastolic (congestive) heart failure; I51.81 Takotsubo syndrome; E66.2 Morbid (severe) obesity with alveolar hypoventilation; K21.9 Gastro-esophageal reflux disease without esophagitis; J45.909 Unspecified asthma, uncomplicated; E03.9 Hypothyroidism, unspecified; I11.0 Hypertensive heart disease with heart failure; Z96.661 Presence of right artificial ankle joint; Z96.652 Presence of left artificial knee joint; E11.9 Type 2 diabetes mellitus without complications; E78.00 Pure hypercholesterolemia, unspecified; M19.042 Primary osteoarthritis, left hand; M19.041 Primary osteoarthritis, right hand; M16.0 Bilateral primary osteoarthritis of hip; M19.012 Primary osteoarthritis, left shoulder; M19.011 Primary osteoarthritis, right shoulder; M79.7 Fibromyalgia; F41.9 Anxiety disorder, unspecified; F32.9 Major depressive disorder, single episode, unspecified; R09.02 Hypoxemia; E78.5 Hyperlipidemia, unspecified; E83.42 Hypomagnesemia; D64.9 Anemia, unspecified; G89.4 Chronic pain syndrome; G40.909 Epilepsy, unspecified, not intractable, without status epilepticus; F03.90 Unspecified dementia, unspecified severity, without behavioral disturbance, psychotic disturbance, mood disturbance, and anxiety; G43.909 Migraine, unspecified, not intractable, without status migrainosus; Z88.5 Allergy status to narcotic agent; Z88.0 Allergy status to penicillin; Z88.8 Allergy status to other drugs, medicaments and biological substances; Z88.6 Allergy status to analgesic agent; Z88.1 Allergy status to other antibiotic agents; Z91.041 Radiographic dye allergy status; Z90.710 Acquired absence of both cervix and uterus; Z90.49 Acquired absence of other specified parts of digestive tract; Z91.14 Patient's other noncompliance with medication regimen; Z91.19 Patient's noncompliance with other medical treatment and regimen; I25.2 Old myocardial infarction; Z68.38 Body mass index [BMI] 38.0-38.9, adult; Z82.49 Family history of ischemic heart disease and other diseases of the circulatory system; Z83.3 Family history of diabetes mellitus; Z80.1 Family history of malignant neoplasm of trachea, bronchus and lung; Z79.84 Long term (current) use of oral hypoglycemic drugs
CPT/HCPCS: 36415; 71045; 80053; 80164; 80177; 81003; 83605; 83735; 83880; 85025; 85610; 93005; 94640; 94660; 99284; A9270-GY; G0378; J1650; J1940; J1953; J3475

== ENCOUNTER 2019-04-16 16:27 | Inpatient (IN) | payer MEDICARE, BC ==
[2019-04-16] MEDS ORDERED: Albuterol/Ipratropium NEB.SOL* Albuterol 2.5 MG/Ipratropium 0.5 MG 3 ML INH ONE (16:46)
[2019-04-16] MEDS ORDERED: methylPREDNISolone 125 MG* 2 ML VIAL IV ONE (16:47)
--- NOTE | 2019-04-16 16:50 | ED ---
Shortness of Breath - HPI Summary HPI Summary: This pt is a 79 Y/O F presenting to [facility] accompanied by her with a CC of SOB and a URI. She states that she has become SOB and has had a productive cough with yellow sputum since 04/13/19. She states that she has arthralgia and myalgia that is rated a 3/10 in severity. She also states that she has had chills and diaphoresis. She denies any CP, headaches, and neck pain. She states that at home she does not use any oxygen but she is currently 80 % ion room air. She has no aggravating or alleviating factors and has a PMHx of asthma, CHF , and HTN. - History of Current Complaint Chief Complaint: EDRespiratoryDistress Time Seen by Provider: 04/16/19 16:34 Hx Obtained From: Patient Onset/Duration: Sudden Onset, Lasting Days - 3, Still Present Timing: Constant Current Severity: Moderate Aggravating Factors: Nothing Alleviating Factors: Nothing Associated Signs & Symptoms: Negative - CP, headaches, and neck pain., Cough ( Productive) - yellow sputum, Chills, Diaphoresis Related History: Similar Episode - Allergy/Home Medications Allergies/Adverse Reactions: Allergies Allergy/AdvReac Type Severity Reaction Status Date / Time Adhesive Tape Allergy Rash Verified 04/16/19 16:36 donepezil Allergy Anaphylatic Verified 04/16/19 16:36 Shock doxycycline Allergy Rash Verified 04/16/19 16:36 duloxetine [From Cymbalta] Allergy Unknown Verified 04/16/19 16:36 Reaction Details gabapentin Allergy Swelling Verified 04/16/19 16:36 iodine Allergy Hives Verified 04/16/19 16:36 levofloxacin Allergy Unknown Verified 04/16/19 16:36 Reaction Details Penicillins Allergy Anaphylatic Verified 04/16/19 16:36 Shock pregabalin Allergy Edema Verified 04/16/19 16:36 Ubpxwri-Sax-Ttf Reductase Allergy Muscle Ache Verified 04/16/19 18:54 Inhibitor morphine AdvReac GI Upset Verified 04/16/19 16:36 Sulfa (Sulfonamide AdvReac Nausea And Verified 04/16/19 16:36 Antibiotics) Vomiting warfarin AdvReac GI Upset Verified 04/16/19 16:36 PMH/Surg Hx/FS Hx/Imm Hx Previously Healthy: Yes Endocrine/Hematology History: Reports: Hx Diabetes, Hx Thyroid Disease - hypothyroidism Cardiovascular History: Reports: Hx Cardiomegaly, Hx Congestive Heart Failure, Hx Hypercholesterolemia, Hx Hypotension, Hx Hypertension, Other Cardiovascular Problems/Disorders - Takotsubo cardiomyopathy, PR Denies: Hx Pacemaker/ICD Respiratory History: Reports: Hx Asthma, Hx Pneumonia, Hx Sleep Apnea Denies: Hx Chronic Obstructive Pulmonary Disease (COPD) GI History: Reports: Hx Gastroesophageal Reflux Disease, Hx Obstructive Bowel - 2016 History: Denies: Hx Dialysis, Hx Renal Disease Musculoskeletal History: Reports: Hx Arthritis - hands,hips, shoulders, Hx Back Problems, Hx Fibromyalgia, Hx Orthopedic Injury - Fx Pelvis 1960; Rt. Tibia, Fibula,&Ankle Sensory History: Reports: Hx Contacts or Glasses Denies: Hx Hearing Aid Opthamlomology History: Reports: Hx Contacts or Glasses Neurological History: Reports: Hx Dementia, Hx Migraine, Other Neuro Impairments /Disorders - Encephalopathy on recent EEG's; started on Aricept for memory loss , PAIN PT Denies: Hx Seizures Psychiatric History: Reports: Hx Anxiety, Hx Depression Denies: Hx Panic Disorder - Cancer History Hx Chemotherapy: No Hx Radiation Therapy: No - Surgical History Surgical History: Yes Surgery Procedure, Year, and Place: Radical hysterectomy, 1989. Repair of right leg and ankle fx. Deric fundoplication surgery. Tonsillectomy. Cholecystectomy. Total right ankle replacement, 2003. Total left knee replacement, 2006 Hx Anesthesia Reactions: No - Immunization History Date of Tetanus Vaccine: unknown Date of Influenza Vaccine: 2014 Immunizations Up to Date: Yes Infectious Disease History: No Infectious Disease History: Denies: Hx Clostridium Difficile, Hx Hepatitis, Hx Human Immunodeficiency Virus (HIV), Hx of Known/Suspected MRSA, Hx Shingles, Hx Tuberculosis, Hx Known/ Suspected VRE, Hx Known/Suspected VRSA, History Other Infectious Disease, Traveled Outside the [place] in Last 30 Days - Family History Known Family History: Positive: Cardiac Disease - Social History Occupation: Retired Lives: With Family Alcohol Use: None Hx Substance Use: No Substance Use Type: Reports: None Substance Use Comment - Amount & Last Used: percocet Hx Tobacco Use: No Smoking Status (MU): Never Smoked Tobacco Have You Smoked in the Last Year: No Review of Systems Positive: Chills, Skin Diaphoresis ENT: Negative - neck pain Negative: Chest Pain Positive: Shortness Of Breath, Cough - productive with yellow sputum Positive: Arthralgia, Myalgia Negative: Headache All Other Systems Reviewed And Are Negative: Yes Physical Exam - Summary Physical Exam Summary: Constitutional: Well-developed, Well-nourished, Alert. (-) Distressed Skin: Warm, Dry HENT: Normocephalic; Atraumatic Eyes: Conjunctiva normal Neck: Musculoskeletal ROM normal neck. (-) JVD, (-) Stridor, (-) Tracheal deviation Cardio: Rhythm regular, rate normal, Heart sounds normal; Intact distal pulses; The pedal pulses are 2+ and symmetric. Radial pulses are 2+ and symmetric. Pulmonary/Chest wall: Bilateral wheezing, increased respiratory rates, mild respiratory distress (-) Rales Abd: Soft, (-) tenderness, (-) Distension, (-) Guarding, (-) Rebound Musculoskeletal: (-) Edema Neuro: Alert, Oriented x3 Psych: Mood and affect Normal Triage Information Reviewed: Yes Vital Signs On Initial Exam: Initial Vitals Temp Pulse Resp BP Pulse Ox 99.9 F 97 22 161/74 80 04/16/19 16:29 04/16/19 16:29 04/16/19 16:29 04/16/19 16:29 04/16/19 16:29 Vital Signs Reviewed: Yes Procedures - Sedation Patient Received Moderate/Deep Sedation with Procedure: No Diagnostics - Vital Signs Vital Signs Temp Pulse Resp BP Pulse Ox 04/16/19 16:29 99.9 F 97 22 161/74 80 - Laboratory Result Diagrams: 04/16/19 17:06 04/16/19 17:06 Lab Statement: Any lab studies that have been ordered have been reviewed, and results considered in the medical decision making process. - Radiology CXR Radiology Interpretation Completed By: Radiologist Summary of Radiographic Findings: pulmonary interstital edema. ED physician has reveiwed this report. - EKG 1658 Cardiac Rate: NL - 92 BPM EKG Rhythm: Sinus Rhythm ST Segment: Normal Ectopy: None Summary of EKG Findings: An EKG at 1658 reveals NSR at 92 BPM, nml axis, nml intervals. No STEMI. No acute changes. Interpreted by Dr. Steven 04/16/19 1700. Course/Dx - Course Course Of Treatment: This pt is a 79 Y/O F presenting to [facility] accompanied by her with a CC of SOB and a URI. She states that she has become SOB and has had a productive cough with yellow sputum since 04/13/19. She states that she has arthralgia and myalgia that is rated a 3/10 in severity. She also states that she has had chills and diaphoresis. She has a PMHx of HTN, CHF, and asthma. Her PE found that she has Bilateral wheezing, increased respiratory rates, mild respiratory distress. She has abnormalities in her RDW, Sodium, Chloride, Glucose, and Troponin I of .1. She received a duoneb, lasix, and solu -medrol during her ED course. Her CXR shows pulmonary interstital edema. An EKG at 1658 reveals NSR at 92 BPM, nml axis, nml intervals. No STEMI. No acute changes. She will be admitted by Dr. Pinto, Hospitalist, will admitt the pt for further care. She was Dx with Asthama exacerbation and CHF. - Diagnoses Provider Diagnoses: Asthma exacerbation, CHF (congestive heart failure) - Physician Notifications Discussed Care of Patient With: Stephen Arroyo Time Discussed With Above Provider: 19:08 Instructed by Provider To: Admit As Inpatient Admit/Transition Orders Completed By ED Provider: Yes Discharge ED - Sign-Out/Discharge Documenting (check all that apply): Patient Departure - admitted - Discharge Plan Condition: Stable Disposition: ADMITTED TO [facility] Referrals: Michael Brooks MD [Primary Care Provider] - - Attestation Statements Document Initiated by Scribe: Yes Documenting Scribe: Jonny Rausch Provider For Whom Scribe is Documenting (Include Credential): Alexi Steven MD Scribe Attestation: Jonny Ballard, scribed for Alexi Steven MD on 04/16/19 at 1754. Status of Scribe Document: Ready
[2019-04-16] MEDS ORDERED: NS 0.9% 1000 ML** 1,000 ML IV ONE (16:51)
[2019-04-16 17:12] LABS: Hematocrit 37 % (35-47); Hemoglobin 12.4 g/dL (12.0-16.0); Mean Corpuscular HGB Conc 33 g/dL (31-36); Mean Corpuscular Hemoglobin 27 pg (27-31); Mean Corpuscular Volume 81 fL (80-97); Mean Platelet Volume 8.7 fL (7.4-10.4); Platelet Count 159 10^3/uL (150-450); Red Blood Count 4.56 10^6 /uL (3.70-4.87); Red Cell Distribution Width 16 % (10-15); White Blood Count 4.5 10^3/uL (3.5-10.8)
[2019-04-16 17:15] LABS: Influenza A Molecular NEGATIVE (Negative); Influenza B Molecular NEGATIVE (Negative)
[2019-04-16 17:29] LABS: ALT 7 U/L (7-52); AST 17 U/L (13-39); Albumin/Globulin Ratio 1.3 (1-3); Alkaline Phosphatase 41 U/L (34-104); Anion Gap 9 mmol/L (2-11); BUN/Creatinine Ratio 15.9 (8-20); Blood Urea Nitrogen 11 mg/dL (6-24); CO2 Carbon Dioxide 28 mmol/L (22-32); Calcium 9.7 mg/dL (8.6-10.3); Chloride 97 mmol/L (101-111); EGFR African American 99.8 (>60); EGFR Non-African American 82.5 (>60); Glucose 135 mg/dL (70-100); Potassium 3.5 mmol/L (3.5-5.0); Sodium 134 mmol/L (135-145)
[2019-04-16 17:32] LABS: ABS Basophils 0.1 10^3/ul (0-0.2); ABS Lymphocytes 1.3 10^3/ul (1.0-4.8); ABS Monocytes 0.7 10^3/ul (0-0.8); ABS Neutrophils 2.5 10^3/ul (1.5-7.7); Eosinophil % 0.3 %; Nucleated Red Blood Cells % 0.1
[2019-04-16] MEDS ORDERED: Furosemide IV* 10 MG/ML VIAL (40 MG) IV ONE (17:50)
--- OUTSIDE RECORDS SUMMARY | 2019-04-16 17:57 | XMS REPORT | Continuity of Care Document ---
:1940 External Reference #:[id number] Author Name Mayco Wallace M.D. (transmitted by agent of provider Alyssa Erickson ) Address [address], [place] [address] Care Team Providers Name Role Phone Michael Brooks MD - Internal Care Team Information Account Information Clerk Medicine Problems Active Problems Provider Date Unspecified dementia without behavioral Martha Barrett MD Onset: 12/27/2015 disturbance Electroencephalogram abnormal Martha Barrett MD Onset: 01/20/2016 Adjustment disorder with depressed mood Martha Barrett MD Onset: 01/20/2016 Disorder of brain Martha Barrett MD Onset: 11/17/2016 Epilepsy, not refractory Martha Barrett MD Onset: 11/17/2016 Syncope and collapse Martha Barrett MD Onset: 11/17/2016 Altered mental status Mayco Wallace M.D. Onset: 02/24/2019 Social History Type Date Description Comments Sex Unknown Tobacco Use Start: Unknown Never Smoked Cigarettes Smoking Status Reviewed: 02/24/19 Never Smoked Cigarettes ETOH Use Denies alcohol use Tobacco Use Start: Unknown Patient has never smoked Recreational Drug Use Denies Drug Use Exercise Type/Frequency Does not exercise Allergies, Adverse Reactions, Alerts Active Allergies Reaction Severity Comments Date Penicillins 03/26/2015 Coumadin 03/26/2015 Cymbalta 03/26/2015 Doxycycline 03/26/2015 Iodine le 03/26/2015 Lescol 03/26/2015 Levaquin 03/26/2015 Lipitor 03/26/2015 Lyrica 03/26/2015 Lyrica 03/26/2015 Zetia 03/26/2015 Zocor 03/26/2015 Medications Active Medications SIG Qnty Indications Ordering Date Provider Depakote 1 by mouth R25.9 Vinay Mills, 02/24/[address] twice a day N.P. Vitamin B-12 1 by mouth 30tabs Vinayshelia Mills, 11/25/2018 1000mcg Tablets every day N.P. Cozaar 1 tab by mouth 90tabs Martha Barrett MD 11/17/2016 50mg Tablets twice a day as needed Magnesium Oxide 400 1 by mouth Unknown 240mg twice a day Packet Ropinirole HCL take 1-2 tablet Unknown 0.5mg Tablets by mouth at night Mometasone Furoate 2 puffs twice Unknown 200/5 daily Guaifenesin 1 tab by mouth Unknown 600mg twice a day Benzonatate 1 cap by mouth Unknown 100mg twice a day as needed for 5 day Rosuvastatin Calcium 1 tab by mouth Unknown 10mg every day Metformin HCL 1 by mouth Unknown 500mg Tablets twice a day Albuterol Sulfate 2 puff every 4 Unknown 108mcg/Act hrs as needed Amlodipine Besylate 1 by mouth Unknown 10mg every day Tablets Alprazolam 1 as needed for Unknown 0.5mg Tablets anxiety Escitalopram Oxalate 2 qd Reza, 10mg Chantal, [employer] Tablets Cyclobenzaprine HCL prn Reza, 10mg Chantal, [employer] Tablets Oxycodone-Acetaminophen As directed.. Alma Rosa Orona MD prn 10-325mg Tablets Omeprazole 1 po qd Michael Brooks, 20mg Capsules DR SULLIVAN Lisinopril-Hydrochloroth qd Reza, iazide Chantal, [employer] 10-12.5mg Tablets Levothyroxine Sodium qd Reza, 125mcg Chantal, [employer] Tablets Fluticasone Propionate qd and prn Louann Ferreira MD Emmanuel 50mcg/Act Suspension History Medications Depakote 1 tablet twice a 60tabs R25.9 Vinay Mills, 11/03/2018 - 125mg day N.P. 11/03/[address] Black 1 tablet twice a 180tabs R25.9 Vinay Mills, 11/03/2018 - 250mg day N.P. 02/24/[address] Pedro Description No Information Available Vital Signs Date Vital Result Comment 02/24/2019 1:39pm Height 63 inches 5'3" Weight 215.00 lb Heart Rate 78 /min BP Systolic Sitting 138 mmHg BP Diastolic Sitting 76 mmHg Respiratory Rate 18 /min BMI (Body Mass Index) 38.1 kg/m2 11/03/2018 11:19am Height 63 inches 5'3" Weight 218.25 lb Heart Rate 85 /min BP Systolic Sitting 110 mmHg BP Diastolic Sitting 78 mmHg O2 % BldC Oximetry 94 % BMI (Body Mass Index) 38.7 kg/m2 Results Test Acquired Date Facility Test Result H/L Range Note CBC Auto 12/02/2018 [facility] White Blood 5.4 10^3/uL Normal 3.5-10.[address] [place] [address] [phone] Red Blood Count 4.04 10^6/uL Normal 3.70-4.87 Hemoglobin 11.0 g/dL Low 12.0-16.0 Hematocrit 34 % Low 35-47 Mean Corpuscular Volume 83 fL Normal 80-97 Mean Corpuscular Hemoglobin 27 pg Normal 27-31 Mean Corpuscular HGB Conc 33 g/dL Normal 31-36 Red Cell Distribution Width 16 % High 10-15 Platelet Count 208 10^3/uL Normal 150-450 Mean Platelet Volume 9.8 fL Normal 7.4-10.4 Abs Neutrophils 2.2 10^3/uL Normal 1.5-7.7 Abs Lymphocytes 2.4 10^3/uL Normal 1.0-4.8 Abs Monocytes 0.5 10^3/uL Normal 0-0.8 Abs Eosinophils 0.2 10^3/uL Normal 0-0.6 Abs Basophils 0.1 10^3/uL Normal 0-0.2 Abs Nucleated RBC 0.0 10^3/uL Granulocyte % 40.0 % Lymphocyte % 44.1 % Monocyte % 9.8 % Eosinophil % 4.6 % Basophil % 1.5 % Nucleated Red Blood Cells % 0.0 Comp Metabolic 12/02/2018 [facility] Sodium 141 mmol/L Normal 135-[address] [place] [address] [phone] Potassium 4.1 mmol/L Normal 3.5-5.0 Chloride 105 mmol/L Normal 101-111 Co2 Carbon Dioxide 28 mmol/L Normal 22-32 Anion Gap 8 mmol/L Normal 2-11 Glucose 108 mg/dL High 70-100 Blood Urea Nitrogen 14 mg/dL Normal 6-24 Creatinine 0.89 mg/dL Normal 0.51-0.95 BUN/Creatinine Ratio 15.7 Normal 8-20 Calcium 9.9 mg/dL Normal 8.6-10.3 Total Protein 6.4 g/dL Normal 6.4-8.9 Albumin 4.1 g/dL Normal 3.2-5.2 Globulin 2.3 g/dL Normal 2-4 Albumin/Globulin Ratio 1.8 Normal 1-3 Total Bilirubin 0.40 mg/dL Normal 0.2-1.0 Alkaline Phosphatase 46 U/L Normal 34-104 Alt 5 U/L Low 7-52 Ast 11 U/L Low 13-39 Egfr Non- 61.7 >60 Egfr 74.6 >60 1 Laboratory test 12/02/2018 [facility] Valproic Acid 57.0 Normal 50-[address] (Depakene) g/[place] [address] [phone] 1 Because ethnic data is not always readily available, this report includes an eGFR for both -Americans and non- Americans. The National Kidney Disease Education Program (NKDEP) does not endorse the use of the MDRD equation for patients that are not between the ages of 18 and 70, are , have extremes of body size, muscle mass, or nutritional status, or are non- or non-. According to the National Kidney Foundation, irrespective of diagnosis, the stage of the disease is based on the level of kidney function: Stage Description GFR(mL/min/1.73 m(2)) 1 Kidney damage with normal or decreased GFR 90 2 Kidney damage with mild decrease in GFR 60-89 3 Moderate decrease in GFR 30-59 4 Severe decrease in GFR 15-29 5 Kidney failure <15 (or dialysis) Procedures Date Code Description Status 10/19/2018 547[address] EEG Recording Awake & Drowsy Completed Medical Devices Description No Information Available Encounters Type Date Location Provider Dx Diagnosis Office Visit 12/22/2018 [facility] R41.82 Altered mental 9:49a Assoc,pc Lois Doto, status, Hospitalists [employer] unspecified I50.32 Chronic diastolic (congestive) heart failure F03.90 Unspecified dementia without behavioral disturbance G47.33 Obstructive sleep apnea (adult) (pediatric) I11.0 Hypertensive heart disease with heart failure E11.9 Type 2 diabetes mellitus without complications Office Visit 12/21/2018 [facility] R41.82 Altered mental 9:49a Assoc,pc Lois Doto, status, Hospitalists [employer] unspecified I50.30 Unspecified diastolic (congestive) heart failure I11.0 Hypertensive heart disease with heart failure F03.90 Unspecified dementia without behavioral disturbance Office Visit 12/20/2018 [facility] R41.82 Altered mental 9:48a Assoc,pc Lois Doto, status, Hospitalists [employer] unspecified I50.30 Unspecified diastolic (congestive) heart failure I11.0 Hypertensive heart disease with heart failure I42.9 Cardiomyopathy, unspecified F03.90 Unspecified dementia without behavioral disturbance E11.9 Type 2 diabetes mellitus without complications Office Visit 12/19/2018 9:48a [facility] Louisa Reyes, R55 Syncope and Associglesia collapse Hospitalists E11.9 Type 2 diabetes mellitus without complications I10 Essential (primary) hypertension Office Visit 11/03/2018 11:00a Neurohospitalist Vinay R55 Syncope and Clinic Gene, N.P. collapse G43.909 Migraine, unsp, not intractable, without status migrainosus R25.9 Unspecified abnormal involuntary movements Office Visit 10/21/2018 [facility] José Chaudhry, R41.82 Altered mental 7:00a Clinic MD status, unspecified F03.90 Unspecified dementia without behavioral disturbance R51 Headache Z86.79 Personal history of other diseases of the circulatory system Office Visit 10/21/2018 9:24a [facility] R55 Syncope and Assoc,pc AIME Love collapse Hospitalists G43.909 Migraine, unsp, not intractable, without status migrainosus E11.9 Type 2 diabetes mellitus without complications Office Visit 10/20/2018 9:23a [facility] R55 Syncope and Assoc,pc Yoselynle, [employer] collapse Hospitalists G43.909 Migraine, unsp, not intractable, without status migrainosus Office Visit 10/19/2018 9:23a [facility] Yomi Jesus R55 Syncope and Assoc,iglesia Thornton M.D.,FACP collapse Hospitalists Assessments Date Code Description Provider 02/24/2019 R41.82 Altered mental status, unspecified Mayco Wallace M.D. 02/24/2019 F03.90 Unspecified dementia without Mayco Wallace M.D. behavioral disturbance 12/22/2018 R41.82 Altered mental status, unspecified Leena Lois Doto, [employer] 12/22/2018 I50.32 Chronic diastolic (congestive) heart Leena Lois Doto , [employer] failure 12/22/2018 F03.90 Unspecified dementia without Leena Lois Doto, [employer] behavioral disturbance 12/22/2018 G47.33 Obstructive sleep apnea (adult) Leena Lois Doto, [employer] (pediatric) 12/22/2018 I11.0 Hypertensive heart disease with heart Leena Lois Doto , [employer] failure 12/22/2018 E11.9 Type 2 diabetes mellitus without Leena Lois Doto, [employer] complications 12/21/2018 R41.82 Altered mental status, unspecified Leena Lois Doto, [employer] 12/21/2018 I50.30 Unspecified diastolic (congestive) Leena Lois Doto, [employer] heart failure 12/21/2018 I11.0 Hypertensive heart disease with heart Leena Lois Doto , [employer] failure 12/21/2018 F03.90 Unspecified dementia without Leena Lois Doto, [employer] behavioral disturbance 12/20/2018 R41.82 Altered mental status, unspecified Leena Lois Doto, [employer] 12/20/2018 I50.30 Unspecified diastolic (congestive) Leena Lois Doto, [employer] heart failure 12/20/2018 I11.0 Hypertensive heart disease with heart Leena Lois Doto , [employer] failure 12/20/2018 I42.9 Cardiomyopathy, unspecified Leena Lois Doto, [employer] 12/20/2018 F03.90 Unspecified dementia without Leena Lois Doto, [employer] behavioral disturbance 12/20/2018 E11.9 Type 2 diabetes mellitus without Leena Lois Doto, AIME complications 12/19/2018 R55 Syncope and collapse FRANCISCO Shrestha 12/19/2018 E11.9 Type 2 diabetes mellitus without FRANCISCO Shrestha complications 12/19/2018 I10 Essential (primary) hypertension FRANCISCO Shrestha 11/03/2018 R55 Syncope and collapse Vinay Mills, N.P. 11/03/2018 G43.909 Migraine, unspecified, not Vinayshelia Mills, N.P. intractable, without status migra 11/03/2018 R25.9 Unspecified abnormal involuntary Vinay Mills, N.P. movements 10/21/2018 R41.82 Altered mental status, unspecified José Chaudhry MD 10/21/2018 R55 Syncope and collapse Alba Shortle, [employer] 10/21/2018 F03.90 Unspecified dementia without José Chaudhry MD behavioral disturbance 10/21/2018 G43.909 Migraine, unsp, not intractable, Alba Shortle, [employer] without status migrainosus 10/21/2018 R51 Headache José Chaudhry MD 10/21/2018 E11.9 Type 2 diabetes mellitus without Alba Shortle, [employer] complications 10/21/2018 Z86.79 Personal history of other diseases of José Chaudhry MD the circulatory system 10/20/2018 R55 Syncope and collapse Alba Shortle, [employer] 10/20/2018 G43.909 Migraine, unsp, not intractable, Alba Shortle, [employer] without status migrainosus 10/19/2018 R42 Dizziness and giddiness José Chaudhry MD 10/19/2018 R55 Syncope and collapse Yomi Thornton M.D.,FACP Plan of Treatment Future Appointment(s):05/29/2019 1:00 pm - Vinay Mills N.P. at [facility]04/10/2019 1:45 pm - Annalise Paz MD at [facility]02/24/2019 - Mayco Wallace M.D.R41.82 Altered mental status, unspecifiedFollow up:[facility] Unspecified dementia without behavioral disturbance Functional Status Description No Information Available Mental Status Description No Information Available Referrals Description No Information Available
[2019-04-16] MEDS ORDERED: Dextrose 50% VIAL 50 ml IV PUSH PRN (18:48)
[2019-04-16] MEDS ORDERED: oxyCODONE/Acetamin 5/325 MG* TAB PO PRN (18:51)
[2019-04-16] MEDS: Enoxaparin(*) 40 MG/0.4 ML SYR SUBCUT SCH (20:23)
[2019-04-16] MEDS: Ropinirole TAB* 0.5 MG TAB PO SCH (20:23)
[2019-04-16] MEDS: Divalproex DR TAB(*) 500 MG PO SCH (20:23)
[2019-04-16] MEDS: Pantoprazole TAB * 40 MG TAB PO SCH (20:23)
--- NOTE | 2019-04-16 21:00 | HP ---
CC: Dr. Michael Brooks* HISTORY AND PHYSICAL: DATE OF ADMISSION: 04/16/19 PRIMARY CARE PROVIDER: Dr. Michael Brooks. ATTENDING PHYSICIAN: Dr. Stephen Arroyo* (dictated by Vanessa Sunshine NP). CHIEF COMPLAINT: Shortness of breath. HISTORY OF PRESENT ILLNESS: Ms. Mcfadden is a 79-year-old female with past medical history of chronic diastolic congestive heart failure, hypertension, Alzheimer's, diabetes, seizures, obstructive sleep apnea, coronary artery disease, and fibromyalgia who presents to the emergency room today with complaints of malaise and shortness of breath. The patient reports symptom onset approximately 5 days ago. At that point, she started feeling "yucky" and tired. She developed shortness of breath with sputum production and notes that today the sputum production became yellow. She did have a sick contact with her significant other though that was approximately 2 weeks ago. She denies any chest pain, hemoptysis, fevers, nausea, vomiting, diarrhea, abdominal pain, or focal neurological deficits. Her significant other who is in the room notes that she has Alzheimer's and he attempted to bring her to the hospital 2 days ago, although it ultimately did take him the last 2 days to convince her to actually come into the hospital. He also reports decreased appetite and oral intake. She had a small amount of chicken noodle soup this morning, though intake has generally been poor. The patient does report weight gain of approximately 12 pounds in the last week, though it is unclear if this is accurate. Her significant other does not believe this is accurate. He does report she has previously been on Bumex, but has been off of it for over a year. In the emergency room, the patient was found to be hypoxic on room air requiring 6 L of oxygen to maintain saturations in the 90s. She had a chest x- ray which was remarkable for pulmonary edema. She was noted to have an elevated troponin and BNP. Due to these findings, the Hospitalist Service was asked to evaluate for admission. PAST MEDICAL HISTORY: 1. Chronic diastolic congestive heart failure. 2. Hypertension. 3. Hyperlipidemia. 4. Diabetes. 5. Alzheimer's. 6. Seizure disorder. 7. Hypothyroidism. 8. GERD. 9. Fibromyalgia. 10. Obstructive sleep apnea with intermittent CPAP use. 11. Asthma. 12. Depression. 13. Coronary artery disease with NSTEMI in 2016. 14. Takotsubo cardiomyopathy in 2016. PAST SURGICAL HISTORY: 1. Hysterectomy. 2. Left knee surgery. 3. Right ankle surgery. 4. Tonsillectomy. 5. Deric fundoplication. HOME MEDICATIONS: 1. Acetaminophen 650 mg p.o. q.4 hours p.r.n. pain. 2. Amlodipine 5 mg p.o. daily. 3. Vitamin B12 1000 mcg p.o. daily. 4. Depakote 500 mg p.o. b.i.d. 5. Escitalopram 20 mg p.o. daily. 6. Levothyroxine 100 mcg p.o. daily. 7. Losartan 100 mg p.o. daily. 8. Magnesium oxide 400 mg p.o. daily. 9. Metformin 1000 mg p.o. daily. 10. Omeprazole 20 mg p.o. daily. 11. Percocet 10/325 one tab p.o. b.i.d. 12. Requip 0.5 mg p.o. at bedtime. 13. Rosuvastatin 10 mg p.o. daily. ALLERGIES: ADHESIVE TAPE, PENICILLIN, ARICEPT, DOXYCYCLINE, DULOXETINE; GABAPENTIN, IODINE, LEVAQUIN, LYRICA, SULFITE, ATORVASTATIN, FLUVASTATIN, MORPHINE, SIMVASTATIN, SULFA, and WARFARIN. FAMILY HISTORY: The patient's father had a history of lung cancer and IA. The patient's mother had a history of diabetes and IA. SOCIAL HISTORY: The patient denies any personal tobacco use though does have over 30-year history of second hand smoke exposure. She denies any alcohol or recreational drug use. 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 She lives at home with her significant other, Grady, who is her main caregiver. The patient' s daughter, Jose Velazquez, will be her surrogate decision maker in the event she is unable to make her own decisions. REVIEW OF SYSTEMS: A 11-point review of systems was performed and all the pertinent positives and negative findings are in the HPI. All other systems are negative. PHYSICAL EXAMINATION GENERAL: Ms. Mcfadden is a well-developed, well-nourished, elderly, overweight white female, sitting in bed, in no acute distress though mildly dyspneic. She appears her stated age. VITAL SIGNS: Temp 99.9, heart rate 93, respiratory rate 27, oxygen saturation 94% on 6 L, blood pressure 159/112. HEENT: Head is atraumatic, normocephalic. Visual lewis are grossly intact. Pupils are equal, round, and reactive to light and accommodation. Extraocular movements intact. Oral mucous membranes slightly dry. NECK: Thyroid not palpable. Trachea midline. No lymphadenopathy. RESPIRATORY: Symmetrical chest expansion. Crackles to bilateral lungs throughout, worse in the bases. There is an expiratory wheeze throughout. CARDIAC: Regular rate and rhythm. S1, S2 present. No murmurs, rubs, or gallops. No JVD. ABDOMEN: Soft, nontender to palpation. Bowel sounds normoactive throughout. EXTREMITIES: Skin warm and smooth bilaterally. No edema. No clubbing or cyanosis. Pedal pulses 2+ bilaterally. NEUROLOGIC: Awake, alert, and oriented. Cranial nerves II through XII are grossly intact. Moves all extremities. DIAGNOSTIC STUDIES/LAB DATA: WBC 4.5, RBC 4.56, hemoglobin 12.4, hematocrit 37 , platelets 159. Sodium 134, potassium 3.5, chloride 97, carbon dioxide 28, BUN 11, creatinine 0.69, glucose 135. Troponin 0.10. BNP 418. Chest x-ray reads as pulmonary interstitial edema. EKG has moderate artifact, normal sinus rhythm with a rate of 92. QTc 477. Minimal ST depression in II and aVF. ASSESSMENT AND PLAN: Ms. Mcfadden is a 79-year-old female with past medical history of chronic diastolic congestive heart failure, hypertension, hyperlipidemia, diabetes, Alzheimer's, seizure disorder, hypothyroidism, gastroesophageal reflux disease, fibromyalgia, obstructive sleep apnea, asthma, depression, and coronary artery disease, who presents to the emergency room today with complaints of malaise and shortness of breath and was found to have a congestive heart failure exacerbation. The patient will be admitted inpatient for: 1. Congestive heart failure exacerbation. The patient appears fluid overloaded on exam with significant crackles throughout. There is no edema, although she does feel as though her abdomen is slightly distended. Last echo on file from September 2018 showed an EF of 55% to 60% and grade 2 diastolic dysfunction. The patient's significant other reports that she had previously been on Bumex though has been off this for over 1 year. Due to this new onset of fluid overload, I will repeat a transthoracic echocardiogram tomorrow. She did receive 1 dose of Lasix in the emergency room with some relief in symptoms. I will continue her on 60 mg of IV Lasix daily for diuresis and increase if necessary. We will monitor weights daily and strict intake and output. 2. Elevated troponin. The patient denies any chest pain or anginal equivalent. She has minimal ST depression in II and aVF, although no significant EKG changes. I will repeat an EKG right now as there was moderate artifact on the previous EKG. I will repeat a second troponin in 3 hours, though I do suspect that troponin is elevated simply due to demand ischemia from congestive heart failure and have low suspicion for any acute coronary syndrome at this time. 3. Acute hypoxic respiratory failure. The patient was noted to be 80% on room air on arrival and is currently requiring 6 L of oxygen to maintain saturations in the mid 90s. This was certainly secondary to congestive heart failure. I do not think that there is any underlying pulmonary disease, so I expect that this will improve with diuresis and we will wean her oxygen as tolerated. 4. Hypertension. The patient is hypertensive in the emergency room. Again, she will receive Lasix for diuresis and I will continue her on losartan and amlodipine. 5. Hyperlipidemia. Continue rosuvastatin if possible. We will not be able to substitute to any other statins due to previous adverse reactions. 6. Diabetes. We will check fingersticks a.c. and I have ordered a Lispro sliding scale. I will continue her metformin. 7. Alzheimer's. Supportive care. 8. Seizure disorder. Continue Depakote. 9. Hypothyroidism. Continue levothyroxine. 10. Gastroesophageal reflux disease. Continue pantoprazole. 11. Fibromyalgia. Continue Percocet and Requip. 12. Obstructive sleep apnea. CPAP per home settings. 13. Depression. Continue escitalopram. 14. FEN. The patient does not require any fluid resuscitation or electrolyte repletion. I have ordered a heart healthy diet. 15. DVT prophylaxis. According to the DVT Risk Assessment, the patient scores 5 putting her at highest risk. I have ordered Lovenox. 16. Code status. The patient will be a full code. TIME SPENT: Approximately 60 minutes was spent on this admission, greater than half of that time was spent [id number] with the patient and her significant other obtaining my history, performing my physical exam, and reviewing the plan of care. This case has been reviewed with my attending, Dr. Arroyo, who is in agreement with the plan of care. VANESSA SUNSHINE, PE ELECTRICAL ENGINEER [id number]/[facility] #: [id number] KEVIN
[2019-04-16] MEDS: ROSUVASTATIN 10 MG PO SCH (21:30)
[2019-04-16] MEDS: amLODIPine TAB* 5 MG PO SCH (21:30)
[2019-04-17] MEDS: Levothyroxine TAB* 100 MCG TAB PO SCH (06:01)
[2019-04-17 06:19] LABS: Hematocrit 39 % (35-47); Hemoglobin 12.7 g/dL (12.0-16.0); Mean Corpuscular HGB Conc 33 g/dL (31-36); Mean Corpuscular Hemoglobin 27 pg (27-31); Mean Corpuscular Volume 81 fL (80-97); Mean Platelet Volume 9.1 fL (7.4-10.4); Platelet Count 163 10^3/uL (150-450); Red Blood Count 4.76 10^6 /uL (3.70-4.87); Red Cell Distribution Width 17 % (10-15); White Blood Count 2.8 10^3/uL (3.5-10.8)
[2019-04-17 06:33] LABS: BUN/Creatinine Ratio 17.1 (8-20); EGFR African American 89.3 (>60); EGFR Non-African American 73.8 (>60); Potassium 3.3 mmol/L (3.5-5.0)
[2019-04-17 06:49] LABS: ABS Lymphocytes 0.9 10^3/ul (1.0-4.8); ABS Monocytes 0.2 10^3/ul (0-0.8); ABS Neutrophils 1.6 10^3/ul (1.5-7.7); Eosinophil % 0.1 %; Lymphocyte % 34.2 %; Nucleated Red Blood Cells % 0.3
[2019-04-17] MEDS ORDERED: Potassium Chlor TAB* 20 MEQ TAB.ER PO ONE (08:12)
[2019-04-17] MEDS ORDERED: KCL 20 MEQ/100 ML IVPREMIX* 20 MEQ/100 ML BAG IV ONE (08:12)
--- NOTE | 2019-04-17 09:01 | ECHO ---
*[facility], [place]* [place] [address] Fax #: [phone] Transthoracic Echocardiogram Patient: Skylar Mcfadden : 1940 Study Date: 04/17/2019 Age: 79 Gender: F HR: 82 bpm Height: 63 in /160 cm BSA: 1.99 m^2 Weight: 212.6 lb /96.6 kg BMI: 37.7 kg/m^2 *Clinical Laboratory Assistant: Alpa Thomas *Referring Physician: * Vanessa Sunshine *Reading Physician: * Jalen Jorge MD History: Takotsubo 2016. Coronary artery disease. Congestive heart failure. Risk factors: Hypertension. Diabetes mellitus. Dyslipidemia. Conclusions Summary: - Left ventricle: The cavity size is normal. Wall thickness is mildly increased. Systolic function is normal. The estimated ejection fraction is 60-65%. - Right ventricle: The cavity size is normal. Systolic function is normal. - Left atrium: The atrium is mildly dilated. - Mitral valve: The findings are consistent with mild non-rheumatic stenosis. - Aortic valve: The findings are consistent with mild stenosis. - Pulmonary arteries: Systolic pressure can not be accurately estimated. Recommendations: Compared to prior study from 09/2018, no clinically significant changes noted. Study data: Transthoracic echocardiogram. Procedure: Transthoracic echocardiography was performed. Image quality was good. Complete 2D, spectral Doppler, and color flow Doppler. Location: Bedside. Patient status: Inpatient. Patient room number: 432. Rhythm: Normal sinus rhythm. Findings Left ventricle: The cavity size is normal. Wall thickness is mildly increased. Systolic function is normal. The estimated ejection fraction is 60-65%. Left ventricular diastolic function parameters are indeterminate. Right ventricle: The cavity size is normal. Systolic function is normal. Left atrium: The atrium is mildly dilated. Right atrium: The atrium is normal in size. Mitral valve: Mitral annulus Appears moderately calcified. The leaflets are moderately thickened. The findings are consistent with mild non-rheumatic stenosis. There is no significant regurgitation. Aortic valve: The valve is probably trileaflet. The leaflets are mildly thickened and moderately calcified. The findings are consistent with mild stenosis. There is no significant regurgitation. Tricuspid valve: The leaflets are normal thickness. There is no evidence of stenosis. There is no significant regurgitation. Pulmonic valve: The leaflets are normal thickness. There is no evidence of stenosis. There is no significant regurgitation. Aorta: The aortic root appears normal. Pericardium: There is no significant pericardial effusion. Pulmonary arteries: Systolic pressure can not be accurately estimated. Systemic veins: Inferior vena cava: The vessel is normal in size. Pulmonary veins: Not well visualized. Measurements Left ventricle Value Ref Aortic valve Value Ref BENITA, LAX (L) 3.6 cm 3.8 - Peak v, S 1.78 m/sec ---- 5.2 VTI, S 37.4 cm ---- ESD, LAX 2.2 cm 2.2 - Mean grad, S 7.0 mm Hg ---- 3.5 Peak grad, S 13.0 mm Hg ---- FS, LAX 40 % 27 - 45 FLY, VTI 2.05 cm^2 ---- PW, ED, LAX (H) 1.2 cm 0.6 - FLY/bsa, VTI 1.03 cm^2/m^2 ---- 0.9 FLY, Vmean 1.7 cm^2 ---- FS 40 % 27 - 45 PW, ED (H) 1.2 cm 0.6 - Mitral valve Value Ref 0.9 Peak E 1.36 m/sec ---- PW/ID, ED 0.34 -------- Peak A 1.25 m/sec ---- DFT 520 ms -------- Decel time 370 ms ---- PHT 108 ms ---- LVOT Value Ref Mean grad, D 4.8 mm Hg ---- Diam, S 1.90 cm -------- Peak grad, D 9.0 mm Hg ---- Area 2.8 cm^2 -------- Peak E/A ratio 1.1 ---- Peak christi, S 1.08 m/sec -------- MVA 1.9 cm^2 ---- Mean grad, S 2 mm Hg -------- MVA, PHT 2.0 cm^2 ---- SV 71 ml -------- Aortic root Value Ref Ventricular septum Value Ref Root diam 3.3 cm <4.1 IVS, ED (H) 1.2 cm 0.6 - 0.9 Ascending aorta Value Ref AAo AP diam, S 3.3 cm ---- Right ventricle Value Ref AAo AP diam/bsa, S 1.7 cm/m^2 ---- BENITA, LAX 3.6 cm -------- Inferior vena cava Value Ref Left atrium Value Ref Diam 2.3 cm ---- ML dim, A4C 3.8 cm -------- SI dim, A4C 4.9 cm -------- Vol/bsa, ES, 1-p 24 ml/m^2 11 - 40 A4C Vol/bsa, ES, A/L 34 ml/m^2 16 - 34 Right atrium Value Ref SI dim, ES 4.4 cm 3.4 - 5.3 ML dim, ES, A4C 3.2 cm 2.6 - 4.4 SI dim, ES, A4C 4.4 cm 3.4 - 5.3 SI dim/bsa, ES, 2.2 cm/m^2 1.9 - A4C 3.1 Legend: (L) and (H) evonne values outside specified reference range. Prepared and electronically signed by Jalen Jorge MD 04/17/2019 09:01
[2019-04-17] MEDS: Albuterol 2.5 MG/3 ML NEB.SOL* (0.083%) INH PRN ×2 (09:02→20:31)
[2019-04-17 09:24] LABS: Troponin I 0.15 ng/mL (<0.03)
[2019-04-17] MEDS: Divalproex DR TAB(*) 500 MG PO SCH ×2 (10:09→20:17)
[2019-04-17] MEDS: Magnesium Oxide TAB* 400 MG PO SCH (10:09)
[2019-04-17] MEDS: Losartan TAB* 25 MG PO SCH (10:10)
[2019-04-17] MEDS: metFORMIN* 1,000 MG TAB PO SCH (10:10)
[2019-04-17] MEDS: Escitalopram * 10 MG TAB PO SCH (10:10)
[2019-04-17] MEDS: Pantoprazole TAB * 40 MG TAB PO SCH ×2 (10:10→20:17)
[2019-04-17] MEDS: Insulin LISPRO* 1 UNITS UNIT SUBCUT SCH ×3 (10:11→17:42)
[2019-04-17] MEDS: Furosemide IV* 10 MG/ML VIAL (40 MG) IV SCH (10:11)
[2019-04-17] MEDS: Aspirin 81 mg CHEW TAB* 81 MG TAB.CHEW PO SCH (10:42)
[2019-04-17 12:49] LABS: Troponin I 0.16 ng/mL (<0.03)
--- NOTE | 2019-04-17 14:32 | PN ---
Subjective Date of Service: 04/17/19 Interval History: Ms. Mcfadden is feeling worse today. SOB is worse than yesterday. She did not sleep well. She generally feels poor. Denies any CP or diaphoresis. She just received a dose of Lasix and is hoping to feel better. No concerns from nursing. Family History: Unchanged from Admission Social History: Unchanged from Admission Past Medical History: Unchanged from Admission Objective Active Medications: Albuterol (Ventolin 2.5 Mg/3 Ml Neb.Sasha*) 2.5 mg INH [id number] AWAKE PRN sob/wheezing Amlodipine Besylate (Norvasc Tab*) 10 mg PO BEDTIME ISABEL Aspirin (Aspirin 81 Mg Chew Tab*) 81 mg PO DAILY ISABEL Dextrose (Dextrose 50% Vial 50 Ml*) 25 ml IV PUSH .FOR FS < 60 - SS PRN FS < 60 Divalproex Sodium (Depakote Dr Tab(*)) 500 mg PO BID ISABEL Enoxaparin Sodium (Lovenox(*)) 40 mg SUBCUT Q24H ISABEL Escitalopram Oxalate (Lexapro *) 20 mg PO QAM ISABEL Furosemide (Lasix Iv*) 60 mg IV DAILY ISABEL Furosemide (Lasix Iv*) 40 mg IV ONCE ONE Insulin Human Lispro (Humalog*) 0 units SUBCUT AC ISABEL; Protocol Levothyroxine Sodium (Synthroid Tab*) 100 mcg PO DAILY@0600 ISABEL Losartan Potassium (Cozaar Tab*) 100 mg PO DAILY ISABEL Magnesium Oxide (Magox 400 Tab*) 400 mg PO DAILY ISABEL Metformin HCl (Glucophage*) 1,000 mg PO DAILY ISABEL Oxycodone/Acetaminophen (Percocet 5/325 Tab*) 2 tab PO BID PRN PAIN - SEVERE Pantoprazole Sodium (Protonix Tab*) 40 mg PO BID ISABEL Ropinirole HCl (Requip Tab*) 0.5 mg PO BEDTIME ISABEL Rosuvastatin Calcium (Crestor (Nf)) 10 mg PO BEDTIME ISABEL; Protocol Vital Signs - 8 hr 04/17/19 04/17/19 04/17/19 07:15 08:44 09:00 Temperature 97.1 F Pulse Rate 68 Respiratory 27 20 20 Rate Blood Pressure 151/72 (mmHg) O2 Sat by Pulse 92 Oximetry Oxygen Devices in Use Now: Nasal Cannula - 6L Appearance: Elderly female sitting in bed in NAD Ears/Nose/Mouth/Throat: Mucous Membranes Moist Neck: NL Appearance and Movements; NL JVP, Trachea Midline Respiratory: Symmetrical Chest Expansion and Respiratory Effort, - - Coarse crackles throughout Cardiovascular: NL Sounds; No Murmurs; No JVD, RRR Abdominal: NL Sounds; No Tenderness; No Distention Extremities: No Edema Neurological: Alert and Oriented x 3 Lines/Tubes/Other Access: Clean, Dry and Intact Peripheral IV Nutrition: Taking PO's Result Diagrams: 04/17/19 05:24 04/17/19 05:24 Assess/Plan/Problems-Billing Assessment: Ms. Mcfadden is a 79 yo F with PMH of dCHF, CAD, HTN, HLD, DM, Alzheimer's, seizures, hypothyroid, GERD, MAGDA, fibromyalgia; who presented to the ED with SOB and was found to be fluid overloaded. - Patient Problems (1) Acute on chronic diastolic congestive heart failure Code(s): I50.33 - ACUTE ON CHRONIC DIASTOLIC (CONGESTIVE) HEART FAILURE Comment: - Presented with SOB and reported 12 lb weight gain in one week period (this is unconfirmed) - CXR showing pulmonary edema - Echo showing EF 60-65%, no significant changes from prior (though previous echo from September shows grade 2 diastolic dysfunction which this echo report does not mention) - Improved slightly after one dose furosemide in the ED - Strict I&O and daily weights - Continue diuresis with furosemide IV (60mg this morning and 40mg this evening ) (2) Elevated troponin Code(s): R79.89 - OTHER SPECIFIED ABNORMAL FINDINGS OF BLOOD CHEMISTRY Comment : - No c/o CP or anginal equivalents - EKG shows mild diffuse ST depression and flattened T waves - Suspect demand ischemia secondary to CHF exacerbation - Continue to trend until peak (3) Acute respiratory failure with hypoxia Code(s): J96.01 - ACUTE RESPIRATORY FAILURE WITH HYPOXIA Comment: - Saturating in the 80s on RA on admission - Currently requiring 6L to maintain sats in the 90s - Secondary to CHF exacerbation - Wean as tolerated (4) HTN (hypertension) Code(s): I10 - ESSENTIAL (PRIMARY) HYPERTENSION Comment: - Normotensive - Continue amlodipine, losartan, furosemide (5) CAD (coronary artery disease) Code(s): I25.10 - ATHSCL HEART DISEASE OF [place] CORONARY ARTERY W/O ANG PCTRS Comment: - Continue rosuvastatin; start aspirin (6) Type 2 diabetes mellitus Comment: - Continue metformin, Lispro SS (7) Seizure disorder Code(s): G40.909 - EPILEPSY, UNSP, NOT INTRACTABLE, WITHOUT STATUS EPILEPTICUS Comment: - Continue Depakote (8) MAGDA (obstructive sleep apnea) Code(s): G47.33 - OBSTRUCTIVE SLEEP APNEA (ADULT) (PEDIATRIC) Comment: - Intermittently compliant with CPAP at home - CPAP (9) Fibromyalgia Code(s): M79.7 - FIBROMYALGIA Comment: - Significant other reports he has been weaning Percocet, currently BID - Continue Percocet, Requip (10) Anxiety with depression Comment: - Continue escitalopram (11) Dementia Code(s): F03.90 - UNSPECIFIED DEMENTIA WITHOUT BEHAVIORAL DISTURBANCE Comment : - Supportive care (12) GERD (gastroesophageal reflux disease) Code(s): K21.9 - GASTRO-ESOPHAGEAL REFLUX DISEASE WITHOUT ESOPHAGITIS Comment : - Continue pantoprazole (13) Hypothyroid Code(s): E03.9 - HYPOTHYROIDISM, UNSPECIFIED Comment: - Continue levothyroxine (14) DVT prophylaxis Comment: - Lovenox (15) Full code status Code(s): Z78.9 - OTHER SPECIFIED HEALTH STATUS Comment: Status and Disposition: Inpatient. Anticipate d/c home when medically stable, timeframe TBD by clinical course. Attending: Delia Correa
[2019-04-17 16:12] LABS: Troponin I 0.12 ng/mL (<0.03)
[2019-04-17] MEDS ORDERED: Furosemide IV* 10 MG/ML VIAL (40 MG) IV ONE (17:00)
[2019-04-17] MEDS: Witch Hazel PAD* JAR TOPICAL SCH ×2 (19:04→20:24)
[2019-04-17] MEDS: amLODIPine TAB* 5 MG PO SCH (20:15)
[2019-04-17] MEDS: oxyCODONE/Acetamin 5/325 MG* TAB PO PRN (20:16)
[2019-04-17] MEDS: Ropinirole TAB* 0.5 MG TAB PO SCH (20:17)
[2019-04-17] MEDS: Enoxaparin(*) 40 MG/0.4 ML SYR SUBCUT SCH (20:17)
[2019-04-17] MEDS: ROSUVASTATIN 10 MG PO SCH (20:27)
[2019-04-18 05:23] LABS: ABS Lymphocytes 2.5 10^3/ul (1.0-4.8); ABS Monocytes 0.7 10^3/ul (0-0.8); ABS Neutrophils 2.7 10^3/ul (1.5-7.7); Eosinophil % 0.2 %; Hematocrit 36 % (35-47); Hemoglobin 11.7 g/dL (12.0-16.0); Lymphocyte % 42.3 %; Mean Corpuscular HGB Conc 33 g/dL (31-36); Mean Corpuscular Hemoglobin 27 pg (27-31); Mean Corpuscular Volume 82 fL (80-97); Mean Platelet Volume 9.5 fL (7.4-10.4); Nucleated Red Blood Cells % 0.1; Platelet Count 185 10^3/uL (150-450); Red Blood Count 4.35 10^6 /uL (3.70-4.87); Red Cell Distribution Width 17 % (10-15)
[2019-04-18 05:38] LABS: Calcium 9.6 mg/dL (8.6-10.3); EGFR African American 49.8 (>60); EGFR Non-African American 41.2 (>60); Potassium 3.1 mmol/L (3.5-5.0)
[2019-04-18] MEDS: Levothyroxine TAB* 100 MCG TAB PO SCH (05:52)
[2019-04-18] MEDS: Insulin LISPRO* 1 UNITS UNIT SUBCUT SCH ×3 (07:52→16:49)
[2019-04-18] MEDS ORDERED: Potassium Chlor TAB* 20 MEQ TAB.ER PO ONE (08:16)
[2019-04-18] MEDS: metFORMIN* 1,000 MG TAB PO SCH (09:18)
[2019-04-18] MEDS: Aspirin 81 mg CHEW TAB* 81 MG TAB.CHEW PO SCH (09:18)
[2019-04-18] MEDS: Pantoprazole TAB * 40 MG TAB PO SCH ×2 (09:18→20:02)
[2019-04-18] MEDS: Escitalopram * 10 MG TAB PO SCH (09:19)
[2019-04-18] MEDS: Divalproex DR TAB(*) 500 MG PO SCH ×2 (09:19→20:02)
[2019-04-18] MEDS: Magnesium Oxide TAB* 400 MG PO SCH (09:19)
[2019-04-18] MEDS: Losartan TAB* 25 MG PO SCH (09:19)
[2019-04-18] MEDS: Furosemide IV* 10 MG/ML VIAL (40 MG) IV SCH (09:21)
[2019-04-18] MEDS: KCL 20 MEQ/100 ML IVPREMIX* 20 MEQ/100 ML BAG IV SCH (09:27)
[2019-04-18] MEDS: oxyCODONE/Acetamin 5/325 MG* TAB PO PRN ×2 (09:32→20:55)
[2019-04-18] MEDS: Witch Hazel PAD* JAR TOPICAL SCH (10:06)
[2019-04-18] MEDS: Albuterol 2.5 MG/3 ML NEB.SOL* (0.083%) INH PRN ×2 (11:36→21:04)
--- NOTE | 2019-04-18 12:02 | PN ---
Subjective Date of Service: 04/18/19 Interval History: Ms. Mcfadden is feeling much better today. SOB has improved. She has been up ambulating to the bathroom without significant SOB on exertion. Overall she feels improved. Denies CP. No concerns from nursing. Family History: Unchanged from Admission Social History: Unchanged from Admission Past Medical History: Unchanged from Admission Objective Active Medications: Albuterol (Ventolin 2.5 Mg/3 Ml Neb.Sasha*) 2.5 mg INH [id number] AWAKE PRN sob/wheezing Amlodipine Besylate (Norvasc Tab*) 10 mg PO BEDTIME ISABEL Aspirin (Aspirin 81 Mg Chew Tab*) 81 mg PO DAILY ISABEL Dextrose (Dextrose 50% Vial 50 Ml*) 25 ml IV PUSH .FOR FS < 60 - SS PRN FS < 60 Divalproex Sodium (Depakote Dr Tab(*)) 500 mg PO BID ISABEL Enoxaparin Sodium (Lovenox(*)) 40 mg SUBCUT Q24H ISABEL Escitalopram Oxalate (Lexapro *) 20 mg PO QAM ISABEL Furosemide (Lasix Iv*) 60 mg IV DAILY ISABEL Potassium Chloride (Potassium Chloride 20 Meq/100 Ml Ivpremix*) 20 meq in 100 mls @ 50 mls/hr IV Q2H ISABEL Insulin Human Lispro (Humalog*) 0 units SUBCUT AC ISABEL; Protocol Levothyroxine Sodium (Synthroid Tab*) 100 mcg PO DAILY@0600 ISABEL Losartan Potassium (Cozaar Tab*) 100 mg PO DAILY ISABEL Magnesium Oxide (Magox 400 Tab*) 400 mg PO DAILY ISABEL Metformin HCl (Glucophage*) 1,000 mg PO DAILY ISABEL Oxycodone/Acetaminophen (Percocet 5/325 Tab*) 2 tab PO BID PRN PAIN - SEVERE Pantoprazole Sodium (Protonix Tab*) 40 mg PO BID ISABEL Ropinirole HCl (Requip Tab*) 0.5 mg PO BEDTIME ISABEL Rosuvastatin Calcium (Crestor (Nf)) 10 mg PO BEDTIME ISABEL; Protocol Mireya Collado (Tucks*) 1 pad TOPICAL DAILY ISABEL Vital Signs - 8 hr 04/18/19 04/18/19 04/18/19 07:15 07:46 09:32 Temperature 97.2 F Pulse Rate 76 Respiratory 16 20 18 Rate Blood Pressure 121/64 (mmHg) O2 Sat by Pulse 98 Oximetry 04/18/19 11:53 Temperature Pulse Rate 73 Respiratory 15 Rate Blood Pressure (mmHg) O2 Sat by Pulse 97 Oximetry Oxygen Devices in Use Now: Nasal Cannula - 2L Appearance: Elderly female sitting in bed in NAD Ears/Nose/Mouth/Throat: Mucous Membranes Moist Neck: NL Appearance and Movements; NL JVP, Trachea Midline Respiratory: Symmetrical Chest Expansion and Respiratory Effort, - - Fine crackles and exp wheezing throughout, improved from yesterday Cardiovascular: NL Sounds; No Murmurs; No JVD Abdominal: NL Sounds; No Tenderness; No Distention Extremities: No Edema Neurological: Alert and Oriented x 3 Lines/Tubes/Other Access: Clean, Dry and Intact Peripheral IV Nutrition: Taking PO's Result Diagrams: 04/18/19 04:13 04/18/19 04:13 Assess/Plan/Problems-Billing Assessment: Ms. cMfadden is a 79 yo F with PMH of dCHF, CAD, HTN, HLD, DM, Alzheimer's, seizures, hypothyroid, GERD, MAGDA, fibromyalgia; who presented to the ED with SOB and was found to be fluid overloaded. - Patient Problems (1) Acute on chronic diastolic congestive heart failure Code(s): I50.33 - ACUTE ON CHRONIC DIASTOLIC (CONGESTIVE) HEART FAILURE Comment: - Presented with SOB and reported 12 lb weight gain in one week period (this is unconfirmed) - CXR showing pulmonary edema - Echo showing EF 60-65%, no significant changes from prior (though previous echo from September shows grade 2 diastolic dysfunction which this echo report does not mention) - Improved slightly after one dose furosemide in the ED - Strict I&O and daily weights - Continue diuresis with furosemide IV (2) Elevated troponin Code(s): R79.89 - OTHER SPECIFIED ABNORMAL FINDINGS OF BLOOD CHEMISTRY Comment : - Peaked at 0.16 - No c/o CP or anginal equivalents - EKG shows mild diffuse ST depression and flattened T waves - Suspect demand ischemia secondary to CHF exacerbation (3) Acute respiratory failure with hypoxia Code(s): J96.01 - ACUTE RESPIRATORY FAILURE WITH HYPOXIA Comment: - Saturating in the 80s on RA on admission - Desaturated to 80% on RA this morning, now on 2L in low 90s - Secondary to CHF exacerbation - Wean as tolerated (4) HTN (hypertension) Code(s): I10 - ESSENTIAL (PRIMARY) HYPERTENSION Comment: - Normotensive - Continue amlodipine, losartan, furosemide (5) CAD (coronary artery disease) Code(s): I25.10 - ATHSCL HEART DISEASE OF [place] CORONARY ARTERY W/O ANG PCTRS Comment: - Continue rosuvastatin, aspirin (6) Type 2 diabetes mellitus Comment: - Continue metformin, Lispro SS (7) Seizure disorder Code(s): G40.909 - EPILEPSY, UNSP, NOT INTRACTABLE, WITHOUT STATUS EPILEPTICUS Comment: - Continue Depakote (8) MAGDA (obstructive sleep apnea) Code(s): G47.33 - OBSTRUCTIVE SLEEP APNEA (ADULT) (PEDIATRIC) Comment: - Intermittently compliant with CPAP at home - CPAP (9) Fibromyalgia Code(s): M79.7 - FIBROMYALGIA Comment: - Significant other reports he has been weaning Percocet, currently BID - Continue Percocet, Requip (10) Anxiety with depression Comment: - Continue escitalopram (11) Dementia Code(s): F03.90 - UNSPECIFIED DEMENTIA WITHOUT BEHAVIORAL DISTURBANCE Comment : - Supportive care (12) GERD (gastroesophageal reflux disease) Code(s): K21.9 - GASTRO-ESOPHAGEAL REFLUX DISEASE WITHOUT ESOPHAGITIS Comment : - Continue pantoprazole (13) Hypothyroid Code(s): E03.9 - HYPOTHYROIDISM, UNSPECIFIED Comment: - Continue levothyroxine (14) DVT prophylaxis Comment: - Lovenox (15) Full code status Code(s): Z78.9 - OTHER SPECIFIED HEALTH STATUS Comment: Status and Disposition: Inpatient. Anticipate d/c home when successfully weaned off oxygen, hopefully tomorrow. Attending: Delia Correa
[2019-04-18] MEDS: Enoxaparin(*) 40 MG/0.4 ML SYR SUBCUT SCH (19:58)
[2019-04-18] MEDS: ROSUVASTATIN 10 MG PO SCH (20:02)
[2019-04-18] MEDS: Ropinirole TAB* 0.5 MG TAB PO SCH (20:02)
[2019-04-18] MEDS: amLODIPine TAB* 5 MG PO SCH (20:03)
[2019-04-19] MEDS: KCL 20 MEQ/100 ML IVPREMIX* 20 MEQ/100 ML BAG IV SCH (00:24)
[2019-04-19] MEDS: oxyCODONE/Acetamin 5/325 MG* TAB PO PRN ×2 (04:08→08:34)
[2019-04-19] MEDS: Levothyroxine TAB* 100 MCG TAB PO SCH (05:11)
[2019-04-19 06:32] LABS: BUN/Creatinine Ratio 27.9 (8-20); EGFR African American 57.7 (>60); EGFR Non-African American 47.7 (>60); Potassium 4.1 mmol/L (3.5-5.0)
[2019-04-19] MEDS: Magnesium Oxide TAB* 400 MG PO SCH (08:34)
[2019-04-19] MEDS: metFORMIN* 1,000 MG TAB PO SCH (08:35)
[2019-04-19] MEDS: Divalproex DR TAB(*) 500 MG PO SCH ×2 (08:35→20:04)
[2019-04-19] MEDS: Pantoprazole TAB * 40 MG TAB PO SCH ×2 (08:35→20:03)
[2019-04-19] MEDS: Losartan TAB* 25 MG PO SCH (08:35)
[2019-04-19] MEDS: Escitalopram * 10 MG TAB PO SCH (08:35)
[2019-04-19] MEDS: Aspirin 81 mg CHEW TAB* 81 MG TAB.CHEW PO SCH (08:36)
[2019-04-19] MEDS: Insulin LISPRO* 1 UNITS UNIT SUBCUT SCH ×3 (08:36→16:03)
[2019-04-19] MEDS: Furosemide IV* 10 MG/ML VIAL (40 MG) IV SCH (08:36)
[2019-04-19] MEDS: Witch Hazel PAD* JAR TOPICAL SCH (08:37)
--- NOTE | 2019-04-19 12:05 | PN ---
Subjective Date of Service: 04/19/19 Interval History: Ms. Mcfadden is feeling well this morning. She is very hopeful to go home. She does admit to some wheezing, but respiratory status generally is improved. She reports she has been using her CPAP here and at home. Denies CP or SOB. She would like to attempt to walk around the unit later. Nursing was able to wean to RA, now sating 90% at rest. Has not been up ambulating without RA. Family History: Unchanged from Admission Social History: Unchanged from Admission Past Medical History: Unchanged from Admission Objective Active Medications: Albuterol (Ventolin 2.5 Mg/3 Ml Neb.Sasha*) 2.5 mg INH [id number] AWAKE PRN sob/wheezing Amlodipine Besylate (Norvasc Tab*) 10 mg PO BEDTIME ISABEL Aspirin (Aspirin 81 Mg Chew Tab*) 81 mg PO DAILY ISABEL Dextrose (Dextrose 50% Vial 50 Ml*) 25 ml IV PUSH .FOR FS < 60 - SS PRN FS < 60 Divalproex Sodium (Depakote Dr Tab(*)) 500 mg PO BID ISABEL Enoxaparin Sodium (Lovenox(*)) 40 mg SUBCUT Q24H ISABEL Escitalopram Oxalate (Lexapro *) 20 mg PO QAM ISABEL Furosemide (Lasix Iv*) 60 mg IV DAILY ISABEL Insulin Human Lispro (Humalog*) 0 units SUBCUT AC ISABEL; Protocol Levothyroxine Sodium (Synthroid Tab*) 100 mcg PO DAILY@0600 ISABEL Losartan Potassium (Cozaar Tab*) 100 mg PO DAILY ISABEL Magnesium Oxide (Magox 400 Tab*) 400 mg PO DAILY ISABEL Metformin HCl (Glucophage*) 1,000 mg PO DAILY ISABEL Oxycodone/Acetaminophen (Percocet 5/325 Tab*) 2 tab PO BID PRN PAIN - SEVERE Pantoprazole Sodium (Protonix Tab*) 40 mg PO BID ISABEL Ropinirole HCl (Requip Tab*) 0.5 mg PO BEDTIME ISABEL Rosuvastatin Calcium (Crestor (Nf)) 10 mg PO BEDTIME ISABEL; Protocol Mireya Collado (Tucks*) 1 pad TOPICAL DAILY ISABEL Vital Signs - 8 hr 04/19/19 04/19/19 04/19/19 07:15 08:00 08:34 Temperature 97.4 F Pulse Rate 77 Respiratory 20 20 20 Rate Blood Pressure 144/60 (mmHg) O2 Sat by Pulse 92 Oximetry 04/19/19 04/19/19 04/19/19 11:12 11:15 11:40 Temperature 97.4 F Pulse Rate 80 Respiratory 18 18 Rate Blood Pressure 115/53 (mmHg) O2 Sat by Pulse 93 90 Oximetry Oxygen Devices in Use Now: None Appearance: Elderly female sitting in bed in NAD Ears/Nose/Mouth/Throat: Mucous Membranes Moist Neck: NL Appearance and Movements; NL JVP, Trachea Midline Respiratory: Symmetrical Chest Expansion and Respiratory Effort, - - Crackles and exp wheezing throughout Cardiovascular: NL Sounds; No Murmurs; No JVD, RRR Abdominal: NL Sounds; No Tenderness; No Distention Extremities: No Edema Neurological: Alert and Oriented x 3 Lines/Tubes/Other Access: Clean, Dry and Intact Peripheral IV Nutrition: Taking PO's Result Diagrams: 04/18/19 04:13 04/19/19 05:14 Assess/Plan/Problems-Billing Assessment: Ms. Mcfadden is a 79 yo F with PMH of dCHF, CAD, HTN, HLD, DM, Alzheimer's, seizures, hypothyroid, GERD, MAGDA, fibromyalgia; who presented to the ED with SOB and was found to be fluid overloaded. - Patient Problems (1) Acute on chronic diastolic congestive heart failure Code(s): I50.33 - ACUTE ON CHRONIC DIASTOLIC (CONGESTIVE) HEART FAILURE Comment: - Presented with SOB and reported 12 lb weight gain in one week period (this is unconfirmed) - CXR showing pulmonary edema - Echo showing EF 60-65%, no significant changes from prior (though previous echo from September shows grade 2 diastolic dysfunction which this echo report does not mention) - Improved slightly after one dose furosemide in the ED - Strict I&O and daily weights - Continue diuresis with furosemide IV (2) Elevated troponin Code(s): R79.89 - OTHER SPECIFIED ABNORMAL FINDINGS OF BLOOD CHEMISTRY Comment : - Peaked at 0.16 - No c/o CP or anginal equivalents - EKG shows mild diffuse ST depression and flattened T waves - Suspect demand ischemia secondary to CHF exacerbation (3) Acute respiratory failure with hypoxia Code(s): J96.01 - ACUTE RESPIRATORY FAILURE WITH HYPOXIA Comment: - Saturating in the 80s on RA on admission - Now 90% on RA this morning, but has not been up ambulating on RA - Secondary to CHF exacerbation (4) HTN (hypertension) Code(s): I10 - ESSENTIAL (PRIMARY) HYPERTENSION Comment: - Normotensive - Continue amlodipine, losartan, furosemide (5) CAD (coronary artery disease) Code(s): I25.10 - ATHSCL HEART DISEASE OF [place] CORONARY ARTERY W/O ANG PCTRS Comment: - Continue rosuvastatin, aspirin (6) Type 2 diabetes mellitus Comment: - Continue metformin, Lispro SS (7) Seizure disorder Code(s): G40.909 - EPILEPSY, UNSP, NOT INTRACTABLE, WITHOUT STATUS EPILEPTICUS Comment: - Continue Depakote (8) MAGDA (obstructive sleep apnea) Code(s): G47.33 - OBSTRUCTIVE SLEEP APNEA (ADULT) (PEDIATRIC) Comment: - Intermittently compliant with CPAP at home - CPAP (9) Fibromyalgia Code(s): M79.7 - FIBROMYALGIA Comment: - Significant other reports he has been weaning Percocet, currently BID - Continue Percocet, Requip (10) Anxiety with depression Comment: - Continue escitalopram (11) Dementia Code(s): F03.90 - UNSPECIFIED DEMENTIA WITHOUT BEHAVIORAL DISTURBANCE Comment : - Supportive care (12) GERD (gastroesophageal reflux disease) Code(s): K21.9 - GASTRO-ESOPHAGEAL REFLUX DISEASE WITHOUT ESOPHAGITIS Comment : - Continue pantoprazole (13) Hypothyroid Code(s): E03.9 - HYPOTHYROIDISM, UNSPECIFIED Comment: - Continue levothyroxine (14) DVT prophylaxis Comment: - Lovenox (15) Full code status Code(s): Z78.9 - OTHER SPECIFIED HEALTH STATUS Comment: Status and Disposition: Inpatient. Anticipate d/c home when successfully weaned off oxygen, hopefully tomorrow. Attending: Delia Correa
[2019-04-19] MEDS: Albuterol 2.5 MG/3 ML NEB.SOL* (0.083%) INH PRN (12:25)
[2019-04-19] MEDS ORDERED: Furosemide IV* 10 MG/ML 2 ML VIAL (20 MG) IV ONE (16:00)
[2019-04-19] MEDS: Enoxaparin(*) 40 MG/0.4 ML SYR SUBCUT SCH (20:02)
[2019-04-19] MEDS: Ropinirole TAB* 0.5 MG TAB PO SCH (20:03)
[2019-04-19] MEDS: amLODIPine TAB* 5 MG PO SCH (20:03)
[2019-04-19] MEDS: ROSUVASTATIN 10 MG PO SCH (20:03)
[2019-04-20] MEDS: Albuterol 2.5 MG/3 ML NEB.SOL* (0.083%) INH PRN (00:04)
[2019-04-20] MEDS: oxyCODONE/Acetamin 5/325 MG* TAB PO PRN ×3 (01:03→18:00)
[2019-04-20 05:06] LABS: BUN/Creatinine Ratio 24.8 (8-20); EGFR African American 61.5 (>60); EGFR Non-African American 50.8 (>60); Potassium 3.9 mmol/L (3.5-5.0)
[2019-04-20] MEDS: Levothyroxine TAB* 100 MCG TAB PO SCH (05:52)
[2019-04-20] MEDS: Insulin LISPRO* 1 UNITS UNIT SUBCUT SCH ×3 (07:50→18:04)
[2019-04-20] MEDS: Magnesium Oxide TAB* 400 MG PO SCH (08:53)
[2019-04-20] MEDS: Divalproex DR TAB(*) 500 MG PO SCH ×2 (08:53→20:43)
[2019-04-20] MEDS: Losartan TAB* 25 MG PO SCH (08:54)
[2019-04-20] MEDS: metFORMIN* 1,000 MG TAB PO SCH (08:54)
[2019-04-20] MEDS: Pantoprazole TAB * 40 MG TAB PO SCH ×2 (08:54→20:42)
[2019-04-20] MEDS: Aspirin 81 mg CHEW TAB* 81 MG TAB.CHEW PO SCH (08:54)
[2019-04-20] MEDS: Furosemide IV* 10 MG/ML VIAL (40 MG) IV SCH (08:56)
[2019-04-20] MEDS: Escitalopram * 10 MG TAB PO SCH (10:20)
[2019-04-20] MEDS ORDERED: Furosemide IV* 10 MG/ML 2 ML VIAL (20 MG) IV ONE ×2 (10:38→17:00)
--- NOTE | 2019-04-20 14:34 | PN ---
Subjective Date of Service: 04/20/19 Interval History: Ms. Mcfadden is feeling well today. She has been up ambulating without any significant SOB, but is still coughing. She does not think the cough is worsening - possibly improving. She would like to go home with oxygen if necessary. Denies CP. Nursing reports she continues to desat on RA at rest and with ambulation, though has been ambulating around the unit. Family History: Unchanged from Admission Social History: Unchanged from Admission Past Medical History: Unchanged from Admission Objective Active Medications: Albuterol (Ventolin 2.5 Mg/3 Ml Neb.Sasha*) 2.5 mg INH [id number] AWAKE ISABEL Amlodipine Besylate (Norvasc Tab*) 10 mg PO BEDTIME ISABEL Aspirin (Aspirin 81 Mg Chew Tab*) 81 mg PO DAILY ISABEL Dextrose (Dextrose 50% Vial 50 Ml*) 25 ml IV PUSH .FOR FS < 60 - SS PRN FS < 60 Divalproex Sodium (Depakote Dr Tab(*)) 500 mg PO BID ISABEL Enoxaparin Sodium (Lovenox(*)) 40 mg SUBCUT Q24H ISABEL Escitalopram Oxalate (Lexapro *) 20 mg PO QAM ISABEL Furosemide (Lasix Iv*) 60 mg IV DAILY ISABEL Insulin Human Lispro (Humalog*) 0 units SUBCUT AC ISABEL; Protocol Levothyroxine Sodium (Synthroid Tab*) 100 mcg PO DAILY@0600 ISABEL Losartan Potassium (Cozaar Tab*) 100 mg PO DAILY ISABEL Magnesium Oxide (Magox 400 Tab*) 400 mg PO DAILY ISABEL Metformin HCl (Glucophage*) 1,000 mg PO DAILY ISABEL Oxycodone/Acetaminophen (Percocet 5/325 Tab*) 2 tab PO BID PRN PAIN - SEVERE Pantoprazole Sodium (Protonix Tab*) 40 mg PO BID ISABEL Ropinirole HCl (Requip Tab*) 0.5 mg PO BEDTIME ISABEL Rosuvastatin Calcium (Crestor (Nf)) 10 mg PO BEDTIME ISABEL; Protocol Mireya Collado (Ljcks*) 1 pad TOPICAL DAILY ISABEL Vital Signs - 8 hr 04/20/19 04/20/19 04/20/19 07:30 08:00 10:20 Temperature 97.1 F Pulse Rate 70 Respiratory 16 16 17 Rate Blood Pressure 131/67 (mmHg) O2 Sat by Pulse 94 Oximetry 04/20/19 11:15 Temperature 97.8 F Pulse Rate 85 Respiratory 16 Rate Blood Pressure 103/55 (mmHg) O2 Sat by Pulse 98 Oximetry Oxygen Devices in Use Now: Nasal Cannula - 2L Appearance: Elderly female sitting in bed in NAD Ears/Nose/Mouth/Throat: Mucous Membranes Moist Neck: NL Appearance and Movements; NL JVP, Trachea Midline Respiratory: Symmetrical Chest Expansion and Respiratory Effort, - - Crackles and expiratory wheezing throughout, slightly worse than yesterday Cardiovascular: NL Sounds; No Murmurs; No JVD Abdominal: NL Sounds; No Tenderness; No Distention Extremities: No Edema Neurological: Alert and Oriented x 3 Lines/Tubes/Other Access: Clean, Dry and Intact Peripheral IV Nutrition: Taking PO's Result Diagrams: 04/18/19 04:13 04/20/19 04:24 Assess/Plan/Problems-Billing Assessment: Ms. Mcfadden is a 79 yo F with PMH of dCHF, CAD, HTN, HLD, DM, Alzheimer's, seizures, hypothyroid, GERD, MAGDA, fibromyalgia; who presented to the ED with SOB and was found to be fluid overloaded. - Patient Problems (1) Acute on chronic diastolic congestive heart failure Code(s): I50.33 - ACUTE ON CHRONIC DIASTOLIC (CONGESTIVE) HEART FAILURE Comment: - Presented with SOB and reported 12 lb weight gain in one week period (this is unconfirmed) - Continues to have crackles on auscultation and audible wheezing - CXR showing pulmonary edema - Echo showing EF 60-65%, no significant changes from prior (though previous echo from September shows grade 2 diastolic dysfunction which this echo report does not mention) - Improved slightly after one dose furosemide in the ED - Strict I&O and daily weights - Continue diuresis with furosemide IV; will give extra doses today for a total of 100mg IV (2) Acute respiratory failure with hypoxia Code(s): J96.01 - ACUTE RESPIRATORY FAILURE WITH HYPOXIA Comment: - Saturating in the 80s on RA on admission - Still desating on RA even at rest - Secondary to CHF exacerbation - Encourage ambulation, IS - Change nebs to scheduled (3) Elevated troponin Code(s): R79.89 - OTHER SPECIFIED ABNORMAL FINDINGS OF BLOOD CHEMISTRY Comment : - Peaked at 0.16 - No c/o CP or anginal equivalents - EKG shows mild diffuse ST depression and flattened T waves - Suspect demand ischemia secondary to CHF exacerbation (4) HTN (hypertension) Code(s): I10 - ESSENTIAL (PRIMARY) HYPERTENSION Comment: - Normotensive - Continue amlodipine, losartan, furosemide (5) CAD (coronary artery disease) Code(s): I25.10 - ATHSCL HEART DISEASE OF [place] CORONARY ARTERY W/O ANG PCTRS Comment: - Continue rosuvastatin, aspirin (6) Type 2 diabetes mellitus Comment: - Continue metformin, Lispro SS (7) Seizure disorder Code(s): G40.909 - EPILEPSY, UNSP, NOT INTRACTABLE, WITHOUT STATUS EPILEPTICUS Comment: - Continue Depakote (8) MAGDA (obstructive sleep apnea) Code(s): G47.33 - OBSTRUCTIVE SLEEP APNEA (ADULT) (PEDIATRIC) Comment: - Intermittently compliant with CPAP at home - CPAP (9) Fibromyalgia Code(s): M79.7 - FIBROMYALGIA Comment: - Significant other reports he has been weaning Percocet, currently BID - Continue Percocet, Requip (10) Anxiety with depression Comment: - Continue escitalopram (11) Dementia Code(s): F03.90 - UNSPECIFIED DEMENTIA WITHOUT BEHAVIORAL DISTURBANCE Comment : - Supportive care (12) GERD (gastroesophageal reflux disease) Code(s): K21.9 - GASTRO-ESOPHAGEAL REFLUX DISEASE WITHOUT ESOPHAGITIS Comment : - Continue pantoprazole (13) Hypothyroid Code(s): E03.9 - HYPOTHYROIDISM, UNSPECIFIED Comment: - Continue levothyroxine (14) DVT prophylaxis Comment: - Lovenox (15) Full code status Code(s): Z78.9 - OTHER SPECIFIED HEALTH STATUS Comment: Status and Disposition: Inpatient. Anticipate d/c home when successfully weaned off oxygen, hopefully tomorrow. Attending: Soni Avendaño
[2019-04-20] MEDS ORDERED: Albuterol 2.5 MG/3 ML NEB.SOL* (0.083%) INH SCH (15:00)
[2019-04-20] MEDS ORDERED: Albuterol 2.5 MG/3 ML NEB.SOL* (0.083%) INH PRN (15:10)
[2019-04-20] MEDS: Witch Hazel PAD* JAR TOPICAL SCH (17:59)
[2019-04-20] MEDS: Enoxaparin(*) 40 MG/0.4 ML SYR SUBCUT SCH (20:37)
[2019-04-20] MEDS: Ropinirole TAB* 0.5 MG TAB PO SCH (20:43)
[2019-04-20] MEDS: amLODIPine TAB* 5 MG PO SCH (20:44)
[2019-04-20] MEDS: ROSUVASTATIN 10 MG PO SCH (20:52)
[2019-04-21] MEDS: oxyCODONE/Acetamin 5/325 MG* TAB PO PRN ×2 (03:43→10:51)
[2019-04-21] MEDS: Levothyroxine TAB* 100 MCG TAB PO SCH (05:32)
[2019-04-21] MEDS: Insulin LISPRO* 1 UNITS UNIT SUBCUT SCH ×2 (07:58→12:31)
[2019-04-21] MEDS: Losartan TAB* 25 MG PO SCH (09:01)
[2019-04-21] MEDS: Escitalopram * 10 MG TAB PO SCH (09:01)
[2019-04-21] MEDS: Magnesium Oxide TAB* 400 MG PO SCH (09:01)
[2019-04-21] MEDS: Divalproex DR TAB(*) 500 MG PO SCH (09:02)
[2019-04-21] MEDS: Aspirin 81 mg CHEW TAB* 81 MG TAB.CHEW PO SCH (09:02)
[2019-04-21] MEDS: metFORMIN* 1,000 MG TAB PO SCH (09:02)
[2019-04-21] MEDS: Pantoprazole TAB * 40 MG TAB PO SCH (09:02)
[2019-04-21] MEDS: Furosemide IV* 10 MG/ML VIAL (40 MG) IV SCH (09:04)
[2019-04-21] MEDS: Witch Hazel PAD* JAR TOPICAL SCH (09:11)
--- NOTE | 2019-04-21 10:18 | PN ---
Hospitalist Progress Note Date of Service: 04/21/19 Patient desaturating to 85% on RA, requiring 2L NC to maintain sats.
[2019-04-21] MEDS: Albuterol 2.5 MG/3 ML NEB.SOL* (0.083%) INH SCH ×2 (12:09→14:27)
[2019-04-21 14:14] VITALS: BP 115/63
--- NOTE | 2019-04-22 03:55 | DS ---
CC: Dr. Michael Brooks* DISCHARGE SUMMARY: DATE OF ADMISSION: 04/16/19 DATE OF DISCHARGE: 04/21/19 PRIMARY CARE PROVIDER: Dr. Michael Brooks. ATTENDING PHYSICIAN: Dr. Soni Avendaño* (dictated by Vanessa Sunshine NP). PRIMARY DIAGNOSES: 1. Acute on chronic diastolic congestive heart failure. 2. Acute hypoxic respiratory failure. SECONDARY DIAGNOSES: 1. Hypertension. 2. Coronary artery disease. 3. Diabetes mellitus, type 2. 4. Seizure disorder. 5. Obstructive sleep apnea. 6. Fibromyalgia. 7. Anxiety. 8. Depression. 9. Dementia. 10. Gastroesophageal reflux disease. 11. Hypothyroidism. STUDIES WHILE IN THE HOSPITAL: 1. EKG on 04/16/19 shows normal sinus rhythm with a rate of 92, minimal ST depression in V2 through V6. 2. EKG on 04/16/19 shows normal sinus rhythm with rate of 86, again noted are minimal ST changes. 3. Chest x-ray on 04/16/19 reads as pulmonary interstitial edema. 4. EKG on 04/17/19 shows normal sinus rhythm with a rate of 88, no ST changes. 5. Transthoracic echocardiogram on 04/17/19 reads as the left ventricular cavity size is normal. Wall thickness is mildly increased. Systolic function is normal. The estimated ejection fraction is 60% to 65%. Right ventricular cavity size is normal. The systolic function is normal. The left atrium is mildly dilated. The findings are consistent with mild nonrheumatic MS. Findings are consistent with mild AF. Systolic pressure in the pulmonary arteries cannot be accurately estimated. Compared to prior study from September 2018 , no clinically significant changes are noted. 6. EKG on 04/19/19 shows normal sinus rhythm with a rate of 78. No ST changes. HISTORY OF PRESENT ILLNESS AND HOSPITAL COURSE: Ms. Mcfadden is a 79-year-old female with past medical history of diastolic congestive heart failure, hypertension, hyperlipidemia, diabetes, Alzheimer's, seizure disorder, hypothyroidism, GERD, fibromyalgia, obstructive sleep apnea, and coronary artery disease, who presented to the emergency room on 04/16/19 with complaints of shortness of breath. Please see the history and physical by myself for complete summary of the events leading up to this hospitalization. In short, the patient reported 5 days of lethargy, shortness of breath, and sputum production, which ultimately prompted her to present to the emergency room. In the emergency room, she had imaging as noted above. She was noted to require 6 L of oxygen to maintain saturations in the 90s. She had an elevated troponin at 0.10 and an elevated BNP at 418. Because of these findings, she was admitted by the hospitalist service. The patient was admitted with diagnosis of CHF exacerbation. She had a repeat echo as noted above, although she did have a recent echo in September. Repeat echo was warranted due to the significant changes in symptoms. EF was noted to be normal. I will note that her previous echo from September noted the grade 2 diastolic dysfunction, which this echo does not indicate and it is unclear if that actually is still present. The patient reportedly previously had been on Bumex, as an outpatient, although had been off of this for over 1 year. She was diuresed with a high dose of IV Lasix ranging from 60 to 100 mg per day. She did show gradual improvement in symptoms and reports generally feeling better. At this point, the patient remains hypoxic and unfortunately we have been unable to wean her off oxygen, as she is requiring 2 L of oxygen at rest and with exertion to maintain saturations greater than 88%. I do think she still has a small amount of fluid overload, so I am not entirely sure at this point if this oxygen will be short term or intermediate accountant. She was noted to have an elevated troponin, which did peak at 0.16 and then trended down. EKGs initially did show diffuse minimal ST depression, though no significant changes and the patient did not experience any chest pain. It is thought that the elevated troponin and was secondary to demand ischemia due to CHF exacerbation and not evident of ACS. At this point, the patient reports feeling well and offers no complaints. She does report that cough is improving, though still present to some degree. There is no significant sputum production and she denies any shortness of breath at rest or with exertion. PHYSICAL EXAM: On exam, she is alert and oriented x4 without any focal neurological deficits. She has a regular rate and rhythm without murmurs, rubs , or gallops. Lungs have fine crackles to bilateral bases and some mild expiratory wheezing. There is no peripheral edema and no abdominal distention. Physical exam is otherwise benign. Ms. Mcfadden is stable for discharge. Most recent vitals are as follows, temp 97.1, heart rate 84, respiratory rate 16, oxygen saturation 91% on room air, blood pressure 115/63. DISCHARGE MEDICATIONS: New Medications: 1. Aspirin 81 mg p.o. daily. 2. Furosemide 40 mg p.o. daily. 3. Potassium chloride 10 mEq p.o. daily. 4. Albuterol MDI 1 puff q.4 hours p.r.n. shortness of breath, wheezing. Continued Medications: 1. Amlodipine 5 mg p.o. at bedtime. 2. Vitamin B12 1000 mcg p.o. daily. 3. Depakote 500 mg p.o. b.i.d. 4. Escitalopram 20 mg p.o. daily. 5. Levothyroxine 100 mcg p.o. daily. 6. Losartan 100 mg p.o. daily. 7. Magnesium oxide 400 mg p.o. daily 8. Metformin 1000 mg p.o. daily. 9. Omeprazole 20 mg p.o. b.i.d. 10. Percocet 10/325 one tab p.o. t.i.d. p.r.n. pain. 11. Requip 0.5 mg p.o. at bedtime. 12. Rosuvastatin 10 mg p.o. at bedtime. DISCHARGE PLAN: Ms. Mcfadden will be discharged to home. Activity will be as tolerated. Diet will be heart healthy. Medications are noted above. The patient and will need to remain on Lasix at this point and I have sent a new prescription indicating that the patient should take 40 mg for 1 week and then drop down to 20 mg daily. She should take potassium supplementation while on Lasix and I have sent in a albuterol inhaler for any residual wheezing. She can continue her usual medications as noted above. Again, I do not think that the patient will necessarily need long- term diuresis, though will certainly need to begin diuresis for the immediate future. She is being sent home with new home oxygen and has been instructed to wear 2 L of oxygen at rest and with exertion. Again, it is not clear if she will need oxygen intermediate accountant and I suspect this is only temporary, though I do anticipate that she will need it for at least a few weeks. She will need to follow up closely with her primary care provider as he will need to determine the need for further diuresis and oxygen requirements, she should see him in the next 4 to 7 days. She has been advised to return to the emergency room or nearest hospital for any worsening symptoms, shortness of breath, lightheadedness, dizziness, chest discomfort, hay fevers, chills, night sweats, loss of consciousness, or any other worrisome signs and symptoms. DISCHARGE CONDITION: Stable DISCHARGE DISPOSITION: Home. This is a summarized report of a complex medical history and hospital stay. For further details please see the entire medical record. TIME SPENT: Approximately 50 minutes were spent on this discharge. VANESSA SUNSHINE, [employer] [id number]/CPS #: [id number] KEVIN
== END 2019-04-21 14:10 | disposition home health service (06) | DRG 291 ==
LOC: ED 16:27 → MEDTELE 18:21
PROVIDERS: ADMIT Internal Medicine; ATTEND Internal Medicine
PROC: 5A09357 Assistance with Respiratory Ventilation, Less than 24 Consecutive Hours, Continuous Positive Airway Pressure (ICD-10-PCS; principal; 2019-04-16)
DX: I11.0 Hypertensive heart disease with heart failure (principal); J96.01 Acute respiratory failure with hypoxia; I24.8 Other forms of acute ischemic heart disease; I50.33 Acute on chronic diastolic (congestive) heart failure; I25.10 Atherosclerotic heart disease of native coronary artery without angina pectoris; E11.22 Type 2 diabetes mellitus with diabetic chronic kidney disease; G40.909 Epilepsy, unspecified, not intractable, without status epilepticus; G47.33 Obstructive sleep apnea (adult) (pediatric); M79.7 Fibromyalgia; K21.9 Gastro-esophageal reflux disease without esophagitis; E03.9 Hypothyroidism, unspecified; G30.9 Alzheimer's disease, unspecified; F02.80 Dementia in other diseases classified elsewhere, unspecified severity, without behavioral disturbance, psychotic disturbance, mood disturbance, and anxiety; E78.5 Hyperlipidemia, unspecified; J45.909 Unspecified asthma, uncomplicated; I51.81 Takotsubo syndrome; E78.00 Pure hypercholesterolemia, unspecified; M16.0 Bilateral primary osteoarthritis of hip; M19.042 Primary osteoarthritis, left hand; M19.041 Primary osteoarthritis, right hand; M19.012 Primary osteoarthritis, left shoulder; M19.011 Primary osteoarthritis, right shoulder; G43.909 Migraine, unspecified, not intractable, without status migrainosus; Z96.652 Presence of left artificial knee joint; Z96.661 Presence of right artificial ankle joint; F41.8 Other specified anxiety disorders; Z79.890 Hormone replacement therapy; Z79.899 Other long term (current) drug therapy; Z79.84 Long term (current) use of oral hypoglycemic drugs; I25.2 Old myocardial infarction; Z88.0 Allergy status to penicillin; Z88.8 Allergy status to other drugs, medicaments and biological substances; Z88.1 Allergy status to other antibiotic agents; Z88.5 Allergy status to narcotic agent; Z88.2 Allergy status to sulfonamides
CPT/HCPCS: 36415; 71045; 80048; 80053; 83880; 84484; 85025; 93005; 93306; 94640; 94660; 96374; 96375; 99284; A9270-GY; C8929; J1650; J1940; J2930; J3480

== ENCOUNTER 2020-10-10 18:46 | Inpatient (IN) ==
[2020-10-10 20:01] LABS: ABS Eosinophils 0.1 10^3/ul (0-0.6); ABS Lymphocytes 2.4 10^3/ul (1.0-4.8); ABS Monocytes 0.5 10^3/ul (0-0.8); ABS Neutrophils 2.9 10^3/ul (1.5-7.7); Eosinophil % 2.5 %; Hematocrit 37 % (35-47); Hemoglobin 12.3 g/dL (12.0-16.0); Lymphocyte % 39.9 %; Mean Corpuscular HGB Conc 33 g/dL (31-36); Mean Corpuscular Hemoglobin 29 pg (27-31); Mean Corpuscular Volume 88 fL (80-97); Mean Platelet Volume 8.6 fL (7.4-10.4); Platelet Count 164 10^3/uL (150-450); Red Blood Count 4.25 10^6 /uL (3.70-4.87); Red Cell Distribution Width 17 % (10-15)
[2020-10-10 20:06] LABS: Urine Appearance Clear; Urine Bilirubin Negative (Negative); Urine Blood Negative (Negative); Urine Color Colorless; Urine Glucose Negative (Negative); Urine Ketones Negative (Negative); Urine Nitrite Negative (Negative); Urine Protein Negative (Negative); Urine Specific Gravity 1.005 (1.002-1.030); Urine Urobilinogen Negative (Negative)
[2020-10-10 20:18] LABS: ALT 4 U/L (7-52); AST 10 U/L (13-39); Albumin 3.6 g/dL (3.2-5.2); Albumin/Globulin Ratio 1.3 (1-3); Alkaline Phosphatase 49 U/L (35-149); Anion Gap 5 mmol/L (2-11); Blood Urea Nitrogen 17 mg/dL (6-24); CO2 Carbon Dioxide 31 mmol/L (22-32); Calcium 9.3 mg/dL (8.6-10.3); Chloride 105 mmol/L (101-111); EGFR African American 80.4 (>60); EGFR Non-African American 66.5 (>60); Globulin 2.8 g/dL (2-4); Glucose 117 mg/dL (70-100); Magnesium 1.7 mg/dL (1.9-2.7); Sodium 141 mmol/L (135-145); Total Protein 6.4 g/dL (6.4-8.9)
[2020-10-10 20:22] LABS: Troponin I 0.03 ng/mL (<0.03)
[2020-10-10 20:36] LABS: Alcohol, S < 10 mg/dL (<10)
[2020-10-10 20:49] LABS: TSH Ultra Thyroid Stim Horm 0.26 mcIU/mL (0.34-5.60)
[2020-10-10] MEDS ORDERED: Magnesium Sulfate IV 3 GM in NS 0.9% 100 ml BAG 100 ML IVPB ONE (22:23)
[2020-10-10] MEDS ORDERED: Dextrose 50% Syringe 50 ml 25 GM/50 ML SYRINGE IV PUSH PRN (22:53)
[2020-10-10 23:00] LABS: T4, Total 9.84 mcg/dL (6.09-12.23)
[2020-10-10] MEDS ORDERED: Enoxaparin 40 MG/0.4 ML SYR SUBCUT SCH (23:00)
[2020-10-10] MEDS ORDERED: Magnesium Sulfate IV 0.5 GM/ML 2 ml VIAL (1 gm) ONE (23:01)
[2020-10-10 23:05] LABS: Free T4 1.07 ng/dL (0.61-1.12)
[2020-10-10 23:09] LABS: Total T3 86 ng/dL (87-178)
[2020-10-10 23:54] LABS: Troponin I 0.03 ng/mL (<0.03)
[2020-10-11] MEDS: oxyCODONE/Acetamin 5/325 mg TAB PO PRN ×3 (04:05→13:40)
[2020-10-11] MEDS ORDERED: Perflutren Lipid Microsphere 3 ML VIAL ONE (12:50)
[2020-10-11] MEDS ORDERED: LORazepam 2 mg VIAL 1 ml ONE (15:11)
[2020-10-11] MEDS ORDERED: LORazepam 2 mg VIAL 1 ml IV PUSH PRN (15:31)
[2020-10-11] MEDS ORDERED: Lorazepam PYXIS KEY PRN (15:32)
[2020-10-12 04:03] LABS: Hematocrit 33 % (35-47); Hemoglobin 11.2 g/dL (12.0-16.0); Mean Corpuscular HGB Conc 34 g/dL (31-36); Mean Corpuscular Hemoglobin 29 pg (27-31); Mean Corpuscular Volume 87 fL (80-97); Mean Platelet Volume 9.2 fL (7.4-10.4); Platelet Count 152 10^3/uL (150-450); Red Blood Count 3.81 10^6 /uL (3.70-4.87); Red Cell Distribution Width 17 % (10-15); White Blood Count 5.5 10^3/uL (3.5-10.8)
[2020-10-12 04:22] LABS: Calcium 8.9 mg/dL (8.6-10.3); EGFR African American 78.3 (>60); EGFR Non-African American 64.7 (>60); Magnesium 2.1 mg/dL (1.9-2.7); Phosphorus 4.1 mg/dL (2.5-5.0); Potassium 3.8 mmol/L (3.5-5.0)
[2020-10-13 12:26] VITALS: BP 124/55
== END 2020-10-13 13:30 | disposition home or self-care (01) | DRG 309 ==
LOC: ED 18:46 → MEDTELE 22:47
PROVIDERS: ADMIT Hospitalist; ATTEND Internal Medicine

== ENCOUNTER 2021-01-19 07:55 | Inpatient (IN) ==
[2021-01-19] MEDS ORDERED: HYDROcodone/ACETAMIN 5/325 mg TAB PO ONE (11:19)
[2021-01-19] MEDS ORDERED: NS 0.9% 1000 ml BAG 1,000 ML IV ONE (12:04)
[2021-01-19 13:21] LABS: ABS Lymphocytes 1.5 10^3/ul (1.0-4.8); ABS Monocytes 0.7 10^3/ul (0-0.8); ABS Neutrophils 3.6 10^3/ul (1.5-7.7); Eosinophil % 0.1 %; Hematocrit 37 % (35-47); Lymphocyte % 25.4 %; Mean Corpuscular HGB Conc 33 g/dL (31-36); Mean Corpuscular Hemoglobin 29 pg (27-31); Mean Corpuscular Volume 89 fL (80-97); Mean Platelet Volume 8.6 fL (7.4-10.4); Platelet Count 142 10^3/uL (150-450); Red Blood Count 4.15 10^6 /uL (3.70-4.87); Red Cell Distribution Width 17 % (10-15); White Blood Count 5.7 10^3/uL (3.5-10.8)
[2021-01-19] MEDS ORDERED: Metoprolol Tartrate 5 mg VIAL 5 ml VIAL (1 mg/ml) IV PRN (13:33)
[2021-01-19 13:41] LABS: ALT 183 U/L (7-52); AST 256 U/L (13-39); Albumin 3.8 g/dL (3.2-5.2); Albumin/Globulin Ratio 1.3 (1-3); Alkaline Phosphatase 104 U/L (35-149); Anion Gap 6 mmol/L (2-11); Blood Urea Nitrogen 25 mg/dL (6-24); CO2 Carbon Dioxide 24 mmol/L (22-32); Calcium 9.4 mg/dL (8.6-10.3); Chloride 103 mmol/L (101-111); Creatine Kinase 74 U/L (10-223); EGFR African American 79.3 (>60); EGFR Non-African American 65.6 (>60); Glucose 117 mg/dL (70-100); Potassium 4.7 mmol/L (3.5-5.0); Sodium 133 mmol/L (135-145); Total Protein 6.8 g/dL (6.4-8.9)
[2021-01-19 14:04] LABS: Troponin I 0.03 ng/mL (<0.03)
[2021-01-19 14:12] LABS: Rapid COVID-19 Molecular Undetected (Undetected)
[2021-01-19 15:27] LABS: Vitamin B12 > 1450 pg/mL (180-914)
[2021-01-19] MEDS ORDERED: Senna TAB 8.6 mg TAB PO ONE (17:23)
[2021-01-19] MEDS: Potassium Chlor 10 meq TAB PO SCH (18:03)
[2021-01-19 18:08] LABS: Influenza A Molecular Negative (Negative); Influenza B Molecular Negative (Negative)
[2021-01-19 18:38] LABS: Urine Appearance Clear; Urine Bilirubin Negative (Negative); Urine Blood Negative (Negative); Urine Color Yellow; Urine Glucose Negative (Negative); Urine Ketones Trace (Negative); Urine Nitrite Negative (Negative); Urine Protein Negative (Negative); Urine Specific Gravity 1.017 (1.002-1.030); Urine Urobilinogen Negative (Negative)
[2021-01-19 18:53] LABS: C Reactive Protein 57.69 mg/L (<8.01)
[2021-01-20] MEDS: Potassium Chlor 10 meq TAB PO SCH (11:27)
[2021-01-20 17:22] LABS: ABS Monocytes 0.9 10^3/ul (0-0.8); Eosinophil % 0.1 %; Hematocrit 36 % (35-47); Hemoglobin 11.8 g/dL (12.0-16.0); Lymphocyte % 29.4 %; Mean Corpuscular HGB Conc 33 g/dL (31-36); Mean Corpuscular Hemoglobin 29 pg (27-31); Mean Corpuscular Volume 88 fL (80-97); Mean Platelet Volume 8.9 fL (7.4-10.4); Platelet Count 150 10^3/uL (150-450); Red Blood Count 4.06 10^6 /uL (3.70-4.87); Red Cell Distribution Width 17 % (10-15); White Blood Count 6.9 10^3/uL (3.5-10.8)
[2021-01-20 17:38] LABS: Albumin 3.5 g/dL (3.2-5.2); Albumin/Globulin Ratio 1.2 (1-3); Calcium 9.7 mg/dL (8.6-10.3); EGFR Non-African American 85.1 (>60); Globulin 2.9 g/dL (2-4); Magnesium 1.9 mg/dL (1.9-2.7); Potassium 4.5 mmol/L (3.5-5.0); Total Bilirubin 0.5 mg/dL (0.2-1.0); Total Protein 6.4 g/dL (6.4-8.9)
[2021-01-20 18:07] LABS: Hepatitis B Surface Antigen Nonreactive (Nonreactive)
[2021-01-20 18:12] LABS: Hepatitis A Ab IgM Negative (Negative)
[2021-01-20 18:13] LABS: Hepatitis B Core IgM Nonreactive (Nonreactive)
[2021-01-20 18:24] LABS: Hepatitis C Antibody Negative (Negative)
[2021-01-21] MEDS: Potassium Chlor 10 meq TAB PO SCH (08:51)
[2021-01-21 17:07] LABS: Adenovirus Undetected (Undetected); Bordetella parapertussis Undetected (Undetected); Bordetella pertussis Undetected (Undetected); Chlamydophila pneumoniae Undetected (Undetected); Coronavirus 229E Undetected (Undetected); Coronavirus HKU1 Undetected (Undetected); Coronavirus NL63 Undetected (Undetected); Coronavirus OC43 Undetected (Undetected); Human Metapneumovirus Undetected (Undetected); Human Rhinovirus/Enterovirus Undetected (Undetected); Influenza A Undetected (Undetected); Influenza B Undetected (Undetected); Mycoplasmoides pneumoniae Undetected (Undetected); Parainfluenza Virus 1 Undetected (Undetected); Parainfluenza Virus 2 Undetected (Undetected); Parainfluenza Virus 3 Undetected (Undetected); Parainfluenza Virus 4 Undetected (Undetected); Respiratory Syncytial Virus Undetected (Undetected); Specimen Source NASOPHARYNGEAL SWAB
[2021-01-21] MEDS ORDERED: Acetaminophen IV 1 GM/100ML 100 ML IV ONE (19:30)
[2021-01-22 06:20] LABS: Hematocrit 36 % (35-47); Hemoglobin 12.2 g/dL (12.0-16.0); Mean Corpuscular HGB Conc 34 g/dL (31-36); Mean Corpuscular Hemoglobin 30 pg (27-31); Mean Corpuscular Volume 88 fL (80-97); Mean Platelet Volume 8.7 fL (7.4-10.4); Platelet Count 177 10^3/uL (150-450); Red Blood Count 4.14 10^6 /uL (3.70-4.87); Red Cell Distribution Width 17 % (10-15)
[2021-01-22 06:37] LABS: Potassium 4.5 mmol/L (3.5-5.0)
[2021-01-22 06:38] LABS: Calcium 9.6 mg/dL (8.6-10.3); EGFR African American 81.6 (>60); EGFR Non-African American 67.4 (>60); Magnesium 1.9 mg/dL (1.9-2.7)
[2021-01-22] MEDS: Potassium Chlor 10 meq TAB PO SCH (08:43)
[2021-01-22] MEDS: Lidocaine PATCH 5% PATCH TRANSDERM SCH (11:42)
[2021-01-22] MEDS ORDERED: Acetaminophen IV 1 GM/100ML 100 ML IV ONE (21:15)
[2021-01-22] MEDS: Polyethylene Glycol 3350 17 GM PACKET PO SCH (21:58)
[2021-01-22] MEDS: Lidocaine Patch REMOVE PATCH PATCH OFF SCH (22:02)
[2021-01-23] MEDS: Lidocaine PATCH 5% PATCH TRANSDERM SCH (10:13)
[2021-01-23] MEDS: Polyethylene Glycol 3350 17 GM PACKET PO SCH (10:13)
[2021-01-23] MEDS: Potassium Chlor 10 meq TAB PO SCH (10:13)
[2021-01-24] MEDS: Lidocaine Patch REMOVE PATCH PATCH OFF SCH (00:37)
[2021-01-24] MEDS: Polyethylene Glycol 3350 17 GM PACKET PO SCH (09:14)
[2021-01-24] MEDS: Potassium Chlor 10 meq TAB PO SCH (09:14)
[2021-01-24] MEDS: Lidocaine PATCH 5% PATCH TRANSDERM SCH (09:15)
[2021-01-24 12:10] VITALS: BP 125/63
== END 2021-01-24 12:45 | DRG 563 ==
LOC: MEDTELE 07:55 → ED 07:55 → SUATTDRO 13:05 → MEDTELE 17:15
PROVIDERS: ADMIT Internal Medicine; ATTEND Internal Medicine

== ENCOUNTER 2022-02-24 20:08 | Observation (INO) ==
[2022-02-24] MEDS ORDERED: Furosemide 40 mg/4 ml IV VIAL IV SLOW PU ONE (20:40)
[2022-02-24 21:08] LABS: ABS Eosinophils 0.2 10^3/ul (0-0.6); ABS Lymphocytes 1.9 10^3/ul (1.0-4.8); ABS Monocytes 0.4 10^3/ul (0-0.8); ABS Neutrophils 1.7 10^3/ul (1.5-7.7); Eosinophil % 4.1 %; Hematocrit 36 % (35-47); Hemoglobin 11.4 g/dL (12.0-16.0); Lymphocyte % 45.8 %; Mean Corpuscular HGB Conc 32 g/dL (31-36); Mean Corpuscular Hemoglobin 28 pg (27-31); Mean Corpuscular Volume 89 fL (80-97); Mean Platelet Volume 9.3 fL (7.4-10.4); Nucleated Red Blood Cells % 0.1; Platelet Count 128 10^3/uL (150-450); Red Blood Count 4.04 10^6 /uL (3.70-4.87); Red Cell Distribution Width 17 % (10-15); White Blood Count 4.2 10^3/uL (3.5-10.8)
[2022-02-24 21:59] LABS: Albumin 3.6 g/dL (3.2-5.2); Albumin/Globulin Ratio 1.4 (1-3); Calcium 9.2 mg/dL (8.6-10.3); Globulin 2.6 g/dL (2-4); Potassium 4.1 mmol/L (3.5-5.0); Total Bilirubin 0.4 mg/dL (0.2-1.0); Total Protein 6.2 g/dL (6.4-8.9)
[2022-02-24 22:14] LABS: TSH Ultra Thyroid Stim Horm 7.49 mcIU/mL (0.34-5.60)
[2022-02-24 22:39] LABS: High Sensitivity Troponin 1 Hr 6 pg/mL (<15)
[2022-02-25] MEDS ORDERED: Ondansetron 4 mg VIAL 2 MG/ML 2 ml VIAL IV PRN (01:04)
[2022-02-25 01:43] LABS: Magnesium 1.8 mg/dL (1.9-2.7)
[2022-02-25] MEDS ORDERED: Magnesium Sulfate 2 gm BAG 2 GM/50 ML BAG IVPB ONE (01:59)
[2022-02-25] MEDS ORDERED: Ondansetron 4 mg VIAL 2 MG/ML 2 ml VIAL IV ONE (06:53)
[2022-02-25] MEDS ORDERED: oxyCODONE/Acetamin 5/325 mg TAB PO PRN (08:00)
[2022-02-25] MEDS: Potassium Chlor 10 meq TAB PO SCH (09:05)
[2022-02-25] MEDS ORDERED: Furosemide 40 mg/4 ml IV VIAL IV ONE (13:05)
[2022-02-25] MEDS ORDERED: Perflutren Lipid Microsphere 3 ML VIAL ONE (15:37)
[2022-02-26 06:01] LABS: ABS Eosinophils 0.1 10^3/ul (0-0.6); ABS Lymphocytes 1.5 10^3/ul (1.0-4.8); ABS Monocytes 0.5 10^3/ul (0-0.8); ABS Neutrophils 3.2 10^3/ul (1.5-7.7); Eosinophil % 2.3 %; Hematocrit 37 % (35-47); Hemoglobin 12.1 g/dL (12.0-16.0); Lymphocyte % 27.8 %; Mean Corpuscular HGB Conc 33 g/dL (31-36); Mean Corpuscular Hemoglobin 29 pg (27-31); Mean Corpuscular Volume 87 fL (80-97); Mean Platelet Volume 9.4 fL (7.4-10.4); Platelet Count 131 10^3/uL (150-450); Red Blood Count 4.24 10^6 /uL (3.70-4.87); Red Cell Distribution Width 16 % (10-15); White Blood Count 5.3 10^3/uL (3.5-10.8)
[2022-02-26 06:19] LABS: Calcium 9.5 mg/dL (8.6-10.3); Magnesium 1.9 mg/dL (1.9-2.7); Potassium 3.8 mmol/L (3.5-5.0); eGFR CKD-EPI 71.2 (>60)
[2022-02-26] MEDS: Potassium Chlor 10 meq TAB PO SCH (09:23)
[2022-02-26 12:13] VITALS: BP 106/55
== END 2022-02-26 13:20 | disposition home or self-care (01) ==
LOC: ED 20:08 → EDHOLD 20:08 → SUATTDRO 02-25 01:04 → EDHOLD 02-25 13:24 → MEDTELE 02-25 14:02
PROVIDERS: ADMIT Internal Medicine; ATTEND Hospitalist

== ENCOUNTER 2022-03-13 22:57 | Inpatient (IN) ==
[2022-03-13 23:56] LABS: ABS Eosinophils 0.1 10^3/ul (0-0.6); ABS Lymphocytes 1.5 10^3/ul (1.0-4.8); ABS Monocytes 0.6 10^3/ul (0-0.8); ABS Neutrophils 2.7 10^3/ul (1.5-7.7); Eosinophil % 2.8 %; Hematocrit 36 % (35-47); Hemoglobin 11.2 g/dL (12.0-16.0); Lymphocyte % 30.9 %; Mean Corpuscular HGB Conc 31 g/dL (31-36); Mean Corpuscular Hemoglobin 28 pg (27-31); Mean Corpuscular Volume 89 fL (80-97); Mean Platelet Volume 10.1 fL (7.4-10.4); Platelet Count 121 10^3/uL (150-450); Red Blood Count 3.99 10^6 /uL (3.70-4.87); Red Cell Distribution Width 16 % (10-15); White Blood Count 4.9 10^3/uL (3.5-10.8)
[2022-03-14 00:31] LABS: Albumin 3.8 g/dL (3.2-5.2); Albumin/Globulin Ratio 1.4 (1-3); C Reactive Protein 6.05 mg/L (<8.01); Calcium 9.9 mg/dL (8.6-10.3); Globulin 2.8 g/dL (2-4); Potassium 4.6 mmol/L (3.5-5.0); Total Bilirubin 0.3 mg/dL (0.2-1.0); Total Protein 6.6 g/dL (6.4-8.9); eGFR CKD-EPI 29.3 (>60)
[2022-03-14 00:45] LABS: TSH Ultra Thyroid Stim Horm 10.73 mcIU/mL (0.34-5.60)
[2022-03-14 00:48] LABS: Free T4 0.67 ng/dL (0.61-1.12)
[2022-03-14] MEDS ORDERED: Lactated Ringers 1000 ml BAG 1,000 ML IV ONE ×2 (00:50→02:10)
[2022-03-14 01:04] LABS: High Sensitivity Troponin 1 Hr 7 pg/mL (<15)
[2022-03-14 01:18] LABS: PCO2 Arterial 58 mmHg (35-45); PO2 Arterial 124 mmHg (80-100)
[2022-03-14 01:21] LABS: INR 1.04 (0.89-1.11)
[2022-03-14 01:55] LABS: Urine Appearance Cloudy; Urine Bilirubin Negative (Negative); Urine Blood Negative (Negative); Urine Color Yellow; Urine Glucose Negative (Negative); Urine Ketones Negative (Negative); Urine Nitrite Negative (Negative); Urine Protein Negative (Negative); Urine Specific Gravity 1.017 (1.002-1.030); Urine Urobilinogen Negative (Negative)
[2022-03-14 02:01] LABS: Urine Bacteria 2+ (Absent); Urine Red Blood Cell 1+(3-5/hpf) (Absent); Urine Squamous Epithelial Cell Present (Absent); Urine White Blood Cell 3+(>20/hpf) (Absent)
[2022-03-14] MEDS ORDERED: cefTRIAXone 2 gm/50 mL D5W 2 GM/50 ML BAG IV ONE (02:12)
[2022-03-14] MEDS ORDERED: cefTRIAXone 2 GM ADDV.VIAL 2 GM in NS 0.9% 100 ml BAG 100 ML IV ONE (02:30)
[2022-03-14 06:40] LABS: ABS Eosinophils 0.1 10^3/ul (0-0.6); ABS Lymphocytes 1.8 10^3/ul (1.0-4.8); ABS Monocytes 0.4 10^3/ul (0-0.8); ABS Neutrophils 1.8 10^3/ul (1.5-7.7); Eosinophil % 3.2 %; Hematocrit 35 % (35-47); Hemoglobin 11.5 g/dL (12.0-16.0); Lymphocyte % 42.6 %; Mean Corpuscular HGB Conc 33 g/dL (31-36); Mean Corpuscular Hemoglobin 29 pg (27-31); Mean Corpuscular Volume 90 fL (80-97); Mean Platelet Volume 10.4 fL (7.4-10.4); Nucleated Red Blood Cells % 0.1; Platelet Count 109 10^3/uL (150-450); Red Blood Count 3.95 10^6 /uL (3.70-4.87); Red Cell Distribution Width 16 % (10-15); White Blood Count 4.2 10^3/uL (3.5-10.8)
[2022-03-14 06:56] LABS: Calcium 9.8 mg/dL (8.6-10.3); eGFR CKD-EPI 39.4 (>60)
[2022-03-14 07:04] LABS: Potassium 5.2 mmol/L (3.5-5.0)
[2022-03-14] MEDS ORDERED: NS 0.9% 1000 ml BAG 1,000 ML IV SCH (10:00)
[2022-03-15] MEDS: cefTRIAXone 1 gm/50 mL D5W 1 GM/50 ML BAG IV SCH (05:12)
[2022-03-15 08:18] LABS: ABS Lymphocytes 1.1 10^3/ul (1.0-4.8); ABS Monocytes 0.3 10^3/ul (0-0.8); ABS Neutrophils 3.4 10^3/ul (1.5-7.7); Eosinophil % 0.5 %; Hematocrit 36 % (35-47); Hemoglobin 11.6 g/dL (12.0-16.0); Lymphocyte % 22.3 %; Mean Corpuscular HGB Conc 33 g/dL (31-36); Mean Corpuscular Hemoglobin 29 pg (27-31); Mean Corpuscular Volume 88 fL (80-97); Mean Platelet Volume 10.2 fL (7.4-10.4); Nucleated Red Blood Cells % 0.3; Platelet Count 114 10^3/uL (150-450); Red Blood Count 4.05 10^6 /uL (3.70-4.87); Red Cell Distribution Width 15 % (10-15)
[2022-03-15 08:38] LABS: Calcium 9.8 mg/dL (8.6-10.3)
[2022-03-16] MEDS ORDERED: guaiFENesin 100 mg/5 ml LIQ unit dose cup PO PRN (02:47)
[2022-03-16] MEDS: cefTRIAXone 1 gm/50 mL D5W 1 GM/50 ML BAG IV SCH (04:26)
[2022-03-16 08:37] LABS: ABS Lymphocytes 1.2 10^3/ul (1.0-4.8); ABS Monocytes 0.6 10^3/ul (0-0.8); ABS Neutrophils 4.9 10^3/ul (1.5-7.7); Eosinophil % 0.1 %; Hematocrit 34 % (35-47); Hemoglobin 10.9 g/dL (12.0-16.0); Lymphocyte % 18.1 %; Mean Corpuscular HGB Conc 33 g/dL (31-36); Mean Corpuscular Hemoglobin 29 pg (27-31); Mean Corpuscular Volume 89 fL (80-97); Mean Platelet Volume 9.9 fL (7.4-10.4); Platelet Count 120 10^3/uL (150-450); Red Cell Distribution Width 16 % (10-15); White Blood Count 6.8 10^3/uL (3.5-10.8)
[2022-03-16 08:51] LABS: Calcium 9.9 mg/dL (8.6-10.3); Magnesium 1.7 mg/dL (1.9-2.7); Potassium 4.7 mmol/L (3.5-5.0); eGFR CKD-EPI 67.3 (>60)
[2022-03-16] MEDS ORDERED: Magnesium Sulfate IV 3 GM in NS 0.9% 100 ml BAG 100 ML IVPB ONE (09:14)
[2022-03-17] MEDS: cefTRIAXone 1 gm/50 mL D5W 1 GM/50 ML BAG IV SCH (03:19)
[2022-03-18 01:06] LABS: Free Valproic Acid 12 mcg/mL (5 - 25); Total Valproic Acid 72 mcg/mL (50 - 125)
[2022-03-18] MEDS: cefTRIAXone 1 gm/50 mL D5W 1 GM/50 ML BAG IV SCH (04:21)
[2022-03-18 09:09] LABS: Rapid COVID-19 Molecular Undetected (Undetected)
[2022-03-18 13:34] VITALS: BP 148/65
== END 2022-03-18 14:10 | DRG 871 ==
LOC: ED 22:57 → SUATTDRO 03-14 03:43 → EDHOLD 03-14 03:43 → MEDTELE 03-14 11:30
PROVIDERS: ADMIT Student in an Organized Health Care Education/Training Program; ATTEND Internal Medicine

== ENCOUNTER 2022-04-08 07:12 | Inpatient (IN) ==
[2022-04-08] MEDS ORDERED: fentaNYL 100 mcg/2 ml 50 MCG/ML VIAL IV SLOW PU ONE ×2 (10:01→10:55)
[2022-04-08] MEDS ORDERED: Lactated Ringers 1000 ml BAG 1,000 ML IV ONE (10:02)
[2022-04-08 10:53] LABS: ABS Eosinophils 0.1 10^3/ul (0-0.6); ABS Lymphocytes 1.9 10^3/ul (1.0-4.8); ABS Monocytes 0.6 10^3/ul (0-0.8); ABS Neutrophils 3.9 10^3/ul (1.5-7.7); Eosinophil % 1.6 %; Hematocrit 32 % (35-47); Hemoglobin 10.4 g/dL (12.0-16.0); Mean Corpuscular HGB Conc 32 g/dL (31-36); Mean Corpuscular Hemoglobin 29 pg (27-31); Mean Corpuscular Volume 90 fL (80-97); Mean Platelet Volume 10.7 fL (7.4-10.4); Platelet Count 117 10^3/uL (150-450); Red Blood Count 3.59 10^6 /uL (3.70-4.87); Red Cell Distribution Width 16 % (10-15); White Blood Count 6.5 10^3/uL (3.5-10.8)
[2022-04-08 11:40] LABS: Albumin 3.7 g/dL (3.2-5.2); Albumin/Globulin Ratio 1.5 (1-3); Calcium 9.2 mg/dL (8.6-10.3); Globulin 2.5 g/dL (2-4); Potassium 4.9 mmol/L (3.5-5.0); Total Bilirubin 0.5 mg/dL (0.2-1.0); Total Protein 6.2 g/dL (6.4-8.9); eGFR CKD-EPI 24.4 (>60)
[2022-04-08] MEDS ORDERED: NS 0.9% 500 ml BAG 500 ML IV ONE (13:11)
[2022-04-08] MEDS ORDERED: Polyethylene Glycol 3350 17 GM PACKET PO PRN (15:20)
[2022-04-08] MEDS ORDERED: Ondansetron ODT 4 mg TAB 4 MG TAB SL PRN (15:20)
[2022-04-08] MEDS ORDERED: Senna TAB 8.6 mg TAB PO PRN (15:20)
[2022-04-08] MEDS ORDERED: oxyCODONE/Acetamin 10/325(NF) TAB PO PRN (15:25)
[2022-04-10 07:06] LABS: Hematocrit 27 % (35-47); Hemoglobin 8.6 g/dL (12.0-16.0); Mean Corpuscular HGB Conc 32 g/dL (31-36); Mean Corpuscular Hemoglobin 29 pg (27-31); Mean Corpuscular Volume 90 fL (80-97); Mean Platelet Volume 10.1 fL (7.4-10.4); Platelet Count 102 10^3/uL (150-450); Red Blood Count 2.98 10^6 /uL (3.70-4.87); Red Cell Distribution Width 16 % (10-15); White Blood Count 4.4 10^3/uL (3.5-10.8)
[2022-04-10 07:31] LABS: Calcium 9.1 mg/dL (8.6-10.3); Potassium 4.8 mmol/L (3.5-5.0); eGFR CKD-EPI 58.3 (>60)
[2022-04-10 09:26] LABS: ABS Lymphocytes 1.7 10^3/ul (1.0-4.8); ABS Monocytes 0.7 10^3/ul (0-0.8); ABS Neutrophils 1.8 10^3/ul (1.5-7.7); Eosinophil % 0.6 %; Lymphocyte % 39.8 %
[2022-04-10 14:22] LABS: PCO2 Arterial 51 mmHg (35-45); PO2 Arterial 140 mmHg (80-100)
[2022-04-10 14:24] LABS: Venous Bicarbonate HCO3 30.7 mmol/L (24-28)
[2022-04-10 21:15] LABS: Hematocrit 27 % (35-47); Hemoglobin 8.9 g/dL (12.0-16.0); Mean Corpuscular HGB Conc 33 g/dL (31-36); Mean Corpuscular Hemoglobin 29 pg (27-31); Mean Corpuscular Volume 89 fL (80-97); Mean Platelet Volume 9.8 fL (7.4-10.4); Platelet Count 116 10^3/uL (150-450); Red Blood Count 3.03 10^6 /uL (3.70-4.87); Red Cell Distribution Width 16 % (10-15)
[2022-04-10 21:19] LABS: ABS Lymphocytes 1.7 10^3/ul (1.0-4.8); ABS Monocytes 0.8 10^3/ul (0-0.8); ABS Neutrophils 2.5 10^3/ul (1.5-7.7); Eosinophil % 0.8 %; Lymphocyte % 33.3 %; Nucleated Red Blood Cells % 0.1
[2022-04-11 06:54] LABS: Hematocrit 27 % (35-47); Mean Corpuscular HGB Conc 34 g/dL (31-36); Mean Corpuscular Hemoglobin 30 pg (27-31); Mean Corpuscular Volume 89 fL (80-97); Mean Platelet Volume 9.3 fL (7.4-10.4); Platelet Count 117 10^3/uL (150-450); Red Cell Distribution Width 16 % (10-15); White Blood Count 5.2 10^3/uL (3.5-10.8)
[2022-04-11 07:12] LABS: Calcium 9.2 mg/dL (8.6-10.3); eGFR CKD-EPI 68.3 (>60)
[2022-04-11 07:22] LABS: Potassium 5.2 mmol/L (3.5-5.0)
[2022-04-11] MEDS ORDERED: Ferric Gluconate IV 250 MG in NS 0.9% 250 ml 200 ML IVPB ONE (09:00)
[2022-04-11] MEDS ORDERED: Lidocaine 2% PF 5 ML VIAL ONE (09:44)
[2022-04-11] MEDS ORDERED: Dexmedetomidine 200 mcg/2 ml 2 ml VIAL (200 mcg) ONE (09:44)
[2022-04-11 10:22] LABS: RBC Morphology Normal (Normal)
[2022-04-11 10:23] LABS: ABS Monocytes 0.9 10^3/ul (0-0.8); ABS Neutrophils 2.2 10^3/ul (1.5-7.7); Eosinophil % 0.7 %; Lymphocyte % 38.1 %
[2022-04-11] MEDS ORDERED: Clindamycin 900 MG/D5W BAG 900 MG/50 ML BAG IVPB ONE ×2 (11:05→17:44)
[2022-04-11] MEDS ORDERED: Propofol 10 MG/ML 20 ML BTL ONE (12:21)
[2022-04-11] MEDS ORDERED: Clindamycin 900 MG/50 **NS BAG 900 MG/50 ML BAG IV SCH ×2 (17:00→19:00)
[2022-04-11] MEDS: Clindamycin 900 MG/50 **NS BAG 900 MG/50 ML BAG IV SCH (20:29)
[2022-04-12] MEDS: Clindamycin 900 MG/50 **NS BAG 900 MG/50 ML BAG IV SCH ×2 (04:18→12:10)
[2022-04-12 05:32] LABS: Hematocrit 26 % (35-47); Hemoglobin 8.4 g/dL (12.0-16.0); Mean Corpuscular HGB Conc 33 g/dL (31-36); Mean Corpuscular Hemoglobin 29 pg (27-31); Mean Corpuscular Volume 89 fL (80-97); Platelet Count 145 10^3/uL (150-450); Red Blood Count 2.92 10^6 /uL (3.70-4.87); Red Cell Distribution Width 16 % (10-15); White Blood Count 6.3 10^3/uL (3.5-10.8)
[2022-04-12 06:19] LABS: Calcium 8.6 mg/dL (8.6-10.3); eGFR CKD-EPI 69.2 (>60)
[2022-04-14 08:37] VITALS: BP 102/61
[2022-04-14 11:40] LABS: Rapid COVID-19 Molecular Undetected (Undetected)
== END 2022-04-14 14:10 | DRG 493 ==
LOC: ED 07:12 → EDHOLD 12:14 → SUATTDRO 12:14 → SSU 14:53
PROVIDERS: ADMIT Hospitalist; ATTEND Internal Medicine

== ENCOUNTER 2022-06-08 18:46 | Inpatient (IN) ==
[2022-06-08 19:58] LABS: ABS Basophils 0.1 10^3/ul (0-0.2); ABS Eosinophils 0.1 10^3/ul (0-0.6); ABS Lymphocytes 1.2 10^3/ul (1.0-4.8); ABS Monocytes 0.5 10^3/ul (0-0.8); ABS Neutrophils 4.6 10^3/ul (1.5-7.7); Hematocrit 32 % (35-47); Hemoglobin 10.2 g/dL (12.0-16.0); Lymphocyte % 18.9 %; Mean Corpuscular HGB Conc 32 g/dL (31-36); Mean Corpuscular Hemoglobin 27 pg (27-31); Mean Corpuscular Volume 85 fL (80-97); Mean Platelet Volume 8.4 fL (7.4-10.4); Nucleated Red Blood Cells % 0.1; Platelet Count 188 10^3/uL (150-450); Red Blood Count 3.79 10^6 /uL (3.70-4.87); Red Cell Distribution Width 17 % (10-15); White Blood Count 6.5 10^3/uL (3.5-10.8)
[2022-06-08 20:05] LABS: INR 1.24 (0.88-1.18)
[2022-06-08 20:25] LABS: Albumin 3.6 g/dL (3.2-5.2); Calcium 9.6 mg/dL (8.6-10.3); Magnesium 1.4 mg/dL (1.9-2.7); Potassium 4.3 mmol/L (3.5-5.0); Total Bilirubin 0.5 mg/dL (0.2-1.0)
[2022-06-08 20:31] LABS: Albumin/Globulin Ratio 1.2 (1-3); Creatinine, Serum 0.62 mg/dL (0.51-0.95); Total Protein 6.6 g/dL (6.4-8.9)
[2022-06-08] MEDS ORDERED: Morphine 4 MG/ML VIAL (1 ml) IM ONE (21:14)
[2022-06-08] MEDS ORDERED: Ondansetron 4 mg VIAL 2 MG/ML 2 ml VIAL IM ONE (21:14)
[2022-06-09] MEDS ORDERED: Magnesium Sulfate 2 gm BAG 2 GM/50 ML BAG IVPB ONE (02:03)
[2022-06-09 03:41] LABS: Urine Appearance Cloudy; Urine Bilirubin Negative (Negative); Urine Blood 1+ (Negative); Urine Color Amber; Urine Glucose Negative (Negative); Urine Ketones 1+ (Negative); Urine Nitrite Negative (Negative); Urine Protein 2+(100 mg/dL) (Negative); Urine Specific Gravity 1.033 (1.002-1.030); Urine Urobilinogen Negative (Negative)
[2022-06-09 03:50] LABS: Urine Bacteria Absent (Absent); Urine Red Blood Cell 2+(6-10/hpf) (Absent); Urine Squamous Epithelial Cell Present (Absent); Urine White Blood Cell Trace(0-5/hpf) (Absent)
[2022-06-09] MEDS ORDERED: Magnesium Sulfate IV 3 GM in NS 0.9% 100 ml BAG 100 ML IVPB ONE (09:00)
[2022-06-10 06:17] LABS: ABS Lymphocytes 2.1 10^3/ul (1.0-4.8); ABS Monocytes 0.8 10^3/ul (0-0.8); ABS Neutrophils 5.3 10^3/ul (1.5-7.7); Eosinophil % 0.5 %; Hematocrit 26 % (35-47); Hemoglobin 8.2 g/dL (12.0-16.0); Lymphocyte % 25.6 %; Mean Corpuscular HGB Conc 32 g/dL (31-36); Mean Corpuscular Hemoglobin 27 pg (27-31); Mean Corpuscular Volume 85 fL (80-97); Mean Platelet Volume 9.6 fL (7.4-10.4); Nucleated Red Blood Cells % 0.1; Platelet Count 196 10^3/uL (150-450); Red Blood Count 2.99 10^6 /uL (3.70-4.87); Red Cell Distribution Width 17 % (10-15); White Blood Count 8.4 10^3/uL (3.5-10.8)
[2022-06-10 06:29] LABS: Calcium 9.4 mg/dL (8.6-10.3); Creatinine, Serum 0.89 mg/dL (0.51-0.95); Potassium 4.3 mmol/L (3.5-5.0); eGFR CKD-EPI 65.5 (>60)
[2022-06-10] MEDS ORDERED: Clindamycin 900 MG/D5W BAG 900 MG/50 ML BAG IVPB ONE (13:42)
[2022-06-10] MEDS ORDERED: Propofol 10 MG/ML 20 ML BTL ONE (14:15)
[2022-06-10] MEDS ORDERED: fentaNYL 100 mcg/2 ml 50 MCG/ML VIAL ONE (14:15)
[2022-06-10] MEDS ORDERED: Lidocaine 2% PF 5 ML VIAL ONE (14:15)
[2022-06-10] MEDS ORDERED: Ondansetron 4 mg VIAL 2 MG/ML 2 ml VIAL ONE (15:24)
[2022-06-10] MEDS ORDERED: Dexamethasone IV 4 MG/ML VIAL 1 ml VIAL ONE (15:24)
[2022-06-10] MEDS ORDERED: Phenylephrine IV 10 MG/ML 1 ml VIAL ONE (15:24)
[2022-06-10] MEDS ORDERED: fentaNYL 100 mcg/2 ml 50 MCG/ML VIAL IV PRN (15:44)
[2022-06-10] MEDS ORDERED: Acetaminophen IV 1 GM/100ML 1,000 MG/100 ML BAG IV ONE (15:44)
[2022-06-10] MEDS ORDERED: Naloxone 0.4 mg VIAL 0.4 mg/ml 1 ml VIAL IV PRN (15:44)
[2022-06-10 18:57] LABS: Hematocrit 26 % (35-47); Hemoglobin 7.9 g/dL (12.0-16.0); Mean Corpuscular HGB Conc 31 g/dL (31-36); Mean Corpuscular Hemoglobin 27 pg (27-31); Mean Corpuscular Volume 86 fL (80-97); Mean Platelet Volume 9.8 fL (7.4-10.4); Platelet Count 228 10^3/uL (150-450); Red Blood Count 2.98 10^6 /uL (3.70-4.87); Red Cell Distribution Width 17 % (10-15); White Blood Count 14.9 10^3/uL (3.5-10.8)
[2022-06-10 19:32] LABS: ABS Basophils 0.1 10^3/ul (0-0.2); ABS Lymphocytes 1.8 10^3/ul (1.0-4.8); Eosinophil % 0.1 %
[2022-06-10] MEDS: Clindamycin 600 MG/D5W BAG IV SCH (23:00)
[2022-06-11 06:11] LABS: ABS Lymphocytes 1.9 10^3/ul (1.0-4.8); ABS Neutrophils 7.4 10^3/ul (1.5-7.7); Hematocrit 21 % (35-47); Hemoglobin 6.6 g/dL (12.0-16.0); Lymphocyte % 18.6 %; Mean Corpuscular HGB Conc 31 g/dL (31-36); Mean Corpuscular Hemoglobin 27 pg (27-31); Mean Corpuscular Volume 86 fL (80-97); Mean Platelet Volume 10.1 fL (7.4-10.4); Nucleated Red Blood Cells % 0.1; Platelet Count 241 10^3/uL (150-450); Red Blood Count 2.44 10^6 /uL (3.70-4.87); Red Cell Distribution Width 17 % (10-15); White Blood Count 10.3 10^3/uL (3.5-10.8)
[2022-06-11] MEDS: Clindamycin 600 MG/D5W BAG IV SCH ×2 (06:12→15:45)
[2022-06-11 06:25] LABS: Calcium 9.1 mg/dL (8.6-10.3); Creatinine, Serum 1.22 mg/dL (0.51-0.95); Magnesium 2.1 mg/dL (1.9-2.7); Potassium 4.9 mmol/L (3.5-5.0); eGFR CKD-EPI 44.9 (>60)
[2022-06-11] MEDS ORDERED: NS 0.9% 500 ml BAG 500 ML IV ONE ×2 (10:00→15:35)
[2022-06-11 15:04] LABS: Hematocrit 22 % (35-47); Hemoglobin 7.1 g/dL (12.0-16.0)
[2022-06-11 17:57] LABS: Urine Appearance Clear; Urine Bilirubin Negative (Negative); Urine Blood Negative (Negative); Urine Color Amber; Urine Glucose Negative (Negative); Urine Ketones Negative (Negative); Urine Nitrite Negative (Negative); Urine Protein Negative (Negative); Urine Specific Gravity 1.025 (1.002-1.030); Urine Urobilinogen Negative (Negative)
[2022-06-11] MEDS ORDERED: Enoxaparin 40 MG/0.4 ML SYR SUBCUT SCH (21:00)
[2022-06-12] MEDS ORDERED: Polyethylene Glycol 3350 17 GM PACKET PO PRN (00:07)
[2022-06-12 07:58] LABS: Hematocrit 18 % (35-47); Hemoglobin 5.9 g/dL (12.0-16.0); Mean Corpuscular HGB Conc 32 g/dL (31-36); Mean Corpuscular Hemoglobin 27 pg (27-31); Mean Corpuscular Volume 85 fL (80-97); Platelet Count 200 10^3/uL (150-450); Red Blood Count 2.15 10^6 /uL (3.70-4.87); Red Cell Distribution Width 16 % (10-15); White Blood Count 6.5 10^3/uL (3.5-10.8)
[2022-06-12 08:32] LABS: Calcium 8.6 mg/dL (8.6-10.3); Creatinine, Serum 0.96 mg/dL (0.51-0.95); Potassium 4.1 mmol/L (3.5-5.0); eGFR CKD-EPI 59.8 (>60)
[2022-06-12 08:40] LABS: ABS Lymphocytes 1.6 10^3/ul (1.0-4.8); ABS Monocytes 0.7 10^3/ul (0-0.8); ABS Neutrophils 4.1 10^3/ul (1.5-7.7); Eosinophil % 0.2 %; Lymphocyte % 24.6 %; Nucleated Red Blood Cells % 0.1
[2022-06-12] MEDS ORDERED: Furosemide 20 mg/2 ml IV VIAL IV ONE (08:44)
[2022-06-12 09:06] LABS: TSH Ultra Thyroid Stim Horm 10.93 mcIU/mL (0.34-5.60)
[2022-06-12] MEDS: Magnesium Hydroxide LIQ 30 ML UDC PO PRN (09:20)
[2022-06-12 17:32] LABS: Hematocrit 22 % (35-47); Hemoglobin 7.3 g/dL (12.0-16.0); Mean Corpuscular HGB Conc 33 g/dL (31-36); Mean Corpuscular Hemoglobin 28 pg (27-31); Mean Corpuscular Volume 85 fL (80-97); Mean Platelet Volume 8.9 fL (7.4-10.4); Platelet Count 202 10^3/uL (150-450); Red Blood Count 2.61 10^6 /uL (3.70-4.87); Red Cell Distribution Width 16 % (10-15); White Blood Count 7.3 10^3/uL (3.5-10.8)
[2022-06-13 11:11] LABS: Hematocrit 22 % (35-47); Hemoglobin 7.2 g/dL (12.0-16.0); Mean Corpuscular HGB Conc 32 g/dL (31-36); Mean Corpuscular Hemoglobin 27 pg (27-31); Mean Corpuscular Volume 85 fL (80-97); Mean Platelet Volume 8.8 fL (7.4-10.4); Platelet Count 216 10^3/uL (150-450); Red Blood Count 2.62 10^6 /uL (3.70-4.87); Red Cell Distribution Width 16 % (10-15); White Blood Count 6.5 10^3/uL (3.5-10.8)
[2022-06-13 11:44] LABS: Calcium 9.1 mg/dL (8.6-10.3); Creatinine, Serum 0.66 mg/dL (0.51-0.95); Magnesium 2.1 mg/dL (1.9-2.7); Potassium 4.5 mmol/L (3.5-5.0); eGFR CKD-EPI 88.6 (>60)
[2022-06-13 12:00] LABS: Anisocytosis 1+; Polychromasia 1+
[2022-06-13 12:01] LABS: ABS Eosinophils 0.1 10^3/ul (0-0.6); ABS Lymphocytes 1.5 10^3/ul (1.0-4.8); ABS Monocytes 0.7 10^3/ul (0-0.8); ABS Neutrophils 4.2 10^3/ul (1.5-7.7); Eosinophil % 1.4 %; Lymphocyte % 23.1 %; Nucleated Red Blood Cells % 0.2
[2022-06-13 15:11] LABS: Hematocrit 25 % (35-47); Hemoglobin 8.2 g/dL (12.0-16.0)
[2022-06-13] MEDS ORDERED: Furosemide 20 mg/2 ml IV VIAL IV SLOW PU ONE (15:13)
[2022-06-14] MEDS: Senna TAB 8.6 mg TAB PO PRN (06:40)
[2022-06-14 07:21] LABS: Hematocrit 22 % (35-47); Hemoglobin 6.9 g/dL (12.0-16.0); Mean Corpuscular HGB Conc 32 g/dL (31-36); Mean Corpuscular Hemoglobin 28 pg (27-31); Mean Corpuscular Volume 87 fL (80-97); Mean Platelet Volume 8.6 fL (7.4-10.4); Platelet Count 222 10^3/uL (150-450); Red Cell Distribution Width 16 % (10-15); White Blood Count 5.6 10^3/uL (3.5-10.8)
[2022-06-14 07:42] LABS: Calcium 9.1 mg/dL (8.6-10.3); Creatinine, Serum 0.78 mg/dL (0.51-0.95); Potassium 4.6 mmol/L (3.5-5.0); eGFR CKD-EPI 76.7 (>60)
[2022-06-14 08:26] LABS: Anisocytosis 1+; Polychromasia 1+; Tear Drop Cells 1+
[2022-06-14 08:27] LABS: ABS Eosinophils 0.1 10^3/ul (0-0.6); ABS Lymphocytes 1.6 10^3/ul (1.0-4.8); ABS Monocytes 0.6 10^3/ul (0-0.8); ABS Neutrophils 3.2 10^3/ul (1.5-7.7); Nucleated Red Blood Cells % 0.1
[2022-06-14] MEDS ORDERED: Furosemide 20 mg/2 ml IV VIAL IV ONE ×2 (09:36→11:18)
[2022-06-14 14:48] LABS: Hematocrit 29 % (35-47); Mean Corpuscular HGB Conc 32 g/dL (31-36); Mean Corpuscular Hemoglobin 27 pg (27-31); Mean Corpuscular Volume 87 fL (80-97); Mean Platelet Volume 8.6 fL (7.4-10.4); Platelet Count 223 10^3/uL (150-450); Red Cell Distribution Width 16 % (10-15); White Blood Count 6.9 10^3/uL (3.5-10.8)
[2022-06-15 06:09] LABS: Hematocrit 26 % (35-47); Hemoglobin 8.5 g/dL (12.0-16.0); Mean Corpuscular HGB Conc 32 g/dL (31-36); Mean Corpuscular Hemoglobin 28 pg (27-31); Mean Corpuscular Volume 87 fL (80-97); Mean Platelet Volume 8.5 fL (7.4-10.4); Platelet Count 215 10^3/uL (150-450); Red Blood Count 3.03 10^6 /uL (3.70-4.87); Red Cell Distribution Width 17 % (10-15); White Blood Count 5.3 10^3/uL (3.5-10.8)
[2022-06-15 06:27] LABS: Calcium 9.1 mg/dL (8.6-10.3); Creatinine, Serum 0.64 mg/dL (0.51-0.95); Magnesium 1.8 mg/dL (1.9-2.7); Potassium 4.7 mmol/L (3.5-5.0); eGFR CKD-EPI 89.3 (>60)
[2022-06-15 06:30] LABS: ABS Eosinophils 0.1 10^3/ul (0-0.6); ABS Lymphocytes 1.8 10^3/ul (1.0-4.8); ABS Monocytes 0.7 10^3/ul (0-0.8); ABS Neutrophils 2.7 10^3/ul (1.5-7.7); Lymphocyte % 33.9 %; Nucleated Red Blood Cells % 0.1
[2022-06-15] MEDS ORDERED: Magnesium Sulfate 2 gm BAG 2 GM/50 ML BAG IVPB ONE (07:11)
[2022-06-15] MEDS: Magnesium Hydroxide LIQ 30 ML UDC PO PRN ×2 (07:56→20:29)
[2022-06-15] MEDS ORDERED: NS 0.9% 500 ml BAG 500 ML IV ONE ×2 (09:19→13:16)
[2022-06-15] MEDS: Senna TAB 8.6 mg TAB PO PRN (20:29)
[2022-06-16 08:01] LABS: Hematocrit 26 % (35-47); Hemoglobin 8.6 g/dL (12.0-16.0); Mean Corpuscular HGB Conc 33 g/dL (31-36); Mean Corpuscular Hemoglobin 28 pg (27-31); Mean Corpuscular Volume 86 fL (80-97); Mean Platelet Volume 8.1 fL (7.4-10.4); Platelet Count 223 10^3/uL (150-450); Red Blood Count 3.02 10^6 /uL (3.70-4.87); Red Cell Distribution Width 16 % (10-15); White Blood Count 4.8 10^3/uL (3.5-10.8)
[2022-06-16 08:35] LABS: Calcium 9.1 mg/dL (8.6-10.3); Creatinine, Serum 0.61 mg/dL (0.51-0.95); Potassium 4.6 mmol/L (3.5-5.0); eGFR CKD-EPI 90.3 (>60)
[2022-06-16 08:57] LABS: ABS Eosinophils 0.1 10^3/ul (0-0.6); ABS Lymphocytes 1.5 10^3/ul (1.0-4.8); ABS Monocytes 0.5 10^3/ul (0-0.8); ABS Neutrophils 2.6 10^3/ul (1.5-7.7); Eosinophil % 1.9 %; Lymphocyte % 31.7 %; Nucleated Red Blood Cells % 0.2
[2022-06-16 10:24] LABS: Rapid COVID-19 Molecular Undetected (Undetected)
[2022-06-16 11:24] VITALS: BP 112/74
== END 2022-06-16 12:30 | DRG 481 ==
LOC: ED 18:46 → EDHOLD 20:42 → SUATTDRO 20:42 → EDHOLD 06-09 08:54 → SSU 06-09 09:16
PROVIDERS: ADMIT Hospitalist; ATTEND Internal Medicine